=== PATIENT | male | born 1955 | race Caucasian/White ===

== ENCOUNTER 2021-01-19 09:27 | Emergency (ER) | payer MEDICARE ==
--- NOTE | 2021-01-19 10:04 | ED ---
Lower Extremity Injury HPI - General Source: patient, RN notes reviewed Mode of arrival: ambulatory Limitations: no limitations <Jimmie Mcgee - Last Filed: 01/19/21 10:01> - General Source: patient, RN notes reviewed Limitations: no limitations <Jerel Solorio - Last Filed: 01/19/21 10:50> - General Stated Complaint: Rt Hip Pain Time Seen by Provider: 01/19/21 10:00 - History of Present Illness Initial Comments: this is a 65-year-old male presents emergency Department chief complaint of right hip pain. Patient states this started a few days ago. Patient states pain is progressively worsening. Patient states pain is unbearable. Patient denies any trauma. Patient states his chronic pain issues with this is different than anything he's felt before. Patient did see recent chiropractor. Patient states he has pain at rest and with movement. (Jimmie Mcgee) Patient is a pleasant 65-year-old male presenting to the emergency department with concerns for right lower back and leg pain. Onset of symptoms was for 5 days ago. Symptoms have progressively worsened. Patient did go to chiropractor however symptoms have worsened since then. Patient has had history of mild back pain in the past however nothing similar to this. No recent trauma. No fevers. Discomfort does increase significantly with movement. No leg swelling. No redness or fever (Jerel Solorio) - Related Data Home Medications Medication Instructions Recorded Confirmed Aspirin EC [Ecotrin Low Dose] 81 mg PO DAILY 01/19/21 01/19/21 Levothyroxine Sodium 200 mcg PO DAILY 01/19/21 01/19/21 Previous Rx's Medication Instructions Recorded Cyclobenzaprine [Flexeril] 10 mg PO TID PRN #12 tablet 01/19/21 methylPREDNISolone Dose Pack 24 mg PO DAILY #1 tab 01/19/21 [Medrol Dose Pack] Allergies Allergy/AdvReac Type Severity Reaction Status Date / Time cephalexin [From Keflex] Allergy Unknown Verified 01/19/21 10:39 Penicillins Allergy Unknown Verified 01/19/21 10:39 Review of Systems ROS Other: All systems not noted in ROS Statement are negative. <Jimmie Mcgee - Last Filed: 01/19/21 10:01> ROS Other: All systems not noted in ROS Statement are negative. Constitutional: Denies: fever Eyes: Denies: eye pain ENT: Denies: ear pain Respiratory: Denies: cough Cardiovascular: Denies: chest pain Endocrine: Denies: fatigue Gastrointestinal: Denies: abdominal pain Genitourinary: Denies: urgency Musculoskeletal: Reports: as per HPI Skin: Denies: rash Neurological: Denies: weakness <Jerel Solorio - Last Filed: 01/19/21 10:50> ROS Statement: Those systems with pertinent positive or pertinent negative responses have been documented in the HPI. General Exam Limitations: no limitations General appearance: alert, in no apparent distress Head exam: Present: normocephalic Eye exam: Present: normal appearance Neck exam: Present: normal inspection Respiratory exam: Present: normal lung sounds bilaterally Cardiovascular Exam: Present: regular rate, normal rhythm Expanded Peripheral pulses: 2+: Posterior Tibialis (R), Dorsalis Pedis (R) GI/Abdominal exam: Present: soft. Absent: tenderness Extremities exam: Present: normal inspection, full ROM (Mild pain with passive range of motion. Severe discomfort with active range of motion right hip). Absent: tenderness Back exam: Present: tenderness (Severe tenderness right sacroiliac region. No hip tenderness.) Neurological exam: Present: alert. Absent: motor sensory deficit Psychiatric exam: Present: normal affect, normal mood Skin exam: Present: normal color. Absent: rash <Jerel Solorio - Last Filed: 01/19/21 10:50> Course Vital Signs 01/19/21 10:02 Temperature 98.3 F Pulse Rate 66 Respiratory 18 Rate Blood Pressure 169/85 O2 Sat by Pulse 99 Oximetry Medical Decision Making - Radiology Data Radiology results: image reviewed (Right hip and pelvis x-ray shows joint space narrowing, correlate to exclude acetabular femoral impingement. Lumbar spine shows degenerative changes.) <Jerel Solorio - Last Filed: 01/19/21 10:50> - Medical Decision Making Patient updated on results and need for follow-up. Patient clinically is symptoms were consistent with sciatica however is made aware that femoral acetabular impingement is not ruled out and need for follow-up with orthopedics. (Jerel Solorio) Disposition <Jimmie Mcgee - Last Filed: 01/19/21 10:01> Is patient prescribed a controlled substance at d/c from ED?: No Time of Disposition: 10:50 <Jerel Solorio - Last Filed: 10/10/21 10:50> Clinical Impression: Sciatica Disposition: HOME SELF-CARE Instructions (If sedation given, give patient instructions): Sciatica (ED) Additional Instructions: Please do follow-up with primary care physician in the next day or 2 for recheck. Please also follow-up with orthopedics in the next day or 2 for recheck, number given. Return for increased pain, swelling, fever, weakness, loss of control of bowel or bladder, worsening symptoms or other concern. Pres cription has been sent to your pharmacy. Prescriptions: Cyclobenzaprine [Flexeril] 10 mg PO TID PRN #12 tablet PRN Reason: Pain methylPREDNISolone Dose Pack [Medrol Dose Pack] 24 mg PO DAILY #1 tab Referrals: Ibrahima Walters MD [STAFF PHYSICIAN] - 1-2 days Rober Christensen MD [Medical Doctor] - 1-2 days
[2021-01-19 10:05] VITALS: BP 169/85; PULSE 66; RESP 18; TEMP 98.3
--- NOTE | 2021-01-19 10:36 | XR ---
EXAMINATION TYPE: XR Hip RT and AP Pelvis DATE OF EXAM: 01/19/2021 COMPARISON: NONE HISTORY: Right hip pain TECHNIQUE: A single AP view of the pelvis is obtained. Two views of the right hip are obtained. FINDINGS: There is no acute fracture/dislocation evident in the pelvis. The hip and sacroiliac join ts appear symmetric and unremarkable. The overlying soft tissue appears unremarkable. Question some concentric joint space narrowing which is symmetric, correlate to exclude acetabular femoral impingem ent. Two views of right hip show no acute fracture or dislocation. No focal lytic or sclerotic lesion see n in the proximal right femur. The overlying soft tissue is unremarkable. IMPRESSION: Correlate to exclude impingement.
--- NOTE | 2021-01-19 10:37 | XR ---
Lumbar spine HISTORY: Low back pain 3 views lumbar spine Lumbar vertebral bodies show preserved height and alignment. There is mild spinal curvature, mild gra de 1 anterolisthesis grade 1 L4-5. Loss of disc height present L5-S1, L2-3 and L1-2. Sclerosis is pre sent in the posterior elements of the lower lumbar spine. Apical scarring calcification present in th e aortic iliac distribution. IMPRESSION: Degenerative disc disease and facet arthropathy.
[2021-01-19] MEDS ORDERED: KETOROLAC 15 MG/ML 1 ML VIAL IM STA (10:46)
[2021-01-19] MEDS ORDERED: HYDROmorphone 1 MG/ML 1 ML SYRINGE IM STA (10:46)
== END 2021-01-19 11:29 | disposition home or self-care (01) ==
LOC: EC 09:27
DX: M54.41 Lumbago with sciatica, right side (principal); Z79.82 Long term (current) use of aspirin; Z88.0 Allergy status to penicillin; Z88.1 Allergy status to other antibiotic agents; Z79.890 Hormone replacement therapy
CPT/HCPCS: 72100; 73502; 99283; 96372 ×2; J1170; J1885

== ENCOUNTER → 2021-07-03 | Day surgery (SDC) | payer MEDICARE ==
[2021-07-01 15:22] VITALS: BMI 25.7
[~2021-07-03] MED LIST: LACTATED RINGERS 1,000 ML IV SCH; LIDOCAINE 1% (10MG/ML) FOR IV START INTRADERMA PRN; MIDAZOLAM 2 MG/2 ML VIAL IV PRN; PROPOFOL 10 MG/ML 20 ML VIAL IV ONE
[2021-07-03 10:54] VITALS: TEMP 98
[2021-07-03 10:58] LABS: Glucose,Whole Blood 109 mg/dL (75-99)
--- NOTE | 2021-07-03 11:35 | P.GSHP ---
History of Present Illness H&P Date: 07/03/21 Chief Complaint: GI bleed This a 66-year-old male presents today for colonoscopy. Patient has history of intermittent rectal bleeding. Patient resumes that he has hemorrhoids. Patient states he has had a previous perirectal abscess. Past Medical History Past Medical History: CVA/TIA, Pulmonary Embolus (PE), Sleep Apnea/CPAP/BIPAP, Thyroid Disorder Additional Past Medical History / Comment(s): "PreDiabetic, diet controlled/Hypoglycemia." Hashimotos Thyroiditis. 2 strokes 06/02, slight memory problems since, migraines, back and neck pain, severe right and mild left sciatcia, hx PE's in his 20's, varicose veins, no CPAP use, clausterphobia. 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 Ulcerative Colitis. Hiatal Hernia. History of Any Multi-Drug Resistant Organisms: None Reported Past Surgical History: Orthopedic Surgery Additional Past Surgical History / Comment(s): Neck fusion, left cartoid surgery, left arm surgery, left ankle fracture, right shoulder surgery, EGD, colonoscopies. Past Anesthesia/Blood Transfusion Reactions: Previous Problems w/ Anesthesia Additional Past Anesthesia/Blood Transfusion Reaction / Comment(s): "Need large amounts to put me out." "Needs to brought out slowly." Past Psychological History: Anxiety Additional Psychological History / Comment(s): Clauterphobia. "Smita Manic." Smoking Status: Current every day smoker Past Alcohol Use History: None Reported Additional Past Alcohol Use History / Comment(s): Smokes 1/2 ppd, has been smoking since age 7, quit on and off a few times. Past Drug Use History: None Reported - Past Family History Mother Family Medical History: No Reported History Medications and Allergies Home Medications Medication Instructions Recorded Confirmed Type Aspirin EC [Ecotrin Low Dose] 81 mg PO DAILY 01/19/21 07/03/21 History Levothyroxine Sodium 200 mcg PO QAM 01/19/21 07/03/21 History Cyclobenzaprine [Flexeril] 10 mg PO HS 07/01/21 07/03/21 History Diclofenac Sodium 50 mg PO HS 07/01/21 07/03/21 History Allergies Allergy/AdvReac Type Severity Reaction Status Date / Time cephalexin [From Keflex] Allergy Unknown Verified 07/03/21 10:31 latex Allergy Anaphylaxis Verified 07/03/21 10:31 Penicillins Allergy Unknown Verified 07/03/21 10:31 Surgical - Exam Vital Signs Temp Pulse Resp BP Pulse Ox 98.0 F 97 18 163/88 97 07/03/21 10:30 07/03/21 10:30 07/03/21 10:30 07/03/21 10:30 07/03/21 10:30 - General well developed, well nourished, no distress - Eyes PERRL - ENT normal pinna - Neck no masses - Respiratory normal expansion - Cardiovascular Rhythm: regular - Abdomen Abdomen: soft, non tender Results - Labs Abnormal Lab Results - Last 24 Hours (Table) 07/03/21 Range/Units 10:45 POC Glucose (mg/dL) 109 H (75-99) mg/dL Assessment and Plan Assessment: History of GI bleed. We'll perform colonoscopy.
--- NOTE | 2021-07-03 11:49 | P.OP ---
Date of Procedure: 07/03/21 Preoperative Diagnosis: GI bleed Postoperative Diagnosis: Severe internal and external hemorrhoids Procedure(s) Performed: Colonoscopy Anesthesia: MAC Surgeon: Jose Guadalupe Cuello Pathology: none sent Condition: stable Disposition: PACU Description of Procedure: Patient's placed on the endoscopy table in the lateral position. He received IV sedation. Digital rectal exam was performed which revealed internal and external hemorrhoids. The flexible colonoscope was then placed patient anus passed rotator entire colon. The ileocecal valve was visualized. The cecum, ascending and transverse colon appeared normal. The descending and sigmoid colon appeared normal. Scope was brought back the rectum and this was normal. Scope was then withdrawn to anus and there were significant internal hemorrhoids. There is no evidence of any active GI bleed. His presumed patient's previous GI bleed may be due to hemorrhoids.
[2021-07-03 11:54] VITALS: RESP 16
[2021-07-03 12:24] VITALS: BP 164/80; PULSE 87
== END ==
LOC: ORWHC2ENDO 09:29
PROVIDERS: ATTEND Surgery
DX: K92.2 Gastrointestinal hemorrhage, unspecified (principal); K64.8 Other hemorrhoids; Z86.73 Personal history of transient ischemic attack (TIA), and cerebral infarction without residual deficits; G47.30 Sleep apnea, unspecified; Z99.89 Dependence on other enabling machines and devices; Z86.711 Personal history of pulmonary embolism; E07.9 Disorder of thyroid, unspecified; R73.03 Prediabetes; E06.3 Autoimmune thyroiditis; G43.909 Migraine, unspecified, not intractable, without status migrainosus; F41.8 Other specified anxiety disorders; F17.210 Nicotine dependence, cigarettes, uncomplicated; Z79.82 Long term (current) use of aspirin; Z88.0 Allergy status to penicillin; Z88.1 Allergy status to other antibiotic agents; Z91.040 Latex allergy status
CPT/HCPCS: 45378; J2704

== ENCOUNTER 2021-10-26 05:01 | Inpatient (IN) | payer MEDICARE, SELFPAY ==
[2021-10-26] MEDS ORDERED: METOPROLOL TARTRATE 5 MG/5 ML VIAL IVP STA (05:41)
--- NOTE | 2021-10-26 05:44 | XR ---
EXAMINATION TYPE: XR chest 2V DATE OF EXAM: 10/26/2021 COMPARISON: NONE HISTORY: Chest pain TECHNIQUE: 2 views FINDINGS: Heart is borderline enlarged. There is some mild pulmonary interstitial edema. No definite pleural effusion. There are no hilar masses. IMPRESSION: There is some pulmonary interstitial edema that could be acute heart failure.
[2021-10-26 05:57] LABS: Basophils % (A) 0 %; Eosinophils # (A) 0.2 k/uL (0-0.7); Eosinophils % (A) 2 %; HCT 47.7 % (39.0-53.0); HGB 15.5 gm/dL (13.0-17.5); Lymphocytes # (A) 2.1 k/uL (1.0-4.8); Lymphocytes % (A) 18 %; MCH 30.2 pg (25.0-35.0); MCHC 32.6 g/dL (31.0-37.0); MCV 92.5 fL (80.0-100.0); Monocytes # (A) 0.6 k/uL (0-1.0); Monocytes % (A) 5 %; Neutrophils # (A) 8.3 k/uL (1.3-7.7); Neutrophils % (A) 73 %; Platelet Count 306 k/uL (150-450); RBC 5.15 m/uL (4.30-5.90); RDW 14.2 % (11.5-15.5); WBC 11.3 k/uL (3.8-10.6)
[2021-10-26 06:05] LABS: INR 0.9 (<1.2); Partial Thromboplastin Time 23.4 sec (22.0-30.0); Prothrombin Time 10.2 sec (9.0-12.0)
[2021-10-26 06:10] LABS: Albumin 4.1 g/dL (3.5-5.0); Calcium 9.8 mg/dL (8.4-10.2); Potassium 4.5 mmol/L (3.5-5.1); Total Bilirubin 0.4 mg/dL (0.2-1.3)
[2021-10-26] MEDS ORDERED: ASPIRIN 81 MG PO STA (06:43)
--- NOTE | 2021-10-26 06:51 | ED ---
Chest Pain HPI - General Chief Complaint: Chest Pain Stated Complaint: Difficulty Breathing, Cough Time Seen by Provider: 10/26/21 05:41 Source: patient, RN notes reviewed, old records reviewed Mode of arrival: ambulatory Limitations: no limitations - History of Present Illness Complaint: chest pain Onset: during rest, during exertion Pain Location: left chest Pain Radiation: LUE Severity: moderate Severity scale (1-10): 7 Quality: sharp Consistency: constant Improves With: nothing Worsens With: nothing Anginal Symptoms: dyspnea Other Symptoms: palpitations Treatments Prior to Arrival: none - Related Data Home Medications Medication Instructions Recorded Confirmed Aspirin EC [Ecotrin Low Dose] 81 mg PO DAILY 01/19/21 07/03/21 Levothyroxine Sodium 200 mcg PO QAM 01/19/21 07/03/21 Cyclobenzaprine [Flexeril] 10 mg PO HS 07/01/21 07/03/21 Diclofenac Sodium 50 mg PO HS 07/01/21 07/03/21 Allergies Allergy/AdvReac Type Severity Reaction Status Date / Time cephalexin [From Keflex] Allergy Unknown Verified 10/26/21 05:07 latex Allergy Anaphylaxis Verified 10/26/21 05:07 Penicillins Allergy Unknown Verified 10/26/21 05:07 Review of Systems ROS Statement: Those systems with pertinent positive or pertinent negative responses have been documented in the HPI. ROS Other: All systems not noted in ROS Statement are negative. EKG Findings - EKG Comments: EKG Findings:: EKG is sinus rhythm 85 MS 179 QRS 134 QTc 408 Past Medical History Past Medical History: CVA/TIA, Pulmonary Embolus (PE), Sleep Apnea/CPAP/BIPAP, Thyroid Disorder Additional Past Medical History / Comment(s): "PreDiabetic, diet controlled/Hypoglycemia." Hashimotos Thyroiditis. 2 strokes 06/02, slight memory problems since, migraines, back and neck pain, severe right and mild left sciatcia, hx PE's in his 20's, varicose veins, no CPAP use, clausterphobia. 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 Ulcerative Colitis. Hiatal Hernia. History of Any Multi-Drug Resistant Organisms: None Reported Past Surgical History: Orthopedic Surgery Additional Past Surgical History / Comment(s): Neck fusion, left cartoid surgery, left arm surgery, left ankle fracture, right shoulder surgery, EGD, colonoscopies. Past Anesthesia/Blood Transfusion Reactions: Previous Problems w/ Anesthesia Additional Past Anesthesia/Blood Transfusion Reaction / Comment(s): "Need large amounts to put me out." "Needs to brought out slowly." Past Psychological History: Anxiety Smoking Status: Current every day smoker Past Alcohol Use History: None Reported Past Drug Use History: None Reported - Past Family History Mother Family Medical History: No Reported History General Exam Limitations: no limitations General appearance: alert, in no apparent distress, anxious Head exam: Present: atraumatic, normocephalic, normal inspection Eye exam: Present: normal appearance, PERRL, EOMI. Absent: scleral icterus, conjunctival injection, periorbital swelling ENT exam: Present: normal exam, mucous membranes moist Neck exam: Present: normal inspection. Absent: tenderness, meningismus, lymphadenopathy Respiratory exam: Present: normal lung sounds bilaterally. Absent: respiratory distress, wheezes, rales, rhonchi, stridor Cardiovascular Exam: Present: normal rhythm, tachycardia, normal heart sounds. Absent: systolic murmur, diastolic murmur, rubs, gallop, clicks GI/Abdominal exam: Present: soft, normal bowel sounds. Absent: distended, tenderness, guarding, rebound, rigid Extremities exam: Present: normal inspection, full ROM, normal capillary refill. Absent: tenderness, pedal edema, joint swelling, calf tenderness Back exam: Present: normal inspection Neurological exam: Present: alert, oriented X3, CN II-XII intact Psychiatric exam: Present: normal affect, normal mood Skin exam: Present: warm, dry, intact, normal color. Absent: rash Course Vital Signs 10/26/21 10/26/21 05:03 05:54 Temperature 98.1 F Pulse Rate 121 H 99 Respiratory 24 19 Rate Blood Pressure 149/84 154/85 O2 Sat by Pulse 98 98 Oximetry Disposition Clinical Impression: Chest pain, Acute non-ST elevation myocardial infarction (NSTEMI) Disposition: ADMITTED IP TO THIS HOSP Condition: Fair Is patient prescribed a controlled substance at d/c from ED?: No Referrals: Jimmie De La Paz DO [Primary Care Provider] - 1-2 days
[2021-10-26] MEDS: HEPARIN SOD,PORK IN 0.45% NACL 25,000 UNIT in 0.45% NACL 1 250ML.BAG IV SCH (07:35)
[2021-10-26] MEDS: PRAVASTATIN SODIUM 40 MG TAB PO SCH (09:02)
[2021-10-26] MEDS: FUROSEMIDE 10 MG/ML 4 ML VIAL IV SCH ×2 (09:02→21:21)
[2021-10-26] MEDS: carvediloL 3.125 MG TAB PO SCH ×2 (09:02→17:42)
[2021-10-26] MEDS: LEVOTHYROXINE 100 MCG TAB PO SCH (09:02)
--- NOTE | 2021-10-26 11:08 | P.HPIM ---
History of Present Illness H&P Date: 10/26/21 History of Presenting Illness: Patient is a very pleasant 66-year-old male with a past medical history of vascular disease status post carotid endarterectomy in which patient reports left internal carotid was 99% occluded prior to undergoing endarterectomy and takes daily aspirin, hypothyroidism, nicotine dependence smokes approximately a half a pack of cigarettes daily, chronic back pain, and ulcerative colitis. Patient presented to the emergency department with a chief complaint of orthopnea and paroxysmal nocturnal dyspnea. Patient reports that he has never truly been able to lie flat on his back, but reports over the past 3 weeks he is unable to breathe when lying down in any position and wakes up gasping for air. Patient reports secondary to this he has been unable to sleep because every time he attempts to fall asleep he wakes up gasping for air and has to sit up on the edge of the bed to catch his breath. He denies having any headache, lightheadedness, dizziness, chest pain or pressure, palpitations, cough or congestion, or experiencing any numbness/tingling/weakness/swelling in his extremities. Patient does report that he has noticed increased shortness of breath with exertion, but states this could also be resulting from increased depression and hopelessness he has been experiencing as he recently lost his of 43 years to cancer on 09/17/21. 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 Patient reports he has made multiple attempts to come to the hospital over the past 3 weeks but talks himself out of it age and every time. Upon arrival to the emergency department today, patient underwent full evaluation. Initial EKG showing sinus tachycardia with left ventricular hypertrophy and T-wave inversion in lateral leads I, aVL, V5, and V6 with repeat EKG revealing sinus rhythm at 99 bpm with again left ventricular hypertrophy and T-wave inversion in lateral leads 1, aVL, V5, and V6. No previous EKGs available for comparison. Troponin elevated at 0.078 and proBNP 3460. Chest x- ray revealing mild pulmonary interstitial edema suggestive of acute heart failure. Patient given aspirin 325 mg by mouth 1 dose and started on heparin infusion per [facility] protocol. He was admitted under our services with consultation to cardiology. Review of systems: Pertinent positives and negatives as discussed in HPI, a complete review of systems was performed and all other systems are negative. Physical exam: Vital signs reviewed and stable. General: Nontoxic, no distress and appears stated age. Derm: Skin warm and dry, normal coloration for ethnicity. Head: Atraumatic, normocephalic and symmetric. Eyes: EOMs intact, no lid lag, and anicteric sclera Mouth: no lip lesions, mucus membranes moist Cardiovascular: regular rate and rhythm with normal S1S2, no murmur, positive posterior tibial pulses bilaterally, and cap refill < 2 seconds. Lungs: Respirations even, regular, and unlabored on room air. Lungs diminished, no rhonchi, no rales, no wheezing, and no accessory muscle usage. Abdominal: soft, nontender to palpation, no guarding, no appreciable orga nomegaly Ext: ROM intact. No gross muscle atrophy, no edema, no contractures Neuro: Speech clear, face symmetrical and CN II-XII grossly intact with no noted focal neuro deficits Psych: Alert and oriented to person, place, time, and situation. Appropriate and pleasant affect. Assessment and Plan of Care: Elevated troponin, NSTEMI Acute heart failure of unknown type pending echocardiogram -Cardiology consulted -Continue heparin infusion per ACS protocol -Telemetry monitoring -Initial troponin 0.078, we will continue to trend troponins -ProBNP 3460, chest x-ray concerning for acute heart failure -Daily weights -Close monitoring of I's and O's -Cardiac diet, nothing by mouth at midnight -Lasix -Aspirin, Coreg, and pravastatin -Lipid profile with a.m. labs. -Continued close monitoring of electrolytes while diuresing. -Echocardiogram to be completed. Grief secondary to recent loss of loved one -Case management consult placed for assistance in setting up outpatient grief counselor/therapist upon discharge. The patient is admitted with an anticipated greater than 2 midnight stay for evaluation of elevated troponins. CODE STATUS: Full code DVT prophylaxis: Heparin infusion Discussed with: Patient, cardiology, and RN Anticipated discharge date: Clinical course to determine Anticipated discharge place: Home A total of 43 minutes was spent on the care of this complex patient more than 50% of the time was spent in counseling and care coordination. Patient seen by nurse practitioner independently, I agree with assessment and plan as documented above Marcell Perez MD [facility] Past Medical History Past Medical History: CVA/TIA, Pulmonary Embolus (PE), Sleep Apnea/CPAP/BIPAP, Thyroid Disorder Additional Past Medical History / Comment(s): "PreDiabetic, diet controlled/Hypoglycemia." Hashimotos Thyroiditis. 2 strokes 06/02, slight memory problems since, migraines, back and neck pain, severe right and mild left sciatcia, hx PE's in his 20's, varicose veins, no CPAP use, clausterphobia. 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 Ulcerative Colitis. Hiatal Hernia. History of Any Multi-Drug Resistant Organisms: None Reported Past Surgical History: Orthopedic Surgery Additional Past Surgical History / Comment(s): Neck fusion, left cartoid surgery, left arm surgery, left ankle fracture, right shoulder surgery, EGD, colonoscopies. Past Anesthesia/Blood Transfusion Reactions: Previous Problems w/ Anesthesia Additional Past Anesthesia/Blood Transfusion Reaction / Comment(s): "Need large amounts to put me out." "Needs to brought out slowly." Past Psychological History: Anxiety Smoking Status: Current every day smoker Past Alcohol Use History: None Reported Past Drug Use History: None Reported - Past Family History Mother Family Medical History: No Reported History Medications and Allergies Home Medications Medication Instructions Recorded Confirmed Type Aspirin EC [Ecotrin Low Dose] 81 mg PO DAILY 01/19/21 10/26/21 History Levothyroxine Sodium 200 mcg PO DAILY 01/19/21 10/26/21 History Cyclobenzaprine [Flexeril] 10 mg PO HS PRN 07/01/21 10/26/21 History Diclofenac Sodium 50 mg PO HS PRN 07/01/21 10/26/21 History Loratadine-Pseudoeph 5-120 mg 1 tab PO BID 10/26/21 10/26/21 History [Claritin-D 12 Hour] Allergies Allergy/AdvReac Type Severity Reaction Status Date / Time cephalexin [From Keflex] Allergy Unknown Verified 10/26/21 12:56 latex Allergy Anaphylaxis Verified 10/26/21 12:56 Penicillins Allergy Unknown Verified 10/26/21 12:56 Childhood Physical Exam Vitals: Vital Signs Temp Pulse Resp BP Pulse Ox 10/26/21 05:54 99 19 154/85 98 10/26/21 05:03 98.1 F 121 H 24 149/84 98 Intake and Output 10/25/21 10/26/21 10/26/21 22:59 06:59 14:59 Other: Weight 80.286 kg Results CBC & Chem 7: 10/26/21 05:27 10/26/21 05:27 Labs: Abnormal Lab Results - Last 24 Hours (Table) 10/26/21 10/26/21 10/26/21 Range/Units 05:27 05:27 05:27 WBC 11.3 H (3.8-10.6) k/uL Neutrophils # 8.3 H (1.3-7.7) k/uL Creatinine 1.42 H (0.66-1.25) mg/dL Glucose 127 H (74-99) mg/dL Troponin I 0.078 H* (0.000-0.034) ng/mL
[2021-10-26] MEDS: guaiFENesin 600 MG TABLET.ER PO SCH ×2 (11:37→21:21)
[2021-10-26] MEDS: NICOTINE 14MG/24HR PATCH TRANSDERM SCH (11:37)
--- NOTE | 2021-10-26 12:21 | P.CRDCN ---
History of Present Illness History of present illness: This is Dr. Archuleta dictating a consult on this patient The patient was interviewed and examined IMPRESSION / ASSESSMENT: Patient presenting with recurrent orthopnea and PND History of carotid artery surgery Not on any cardiac medications other than aspirin Left bundle branch block on twelve-lead EKG Borderline troponins PLAN: IV heparin, pravastatin 40 mg by mouth daily, carvedilol 3.125 mg twice daily Continue baby aspirin IV heparin Lasix 40 mg every 12 Daily BMP 2-D echo and Doppler study Further plans after reviewing 2-D echo I discussed the very strong possibility of proceeding with a cardiac catheterization electively as an inpatient The patient wasn't too enthusiastic about this proposition and said he didn't want it I explained the importance of a detailed full workup given his symptoms I also emphasized the importance of statins HPI Patient presented to the hospital with at least 3 weeks of orthopnea and PND He says that he can't lie flat in bed and is unable to sleep because he can't lie flat in bed He gets up repeatedly because he is very short of breath and has to sit up at the edge of the bed He actually denies chest discomfort Impression basal shortness of breath with very average activities This is been going on for some time but orthopnea his more recent He has ulcerative colitis and feels that when he stopped smoking cigarettes after his vascular surgery on the carotids, his ulcerative colitis became worse He claims that smoking 10 cigarettes a day prevents him from experiencing ulcerative colitis episodes/exacerbations He also claims that he smokes because nicotine cigarettes half some health benefits for human body. This is a direct quote from the patient He had vascular surgery likely carotid endarterectomy in [place]. He was referred to [place] by Dr. Ya Following that he did not take atorvastatin on any statins because he claims some of his friends because of that medication ROS: No fever chills or rigors, no cough, phlegm or expectoration, no nausea, vomiting or diarrhea, no hematuria, dysuria, no musculoskeletal complaints, no strokes or seizures, no skin lesions. EXAMINATION: Blood pressure 149/84 mmHg, 154/85 mmHg pulse rate in the 80s and 90s Heart sounds S1 and S2 are soft soft systolic murmur Breath sounds are reduced bilaterally, faint crackles at the bases Hepatojugular reflux No lower extremity edema REVIEW OF LABS, ECG & MEDICAL DATA EKG shows IVCD left bundle branch block morphology with QRS fractionation T-wave inversions in the high lateral leads No significant changes in the ST segments. He had 4 EKG is performed by the ER physician Troponins are borderline abnormal Electrolytes and normal Crit and 1.4 to Glucose elevated NT proBNP 3460 White count minimally elevated hemoglobin normal Past Medical History Past Medical History: CVA/TIA, GERD/Reflux, Pulmonary Embolus (PE), Sleep Apnea/CPAP/BIPAP, Thyroid Disorder Additional Past Medical History / Comment(s): "PreDiabetic, diet controlled/Hypoglycemia." Hashimotos Thyroiditis. 2 strokes 08/30, slight memory problems since, migraines, back and neck pain, severe right and mild left sciatcia, hx PE's in his 20's, varicose veins, no CPAP use, clausterphobia. 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 Ulcerative Colitis. Hiatal Hernia. sinal neuropathy History of Any Multi-Drug Resistant Organisms: None Reported Past Surgical History: Orthopedic Surgery Additional Past Surgical History / Comment(s): Neck fusion, left cartoid surgery, left arm surgery, left ankle fracture, right shoulder surgery, EGD, colonoscopies. Past Anesthesia/Blood Transfusion Reactions: Previous Problems w/ Anesthesia Additional Past Anesthesia/Blood Transfusion Reaction / Comment(s): "Need large amounts to put me out." "Needs to brought out slowly." Smoking Status: Current every day smoker - Past Family History Mother Family Medical History: No Reported History Medications and Allergies Home Medications Medication Instructions Recorded Confirmed Type Aspirin EC [Ecotrin Low Dose] 81 mg PO DAILY 01/19/21 10/26/21 History Levothyroxine Sodium 200 mcg PO QAM 01/19/21 10/26/21 History Cyclobenzaprine [Flexeril] 10 mg PO HS PRN 07/01/21 10/26/21 History Diclofenac Sodium 50 mg PO HS PRN 07/01/21 10/26/21 History Loratadine-Pseudoeph 5-120 mg 1 tab PO Q12HR 10/26/21 10/26/21 History [Claritin-D 12 Hour] Allergies Allergy/AdvReac Type Severity Reaction Status Date / Time cephalexin [From Keflex] Allergy Unknown Verified 10/26/21 05:07 latex Allergy Anaphylaxis Verified 10/26/21 05:07 Penicillins Allergy Unknown Verified 10/26/21 05:07 Physical Exam Vitals: Vital Signs Temp Pulse Pulse Resp BP BP Pulse Ox 10/26/21 11:15 98.4 F 74 17 106/66 98 10/26/21 11:07 82 16 140/72 99 10/26/21 05:54 99 19 154/85 98 10/26/21 05:03 98.1 F 121 H 24 149/84 98 Intake and Output 10/25/21 10/26/21 10/26/21 22:59 06:59 14:59 Other: Weight 80.286 kg 80.286 kg Results 10/26/21 05:27 10/26/21 05:27 Cardiac Enzymes 10/26/21 10/26/21 10/26/21 Range/Units 05:27 05:27 07:44 AST 34 (17-59) U/L Troponin I 0.078 H* 0.127 H* (0.000-0.034) ng/mL Coagulation 10/26/21 Range/Units 05:27 PT 10.2 (9.0-12.0) sec APTT 23.4 (22.0-30.0) sec CBC 10/26/21 Range/Units 05:27 WBC 11.3 H (3.8-10.6) k/uL RBC 5.15 (4.30-5.90) m/uL Hgb 15.5 (13.0-17.5) gm/dL Hct 47.7 (39.0-53.0) % Plt Count 306 (150-450) k/uL Comprehensive Metabolic Panel 10/26/21 Range/Units 05:27 Sodium 137 (137-145) mmol/L Potassium 4.5 (3.5-5.1) mmol/L Chloride 106 (98-107) mmol/L Carbon Dioxide 24 (22-30) mmol/L BUN 14 (9-20) mg/dL Creatinine 1.42 H (0.66-1.25) mg/dL Glucose 127 H (74-99) mg/dL Calcium 9.8 (8.4-10.2) mg/dL AST 34 (17-59) U/L ALT 32 (4-49) U/L Alkaline Phosphatase 102 (38-126) U/L Total Protein 7.0 (6.3-8.2) g/dL Albumin 4.1 (3.5-5.0) g/dL Current Medications Generic Name Dose Route Start Last Admin Trade Name Markell PRN Reason Stop Dose Admin Aspirin 325 mg 10/27/21 09:00 Aspirin 325 Mg Tab PO DAILY [facility] Carvedilol 3.125 mg 10/26/21 09:00 10/26/21 09:02 Carvedilol 3.125 Mg Tab PO 3.125 mg BID-W/MEALS [facility] Administration Cyclobenzaprine HCl 10 mg 10/26/21 08:20 Cyclobenzaprine 10 Mg Tab PO HS PRN Muscle Pain Furosemide 40 mg 10/26/21 09:00 10/26/21 09:02 Furosemide 10 Mg/Ml 4 Ml Vial IV 40 mg Q12HR [facility] Administration Guaifenesin 600 mg 10/26/21 11:15 10/26/21 11:37 Guaifenesin 600 Mg Tablet.Er PO 600 mg Q12HR [facility] Administration Heparin Sodium/Sodium Chloride 250 mls @ 9.634 mls/hr 10/26/21 06:45 10/26/21 07:35 25,000 unit/ Sodium Chloride IV 12 units/kg/hr .Q24H CAN 9.634 mls/hr Administration Protocol 12 UNITS/KG/HR Levothyroxine Sodium 200 mcg 10/26/21 09:00 10/26/21 09:02 Levothyroxine 100 Mcg Tab PO 200 mcg QAM@0630 [facility] Administration Morphine Sulfate 4 mg 10/26/21 06:43 Morphine Sulfate 4 Mg/Ml Syringe IV Q4HR PRN Chest Pain Nicotine 1 patch 10/26/21 11:30 10/26/21 11:37 Nicotine 14mg/24hr Patch TRANSDERM 1 patch DAILY [facility] Administration Nitroglycerin 0.4 mg 10/26/21 06:43 Nitroglycerin Sl Tabs 0.4 Mg Tab SUBLINGUAL Q5M PRN Chest Pain Pravastatin Sodium 40 mg 10/26/21 09:00 10/26/21 09:02 Pravastatin Sodium 40 Mg Tab PO 40 mg DAILY [facility] Administration Intake and Output 10/25/21 10/26/21 10/26/21 22:59 06:59 14:59 Other: Weight 80.286 kg 80.286 kg Patient Weight 10/27/21 06:59 Weight 80.286 kg 10/26/21 05:27 10/26/21 05:27
[2021-10-26] MEDS ORDERED: ALPRAZolam 0.5 MG TAB PO PRN (15:38)
[2021-10-26] MEDS: MELATONIN 3 MG TABLET PO SCH (21:21)
[2021-10-26] MEDS: LORazepam 1 MG TAB PO PRN (21:21)
[2021-10-26] MEDS: CYCLOBENZAPRINE 10 MG TAB PO PRN (21:24)
[2021-10-26] MEDS ORDERED: HYDROCORTISONE 1% CREAM 30 GM TUBE TOPICAL PRN (21:37)
[2021-10-27] MEDS ORDERED: HEPARIN SODIUM 1,000 UN/ML (10ML VL) IV PRN (00:29)
[2021-10-27] MEDS: HEPARIN SOD,PORK IN 0.45% NACL 25,000 UNIT in 0.45% NACL 1 250ML.BAG IV SCH (06:07)
[2021-10-27] MEDS: LEVOTHYROXINE 100 MCG TAB PO SCH (06:38)
[2021-10-27] MEDS: PRAVASTATIN SODIUM 40 MG TAB PO SCH (07:51)
[2021-10-27] MEDS: NICOTINE 14MG/24HR PATCH TRANSDERM SCH (07:51)
[2021-10-27] MEDS: guaiFENesin 600 MG TABLET.ER PO SCH ×2 (07:51→20:33)
[2021-10-27] MEDS: FUROSEMIDE 10 MG/ML 4 ML VIAL IV SCH (07:51)
[2021-10-27] MEDS: carvediloL 3.125 MG TAB PO SCH ×2 (07:51→16:54)
[2021-10-27 07:57] LABS: HCT 44.9 % (39.0-53.0); HGB 14.2 gm/dL (13.0-17.5); MCHC 31.7 g/dL (31.0-37.0); MCV 91.5 fL (80.0-100.0); Mean Platelet Volume 7.4; Platelet Count 281 k/uL (150-450); RBC 4.91 m/uL (4.30-5.90); RDW 13.6 % (11.5-15.5); WBC 9.1 k/uL (3.8-10.6)
[2021-10-27 08:26] LABS: ALT 25 U/L (4-49); AST 25 U/L (17-59); African American GFR (CKD) 56 (>60 ml/min/1.73 sqM); Albumin 3.7 g/dL (3.5-5.0); Alkaline Phosphatase 91 U/L (38-126); Anion Gap 7 mmol/L; Blood Urea Nitrogen 14 mg/dL (9-20); Calcium 8.8 mg/dL (8.4-10.2); Carbon Dioxide 23 mmol/L (22-30); Chloride 109 mmol/L (98-107); Glucose 118 mg/dL (74-99); Magnesium 1.9 mg/dL (1.6-2.3); Non-African American GFR(CKD) 49 (>60 ml/min/1.73 sqM); Potassium 4.2 mmol/L (3.5-5.1); Sodium 139 mmol/L (137-145); Total Bilirubin 0.8 mg/dL (0.2-1.3); Total Protein 6.5 g/dL (6.3-8.2)
[2021-10-27] MEDS ORDERED: OXYMETAZOLINE 0.05% NASL SPRAY 1 SPRAY BOTTLE NASAL SCH (09:00)
[2021-10-27] MEDS ORDERED: ASPIRIN 325 MG TAB PO SCH (09:00)
[2021-10-27] MEDS ORDERED: NITROGLYCERIN SL TABS 0.4 MG TAB SUBLINGUAL PRN (09:14)
[2021-10-27] MEDS ORDERED: ALPRAZolam 0.5 MG TAB PO PRN (09:14)
[2021-10-27] MEDS ORDERED: ALPRAZolam 0.25 MG TAB PO PRN (09:14)
--- NOTE | 2021-10-27 10:31 | CA ---
Transthoracic Echo Report Name: Chuck Torres Age: 66 Gender: M : 1955 Exam Date: 10/27/2021 08:49 Exam Location: [place] [facility] Ht (in): 72 Wt (lb): 180 Ordering Physician: Sunday Rogers Attending/Referring Phys: Topper Press Operator Automatic Berna Fontenot RDCS Procedure CPT: Indications: Assess structure and function Cardiac Hx: Technical Quality: Good Contrast 1: Total Dose (mL): Contrast 2: Total Dose (mL): MEASUREMENTS (Male / Female) Normal Values 2D ECHO LV Diastolic Diameter PLAX 7.3 cm 4.2 - 5.9 / 3.9 - 5.3 cm LV Systolic Diameter PLAX 6.1 cm IVS Diastolic Thickness 1.1 cm 0.6 - 1.0 / 0.6 - 0.9 cm LVPW Diastolic Thickness 1.3 cm 0.6 - 1.0 / 0.6 - 0.9 cm LV Relative Wall Thickness 0.3 RV Internal Dim ED PLAX 3.5 cm LA Systolic Diameter LX 3.5 cm 3.0 - 4.0 / 2.7 - 3.8 cm LA Volume 57.4 cm??? 18 - 58 / 22 - 52 cm??? M-MODE Aortic Root Diameter MM 3.1 cm MV E Point Septal Separation 3.2 cm AV Cusp Separation MM 2.0 cm DOPPLER AV Peak Velocity 113.3 cm/s AV Peak Gradient 5.1 mmHg MV Area PHT 5.6 cm??? Mitral E Point Velocity 83.3 cm/s Mitral A Point Velocity 103.6 cm/s Mitral E to A Ratio 0.8 MV Deceleration Time 134.8 ms MV E' Velocity 3.2 cm/s Mitral E to MV E' Ratio 26.1 TR Peak Velocity 288.5 cm/s TR Peak Gradient 33.3 mmHg Right Ventricular Systolic Press 38.3 mmHg FINDINGS Left Ventricle Mildly increased septal wall thickness. Severely increased left ventricular diastolic diameter. Left ventricular ejection fraction is estimated at 20-25 %. Global left ventricular hypokinesis. Right Ventricle Mild right ventricular dilatation. Mild pulmonary hypertension. Right Atrium Normal right atrial size. Left Atrium Normal left atrial size. No evidence for an atrial septal defect. Mitral Valve Mild mitral regurgitation. No evidence for mitral valve prolapse. Aortic Valve Trileaflet aortic valve. No aortic valve stenosis or regurgitation. Tricuspid Valve Mild tricuspid regurgitation. Pulmonic Valve Structurally normal pulmonic valve. Pericardium Normal pericardium. No pericardial effusion. Aorta Normal size aortic root and proximal ascending aorta. CONCLUSIONS Left ventricular EF 20-25% Global left ventricular hypokinesis Mild mitral regurgitation Mild tricuspid regurgitation RVSP 38 Previewed by: Dr. Navdeep Rodríguez DO (Electronically Signed) Final Date: 27 October 2021 10:30
--- NOTE | 2021-10-27 13:21 | P.PN ---
Subjective Progress Note Date: 10/27/21 HISTORY OF PRESENT ILLNESS: Patient presented to the hospital with at least 3 weeks of orthopnea and PND He says that he can't lie flat in bed and is unable to sleep because he can't lie flat in bed He gets up repeatedly because he is very short of breath and has to sit up at the edge of the bed He actually denies chest discomfort Impression basal shortness of breath with very average activities This is been going on for some time but orthopnea his more recent He has ulcerative colitis and feels that when he stopped smoking cigarettes after his vascular surgery on the carotids, his ulcerative colitis became worse He claims that smoking 10 cigarettes a day prevents him from experiencing ulcerative colitis episodes/exacerbations He also claims that he smokes because nicotine cigarettes half some health benefits for human body. This is a direct quote from the patient He had vascular surgery likely carotid endarterectomy in [place]. He was referred to [place] by Dr. Ya Following that he did not take atorvastatin on any statins because he claims some of his friends because of that medication 10/27/2021 Patient examined this morning at the bedside. Patient reports he is feeling better this morning. He denies chest pain or pressure. Denies SOB. Ec hocardiogram completed revealing ejection fraction 20-25%, left global hypokinesis, mild mitral regurgitation, and mild tricuspid regurgitation PHYSICAL EXAM: VITAL SIGNS: Reviewed. GENERAL: Well-developed in no acute distress. NECK: Supple. No JVD or thyromegaly LUNGS: Respirations even and unlabored. Lungs essentially clear to auscultation bilaterally. HEART: Regular rate and rhythm. S1 and S2 heard. EXTREMITIES: Normal range of motion. No clubbing or cyanosis. Peripheral pulses intact. No lower extremity edema ASSESSMENT: Recurrent orthopnea and PND Acute heart failure with reduced EF New onset cardiomyopathy, EF 20-25% History of carotid artery surgery Nicotine dependence PLAN: Continue current cardiac medications Discontinue IV lasix. Begin oral lasix 40mg BID. Decrease aspirin to 81mg daily Continue IV heparin Patient refusing lipitor. Currently on pravachol. Will add MIKEY/ARB when BP able to tolerate Patient to undergo cardiac cath tomorrow with Dr. Rodríguez Further recommendations pending patient course Nurse practitioner note has been reviewed by physician. Signing provider agrees with the documented findings, assessment, and plan of care. Objective - Vital Signs Vital signs: Vital Signs Temp 98.1 F 10/27/21 07:46 Pulse 85 10/27/21 13:10 Resp 18 10/27/21 11:06 BP 103/71 10/27/21 11:06 Pulse Ox 96 10/27/21 11:06 FiO2 Intake & Output 10/26/21 10/27/21 10/27/21 18:59 06:59 18:59 Intake Total 342.281 147.719 Balance 342.281 147.719 Weight 80.286 kg 81.8 kg 81.8 kg Intake: Intake, IV Titration 102.281 147.719 Amount Heparin Sod,Pork in 0.45% 102.281 147.719 NaCl 25,000 unit In 0.45 % NaCl 1 250ml.bag @ 12 UNITS/KG/HR 9.634 mls/hr IV .Q24H PENDING SALE TO [facility] Rx#: [id number] Oral 240 Other: Voiding Method Toilet Toilet Toilet # Voids 1 5 - Labs CBC & Chem 7: 10/27/21 07:38 10/27/21 07:38 Labs: Abnormal Lab Results - Last 24 Hours (Table) 10/26/21 10/27/21 10/27/21 Range/Units 23:41 07:38 07:38 APTT 36.4 H 48.9 H (22.0-30.0) sec Chloride 109 H (98-107) mmol/L Creatinine 1.46 H (0.66-1.25) mg/dL Glucose 118 H (74-99) mg/dL
[2021-10-27] MEDS: NITROGLYCERIN SL TABS 0.4 MG TAB SUBLINGUAL PRN ×3 (14:26→14:38)
[2021-10-27 15:05] LABS: Chol/HDL Ratio 5.11 Ratio; LDL Cholesterol,Calculated 117.2 mg/dL (0.0-131.0); VLDL Calculation 19.54 mg/dL (5.00-40.00)
--- NOTE | 2021-10-27 15:15 | P.PN ---
Subjective Progress Note Date: 10/27/21 Hospital course: Patient is a very pleasant 66-year-old male with a past medical history of vascular disease status post carotid endarterectomy in which patient reports left internal carotid was 99% occluded prior to undergoing endarterectomy and takes daily aspirin, hypothyroidism, nicotine dependence smokes approximately a half a pack of cigarettes daily, chronic back pain, and ulcerative colitis. Patient presented to the emergency department with a chief complaint of orthopnea and paroxysmal nocturnal dyspnea. Patient reports that he has never truly been able to lie flat on his back, but reports over the past 3 weeks he is unable to breathe when lying down in any position and wakes up gasping for air. Patient reports secondary to this he has been unable to sleep because every time he attempts to fall asleep he wakes up gasping for air and has to sit up on the edge of the bed to catch his breath. He denies having any headache, lightheadedness, dizziness, chest pain or pressure, palpitations, cough or congestion, or experiencing any numbness/tingling/weakness/swelling in his extremities. Patient does report that he has noticed increased shortness of breath with exertion, but states this could also be resulting from increased depression and hopelessness he has been experiencing as he recently lost his of 43 years to cancer on 09/17/21. 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 Patient reports he has made multiple attempts to come to the hospital over the past 3 weeks but talks himself out of it age and every time. Upon arrival to the emergency department today, patient underwent full evaluation. Initial EKG showing sinus tachycardia with left ventricular hypertrophy and T-wave inversion in lateral leads I, aVL, V5, and V6 with repeat EKG revealing sinus rhythm at 99 bpm with again left ventricular hypertrophy and T-wave inversion in lateral leads 1, aVL, V5, and V6. No previous EKGs available for comparison. Troponin elevated at 0.078 and proBNP 3460. Chest x- ray revealing mild pulmonary interstitial edema suggestive of acute heart failur e. Patient given aspirin 325 mg by mouth 1 dose and started on heparin infusion per [facility] protocol. He was admitted under our services with consultation to cardiology. Troponins trended 0.078, 0.127, and 0.548. Echocardiogram revealing severely impaired EF of 20-25% with global left ventricular hy pokinesis and mild mitral and tricuspid regurgitation. Cardiology planning to take patient for cardiac catheterization tomorrow morning. Physical exam: Patient seen and fully evaluated at bedside this morning. He reports feeling slightly better this morning and reports that he was able to sleep for a total of 3 hours uninterrupted last night. He reports that he does feel better overall with his breathing and currently denies experiencing any chest pa in/discomfort. Patient was updated on echocardiogram results by cardiology and was very tearful. Patient states that he feels this is God's way of getting him back with his , he states he would never harm himself but cannot wait to get to see his again one day. Patient remains on IV heparin infusion and plans for patient to undergo cardiac catheterization tomorrow morning with Dr. Vicki lane. Vital signs reviewed and stable. General: Nontoxic, no distress and appears stated age. Derm: Skin warm and dry, normal coloration for ethnicity. Head: Atraumatic, normocephalic and symmetric. Eyes: EOMs intact, no lid lag, and anicteric sclera Mouth: no lip lesions, mucus membranes moist Cardiovascular: regular rate and rhythm with normal S1S2, no murmur, positive posterior tibial pulses bilaterally, and cap refill < 2 seconds. Lungs: Respirations even, regular, and unlabored on room air. Lungs diminished, no rhonchi, no rales, no wheezing, and no accessory muscle usage. Abdominal: soft, nontender to palpation, no guarding, no appreciable organomegaly Ext: ROM intact. No gross muscle atrophy, no edema, no contractures Neuro: Speech clear, face symmetrical and CN II-XII grossly intact with no noted focal neuro deficits Psych: Alert and oriented to person, place, time, and situation. Appropriate and pleasant affect. Assessment and Plan of Care: Elevated troponin, NSTEMI Acute systolic heart failure with EF of 20-25% New-onset cardiomyopathy -Cardiology following plans to take patient for cardiac cath tomorrow morning. -Continue heparin infusion per ACS protocol -Telemetry monitoring -Troponins 0.078, 0.127, and 0.548. -ProBNP 3460, chest x-ray concerning for acute heart failure -Daily weights -Close monitoring of I's and O's -Cardiac diet, nothing by mouth at midnight -Lasix -Continue Aspirin, Coreg, and pravastatin. MIKEY/ARB are to be added onto medication regimen once blood pressure will tolerate. -Lipid profile with a.m. labs. -Continued close monitoring of electrolytes while diuresing. -Echocardiogram revealing severely impaired EF of 20-25% with global left ventri cular hypokinesis and mild mitral and tricuspid regurgitation. Grief secondary to recent loss of loved one -Case management consult placed for assistance in setting up outpatient grief counselor/therapist upon discharge. CODE STATUS: Full code DVT prophylaxis: Heparin infusion Discussed with: Patient and RN Anticipated discharge date: Clinical course to determine Anticipated discharge place: Home A total of 39 minutes was spent on the care of this complex patient more than 50% of the time was spent in counseling and care coordination. I reviewed the documentation as provided by the SILVESTRE above, who is the original author of this note. I agree with the documented assessment and plan, with the following changes: none Objective - Vital Signs Vital signs: Vital Signs Temp 98.1 F 10/27/21 07:46 Pulse 90 10/27/21 08:00 Resp 16 10/27/21 07:46 BP 107/69 10/27/21 07:46 Pulse Ox 98 10/27/21 07:46 FiO2 Intake & Output 10/26/21 10/27/21 10/27/21 18:59 06:59 18:59 Intake Total 342.281 147.719 Balance 342.281 147.719 Weight 80.286 kg 81.8 kg Intake: Intake, IV Titration 102.281 147.719 Amount Heparin Sod,Pork in 0.45% 102.281 147.719 NaCl 25,000 unit In 0.45 % NaCl 1 250ml.bag @ 12 UNITS/KG/HR 9.634 mls/hr IV .Q24H [facility] Rx#: [id number] Oral 240 Other: Voiding Method Toilet Toilet Toilet # Voids 1 5 - Labs CBC & Chem 7: 10/30/21 15:41 10/30/21 15:41 Labs: Abnormal Lab Results - Last 24 Hours (Table) 10/26/21 10/26/21 10/27/21 Range/Units 12:12 23:41 07:38 APTT 36.4 H (22.0-30.0) sec Chloride 109 H (98-107) mmol/L Creatinine 1.46 H (0.66-1.25) mg/dL Glucose 118 H (74-99) mg/dL Troponin I 0.548 H* (0.000-0.034) ng/mL 10/27/21 Range/Units 07:38 APTT 48.9 H (22.0-30.0) sec Chloride (98-107) mmol/L Creatinine (0.66-1.25) mg/dL Glucose (74-99) mg/dL Troponin I (0.000-0.034) ng/mL
[2021-10-27] MEDS: FUROSEMIDE 40 MG TAB PO SCH (16:54)
[2021-10-27] MEDS: NITROGLYCERIN OINT 1 INCH/GM PACKET TOPICAL SCH ×2 (16:54→20:33)
[2021-10-27] MEDS: MELATONIN 3 MG TABLET PO SCH (20:35)
[2021-10-27] MEDS: CYCLOBENZAPRINE 10 MG TAB PO PRN (22:08)
[2021-10-27] MEDS: LORazepam 1 MG TAB PO PRN (22:08)
[2021-10-27] MEDS: SODIUM CHLORIDE 0.9% 1,000 ML in EMPTY BAG 1 BAG IV SCH (23:50)
[2021-10-28] MEDS ORDERED: ASPIRIN 325 MG TAB PO ONE (05:00)
[2021-10-28] MEDS ORDERED: ATORVASTATIN 80 MG TAB PO ONE (05:00)
[2021-10-28] MEDS: LEVOTHYROXINE 100 MCG TAB PO SCH (05:16)
[2021-10-28] MEDS: ASPIRIN 81 MG PO SCH (05:16)
[2021-10-28] MEDS: carvediloL 3.125 MG TAB PO SCH ×2 (05:16→16:48)
[2021-10-28] MEDS ORDERED: HEPARIN SODIUM,PORCINE 2,500 UNIT in SODIUM CHLORIDE 0.9% 250 ML IRRIGATION PRN (07:00)
[2021-10-28] MEDS ORDERED: HEPARIN SODIUM,PORCINE 10,000 UNIT in SODIUM CHLORIDE 0.9% 1,000 ML IRRIGATION PRN (07:00)
[2021-10-28] MEDS: HEPARIN SOD,PORK IN 0.45% NACL 25,000 UNIT in 0.45% NACL 1 250ML.BAG IV SCH (08:36)
[2021-10-28 08:58] LABS: Partial Thromboplastin Time 49.6 sec (22.0-30.0); Prothrombin Time 11.1 sec (9.0-12.0)
[2021-10-28] MEDS: NITROGLYCERIN OINT 1 INCH/GM PACKET TOPICAL SCH ×3 (08:58→20:03)
[2021-10-28] MEDS: NICOTINE 14MG/24HR PATCH TRANSDERM SCH ×2 (08:59→20:47)
[2021-10-28] MEDS: guaiFENesin 600 MG TABLET.ER PO SCH ×2 (08:59→20:03)
[2021-10-28] MEDS: FUROSEMIDE 40 MG TAB PO SCH ×2 (08:59→15:13)
[2021-10-28] MEDS: PRAVASTATIN SODIUM 40 MG TAB PO SCH (08:59)
[2021-10-28 09:25] LABS: Calcium 8.6 mg/dL (8.4-10.2); Potassium 4.1 mmol/L (3.5-5.1)
--- NOTE | 2021-10-28 10:11 | P.PN ---
Subjective Progress Note Date: 10/28/21 Hospital course: Patient is a very pleasant 66-year-old male with a past medical history of vascular disease status post carotid endarterectomy in which patient reports left internal carotid was 99% occluded prior to undergoing endarterectomy and takes daily aspirin, hypothyroidism, nicotine dependence smokes approximately a half a pack of cigarettes daily, chronic back pain, and ulcerative colitis. Patient presented to the emergency department with a chief complaint of orthopnea and paroxysmal nocturnal dyspnea. Patient reports that he has never truly been able to lie flat on his back, but reports over the past 3 weeks he is unable to breathe when lying down in any position and wakes up gasping for air. Patient reports secondary to this he has been unable to sleep because every time he attempts to fall asleep he wakes up gasping for air and has to sit up on the edge of the bed to catch his breath. He denies having any headache, lightheadedness, dizziness, chest pain or pressure, palpitations, cough or congestion, or experiencing any numbness/tingling/weakness/swelling in his extremities. Patient does report that he has noticed increased shortness of breath with exertion, but states this could also be resulting from increased depression and hopelessness he has been experiencing as he recently lost his of 43 years to cancer on 09/17/21. 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 Patient reports he has made multiple attempts to come to the hospital over the past 3 weeks but talks himself out of it age and every time. Upon arrival to the emergency department today, patient underwent full evaluation. Initial EKG showing sinus tachycardia with left ventricular hypertrophy and T-wave inversion in lateral leads I, aVL, V5, and V6 with repeat EKG revealing sinus rhythm at 99 bpm with again left ventricular hypertrophy and T-wave inversion in lateral leads 1, aVL, V5, and V6. No previous EKGs available for comparison. Troponin elevated at 0.078 and proBNP 3460. Chest x- ray revealing mild pulmonary interstitial edema suggestive of acute heart failur e. Patient given aspirin 325 mg by mouth 1 dose and started on heparin infusion per ACS protocol. He was admitted under our services with consultation to cardiology. Troponins trended 0.078, 0.127, and 0.548. Echocardiogram revealing severely impaired EF of 20-25% with global left ventricular hy pokinesis and mild mitral and tricuspid regurgitation. Cardiology planning to take patient for cardiac catheterization tomorrow morning. Physical exam: Patient seen and fully evaluated at bedside this morning. He reports he developed some "cramping" to his left anterior chest radiating into his back yesterday afternoon. He reports that RN place Nitropaste on his chest and this provided significant relief. Patient states that he was also able to get some more sleep last night. Currently he denies having chest pain, palpitations, or shortness of breath. He remains on heparin infusion, Aspirin, Coreg, and pravastatin. In addition patient continues to receive Lasix 40 mg by mouth twice daily. Unclear urinary output over the past 24 hours, only 720 mL of urinary output documented and patient placed on strict I's and O's. Plan is for patient to be taken down for cardiac cath at 10:[address] Rodríguez. Vital signs reviewed and stable. General: Nontoxic, no distress and appears stated age. Derm: Skin warm and dry, normal coloration for ethnicity. Head: Atraumatic, normocephalic and symmetric. Eyes: EOMs intact, no lid lag, and anicteric sclera Mouth: no lip lesions, mucus membranes moist Cardiovascular: regular rate and rhythm with normal S1S2, no murmur, positive posterior tibial pulses bilaterally, and cap refill < 2 seconds. Lungs: Respirations even, regular, and unlabored on room air. Lungs diminished, no rhonchi, no rales, no wheezing, and no accessory muscle usage. Abdominal: soft, nontender to palpation, no guarding, no appreciable organomegaly Ext: ROM intact. No gross muscle atrophy, no edema, no contractures Neuro: Speech clear, face symmetrical and CN II-XII grossly intact with no noted focal neuro deficits Psych: Alert and oriented to person, place, time, and situation. Appropriate and pleasant affect. Assessment and Plan of Care: Elevated troponin, NSTEMI Acute systolic heart failure with EF of 20-25% New-onset cardiomyopathy with EF of 20-25% -Cardiology following plans to take patient for cardiac cath tomorrow morning. -Continue heparin infusion per ACS protocol -Telemetry monitoring -Troponins 0.078, 0.127, and 0.548. -ProBNP 3460, chest x-ray concerning for acute heart failure -Daily weights -Close monitoring of I's and O's -May resume cardiac diet status post cardiac cath -Lasix -Continue Aspirin, Coreg, and pravastatin. -Lipid profile unremarkable with the exception of low HDL of 33.30. -Continued close monitoring of electrolytes while diuresing. -Echocardiogram revealing severely impaired EF of 20-25% with global left ventricular hypokinesis and mild mitral and tricuspid regurgitation. Grief secondary to recent loss of loved one -Case management consult placed for assistance in setting up outpatient grief counselor/therapist upon discharge. CKD III - at baseline - follow closely with diuresis and likely need for ACEI CODE STATUS: Full code DVT prophylaxis: Heparin infusion Discussed with: Patient and RN Anticipated discharge date: Clinical course to determine Anticipated discharge place: Home A total of 37 minutes was spent on the care of this complex patient more than 50% of the time was spent in counseling and care coordination. Sunday Rogers NP rendered care for this patient independently, reviewed the findings and plan as documented in the note above. I did not physically speak with or examine the patient on this date. Objective - Vital Signs Vital signs: Vital Signs Temp 98.2 F 10/28/21 03:24 Pulse 89 10/28/21 03:24 Resp 17 10/28/21 03:24 BP 120/70 10/28/21 03:24 Pulse Ox 98 10/28/21 03:24 FiO2 Intake & Output 10/27/21 10/28/21 10/28/21 18:59 06:59 18:59 Intake Total 480 240 Balance 480 240 Weight 81.8 kg Intake: Oral 480 240 Other: Voiding Method Toilet Toilet # Voids 2 - Labs CBC & Chem 7: 10/27/21 07:38 10/28/21 08:27 Labs: Abnormal Lab Results - Last 24 Hours (Table) 10/27/21 10/27/21 Range/Units 07:38 07:38 APTT 48.9 H (22.0-30.0) sec Chloride 109 H (98-107) mmol/L Creatinine 1.46 H (0.66-1.25) mg/dL Glucose 118 H (74-99) mg/dL HDL Cholesterol 33.30 L (40.00-60.00) mg/dL
[2021-10-28] MEDS: SODIUM CHLORIDE 0.9% 1,000 ML in EMPTY BAG 1 BAG IV SCH (11:45)
[2021-10-28] MEDS ORDERED: VERAPAMIL 2.5 MG/ML 2 ML AMP ONE (12:18)
[2021-10-28] MEDS ORDERED: HEPARIN SODIUM 1,000 UN/ML (10ML VL) ONE (12:32)
[2021-10-28] MEDS ORDERED: fentaNYL (PF) 50 MCG/ML 2 ML AMP ONE (12:32)
[2021-10-28] MEDS ORDERED: IV FLUID CONTINUATION 1,000 ML IV ONE (12:40)
[2021-10-28] MEDS: MIDAZOLAM 2 MG/2 ML VIAL IVP ONE ×2 (12:43→12:50)
[2021-10-28] MEDS ORDERED: fentaNYL (PF) 50 MCG/ML 2 ML AMP IVP ONE (12:43)
[2021-10-28] MEDS ORDERED: LIDOCAINE 1% INJ 10MG/ML (5 ML VIAL-PF) SQ ONE (12:45)
[2021-10-28] MEDS ORDERED: VERAPAMIL SYRINGE (5 MG/10 ML) INTRAARTER ONE (12:50)
[2021-10-28] MEDS ORDERED: HEPARIN SODIUM 1,000 UN/ML (10ML VL) IV ONE (12:53)
[2021-10-28] MEDS ORDERED: IOPAMIDOL-370 125ML BTL INJ ONE (13:00)
[2021-10-28] MEDS: CYCLOBENZAPRINE 10 MG TAB PO PRN (16:48)
[2021-10-28] MEDS: MELATONIN 3 MG TABLET PO SCH (20:03)
[2021-10-28] MEDS: MORPHINE SULFATE 4 MG/ML SYRINGE IV PRN (20:12)
--- NOTE | 2021-10-28 21:29 | P.CARDCATH ---
Description of Procedure: PROCEDURES PERFORMED: Left heart catheterization, bilateral coronary angiography INDICATION: NSTEMI, new onset cardiomyopathy PROCEDURE: After the risks, benefits and alternatives of the above mentioned procedure explained in detail with the patient, informed consent was obtained. Patient was taken to the catheterization lab and prepped and draped in usual fashion. 1% lidocaine was used to anesthetize the right radial artery. A 6- Moroccan sheath was placed in the right radial artery using modified Seldinger technique. Left coronary angiography was performed with a 5-Moroccan JL 3.5 catheter and right coronary angiography was performed with a 5-Moroccan FR5 catheter in various views. A 5-Moroccan FR5 catheter was inserted into the left ventricle and pressure measurements were obtained. The right radial sheath was removed and a TR band was placed with hemostasis achieved. The patient tolerated the procedure well. Patient was transported back to the post catheterization holding area in stable condition. Conscious Sedation: Patient was monitored under the direct supervision of vision of myself for conscious sedation using Versed and fentanyl for a total duration of 19 minutes HEMODYNAMICS: Aortic: 104/67 LV: 108/10, LVEDP 22 SELECTIVE CORONARY ARTERIOGRAPHY: LEFT MAIN: The left main is a large caliber vessel which bifurcates into the LAD and circumflex. There is a hazy at least 80% distal left main stenosis. LEFT ANTERIOR DESCENDING CORONARY ARTERY: LAD is a large caliber vessel which wraps around to the apex. There is a proximal LAD 40-50% stenosis and mild luminal irregularities of the mid LAD. The distal LAD has a 75% stenosis and then is normal at the apex. There are left to right collaterals to the RCA. LEFT CIRCUMFLEX CORONARY ARTERY: Left circumflex is a small to moderate caliber vessel with a proximal circumflex 99% stenosis with 3 small caliber OM branches with MARIA VICTORIA 2- 3 flow. Appears OM 3 has a proximal 80% stenosis. RIGHT CORONARY ARTERY: The right coronary artery is a moderate caliber vessel which gives off a PDA and PLV branch and is the dominant vessel. There is a mid RCA 99% stenosis as weill as diffuse proximal and mid 30-40% stenosis. Competitive flow distally with the left to right to left collaterals. FINAL IMPRESSION: 1. Multivessel CAD as described above with 80% left main stenosis, 40-50% pLAD, 75% distal LAD, 99% proximal circumflex, 99% mid RCA stenosis with left to right collaterals. 2. Elevated left sided filling pressures PLAN: 1. Aggressive risk factor modification per most recent ACC/AHA guidelines. 2. Surgical evaluation for possible CABG. If felt to be high risk would recommend multivessel PCI. Hazy appearance of left main and recent worsened recent symptoms concerning for acute thrombus of the left main and therefore would continue heparin drip pending surgical evaluation.
[2021-10-29] MEDS: carvediloL 3.125 MG TAB PO SCH ×2 (06:16→17:27)
[2021-10-29] MEDS: LEVOTHYROXINE 100 MCG TAB PO SCH (06:16)
[2021-10-29] MEDS: SODIUM CHLORIDE 0.9% 1,000 ML in EMPTY BAG 1 BAG IV SCH ×2 (06:42→13:14)
[2021-10-29] MEDS: PRAVASTATIN SODIUM 40 MG TAB PO SCH (09:07)
[2021-10-29] MEDS: guaiFENesin 600 MG TABLET.ER PO SCH ×2 (09:07→20:25)
[2021-10-29] MEDS: FUROSEMIDE 40 MG TAB PO SCH ×2 (09:07→17:27)
[2021-10-29] MEDS: NITROGLYCERIN OINT 1 INCH/GM PACKET TOPICAL SCH ×3 (09:07→20:26)
[2021-10-29] MEDS: ASPIRIN 81 MG PO SCH (09:07)
[2021-10-29] MEDS: HEPARIN SOD,PORK IN 0.45% NACL 25,000 UNIT in 0.45% NACL 1 250ML.BAG IV SCH ×2 (09:25→17:09)
[2021-10-29 10:12] LABS: Basophils # (A) 0.1 k/uL (0-0.2); Basophils % (A) 1 %; Eosinophils # (A) 0.4 k/uL (0-0.7); Eosinophils % (A) 4 %; HCT 45.9 % (39.0-53.0); HGB 14.5 gm/dL (13.0-17.5); Lymphocytes # (A) 3.2 k/uL (1.0-4.8); Lymphocytes % (A) 39 %; MCH 29.2 pg (25.0-35.0); MCHC 31.5 g/dL (31.0-37.0); MCV 92.6 fL (80.0-100.0); Monocytes # (A) 0.7 k/uL (0-1.0); Monocytes % (A) 8 %; Neutrophils # (A) 3.9 k/uL (1.3-7.7); Neutrophils % (A) 46 %; Platelet Count 330 k/uL (150-450); RBC 4.96 m/uL (4.30-5.90); RDW 13.7 % (11.5-15.5); WBC 8.4 k/uL (3.8-10.6)
[2021-10-29 10:20] LABS: ALT 21 U/L (4-49); AST 22 U/L (17-59); African American GFR (CKD) 52 (>60 ml/min/1.73 sqM); Albumin 3.7 g/dL (3.5-5.0); Alkaline Phosphatase 101 U/L (38-126); Anion Gap 6 mmol/L; Blood Urea Nitrogen 17 mg/dL (9-20); Calcium 8.8 mg/dL (8.4-10.2); Carbon Dioxide 26 mmol/L (22-30); Chloride 106 mmol/L (98-107); Glucose 110 mg/dL (74-99); Non-African American GFR(CKD) 45 (>60 ml/min/1.73 sqM); Sodium 138 mmol/L (137-145); Total Bilirubin 0.4 mg/dL (0.2-1.3); Total Protein 6.5 g/dL (6.3-8.2)
--- NOTE | 2021-10-29 10:45 | P.PN ---
Subjective Progress Note Date: 10/29/21 Hospital course: Patient is a very pleasant 66-year-old male with a past medical history of vascular disease status post carotid endarterectomy in which patient reports left internal carotid was 99% occluded prior to undergoing endarterectomy and takes daily aspirin, hypothyroidism, nicotine dependence smokes approximately a half a pack of cigarettes daily, chronic back pain, and ulcerative colitis. Patient presented to the emergency department with a chief complaint of orthopnea and paroxysmal nocturnal dyspnea. Patient reports that he has never truly been able to lie flat on his back, but reports over the past 3 weeks he is unable to breathe when lying down in any position and wakes up gasping for air. Patient reports secondary to this he has been unable to sleep because every time he attempts to fall asleep he wakes up gasping for air and has to sit up on the edge of the bed to catch his breath. He denies having any headache, lightheadedness, dizziness, chest pain or pressure, palpitations, cough or congestion, or experiencing any numbness/tingling/weakness/swelling in his extremities. Patient does report that he has noticed increased shortness of breath with exertion, but states this could also be resulting from increased depression and hopelessness he has been experiencing as he recently lost his of 43 years to cancer on 09/17/21. 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 Patient reports he has made multiple attempts to come to the hospital over the past 3 weeks but talks himself out of it age and every time. Upon arrival to the emergency department today, patient underwent full evaluation. Initial EKG showing sinus tachycardia with left ventricular hypertrophy and T-wave inversion in lateral leads I, aVL, V5, and V6 with repeat EKG revealing sinus rhythm at 99 bpm with again left ventricular hypertrophy and T-wave inversion in lateral leads 1, aVL, V5, and V6. No previous EKGs available for comparison. Troponin elevated at 0.078 and proBNP 3460. Chest x- ray revealing mild pulmonary interstitial edema suggestive of acute heart failur e. Patient given aspirin 325 mg by mouth 1 dose and started on heparin infusion per ACS protocol. He was admitted under our services with consultation to cardiology. Troponins trended 0.078, 0.127, and 0.548. Echocardiogram revealing severely impaired EF of 20-25% with global left ventricular hy pokinesis and mild mitral and tricuspid regurgitation. Cardiology took patient for cardiac catheterization 10/28/21 which revealed multivessel CAD with elevated left-sided filling pressures recommending surgical evaluation for possible CABG, is felt to be too high risk for CABG they are recommending multilevel PCI. Cardiothoracic surgery consulted and awaiting recommendations. Physical exam: Patient seen and fully evaluated at bedside this morning. Patient sitting up on the edge of bed. He was tearful and reports everything is just a lot to take in. Patient reports he is willing to go through with the evaluation for CABG, but states again, this is simply a lot to take in. Patient denies any further episodes of chest pain or discomfort. He reports he was able to get some sleep last night. He remains on heparin infusion along with aspirin, Lasix, Coreg, and pravastatin. Awaiting arterial duplexes, carotid Dopplers, and venous mapping to be completed and further recommendations from cardiothoracic surgery team. Vital signs reviewed and stable. General: Nontoxic, no distress and appears stated age. Derm: Skin warm and dry, normal coloration for ethnicity. Head: Atraumatic, normocephalic and symmetric. Eyes: EOMs intact, no lid lag, and anicteric sclera Mouth: no lip lesions, mucus membranes moist Cardiovascular: regular rate and rhythm with normal S1S2, no murmur, positive posterior tibial pulses bilaterally, and cap refill < 2 seconds. Lungs: Respirations even, regular, and unlabored on room air. Lungs diminished, no rhonchi, no rales, no wheezing, and no accessory muscle usage. Abdominal: soft, nontender to palpation, no guarding, no appreciable organomegaly Ext: ROM intact. No gross muscle atrophy, no edema, no contractures Neuro: Speech clear, face symmetrical and CN II-XII grossly intact with no noted focal neuro deficits Psych: Alert and oriented to person, place, time, and situation. Appropriate and pleasant affect. Assessment and Plan of Care: Elevated troponin, NSTEMI Multivessel coronary artery disease Acute systolic heart failure with EF of 20-25% New-onset cardiomyopathy with EF of 20-25% -Cardiology following, took patient for cardiac cath 10/28/21 which revealed multivessel CAD with elevated left-sided filling pressures recommending surgical evaluation for possible CABG, is felt to be too high risk for CABG they are recommending multilevel PCI. -Cardiothoracic surgery following -Continue heparin infusion per ACS protocol and reported left main artery with hazy appearance concerning for acute thrombosis. -Telemetry monitoring. -Troponins 0.078, 0.127, and 0.548. -ProBNP 3460, chest x-ray concerning for acute heart failure -Daily weights. -Close monitoring of I's and O's. -Continue cardiac diet. -Lasix -Continue Aspirin, Coreg, and pravastatin. -Lipid profile unremarkable with the exception of low HDL of 33.30. -Continued close monitoring of electrolytes while diuresing. -Echocardiogram revealing severely impaired EF of 20-25% with global left ventricular hypokinesis and mild mitral and tricuspid regurgitation. Grief secondary to recent loss of loved one -Case management consult placed for assistance in setting up outpatient grief counselor/therapist upon discharge. Nicotine dependence -Counseled on the importance of smoking cessation and risks associated with continued use. -Nicotine patch provided. Hyperthyroidism - check thyroid antibodies - will need thyroid ultrasound to assess for nodules which can be done on a outpatient basis - continue BB - Start Methimazole post-op CODE STATUS: Full code DVT prophylaxis: Heparin infusion Discussed with: Patient and RN Anticipated discharge date: Clinical course to determine Anticipated discharge place: Home A total of 39 minutes was spent on the care of this complex patient more than 50% of the time was spent in counseling and care coordination. Sunday Rogers NP rendered care for this patient independently, reviewed the findings and plan as documented in the note above. I did not physically speak with or examine the patient on this date. Objective - Vital Signs Vital signs: Vital Signs Temp 97.3 F L 10/29/21 03:33 Pulse 90 10/29/21 03:33 Resp 16 10/29/21 03:33 BP 158/92 10/29/21 03:33 Pulse Ox 100 10/29/21 03:33 FiO2 Intake & Output 10/28/21 10/29/21 10/29/21 18:59 06:59 18:59 Intake Total 776 240 Output Total 1450 Balance 776 -1210 Weight 82.3 kg Intake: IV 50 Intake, IV Titration 250 Amount Heparin Sod,Pork in 0.45% 250 NaCl 25,000 unit In 0.45 % NaCl 1 250ml.bag @ 12 UNITS/KG/HR 9.634 mls/hr IV .Q24H [facility] Rx#: [id number] Oral 476 240 Output: Urine 1450 Other: Voiding Method Toilet Toilet - Labs CBC & Chem 7: 10/29/21 07:15 10/29/21 07:15 Labs: Abnormal Lab Results - Last 24 Hours (Table) 10/28/21 10/28/21 10/28/21 Range/Units 08:27 08:27 18:57 APTT 49.6 H 48.5 H (22.0-30.0) sec Creatinine 1.52 H (0.66-1.25) mg/dL Glucose 116 H (74-99) mg/dL
[2021-10-29 10:56] LABS: Potassium 4.1 mmol/L (3.5-5.1)
--- NOTE | 2021-10-29 12:35 | P.PN ---
Subjective Progress Note Date: 10/29/21 HISTORY OF PRESENT ILLNESS: Patient presented to the hospital with at least 3 weeks of orthopnea and PND He says that he can't lie flat in bed and is unable to sleep because he can't lie flat in bed He gets up repeatedly because he is very short of breath and has to sit up at the edge of the bed He actually denies chest discomfort Impression basal shortness of breath with very average activities This is been going on for some time but orthopnea his more recent He has ulcerative colitis and feels that when he stopped smoking cigarettes after his vascular surgery on the carotids, his ulcerative colitis became worse He claims that smoking 10 cigarettes a day prevents him from experiencing ulcerative colitis episodes/exacerbations He also claims that he smokes because nicotine cigarettes half some health benefits for human body. This is a direct quote from the patient He had vascular surgery likely carotid endarterectomy in [place]. He was referred to [place] by Dr. Ya Following that he did not take atorvastatin on any statins because he claims some of his friends because of that medication 10/27/2021 Patient examined this morning at the bedside. Patient reports he is feeling better this morning. He denies chest pain or pressure. Denies SOB. Ec hocardiogram completed revealing ejection fraction 20-25%, left global hypokinesis, mild mitral regurgitation, and mild tricuspid regurgitation 10/29/2021 Patient is status post cardiac catheterization revealing multivessel coronary artery disease including 80% left main stenosis, 40-50% proximal LAD, 75% distal LAD, 99% proximal circumflex, 99% mid RCA stenosis with right to left collaterals. Cardiothoracic surgery has been consulted for possible CABG. Patient currently denies chest pain or pressure. He denies shortness of breath. Patient's heart rate is currently in the 90s. He is having a few runs of atrial tachycardia. PHYSICAL EXAM: VITAL SIGNS: Reviewed. GENERAL: Well-developed in no acute distress. NECK: Supple. No JVD or thyromegaly LUNGS: Respirations even and unlabored. Lungs essentially clear to auscultation bilaterally. HEART: Regular rate and rhythm. S1 and S2 heard. EXTREMITIES: Normal range of motion. No clubbing or cyanosis. Peripheral pu lses intact. No lower extremity edema ASSESSMENT: Recurrent orthopnea and PND Acute heart failure with reduced EF Multi vessel CAD with left main disease Possible left main thrombus New onset cardiomyopathy, EF 20-25% History of carotid artery surgery Nicotine dependence Runs of atrial tachycardia PLAN: Continue current cardiac medications Continue IV heparin Patient refusing lipitor. Currently on pravachol. MIKEY/ARB not added yet because BP were soft. BP has since improved. However, will wait for further recommendations from [facility] as they like to hold MIKEY/ARB 48 hours prior to surgery. Per Dr. Archuleta, give 1.5 tablets of 3.125mg of coreg, which equals 4.6875mg BID. Await further recommendations from CT surgery Further recommendations pending patient course Nurse practitioner note has been reviewed by physician. Signing provider agrees with the documented findings, assessment, and plan of care. Objective - Vital Signs Vital signs: Vital Signs Temp 98.0 F 10/29/21 08:55 Pulse 82 10/29/21 08:57 Resp 17 10/29/21 08:57 BP 124/81 10/29/21 08:55 Pulse Ox 99 10/29/21 08:55 FiO2 Intake & Output 10/28/21 10/29/21 10/29/21 18:59 06:59 18:59 Intake Total 776 240 120 Output Total 1450 Balance 776 -1210 120 Weight 82.3 kg Intake: IV 50 Intake, IV Titration 250 Amount Heparin Sod,Pork in 0.45% 250 NaCl 25,000 unit In 0.45 % NaCl 1 250ml.bag @ 12 UNITS/KG/HR 9.634 mls/hr IV .Q24H [facility] Rx#: [id number] Oral 476 240 120 Output: Urine 1450 Other: Voiding Method Toilet Toilet Toilet - Labs CBC & Chem 7: 10/29/21 07:15 10/29/21 07:15 Labs: Abnormal Lab Results - Last 24 Hours (Table) 10/28/21 10/29/21 10/29/21 Range/Units 18:57 07:15 07:15 APTT 48.5 H 49.0 H (22.0-30.0) sec Creatinine 1.56 H (0.66-1.25) mg/dL Glucose 110 H (74-99) mg/dL Troponin I (0.000-0.034) ng/mL TSH <0.015 L (0.465-4.680) mIU/L Free T4 2.60 H (0.78-2.19) ng/dL 10/29/21 Range/Units 07:15 APTT (22.0-30.0) sec Creatinine (0.66-1.25) mg/dL Glucose (74-99) mg/dL Troponin I 0.113 H* (0.000-0.034) ng/mL TSH (0.465-4.680) mIU/L Free T4 (0.78-2.19) ng/dL
--- NOTE | 2021-10-29 12:51 | US ---
EXAMINATION TYPE: US carotid duplex BILAT DATE OF EXAM: 10/29/2021 COMPARISON: NONE CLINICAL HISTORY: Preoperative cardiac surgery. Preop Cardiac Surgery, Lt Endarterectomy EXAM MEASUREMENTS: RIGHT: Peak Systolic Velocity (PSV) cm/sec ----- Right CCA: 54.8 ----- Right ICA: 164.7 ----- Right ECA: 76.2 ICA/CCA ratio: 3.0 RIGHT: End Diastole cm/sec ----- Right CCA: 12.0 ----- Right ICA: 50.9 ----- Right ECA: 12.9 LEFT: Peak Systolic Velocity (PSV) cm/sec ----- Left CCA: 59.2 ----- Left ICA: 73.6 ----- Left ECA: 73.2 ICA/CCA ratio: 1.2 LEFT: End Diastole cm/sec ----- Left CCA: 15.3 ----- Left ICA: 16.7 ----- Left ECA: 6.2 VERTEBRALS (direction of flow): Right Vertebral: Antegrade Left Vertebral: Antegrade Rhythm: Normal Plaque seen in right, no significant stenosis, Left Subclavian Art examined per cardic surgeon 87.9/ 0.0cm/s IMPRESSION: No evidence for hemodynamically significant stenosis. Patent left subclavian artery. Criteria for Assigning % of Stenosis / Diameter reduction (Estimation based on the indirect measurements of the internal carotid artery velocities (ICA PSV). 1. Normal (no stenosis)=ICA PSV < 125 cm/s: ratio < 2.0: ICA EDV<40 cm/s. 2. Less than 50% stenosis=ICA PSV < 125 cm/s: ratio < 2.0: ICA EDV<40 cm/s. 3. 50 to 69% stenosis=ICA PSV of 125 to 230 cm/s: ration 2.0 ? 4.0: ICA EDV 40-100 cm/s. 4. Greater than 70% stenosis to near occlusion= ICA PSV > 230 cm/s: ratio > 4.0: ICA EDV > 100 cm/s. 5. Near occlusion= ICA PSV velocities may be low or undetectable: variable ratio and ICA EDV. 6. Total occlusion=unable to detect flow.
[2021-10-29 12:55] LABS: Appearance,Urine Clear (Clear); Bilirubin,Urine Negative (Negative); Blood,Urine Negative (Negative); Color,Urine Colorless; Glucose,Urine (UA) Negative (Negative); Ketones,Urine Negative (Negative); Leukocyte Esterase,Urine Negative (Negative); Nitrite,Urine Negative (Negative); Protein,Urine Negative (Negative); Specific Gravity,Urine 1.004 (1.001-1.035); Urobilinogen,Urine <2.0 mg/dL (<2.0)
[2021-10-29] MEDS ORDERED: MD COMMUNICATION TO PHARMACY 1 EACH MISC PO ONE ×4 (13:34→13:36)
--- NOTE | 2021-10-29 14:50 | CT ---
EXAMINATION TYPE: CT chest wo con DATE OF EXAM: 10/29/2021 COMPARISON: Chest x-ray 10/26/2021 HISTORY: Preop Cardiac surgery CT DLP: 389.5 mGycm. Automated Exposure Control for Dose Reduction was Utilized. TECHNIQUE: CT scan of the thorax is performed without IV contrast. FINDINGS: Lack of intravenous contrast could compromise sensitivity. LUNGS: The lungs show a soft tissue nodule in the right lower lobe measuring 1 cm, axial image 42. Le ft upper lobe the subpleural location, axial image 26 shows a subpleural 3 mm nodule, subpleural nodu le is noted on axial image 25 medially at the left lower lobe measuring 7 mm, additional soft tissue nodule on axial image 41 measures 5 mm in the left lower lobe, additional focus on axial image 49 in the left lower lobe measures 4 to 5 mm, subpleural nodule noted on axial image 53 measuring 6 to 7 mm in the left lower lobe, subpleural nodule present on axial image 52 laterally with similar character istics and also on axial image 48 and left lower lobe, possibly axial image 35 left upper lobe There is no pleural effusion or pneumothorax seen. The tracheobronchial tree is patent. MEDIASTINUM: Lack of IV contrast is noted to limit evaluation for mediastinal and especially hilar ad enopathy. There are no definitive greater than 1 cm hilar or mediastinal lymph nodes. No cardiomega ly or pericardial effusion is seen. There are coronary artery calcifications present which are extens karen. OTHER: Right kidney is mildly atrophic. IMPRESSION: Coronary artery disease. Indeterminate lung nodules, follow-up suggested. Noncontrast ky jones
[2021-10-29] MEDS ORDERED: MAGNESIUM HYDROXIDE 2,400 MG/10 ML CUP PO STA (15:24)
--- NOTE | 2021-10-29 16:28 | P.CNPUL ---
History of Present Illness Consult date: 10/29/21 Requesting physician: Alexy Alves Reason for consult: dyspnea Chief complaint: Shortness of breath History of present illness: 66-year-old male patient with past history of CVA, carotid artery disease with previous carotid endarterectomy, chronic kidney disease stage III, hypothyroidism, ulcerative colitis, history of pulmonary embolism 2 in the remote past, patient was told he was prediabetic, diet controlled, chronic back and neck pain, with previous history of cervical fusion, sleep apnea not on CPAP therapy, history of ulcerative colitis, current every day smoker, who presented to the emergency department on the 10/26/2021 with complaints of at least 3 weeks of shortness of breath, orthopnea, and PND. In the emergency department EKG was completed that showed normal sinus rhythm with left ventricular hypertrophy. Chest x-ray showed pulmonary interstitial edema. Patient's lab evaluation showed positive troponins that topped out at 0.548, proBNP was 3460, and patient was diagnosed with acute non-ST elevated myocardial infarction. Echocardiogram was completed showing severely increased left ventricular diastolic diameter, and global left ventricular hypokinesis with systolic dysfunction and EF of 20-25% area. There was no evidence of pericardial effusion. Patient underwent heart catheterization on 10/28/2021 which showed multivessel CAD with 80% left main stenosis, 40-50% proximal LAD, 75% distal LAD, 99% proximal circumflex, 90% mid RCA with [id number] collaterals, and elevated left-sided filling pressures LVEDP of 22. Patient was referred to cardiac surgery for evaluation. He was found to be a good surgical candidate. His preop FEV1 was around 73% of predicted. Chest CT was completed showing soft tissue nodule in the right lower lobe measuring 1 cm, and left upper lobe a subpleural 3 mm nodule, and other indeterminate small lung nodules. Follow-up was suggested. Patient's was scheduled for surgical revascularization surgery on 10/30/[address] Greenberg Review of Systems All systems: negative Constitutional: Denies chills, Denies fever Eyes: denies blurred vision, denies pain Ears, nose, mouth and throat: Denies headache, Denies sore throat Cardiovascular: Denies chest pain, Denies shortness of breath Respiratory: Reports dyspnea, Denies cough Gastrointestinal: Denies abdominal pain, Denies diarrhea, Denies nausea, Denies vomiting Musculoskeletal: Denies myalgias Integumentary: Denies pruritus, Denies rash Neurological: Denies numbness, Denies weakness Psychiatric: Denies anxiety, Denies depression Endocrine: Denies fatigue, Denies weight change Past Medical History Past Medical History: CVA/TIA, GERD/Reflux, Hyperlipidemia, Hypertension, Pulmonary Embolus (PE), Sleep Apnea/CPAP/BIPAP, Thyroid Disorder Additional Past Medical History / Comment(s): "PreDiabetic, diet controlled/Hypoglycemia." Hashimotos Thyroiditis. 2 strokes 06/02, slight memory problems since, migraines, back and neck pain, severe right and mild left sciatcia, hx PE's in his 20's, varicose veins, no CPAP use, clausterphobia. 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 Ulcerative Colitis. Hiatal Hernia. History of Any Multi-Drug Resistant Organisms: None Reported Past Surgical History: Orthopedic Surgery Additional Past Surgical History / Comment(s): Neck fusion, left cartoid surgery, left arm surgery, left ankle fracture, right shoulder surgery, EGD, colonoscopies. Past Anesthesia/Blood Transfusion Reactions: Previous Problems w/ Anesthesia Additional Past Anesthesia/Blood Transfusion Reaction / Comment(s): "Need large amounts to put me out." "Needs to brought out slowly." Past Psychological History: Anxiety Smoking Status: Current every day smoker Past Alcohol Use History: None Reported Past Drug Use History: None Reported - Past Family History Mother Family Medical History: Congestive Heart Failure (CHF) Additional Family Medical History / Comment(s): at age 86 Father Additional Family Medical History / Comment(s): EtOH, pancreatitis Sister(s) Additional Family Medical History / Comment(s): His sister had a heart transplant in her 40s, unknown reason. Medications and Allergies Home Medications Medication Instructions Recorded Confirmed Type Aspirin EC [Ecotrin Low Dose] 81 mg PO DAILY 01/19/21 10/26/21 History Levothyroxine Sodium 200 mcg PO DAILY 01/19/21 10/26/21 History Cyclobenzaprine [Flexeril] 10 mg PO HS PRN 07/01/21 10/26/21 History Diclofenac Sodium 50 mg PO HS PRN 07/01/21 10/26/21 History Loratadine-Pseudoeph 5-120 mg 1 tab PO BID 10/26/21 10/26/21 History [Claritin-D 12 Hour] Allergies Allergy/AdvReac Type Severity Reaction Status Date / Time cephalexin [From Keflex] Allergy Unknown Verified 10/30/21 06:05 latex Allergy Anaphylaxis Verified 10/30/21 06:05 Penicillins Allergy Unknown Verified 10/30/21 06:05 Childhood Physical Exam Vitals: Vital Signs Temp Pulse Resp BP Pulse Ox 10/29/21 13:08 98.3 F 84 17 126/74 99 10/29/21 08:57 82 17 10/29/21 08:55 98.0 F 82 17 124/81 99 10/29/21 03:33 97.3 F L 90 16 158/92 100 10/28/21 23:26 97.6 F 81 18 121/73 98 10/28/21 20:00 97.6 F 92 18 158/92 98 10/28/21 17:15 84 18 132/76 96 10/28/21 16:15 86 18 126/74 96 10/28/21 15:57 98.2 F 82 18 125/62 96 Intake and Output 10/29/21 10/29/21 10/29/21 06:59 14:59 22:59 Intake Total 240 240 Output Total 1450 1375 300 Balance -1210 -1135 -300 Intake: Oral 240 240 Output: Urine 1450 1375 300 Other: Voiding Method Toilet Toilet Weight 82.3 kg GENERAL EXAM: 66-year-old white male, sitting up in the recliner, comfortable in no apparent distress. HEAD: Normocephalic/atraumatic. EYES: Normal reaction of pupils, equal size. Conjunctiva pink, sclera white. NOSE: Clear with pink turbinates. THROAT: No erythema or exudates. NECK: No masses, no JVD, no thyroid enlargement, no adenopathy. CHEST: No chest wall deformity. Symmetrical expansion. LUNGS: Equal air entry with no crackles, wheeze, rhonchi or dullness. CVS: Regular rate and rhythm, normal S1 and S2, no gallops, no murmurs, no rubs ABDOMEN: Soft, nontender. No hepatosplenomegaly, normal bowel sounds, no guarding or rigidity. EXTREMITIES: No clubbing, no edema, no cyanosis, 2+ pulses and upper and lower extremities. MUSCULOSKELETAL: Muscle strength and tone normal. SPINE: No scoliosis or deformity SKIN: No rashes CENTRAL NERVOUS SYSTEM: Alert and oriented -3. No focal deficits, tone is normal in all 4 extremities. PSYCHIATRIC: Alert and oriented -3. Appropriate affect. Intact judgment and insight. Results - Laboratory Findings CBC and BMP: 10/30/21 07:45 10/29/21 07:15 PT/INR, D-dimer PT 11.1 sec (9.0-12.0) 10/28/21 08:27 INR 1.0 (<1.2) 10/28/21 08:27 Abnormal lab findings: Abnormal Labs 10/26/21 10/26/21 10/26/21 05:27 05:27 05:27 WBC 11.3 H Neutrophils # 8.3 H APTT Chloride Creatinine 1.42 H Glucose 127 H Troponin I 0.078 H* HDL Cholesterol TSH Free T4 Crossmatch 10/26/21 10/26/21 10/26/21 07:44 12:12 23:41 WBC Neutrophils # APTT 36.4 H Chloride Creatinine Glucose Troponin I 0.127 H* 0.548 H* HDL Cholesterol TSH Free T4 Crossmatch 10/27/21 10/27/21 10/28/21 07:38 07:38 08:27 WBC Neutrophils # APTT 48.9 H Chloride 109 H Creatinine 1.46 H 1.52 H Glucose 118 H 116 H Troponin I HDL Cholesterol 33.30 L TSH Free T4 Crossmatch 10/28/21 10/28/21 10/29/21 08:27 18:57 07:15 WBC Neutrophils # APTT 49.6 H 48.5 H 49.0 H Chloride Creatinine Glucose Troponin I HDL Cholesterol TSH Free T4 Crossmatch 10/29/21 10/29/21 10/29/21 07:15 07:15 13:58 WBC Neutrophils # APTT Chloride Creatinine 1.56 H Glucose 110 H Troponin I 0.113 H* HDL Cholesterol TSH <0.015 L Free T4 2.60 H Crossmatch See Detail - Diagnostic Findings Chest x-ray: report reviewed, image reviewed CT scan - chest: report reviewed, image reviewed Assessment and Plan Plan: Assessment: Acute non-ST elevated myocardial infarction Multiple vessel coronary artery disease, awaiting coronary artery bypass grafting surgery on 10/30/2021 Ischemic cardiomyopathy with EF of 20-25% Chronic and ongoing history of smoking Indeterminate small lung nodules, will need outpatient follow-up postop coronary artery bypass grafting surgery History of hypothyroidism Chronic disease stage III at baseline Ulcerative colitis Carotid artery disease with previous history of carotid endarterectomy History of CVA 2 Remote history of pulmonary embolism and his 20s, not on any chronic anticoagulation Probable diabetes mellitus type 2, diet-controlled COPD, with FEV1 of 73% of predicted, stage II Plan: Preop FEV1 has been reviewed Patient was seen and evaluated at the bedside Computed tomography scan has been reviewed The pulmonary nodules will need postoperative follow-up Patient is scheduled for surgery tomorrow on 10/30/2021 We'll see the patient in the postoperative period in the intensive care unit for routine postoperative ventilator management in his pulmonary critical care needs I have personally seen and examined the patient, performed the documentation and the assessment and plan as written. I have personally seen and examined the patient and reviewed the documentation. I performed a joint evaluation with the nurse practitioner in this evaluation was done more than 20 minutes. I fully agree with the documentation above and the plan of care.. Is a joint evaluation was done along with a nurse practitioner. The patient was seen in preoperative clearance. The pulmonary nodules were noted. The respiratory status is stable. Further workup on the pulmonary nodules are to follow following the surgery. Our team is going to be involved in the patient's postoperative care, management ventilator independent for any postoperative pulmonary needs. We'll continue to follow. Time with Patient: Greater than 30
[2021-10-29] MEDS: MELATONIN 3 MG TABLET PO SCH (20:26)
[2021-10-29] MEDS ORDERED: MUPIROCIN 2% OINT 22 GM TUBE NASAL SCH (21:00)
[2021-10-29 23:02] LABS: Hepatitis A Antibody IgM Nonreactive (Nonreactive); Hepatitis B Core IgM Nonreactive (Nonreactive); Hepatitis B Surface Antigen Nonreactive (Nonreactive); Hepatitis C IgG Antibody Nonreactive (Nonreactive)
[2021-10-29] MEDS: MORPHINE SULFATE 4 MG/ML SYRINGE IV PRN (23:03)
[2021-10-29] MEDS: LORazepam 1 MG TAB PO PRN (23:40)
[2021-10-30] MEDS: SODIUM CHLORIDE 0.9% 1,000 ML in EMPTY BAG 1 BAG IV SCH ×2 (03:28→16:03)
[2021-10-30 04:08] LABS: Glucose,Whole Blood 122 mg/dL (70-110)
[2021-10-30] MEDS ORDERED: HEPARIN SODIUM 1,000 UN/ML (10ML VL) IV ONE (05:00)
[2021-10-30] MEDS ORDERED: SODIUM BICARB 8.4% 50 ML SYR (1 MEQ/ML) IV ONE (05:00)
[2021-10-30] MEDS ORDERED: CLEVIDIPINE BUTYRATE 25 MG in EMPTY BAG 1 BAG IV SCH (05:00)
[2021-10-30] MEDS ORDERED: METOPROLOL TARTRATE 12.5 MG TAB PO ONE (05:00)
[2021-10-30] MEDS ORDERED: HEPARIN SODIUM,PORCINE 5,000 UNIT in SODIUM CHLORIDE 0.9% 500 ML 500 ML IV ONE (05:00)
[2021-10-30] MEDS ORDERED: ELECTROLYTE-A SOLUTION 1,000 ML with POTASSIUM CHLORIDE 100 MEQ, MAGNESIUM SULFATE 16 M... IV SCH ×5 (05:00)
[2021-10-30] MEDS ORDERED: PHENYLEPHRINE 10 MG/ML VIAL IV ONE (05:00)
[2021-10-30] MEDS ORDERED: PROTAMINE SULFATE 10 MG/ML 25 ML VIAL IV ONE (05:00)
[2021-10-30] MEDS ORDERED: CALCIUM CHLORIDE 100 MG/ML 10 ML SYRINGE IVP ONE (05:00)
[2021-10-30] MEDS ORDERED: ATORVASTATIN 10 MG TAB PO ONE (05:00)
[2021-10-30] MEDS ORDERED: MANNITOL 25% 12.5 GM/50 ML VIAL IV ONE ×2 (05:00)
[2021-10-30] MEDS ORDERED: MAGNESIUM SULFATE 16.24 MEQ in EMPTY SYRINGE 1 SYR IV ONE (05:00)
[2021-10-30] MEDS ORDERED: CHLORHEXIDINE GLUCONATE 15 ML CUP MUCOUS MEM ONE (05:00)
[2021-10-30] MEDS ORDERED: PROTAMINE SULFATE 250 MG in EMPTY BAG 1 BAG IV ONE (05:00)
[2021-10-30] MEDS ORDERED: NOREPINEPHRINE 4 MG in SODIUM CHLORIDE 0.9% 250 ML IV SCH (05:00)
[2021-10-30] MEDS ORDERED: NITROGLYCERIN-D5W PMX 50 MG in DEXTROSE/WATER 1 250ML.BAG IV SCH ×2 (05:00→15:03)
[2021-10-30] MEDS ORDERED: VANCOMYCIN 1,000 MG in SODIUM CHLORIDE 0.9% IRRIGATIO 1,000 ML IRRIGATION ONE (05:00)
[2021-10-30] MEDS ORDERED: SODIUM CHLORIDE 0.9% IVPB ONE (05:00)
[2021-10-30] MEDS ORDERED: VANCOMYCIN IVPB ONE (05:00)
[2021-10-30] MEDS ORDERED: ALBUMIN HUMAN 25% 50 ML in EMPTY BAG 1 BAG IVPB ONE (05:00)
[2021-10-30] MEDS ORDERED: INSULIN REGULAR 100 UNIT in SODIUM CHLORIDE 0.9% 100 ML IV SCH (05:00)
[2021-10-30] MEDS ORDERED: TRANEXAMIC ACID 2,000 MG in SODIUM CHLORIDE 0.9% 80 ML IV ONE (05:00)
[2021-10-30] MEDS ORDERED: ELECTROLYTE-A SOLUTION 1,000 ML with POTASSIUM CHLORIDE 40 MEQ, MAGNESIUM SULFATE 16 ME... IV SCH ×5 (05:00)
[2021-10-30] MEDS ORDERED: PHENYLEPHRINE 40 MG in SODIUM CHLORIDE 0.9% 250 ML IV ONE (05:00)
[2021-10-30] MEDS ORDERED: ALBUMIN HUMAN 5% 500 ML in EMPTY BAG 1 BAG IVPB ONE ×6 (05:00)
[2021-10-30] MEDS ORDERED: NITROGLYCERIN-D5W PMX 25 MG/250 ML BTL IV ONE (05:00)
[2021-10-30] MEDS ORDERED: PAPAVERINE 360 MG in SODIUM CHLORIDE 0.9% 90 ML IV ONE (05:00)
[2021-10-30] MEDS ORDERED: ASPIRIN 81 MG PO ONE (05:00)
[2021-10-30] MEDS: LEVOTHYROXINE 100 MCG TAB PO SCH (05:27)
[2021-10-30] MEDS: carvediloL 3.125 MG TAB PO SCH (05:28)
[2021-10-30] MEDS: FUROSEMIDE 40 MG TAB PO SCH (05:29)
[2021-10-30] MEDS: guaiFENesin 600 MG TABLET.ER PO SCH (05:29)
--- NOTE | 2021-10-30 06:16 | P.GSCN ---
History of Present Illness Consult date: 10/29/21 Reason for Consult: Symptomatic multivessel coronary artery disease, acute non-ST elevated myocardial infarction this admission and acute heart failure with an ejection f raction of 20-25% with orthopnea and paroxysmal nocturnal dyspnea. Requesting physician: Navdeep Rodríguez History of present illness: This is a 58-year-old gentleman who follows with Dr. Jimmie De La Paz for his primary care service on an outpatient basis. He has a past medical history significant for left carotid stenosis, status post left carotid endarterectomy, hypothyroidism, ongoing nicotine dependence in which he smokes half a pack of cigarettes per day, GERD, ulcerative colitis and spinal neuropathy. The patient presented to the emergency department here at [facility] on 10/25/2021 with complaints of paroxysmal nocturnal dyspnea and orthopnea. He reports these symptoms have been going on for 2-3 week period. Denies any recent fever, chills, headache, cough, hemoptysis, hematemesis, nausea, vomiting, chest pain, diaphoresis, lightheadedness, presyncope, syncope, or palpitations. Patient does report that he has some numbness and tingling to his bilateral lower extremities mainly his right leg and numbness to his left arm from a previous injury. He contributes the numbness to his lower extremiti es to sciatica. His initial laboratory results showed a WBC count of 11.3, hemoglobin 15.5, hematocrit 47.7, platelets 306, PT 10.2, INR 0.9, PTT 23.4, sodium 137, potassium 4.5, BUN 14, creatinine 1.42, glucose 127, magnesium 2.0, proBNP 3460 and positive serial troponins as high as 0.548. A 12-lead EKG was completed which showed sinus tachycardia with a left bundle branch block morphology with T-wave inversions in the lateral leads and a heart rate of 117 bpm. Due to the patient's presenting symptoms and positive serial troponins the consult was placed to Dr. Tejeda from cardiology for further workup and evaluation. A transthoracic 2-D echocardiogram was completed which showed a left ventricular ejection fraction of 20-25%, global left ventricular hypokinesis, mild mitral valve regurgitation and mild tricuspid valve regurgitation. A heart catheterization was recommended and on 10/28/2021 the patient underwent a cardiac catheterization which demonstrated an 80% stenosis to his distal left main coronary artery, a 40-50% stenosis to his proximal left anterior descending coronary artery, a 75% stenosis to his distal left anterior descending coronary artery, left to right collaterals to the right coronary artery, a 99% stenosis to his proximal circumflex coronary artery, and 80% stenosis to his obtuse marginal #3 coronary artery, a 99% stenosis to his mid right coronary artery and a 30-40% stenosis to his mid right coronary artery. Subsequently, due to the patient's presenting symptoms, and findings on the cardiac catheterization a consult was placed to Dr. Eros Greenberg from cardiothoracic surgery for further recommendations including myocardial revascularization surgery. Review of Systems A 14 point review systems was completed was negative except as mentioned on the HPI. Past Medical History Past Medical History: CVA/TIA, GERD/Reflux, Hyperlipidemia, Hypertension, Pulmonary Embolus (PE), Sleep Apnea/CPAP/BIPAP, Thyroid Disorder Additional Past Medical History / Comment(s): "PreDiabetic, diet controlled/Hypoglycemia." Hashimotos Thyroiditis. 2 strokes 06/02, slight memory problems since, migraines, back and neck pain, severe right and mild left sciatcia, hx PE's in his 20's, varicose veins, no CPAP use, clausterphobia. 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 Ulcerative Colitis. Hiatal Hernia. History of Any Multi-Drug Resistant Organisms: None Reported Past Surgical History: Orthopedic Surgery Additional Past Surgical History / Comment(s): Neck fusion, left cartoid surgery, left arm surgery, left ankle fracture, right shoulder surgery, EGD, colonoscopies. Past Anesthesia/Blood Transfusion Reactions: Previous Problems w/ Anesthesia Additional Past Anesthesia/Blood Transfusion Reaction / Comm: "Need large amounts to put me out." "Needs to brought out slowly." Past Psychological History: Anxiety Smoking Status: Current every day smoker Past Alcohol Use History: None Reported Past Drug Use History: None Reported - Past Family History Mother Family Medical History: Congestive Heart Failure (CHF) Additional Family Medical History / Comment(s): at age 86 Father Additional Family Medical History / Comment(s): EtOH, pancreatitis Sister(s) Additional Family Medical History / Comment(s): His sister had a heart transplant in her 40s, unknown reason. Medications and Allergies Home Medications Medication Instructions Recorded Confirmed Type Aspirin EC [Ecotrin Low Dose] 81 mg PO DAILY 01/19/21 10/26/21 History Levothyroxine Sodium 200 mcg PO DAILY 01/19/21 10/26/21 History Cyclobenzaprine [Flexeril] 10 mg PO HS PRN 07/01/21 10/26/21 History Diclofenac Sodium 50 mg PO HS PRN 07/01/21 10/26/21 History Loratadine-Pseudoeph 5-120 mg 1 tab PO BID 10/26/21 10/26/21 History [Claritin-D 12 Hour] Allergies Allergy/AdvReac Type Severity Reaction Status Date / Time cephalexin [From Keflex] Allergy Unknown Verified 10/30/21 06:05 latex Allergy Anaphylaxis Verified 10/30/21 06:05 Penicillins Allergy Unknown Verified 10/30/21 06:05 Childhood Surgical - Exam Vital Signs Temp Pulse Resp BP Pulse Ox 98.1 F 121 H 24 149/84 98 10/26/21 05:03 10/26/21 05:03 10/26/21 05:03 10/26/21 05:03 10/26/21 05:03 - General well developed, well nourished, no distress, no pain - Eyes PERRL, normal ocular movement, no pale, no icteric - ENT normal pinna, normal nares, normal mucosa, no hearing loss, no congestion - Neck Neck is supple, no lymphadenopathy. no masses, no bruits, trachea midline, no venous distension - Respiratory Lung sounds are essentially clear throughout. No wheezes, rhonchi or crackles. Respirations are symmetrical and nonlabored. - Cardiovascular Regular rhythm and rate. S1 and S2 present, negative for S3, gallop or murmur. No edema present. - Abdomen Abdomen is soft, nontender nondistended. Active bowel sounds present in all 4 abdominal quadrants. No guarding or rigidity. No organomegaly appreciated. - Genitourinary Deferred - Rectum Deferred - Integumentary Skin is warm and dry. No clubbing or cyanosis is present. no rash, no growths, no abnormal pigmentation - Neurologic No focal deficits. normal coordination, normal sensation - Musculoskeletal Equal strength bilateral upper and lower extremities. - Psychiatric oriented to time, oriented to person, oriented to place, speech is normal, memory intact Results - Labs 10/29/21 07:15 10/29/21 07:15 Abnormal Lab Results - Last 24 Hours (Table) 10/28/21 10/29/21 10/29/21 Range/Units 18:57 07:15 07:15 APTT 48.5 H 49.0 H (22.0-30.0) sec Creatinine 1.56 H (0.66-1.25) mg/dL Glucose 110 H (74-99) mg/dL Troponin I (0.000-0.034) ng/mL TSH <0.015 L (0.465-4.680) mIU/L Free T4 2.60 H (0.78-2.19) ng/dL 10/29/21 Range/Units 07:15 APTT (22.0-30.0) sec Creatinine (0.66-1.25) mg/dL Glucose (74-99) mg/dL Troponin I 0.113 H* (0.000-0.034) ng/mL TSH (0.465-4.680) mIU/L Free T4 (0.78-2.19) ng/dL Diabetes panel 10/29/21 Range/Units 07:15 Sodium 138 (137-145) mmol/L Potassium 4.1 (3.5-5.1) mmol/L Chloride 106 (98-107) mmol/L Carbon Dioxide 26 (22-30) mmol/L BUN 17 (9-20) mg/dL Creatinine 1.56 H (0.66-1.25) mg/dL Glucose 110 H (74-99) mg/dL Calcium 8.8 (8.4-10.2) mg/dL AST 22 (17-59) U/L ALT 21 (4-49) U/L Alkaline Phosphatase 101 (38-126) U/L Total Protein 6.5 (6.3-8.2) g/dL Albumin 3.7 (3.5-5.0) g/dL Thyroid panel 10/29/21 Range/Units 07:15 TSH <0.015 L (0.465-4.680) mIU/L Calcium panel 10/29/21 Range/Units 07:15 Calcium 8.8 (8.4-10.2) mg/dL Albumin 3.7 (3.5-5.0) g/dL Pituitary panel 10/29/21 Range/Units 07:15 Sodium 138 (137-145) mmol/L Potassium 4.1 (3.5-5.1) mmol/L Chloride 106 (98-107) mmol/L Carbon Dioxide 26 (22-30) mmol/L BUN 17 (9-20) mg/dL Creatinine 1.56 H (0.66-1.25) mg/dL Glucose 110 H (74-99) mg/dL Calcium 8.8 (8.4-10.2) mg/dL TSH <0.015 L (0.465-4.680) mIU/L Adrenal panel 10/29/21 Range/Units 07:15 Sodium 138 (137-145) mmol/L Potassium 4.1 (3.5-5.1) mmol/L Chloride 106 (98-107) mmol/L Carbon Dioxide 26 (22-30) mmol/L BUN 17 (9-20) mg/dL Creatinine 1.56 H (0.66-1.25) mg/dL Glucose 110 H (74-99) mg/dL Calcium 8.8 (8.4-10.2) mg/dL Total Bilirubin 0.4 (0.2-1.3) mg/dL AST 22 (17-59) U/L ALT 21 (4-49) U/L Alkaline Phosphatase 101 (38-126) U/L Total Protein 6.5 (6.3-8.2) g/dL Albumin 3.7 (3.5-5.0) g/dL - Imaging Chest x-ray: report reviewed, image reviewed CT scan - chest: report reviewed, image reviewed Additional studies: Cardiac catheterization films and transthoracic 2-D echocardiograms films reviewed by Dr. Eros Greenberg. Carotid duplex results were reviewed. Assessment and Plan Assessment: 1. Symptomatic multivessel coronary artery disease 2. Acute heart failure with an ejection fraction of 20-25% 3. Orthopnea and paroxysmal nocturnal dyspnea, likely secondary to above 4. Non-ST elevated myocardial infarction this admission 5. History of left carotid stenosis, status post left carotid endarterectomy 6. Chronic ongoing tobacco dependence 7. History of ulcerative colitis 8. GERD 9. Hypothyroid Plan: The patient was seen and examined at his bedside on the third floor cardiac stepdown unit. He was also seen by Dr. Eros Greenberg from cardiothoracic surgery. His chart diagnostics were reviewed. Dr. Greenberg discussed with the patient the findings on the cardiac catheterization and transthoracic 2-D echocardiogram. Treatment options were discussed with the patient by Dr. Greenberg including myocardial arrest rosacea and surgery. Risks and benefits of surgery including the STS risk score have been discussed with the patient and knowing understanding these risks the patient wished to proceed with the surgical option. He will be scheduled for surgery tomorrow 10/30/2021 with the procedure being Jimenez artery revascularization, with left internal mammary artery, endoscopic vein harvest, intraoperative transesophageal echocardiogram and exclusion of the left atrial appendage. Preoperative teaching has been initiated and preoperative workup has been completed. A 5 m walk test has been completed with the patient which showed time 1: 4.56, Time 2: 3.69, Time 3:3.22. The importance of risk modification including smoking cessation has been discussed with the patient. A computed tomography scan of his chest was completed which showed coronary artery disease, and intermediate lung nodules. Dr. Gong from pulmonary medicine has been consulted for pulmonary management. Recommendations will be made on an outpatient basis per follow-up to follow the lung nodules. Medical management of other comorbidities her primary care service. Heparin drip will be discontinued busperson to the operating room. Thank you Dr. Archuleta for this consult and we look forward to working with you in the care of this patient.
[2021-10-30] MEDS ORDERED: SODIUM CHLORIDE 0.9% 1,000 ML IV ONE (06:25)
[2021-10-30] MEDS ORDERED: ASPIRIN 325 MG TAB ONE (06:48)
[2021-10-30] MEDS ORDERED: ASPIRIN 81 MG PO STA (06:50)
[2021-10-30] MEDS ORDERED: MIDAZOLAM HCL 10 MG/10 ML VIAL ONE (07:42)
[2021-10-30] MEDS ORDERED: ePHEDrine 50 MG/ML 1 ML VIAL ONE (07:42)
[2021-10-30] MEDS ORDERED: ELECTROLYTE-R (PH 7.4) 1,000 ML IV.SOLN IV ONE (07:42)
[2021-10-30] MEDS ORDERED: fentaNYL (PF) 50 MCG/ML 50 ML VIAL ONE (07:42)
[2021-10-30] MEDS ORDERED: PHENYLEPHRINE-0.9% NACL SYG 1,000 MCG/10 ML SYRINGE ONE (07:42)
[2021-10-30] MEDS ORDERED: PROTAMINE SULFATE 10 MG/ML 5 ML VIAL IV ONE (07:42)
[2021-10-30] MEDS ORDERED: TRANEXAMIC ACID IN NACL,ISO-OS 1,000 MG/100 ML BAG ONE (07:42)
[2021-10-30] MEDS ORDERED: NITROGLYCERIN-D5W PMX 50 MG/250 ML BOTTLE IV ONE (07:42)
[2021-10-30] MEDS ORDERED: SUCCINYLCHOLINE CHLORIDE 200 MG/10 ML VIAL IV ONE (07:42)
[2021-10-30] MEDS ORDERED: PROPOFOL 10 MG/ML 20 ML VIAL IV ONE (07:42)
[2021-10-30] MEDS ORDERED: CALCIUM CHLORIDE 100 MG/ML 10 ML SYRINGE ONE (07:42)
[2021-10-30] MEDS ORDERED: MAGNESIUM SULFATE 4 MEQ/ML 10ML VIAL ONE (07:42)
[2021-10-30] MEDS ORDERED: LIDOCAINE 2% SYG (PF) 100 MG/5 ML ONE (07:42)
[2021-10-30] MEDS ORDERED: SODIUM BICARB 8.4% 50 ML VIAL (1 MEQ/ML) ONE (07:42)
[2021-10-30] MEDS ORDERED: VASOPRESSIN 20 UNIT/ML 1 ML VIAL ONE (07:42)
[2021-10-30] MEDS ORDERED: ALBUMIN HUMAN 5% (25gm) 500 ML VIAL IVPB ONE (07:42)
[2021-10-30] MEDS ORDERED: POTASSIUM CHLORIDE OPEN HEART 20 MEQ/50 ML BAG IVPB ONE (07:42)
[2021-10-30] MEDS ORDERED: VECURONIUM 10 MG VIAL IV ONE (07:42)
[2021-10-30] MEDS ORDERED: SODIUM CHLORIDE 0.9% IRRIG 1,000 ML BTL IRRIGATION ONE (07:42)
[2021-10-30] MEDS ORDERED: INSULIN REGULAR 100 UNIT/ML VIAL (IV) ONE (07:42)
[2021-10-30] MEDS ORDERED: HEPARIN SODIUM,PORCINE 10,000 UNIT/ML 1 ML VIAL ONE (07:42)
[2021-10-30 08:23] LABS: Basophils % (A) 1 %; Eosinophils # (A) 0.3 k/uL (0-0.7); Eosinophils % (A) 4 %; HCT 41.4 % (39.0-53.0); HGB 13.8 gm/dL (13.0-17.5); Lymphocytes # (A) 2.7 k/uL (1.0-4.8); Lymphocytes % (A) 36 %; MCH 30.4 pg (25.0-35.0); MCHC 33.3 g/dL (31.0-37.0); MCV 91.3 fL (80.0-100.0); Mean Platelet Volume 7.5; Monocytes # (A) 0.6 k/uL (0-1.0); Monocytes % (A) 8 %; Neutrophils # (A) 3.5 k/uL (1.3-7.7); Neutrophils % (A) 48 %; Platelet Count 274 k/uL (150-450); RBC 4.54 m/uL (4.30-5.90); RDW 13.8 % (11.5-15.5); WBC 7.3 k/uL (3.8-10.6)
[2021-10-30 08:52] LABS: ABG Base Excess -0.2 mmol/L; ABG Glucose Whole Blood 114 mg/dL (75-99); ABG HCO3 24 mmol/L (21-25); ABG Hematocrit 38 % (34.0-46.0); ABG Ionized Calcium 4.4 mg/dL (4.5-5.3); ABG Lactic Acid Whole Blood 0.8 mmol/L (0.5-1.6); ABG Oxygen Saturation 99.7 % (94-97); ABG PCO2 34 mmHg (35-45); ABG PH 7.45 (7.35-7.45); ABG PO2 368 mmHg (83-108); ABG Potassium Whole Blood 3.9 mmol/L (3.4-4.5); ABG Sodium Whole Blood 137 mmol/L (135-146); ABG TCO2 25 mmol/L (19-24)
[2021-10-30 08:52] LABS: Albumin 3.7 g/dL (3.5-5.0); Calcium 8.7 mg/dL (8.4-10.2); Potassium 4.2 mmol/L (3.5-5.1); Total Bilirubin 0.5 mg/dL (0.2-1.3); Total Protein 6.5 g/dL (6.3-8.2)
[2021-10-30] MEDS ORDERED: SODIUM CHLORIDE 0.9% 150 ML with VASOPRESSIN 60 UNIT IV SCH ×2 (09:15)
--- NOTE | 2021-10-30 10:25 | P.ANPRN ---
Procedure Note - Anesthesia - Invasive Line Right Central Line Time Out Performed: Yes Date of Procedure: 10/30/21 Time of Procedure: 07:32 Location of Patient: PreOp Preparation: Sterile Prep, Sterile Dressing Ultrasound Used: Yes Purpose - Visualization and Identification of Vasculature: Yes Needle Guage: 18 Image Stored and Saved: Yes Narrative: Central line placement per sterile protocol utilized. 9F in R IJ using Seldinger technique Right [place] Time Out Performed: Yes Date of Procedure: 10/30/21 Time of Procedure: 07:40 Location of Patient: PreOp Preparation: Sterile Prep, Sterile Dressing Narrative: SWAN had balloon tested and all ports flushed. Catheter advanced until RV and then PA waveform obtained. Secured @ 43 cm. Good position in main PA confirmed on VIKY. Right Arterial Line Time Out Performed: Yes Date of Procedure: 10/30/21 Time of Procedure: 09:46 Location of Patient: PreOp Preparation: Sterile Prep, Sterile Dressing Arterial Line Location: Radial Ultrasound Used: Yes Purpose - Visualization and Identification of Vasculature: Yes Needle Guage: 20 Image Stored and Saved: Yes Narrative: After previous attempts by SRNA and PEST CONTROLLER ASSISTANT, the right arm was prepped and draped. 1% lidocaine 2 ml infiltrated in distal 1/3rd of forearm. Under u/s guidance, 20 g arrow inserted into right radial artery. Pulsatile blood flow obtained. Catheter inserted over wire. Line sutured in place. Biopatch and sterile dressing applied.
[2021-10-30 10:50] LABS: ABG Base Excess -0.2 mmol/L; ABG Glucose Whole Blood 156 mg/dL (75-99); ABG HCO3 25 mmol/L (21-25); ABG Hematocrit 39 % (34.0-46.0); ABG Ionized Calcium 4.6 mg/dL (4.5-5.3); ABG Lactic Acid Whole Blood 0.9 mmol/L (0.5-1.6); ABG Oxygen Saturation 99.2 % (94-97); ABG PCO2 42 mmHg (35-45); ABG PH 7.39 (7.35-7.45); ABG PO2 210 mmHg (83-108); ABG Sodium Whole Blood 137 mmol/L (135-146); ABG TCO2 26 mmol/L (19-24)
--- NOTE | 2021-10-30 11:01 | P.ANPRN ---
Procedure Note - Anesthesia - VIKY Intraop Pre Bypass VIKY Intraop - Anesthesia Indication: CHF, CAD Date of Procedure: 10/30/21 Pre-operative Diagnosis: CAD, CHF Post-operative Diagnosis: Same Surgeon: Eros Greenberg Left Ventricle: EF 10%, Severe global hypokinesis. Akinesis inferior and septal ruth. Akinesis inferolateral wall. Hypokinesis anterior and anterolateral ruth. Ejection Fraction: Other (10%) Regional Wall Motion Abnormalities: Other (inferior and septal ruth worse than anterior and anteroseptal) Left Ventricle Hypertrophy: No R. Ventricle Function: Hypokinesis Moderate Anatomy: Trileaflet Aortic Stenosis: None Aortic Regurgitation: Trace Mitral Stenosis: None Mitral Regurgitation: Moderate Tricuspid Stenosis: None Tricuspid Regurgitation: None Pulmonic Stenosis: None Pulmonic Regurgitation: None Right Atrium: Septal lipomatous hypertrophy R. Atrial Dilation: Yes R. Atrial PFO: No L. Atrial Dilation: No Aortic Dissection: No Aortic Calcification: Moderate Plural Effusion: None
[2021-10-30 11:35] LABS: ABG Base Excess -1.3 mmol/L; ABG Glucose Whole Blood 131 mg/dL (75-99); ABG HCO3 24 mmol/L (21-25); ABG Hematocrit 30 % (34.0-46.0); ABG Ionized Calcium 4.1 mg/dL (4.5-5.3); ABG Lactic Acid Whole Blood 1.2 mmol/L (0.5-1.6); ABG PCO2 40 mmHg (35-45); ABG PH 7.38 (7.35-7.45); ABG PO2 390 mmHg (83-108); ABG Potassium Whole Blood 3.8 mmol/L (3.4-4.5); ABG Sodium Whole Blood 134 mmol/L (135-146); ABG TCO2 25 mmol/L (19-24)
--- NOTE | 2021-10-30 11:41 | CA ---
Transthoracic Echo Report Name: Chuck Torres Age: 66 Gender: M : 1955 Exam Date: 10/29/2021 13:05 Exam Location: [facility] Ht (in): 70 Wt (lb): 181 Ordering Physician: Alexy Alves Attending/Referring Phys: Long DUR[employer] Electric[employer] Supervisor Teodora Garcia RDCS Procedure CPT: Indications: eval lv fxn Cardiac Hx: Technical Quality: Good Contrast 1: Total Dose (mL): Contrast 2: Total Dose (mL): MEASUREMENTS (Male / Female) Normal Values FINDINGS Left Ventricle Left ventricular ejection fraction is estimated at 20-25%. global hypokinesis Right Ventricle Right Atrium Left Atrium Mitral Valve Aortic Valve Tricuspid Valve Pulmonic Valve Pericardium Aorta CONCLUSIONS Limited 2-D echo Left ventricular ejection fraction 20-25% with global hypokinesis Previewed by: Dr. Navdeep Rodríguez DO (Electronically Signed) Final Date: 30 October 2021 11:40
[2021-10-30 12:04] LABS: ABG Base Excess -0.5 mmol/L; ABG Glucose Whole Blood 132 mg/dL (75-99); ABG HCO3 25 mmol/L (21-25); ABG Hematocrit 30 % (34.0-46.0); ABG Ionized Calcium 4.3 mg/dL (4.5-5.3); ABG Lactic Acid Whole Blood 1.4 mmol/L (0.5-1.6); ABG Oxygen Saturation 99.5 % (94-97); ABG PCO2 43 mmHg (35-45); ABG PH 7.37 (7.35-7.45); ABG PO2 299 mmHg (83-108); ABG Potassium Whole Blood 4.5 mmol/L (3.4-4.5); ABG Sodium Whole Blood 135 mmol/L (135-146); ABG TCO2 26 mmol/L (19-24)
[2021-10-30 12:58] LABS: ABG Base Excess -1.4 mmol/L; ABG Glucose Whole Blood 150 mg/dL (75-99); ABG HCO3 25 mmol/L (21-25); ABG Hematocrit 29 % (34.0-46.0); ABG Ionized Calcium 4.2 mg/dL (4.5-5.3); ABG Lactic Acid Whole Blood 1.6 mmol/L (0.5-1.6); ABG Oxygen Saturation 99.7 % (94-97); ABG PCO2 47 mmHg (35-45); ABG PH 7.33 (7.35-7.45); ABG PO2 352 mmHg (83-108); ABG Potassium Whole Blood 4.5 mmol/L (3.4-4.5); ABG Sodium Whole Blood 136 mmol/L (135-146); ABG TCO2 26 mmol/L (19-24)
[2021-10-30 13:39] LABS: ABG Base Excess -1.4 mmol/L; ABG Glucose Whole Blood 168 mg/dL (75-99); ABG HCO3 24 mmol/L (21-25); ABG Hematocrit 28 % (34.0-46.0); ABG Ionized Calcium 4.6 mg/dL (4.5-5.3); ABG Oxygen Saturation 99.6 % (94-97); ABG PCO2 39 mmHg (35-45); ABG PH 7.39 (7.35-7.45); ABG PO2 341 mmHg (83-108); ABG Potassium Whole Blood 4.4 mmol/L (3.4-4.5); ABG Sodium Whole Blood 136 mmol/L (135-146); ABG TCO2 25 mmol/L (19-24)
[2021-10-30 14:05] LABS: ABG Base Excess -2.8 mmol/L; ABG Glucose Whole Blood 194 mg/dL (75-99); ABG HCO3 23 mmol/L (21-25); ABG Hematocrit 28 % (34.0-46.0); ABG Ionized Calcium 5.4 mg/dL (4.5-5.3); ABG Oxygen Saturation 98.9 % (94-97); ABG PCO2 42 mmHg (35-45); ABG PH 7.34 (7.35-7.45); ABG PO2 148 mmHg (83-108); ABG Sodium Whole Blood 136 mmol/L (135-146); ABG TCO2 24 mmol/L (19-24)
--- NOTE | 2021-10-30 14:29 | P.ANPRN ---
Procedure Note - Anesthesia - VIKY Intraop Post Bypass VIKY Intraop Post Bypass Procedure Performed: CABG, IABP Left Ventricle: EF 10% Ejection Fraction: Other Regional Wall Motion Abnormalities: Other (No change from pre bypass. Akinesis inferior segments. Hypokinesis anterior and anterolateral ruth) R. Ventricle Function: Hypokinesis Mild Aortic Valve: Unchanged Mitral Valve: Unchanged Tricuspid: Unchanged Pulmonic: Unchanged Aortic Dissection: No
[2021-10-30] MEDS ORDERED: AMIODARONE 360 MG in DEXTROSE 5% IN WATER 200 ML IV ONE ×4 (14:30→15:30)
[2021-10-30 14:48] LABS: ABG Lactic Acid Whole Blood 2.1 mmol/L (0.5-1.6)
[2021-10-30 14:48] LABS: ABG Lactic Acid Whole Blood 2.6 mmol/L (0.5-1.6)
[2021-10-30 14:52] LABS: Thyroid Peroxidase Antibodies 25.8 U/mL (0.0-33.0)
[2021-10-30 14:53] LABS: ABG Base Excess -3.4 mmol/L; ABG Glucose Whole Blood 143 mg/dL (75-99); ABG HCO3 22 mmol/L (21-25); ABG Hematocrit 31 % (34.0-46.0); ABG Ionized Calcium 4.9 mg/dL (4.5-5.3); ABG Oxygen Saturation 97.2 % (94-97); ABG PCO2 43 mmHg (35-45); ABG PH 7.33 (7.35-7.45); ABG PO2 104 mmHg (83-108); ABG Potassium Whole Blood 4.3 mmol/L (3.4-4.5); ABG Sodium Whole Blood 137 mmol/L (135-146); ABG TCO2 24 mmol/L (19-24)
[2021-10-30] MEDS ORDERED: ALBUMIN HUMAN 5% 250 ML in EMPTY BAG 1 BAG IVPB PRN (15:03)
[2021-10-30] MEDS ORDERED: DEXTROSE 5% IN WATER 100 ML with AMIODARONE 150 MG IV PRN (15:03)
[2021-10-30] MEDS ORDERED: CALCIUM GLUCONATE IN NACL 2 GM in SALINE 1 100ML.BAG IVPB PRN (15:03)
[2021-10-30] MEDS ORDERED: METOCLOPRAMIDE 5 MG/ML 2 ML VIAL IVP PRN (15:03)
[2021-10-30] MEDS ORDERED: Magnesium Replacement Protocol 1 EACH MISC MISCELLANE PRN (15:03)
[2021-10-30] MEDS ORDERED: IPRATROPIUM-ALBUTEROL 3 ML NEB INHALATION PRN (15:03)
[2021-10-30] MEDS ORDERED: Potassium Replacement Protocol 1 EACH MISC MISCELLANE PRN (15:03)
[2021-10-30] MEDS ORDERED: ONDANSETRON 4 MG/2 ML VIAL IVP PRN (15:03)
[2021-10-30] MEDS ORDERED: BENZOCAINE/MENTHOL LOZENG 1 EACH LOZENGE MUCOUS MEM PRN (15:03)
[2021-10-30 15:06] LABS: ABG Lactic Acid Whole Blood 2.4 mmol/L (0.5-1.6)
[2021-10-30] MEDS ORDERED: ALBUMIN HUMAN 5% 500 ML IVPB ONE (15:10)
[2021-10-30] MEDS ORDERED: DEXMEDETOMIDINE/0.9% NACL(PMX) 400 MCG in EMPTY BAG 1 BAG IV SCH (15:30)
[2021-10-30 15:43] LABS: Glucose,Whole Blood 122 mg/dL (70-110)
[2021-10-30 15:54] LABS: Basophils % (A) 0 %; Eosinophils # (A) 0.1 k/uL (0-0.7); Eosinophils % (A) 1 %; HCT 33.7 % (39.0-53.0); HGB 10.9 gm/dL (13.0-17.5); Lymphocytes # (A) 1.8 k/uL (1.0-4.8); Lymphocytes % (A) 13 %; MCH 29.2 pg (25.0-35.0); MCHC 32.2 g/dL (31.0-37.0); MCV 90.7 fL (80.0-100.0); Mean Platelet Volume 7.4; Monocytes # (A) 0.5 k/uL (0-1.0); Monocytes % (A) 3 %; Neutrophils # (A) 10.9 k/uL (1.3-7.7); Neutrophils % (A) 82 %; Platelet Count 151 k/uL (150-450); RBC 3.72 m/uL (4.30-5.90); RDW 13.6 % (11.5-15.5); WBC 13.3 k/uL (3.8-10.6)
[2021-10-30 15:56] LABS: Ionized Calcium 5.2 mg/dL (4.5-5.3)
[2021-10-30 16:03] LABS: Albumin 2.9 g/dL (3.5-5.0); Calcium 8.6 mg/dL (8.4-10.2); Magnesium 2.5 mg/dL (1.6-2.3); Potassium 4.1 mmol/L (3.5-5.1); Total Bilirubin 0.9 mg/dL (0.2-1.3); Total Protein 4.8 g/dL (6.3-8.2)
[2021-10-30] MEDS: CLEVIDIPINE BUTYRATE 25 MG in EMPTY BAG 1 BAG IV SCH (16:03)
[2021-10-30] MEDS: SODIUM CHLORIDE 0.9% 1,000 ML IV SCH (16:04)
[2021-10-30 16:06] LABS: Glucose,Whole Blood 109 mg/dL (70-110)
[2021-10-30] MEDS: INSULIN REGULAR 100 UNIT in SODIUM CHLORIDE 0.9% 100 ML IV SCH (16:06)
[2021-10-30 16:07] LABS: ABG Base Excess 0.2 mmol/L; ABG HCO3 26 mmol/L (21-25); ABG PCO2 49 mmHg (35-45); ABG PH 7.34 (7.35-7.45); ABG PO2 113 mmHg (83-108); ABG TCO2 28 mmol/L (19-24); Allen Test Performed? Yes
[2021-10-30] MEDS: MILRINONE-D5W PMX 20 MG in DEXTROSE/WATER 1 100ML.BAG IV SCH (16:10)
[2021-10-30] MEDS: NOREPINEPHRINE 4 MG in SODIUM CHLORIDE 0.9% 250 ML IV SCH (16:11)
[2021-10-30 16:12] LABS: INR 1.3 (<1.2); Partial Thromboplastin Time 23.9 sec (22.0-30.0); Prothrombin Time 13.3 sec (9.0-12.0)
[2021-10-30] MEDS: IPRATROPIUM-ALBUTEROL 3 ML NEB INHALATION SCH ×2 (16:14→19:53)
[2021-10-30] MEDS: SODIUM CHLORIDE 0.9% 150 ML with VASOPRESSIN 60 UNIT IV SCH ×2 (16:17)
--- NOTE | 2021-10-30 16:19 | XR ---
EXAMINATION TYPE: XR chest 1V portable DATE OF EXAM: 10/30/2021 Comparison: 10/26/2021 Clinical History: 66-year-old male Post Operative Cardiac Surgery Findings: ACDF hardware partially seen. Tube tip at the level of the medial clavicular heads. Right IJ Sabattus-Berry z catheter tip likely at the proximal right main pulmonary artery. Mediastinal drains. Bilateral ches t tubes are present. No appreciable pneumothorax. Retained epicardial pacer leads. Median sternotomy wires and post-CABG clips in the mediastinum. Heart mildly enlarged. Hyperinflation. Mild interstitia l prominence. No kieran consolidation or pleural effusion. Impression: 1. Mild cardiomegaly. Suspect background COPD. Interstitial prominence which could reflect mild pulmo nary vascular congestion. 2. Multiple lines and catheters as well as postsurgical change as above.
--- NOTE | 2021-10-30 16:39 | P.PN ---
Subjective Progress Note Date: 10/30/21 Patient is a very pleasant 66-year-old male with known vascular disease status post carotid endarterectomy, hypothyroidism, nicotine dependence smokes approximately a half a pack of cigarettes daily, chronic back pain, and ulcerative colitis. Who presented to the emergency department with complaints of orthopnea and paroxysmal nocturnal dyspnea. In the ED he undewent an extensive evaluation. Initial EKG showing sinus tachycardia with left ventricular hypertrophy and T-wave inversion in lateral leads. Troponin elevated at 0.078 and proBNP 3460. Chest x-ray revealed mild pulmonary interstitial edema suggestive of acute heart failure. Patient was given aspirin 325 mg by mouth 1 dose and started on heparin infusion per ACS protocol. He was admitted and cardio was consulted. Echocardiogram revealing severely impaired EF of 20-25% with global left ventricular hypokinesis and mild mitral and tricuspid regurgitation. He underwent cardiac catheterization 10/28/21 which revealed multivessel CAD with elevated left-sided filling pressures recommending surgical evaluation for possible CABG, is felt to be too high risk for CABG they are recommending multilevel PCI. Cardiothoracic surgery consulted and patient underwent 2 vessel bypass. During OR he did have an episode of VT and required insertion of a ballon pump. Hewas admitted to the ICU and was requiring nitro, milrinone, vaso, levo, insulin, propofol, and amio. General: non toxic, no distress, appears at stated age Derm: warm, dry Head: atraumatic, normocephalic, symmetric Eyes: EOMI, no lid lag, anicteric sclera Mouth: no lip lesion, mucus membranes moist Cardiovascular: S1S2 reg, no murmur, positive posterior tibial pulse bilateral, Lungs: CTA bilateral, no rhonchi, no rales , no accessory muscle use Abdominal: soft, nontender to palpation, no guarding, no appreciable organomegaly Ext: no gross muscle atrophy, no edema, no contractures Neuro: CN II-XI grossly intact, no focal neuro deficits Psych: Alert, oriented, appropriate affect Assessmnet/plan: Multivessel coronary artery disease s/p 2 vessel bypass on 10/30/21 NSTEMI Newly discovered, Acute systolic heart failure with EF of 20-25% - post-op mgt by cardiothorasci surgery - cardio recs -Daily weights. -Close monitoring of I's and O's. -Vent mgt per cardio - amio, vaso/levo, milrinone, nitro gtt - ASA, lipitor, plavix Acute Blood Loss Anemia - expected outcome of surgery -follow CBC CKD 3 - Renal function at baseline, Cr 1.5 - follow Cr Hypothyrodism with hx of hashimotos - TSH undeterctable and T4 elevated - on BB - Will need to discuss with patient imprtance of change in synthroid once off Vent. Diabetes - A1C 6.5, new transition from pre diabetes to overt diabetes - conitnue with insulin gtt - follow BS - Once closer to [facility] consider farxiga or jardiace for heart failure and DM control Grief secondary to recent loss of loved one -Case management consult placed for assistance in setting up outpatient grief counselor/therapist upon discharge. Nicotine dependence -Counseled on the importance of smoking cessation and risks associated with continued use. -Nicotine patch provided. Chronic: Prior PE GERD CVA X 2 Ulcerative colitis Objective - Vital Signs Vital signs: Vital Signs Temp 98.3 F 10/30/21 06:07 Pulse 81 10/30/21 16:30 Resp 18 10/30/21 16:30 BP 81/43 10/30/21 16:30 Pulse Ox 99 10/30/21 16:30 FiO2 60 10/30/21 16:00 Intake & Output 10/29/21 10/30/21 10/30/21 18:59 06:59 18:59 Intake Total 465.552 100 253.135 Output Total 2300 380 3000 Balance -1834.448 -280 -2746.865 Weight 81.6 kg Intake: IV 100 253 Intake, IV Titration 105.552 0.135 Amount Heparin Sod,Pork in 0.45% 105.552 NaCl 25,000 unit In 0.45 % NaCl 1 250ml.bag @ 12 UNITS/KG/HR 9.634 mls/hr IV .Q24H CAN Rx#: [id number] Insulin Regular 100 unit 0.135 In Sodium Chloride 0.9% 100 ml @ Per Protocol IV .Q0M CAN Rx#:[id number] Oral 360 Output: Urine 2300 380 1200 Estimated Blood Loss 1800 Other: Voiding Method Toilet Toilet ABP, PAP, CO, CI - Last Documented Arterial Blood Pressure 108/60 Pulmonary Artery Pressure 29/21 Cardiac Output 5 Cardiac Index 2.5 - Labs CBC & Chem 7: 10/30/21 15:41 10/30/21 15:41 Labs: Abnormal Lab Results - Last 24 Hours (Table) 10/29/21 10/29/21 10/30/21 Range/Units 07:15 13:58 04:06 WBC (3.8-10.6) k/uL RBC (4.30-5.90) m/uL Hgb (13.0-17.5) gm/dL Hct (39.0-53.0) % Neutrophils # (1.3-7.7) k/uL PT (9.0-12.0) sec INR (<1.2) ABG pH (7.35-7.45) ABG pCO2 (35-45) mmHg ABG pO2 (83-108) mmHg ABG HCO3 (21-25) mmol/L ABG Total CO2 (19-24) mmol/L ABG O2 Saturation (94-97) % ABG Hematocrit (34.0-46.0) % ABG Sodium (135-146) mmol/L ABG Ionized Calcium (4.5-5.3) mg/dL ABG Glucose (75-99) mg/dL ABG Lactic Acid (0.5-1.6) mmol/L Hemoglobin (13.0-17.5) gm/dL Chloride (98-107) mmol/L Creatinine (0.66-1.25) mg/dL Glucose (74-99) mg/dL POC Glucose (mg/dL) 122 H (70-110) mg/dL Hemoglobin A1c 6.5 H (0.0-6.0) % Magnesium (1.6-2.3) mg/dL Total Protein (6.3-8.2) g/dL Albumin (3.5-5.0) g/dL Thyroglobulin (1.60-59.90) ng/mL Arterial Blood Glucose (75-99) mg/dL Thyroglobulin Antibody (0.0-114.0) U/mL Crossmatch See Detail 10/30/21 10/30/21 10/30/21 Range/Units 07:45 07:45 08:54 WBC (3.8-10.6) k/uL RBC (4.30-5.90) m/uL Hgb (13.0-17.5) gm/dL Hct (39.0-53.0) % Neutrophils # (1.3-7.7) k/uL PT (9.0-12.0) sec INR (<1.2) ABG pH (7.35-7.45) ABG pCO2 34 L (35-45) mmHg ABG pO2 368 H (83-108) mmHg ABG HCO3 (21-25) mmol/L ABG Total CO2 25 H (19-24) mmol/L ABG O2 Saturation 99.7 H (94-97) % ABG Hematocrit (34.0-46.0) % ABG Sodium (135-146) mmol/L ABG Ionized Calcium 4.4 L (4.5-5.3) mg/dL ABG Glucose 114 H (75-99) mg/dL ABG Lactic Acid (0.5-1.6) mmol/L Hemoglobin 12.5 L (13.0-17.5) gm/dL Chloride (98-107) mmol/L Creatinine 1.56 H (0.66-1.25) mg/dL Glucose 122 H (74-99) mg/dL POC Glucose (mg/dL) (70-110) mg/dL Hemoglobin A1c (0.0-6.0) % Magnesium (1.6-2.3) mg/dL Total Protein (6.3-8.2) g/dL Albumin (3.5-5.0) g/dL Thyroglobulin <0.20 L (1.60-59.90) ng/mL Arterial Blood Glucose 114 H (75-99) mg/dL Thyroglobulin Antibody >4000.0 H (0.0-114.0) U/mL Crossmatch 10/30/21 10/30/21 10/30/21 Range/Units 10:52 11:37 12:06 WBC (3.8-10.6) k/uL RBC (4.30-5.90) m/uL Hgb (13.0-17.5) gm/dL Hct (39.0-53.0) % Neutrophils # (1.3-7.7) k/uL PT (9.0-12.0) sec INR (<1.2) ABG pH (7.35-7.45) ABG pCO2 (35-45) mmHg ABG pO2 210 H 390 H 299 H (83-108) mmHg ABG HCO3 (21-25) mmol/L ABG Total CO2 26 H 25 H 26 H (19-24) mmol/L ABG O2 Saturation 99.2 H 100.0 H 99.5 H (94-97) % ABG Hematocrit 30 L 30 L (34.0-46.0) % ABG Sodium 134 L (135-146) mmol/L ABG Ionized Calcium 4.1 L 4.3 L (4.5-5.3) mg/dL ABG Glucose 156 H 131 H 132 H (75-99) mg/dL ABG Lactic Acid (0.5-1.6) mmol/L Hemoglobin 12.8 L 9.7 L 9.8 L (13.0-17.5) gm/dL Chloride (98-107) mmol/L Creatinine (0.66-1.25) mg/dL Glucose (74-99) mg/dL POC Glucose (mg/dL) (70-110) mg/dL Hemoglobin A1c (0.0-6.0) % Magnesium (1.6-2.3) mg/dL Total Protein (6.3-8.2) g/dL Albumin (3.5-5.0) g/dL Thyroglobulin (1.60-59.90) ng/mL Arterial Blood Glucose 156 H 131 H 132 H (75-99) mg/dL Thyroglobulin Antibody (0.0-114.0) U/mL Crossmatch 10/30/21 10/30/21 10/30/21 Range/Units 13:00 13:41 14:07 WBC (3.8-10.6) k/uL RBC (4.30-5.90) m/uL Hgb (13.0-17.5) gm/dL Hct (39.0-53.0) % Neutrophils # (1.3-7.7) k/uL PT (9.0-12.0) sec INR (<1.2) ABG pH 7.33 L 7.34 L (7.35-7.45) ABG pCO2 47 H (35-45) mmHg ABG pO2 352 H 341 H 148 H (83-108) mmHg ABG HCO3 (21-25) mmol/L ABG Total CO2 26 H 25 H (19-24) mmol/L ABG O2 Saturation 99.7 H 99.6 H 98.9 H (94-97) % ABG Hematocrit 29 L 28 L 28 L (34.0-46.0) % ABG Sodium (135-146) mmol/L ABG Ionized Calcium 4.2 L 5.4 H (4.5-5.3) mg/dL ABG Glucose 150 H 168 H 194 H (75-99) mg/dL ABG Lactic Acid 2.1 H 2.6 H* (0.5-1.6) mmol/L Hemoglobin 9.3 L 9.0 L 9.1 L (13.0-17.5) gm/dL Chloride (98-107) mmol/L Creatinine (0.66-1.25) mg/dL Glucose (74-99) mg/dL POC Glucose (mg/dL) (70-110) mg/dL Hemoglobin A1c (0.0-6.0) % Magnesium (1.6-2.3) mg/dL Total Protein (6.3-8.2) g/dL Albumin (3.5-5.0) g/dL Thyroglobulin (1.60-59.90) ng/mL Arterial Blood Glucose 150 H 168 H 194 H (75-99) mg/dL Thyroglobulin Antibody (0.0-114.0) U/mL Crossmatch 10/30/21 10/30/21 10/30/21 Range/Units 14:55 15:40 15:41 WBC 13.3 H (3.8-10.6) k/uL RBC 3.72 L (4.30-5.90) m/uL Hgb 10.9 L (13.0-17.5) gm/dL Hct 33.7 L (39.0-53.0) % Neutrophils # 10.9 H (1.3-7.7) k/uL PT (9.0-12.0) sec INR (<1.2) ABG pH 7.33 L (7.35-7.45) ABG pCO2 (35-45) mmHg ABG pO2 (83-108) mmHg ABG HCO3 (21-25) mmol/L ABG Total CO2 (19-24) mmol/L ABG O2 Saturation 97.2 H (94-97) % ABG Hematocrit 31 L (34.0-46.0) % ABG Sodium (135-146) mmol/L ABG Ionized Calcium (4.5-5.3) mg/dL ABG Glucose 143 H (75-99) mg/dL ABG Lactic Acid 2.4 H* (0.5-1.6) mmol/L Hemoglobin 10.2 L (13.0-17.5) gm/dL Chloride (98-107) mmol/L Creatinine (0.66-1.25) mg/dL Glucose (74-99) mg/dL POC Glucose (mg/dL) 122 H (70-110) mg/dL Hemoglobin A1c (0.0-6.0) % Magnesium (1.6-2.3) mg/dL Total Protein (6.3-8.2) g/dL Albumin (3.5-5.0) g/dL Thyroglobulin (1.60-59.90) ng/mL Arterial Blood Glucose 143 H (75-99) mg/dL Thyroglobulin Antibody (0.0-114.0) U/mL Crossmatch 10/30/21 10/30/21 10/30/21 Range/Units 15:41 15:41 15:57 WBC (3.8-10.6) k/uL RBC (4.30-5.90) m/uL Hgb (13.0-17.5) gm/dL Hct (39.0-53.0) % Neutrophils # (1.3-7.7) k/uL PT 13.3 H (9.0-12.0) sec INR 1.3 H (<1.2) ABG pH 7.34 L (7.35-7.45) ABG pCO2 49 H (35-45) mmHg ABG pO2 113 H (83-108) mmHg ABG HCO3 26 H (21-25) mmol/L ABG Total CO2 28 H (19-24) mmol/L ABG O2 Saturation 98.0 H (94-97) % ABG Hematocrit (34.0-46.0) % ABG Sodium (135-146) mmol/L ABG Ionized Calcium (4.5-5.3) mg/dL ABG Glucose (75-99) mg/dL ABG Lactic Acid (0.5-1.6) mmol/L Hemoglobin (13.0-17.5) gm/dL Chloride 108 H (98-107) mmol/L Creatinine 1.46 H (0.66-1.25) mg/dL Glucose 110 H (74-99) mg/dL POC Glucose (mg/dL) (70-110) mg/dL Hemoglobin A1c (0.0-6.0) % Magnesium 2.5 H (1.6-2.3) mg/dL Total Protein 4.8 L (6.3-8.2) g/dL Albumin 2.9 L (3.5-5.0) g/dL Thyroglobulin (1.60-59.90) ng/mL Arterial Blood Glucose (75-99) mg/dL Thyroglobulin Antibody (0.0-114.0) U/mL Crossmatch Microbiology - Last 24 Hours (Table) 10/29/21 20:24 Nasal Screen MRSA/MSSA - Preliminary Nasal Swab
[2021-10-30 16:56] LABS: Glucose,Whole Blood 98 mg/dL (70-110)
[2021-10-30 18:04] LABS: Glucose,Whole Blood 114 mg/dL (70-110)
[2021-10-30 18:05] LABS: ABG HCO3 27 mmol/L (21-25); ABG Oxygen Saturation 98.6 % (94-97); ABG PCO2 50 mmHg (35-45); ABG PH 7.34 (7.35-7.45); ABG PO2 129 mmHg (83-108); ABG TCO2 28 mmol/L (19-24); Allen Test Performed? Yes
--- NOTE | 2021-10-30 18:34 | P.PN ---
Subjective Progress Note Date: 10/30/21 Principal diagnosis: Shortness of breath 66-year-old male patient with past history of CVA, carotid artery disease with previous carotid endarterectomy, chronic kidney disease stage III, hypothyroidism, ulcerative colitis, history of pulmonary embolism 2 in the remote past, patient was told he was prediabetic, diet controlled, chronic back and neck pain, with previous history of cervical fusion, sleep apnea not on CPAP therapy, history of ulcerative colitis, current every day smoker, who presented to the emergency department on the 10/26/2021 with complaints of at least 3 weeks of shortness of breath, orthopnea, and PND. In the emergency department EKG was completed that showed normal sinus rhythm with left ventricular hypertrophy. Chest x-ray showed pulmonary interstitial edema. Patient's lab evaluation showed positive troponins that topped out at 0.548, proBNP was 3460, and patient was diagnosed with acute non-ST elevated myocardial infarction. Echocardiogram was completed showing severely increased left ventricular diastolic diameter, and global left ventricular hypokinesis with systolic dysfunction and EF of 20-25% area. There was no evidence of pericardial effusion. Patient underwent heart catheterization on 10/28/2021 which showed multivessel CAD with 80% left main stenosis, 40-50% proximal LAD, 75% distal LAD, 99% proximal circumflex, 90% mid RCA with [id number] collaterals, and elevated left-sided filling pressures LVEDP of 22. Patient was referred to cardiac surgery for evaluation. He was found to be a good surgical candidate. His preop FEV1 was around 73% of predicted. Chest CT was completed showing soft tissue nodule in the right lower lobe measuring 1 cm, and left upper lobe a subpleural 3 mm nodule, and other indeterminate small lung nodules. Follow-up was suggested. Patient's was scheduled for surgical revascularization surgery on 10/30/[address] Greenberg On 10/30/2021 patient seen in follow-up after 2 vessel bypass on 10/30/2021. Patient is seen in the intensive care unit sedated and intubated, on assist-control mode of ventilation with a rate of 16, tidal volume is 500, FiO2 of 60% and PEEP of 5. Postoperative blood gas is pending. Patient had episodes of V. tach intraoperatively, he is currently on multiple drips, and intra-aortic balloon pump has been inserted with one-to-one augmentation. Patient is currently on amiodarone running at 1 milligram per minute, 0.9 normal saline at a rate of 50 ML per hour, milrinone at 0.375 mics per kilo per minute, norepinephrine is at 0.04 mics per kilo per minute, vasopressin is at 0.05 units per minute, insulin infusion is currently on hold, nitroglycerin drip is at 5 mics per kilo per minute. Patient is in sinus mechanism, has AV wires in place connected to external pacemaker with VVI 50 backup rate. Patient has 2 mediastinal chest tubes with 300 mL of sanguinous output, left pleural with 380 and right pleural with 60 mL of sanguinous output, no evidence of air leak, postoperative chest x-ray has been reviewed showing mild cardiomegaly, interstitial prominence that could reflect mild pulmonary vessel congestion. Multiple lines and catheters. Andria Tamica catheter is in place, PA pressures 26/16, CVP is 11, cardiac output is 4.0, and cardiac index is 2.0. Urine output is in order of 150 ML per hour. Postoperative blood gas showed pO2 of 129, pCO2 of 50, and pH of 7.34 and this was done on a heart percent FiO2 and FiO2 has since been dropped down to 50%. White blood cell count is 13.3, hemoglobin is 10.9, INR is 1.3, sodium is 138, potassium is 4.1, chloride is 108, CO2 is 25, BUN is 17 creatinine is 1.46. Objective - Vital Signs Vital signs: Vital Signs Temp 98.3 F 10/30/21 06:07 Pulse 81 10/30/21 18:00 Resp 16 10/30/21 18:00 BP 110/50 10/30/21 18:00 Pulse Ox 100 10/30/21 18:00 FiO2 60 10/30/21 16:00 Intake & Output 10/29/21 10/30/21 10/30/21 18:59 06:59 18:59 Intake Total 465.552 100 775.655 Output Total 2300 380 4582 Balance -1834.448 -280 -3806.345 Weight 81.6 kg Intake: IV 100 775.52 Amiodarone 360 mg In 133.2 Dextrose 5% in Water 200 ml @ 1 MG/MIN 33.333 mls/ hr IV .Q6H ONE Rx#: [id number] CO/CI 80 Milrinone-D5w Pmx 20 mg 36.72 In Dextrose/Water 1 100ml .bag @ 0.375 MCG/KG/MIN 9 .18 mls/hr IV .[id number] [facility] Rx#:[id number] Nitroglycerin-D5w Pmx 50 6.0 mg In Dextrose/Water 1 250ml.bag @ 5 MCG/MIN 1.5 mls/hr IV .Q24H [facility] Rx#: [id number] Sodium Chloride 0.9% 1, 200 000 ml @ 50 mls/hr IV . Q20H [facility] Rx#:[id number] Sodium Chloride 0.9% 150 30.60 ml @ 0.05 UNITS/MIN 7.65 mls/hr IV .Q20H CAN with Vasopressin 60 unit Rx#: [id number] pressure bags 36 Intake, IV Titration 105.552 0.135 Amount Heparin Sod,Pork in 0.45% 105.552 NaCl 25,000 unit In 0.45 % NaCl 1 250ml.bag @ 12 UNITS/KG/HR 9.634 mls/hr IV .Q24H [facility] Rx#: [id number] Insulin Regular 100 unit 0.135 In Sodium Chloride 0.9% 100 ml @ Per Protocol IV .Q0M [facility] Rx#:[id number] Oral 360 Output: Chest Tube Drainage 737 Chest Tube Left 390 Chest Tube Right 67 Mediastinal 280 Urine 2300 380 2045 Estimated Blood Loss 1800 Other: Voiding Method Toilet Toilet ABP, PAP, CO, CI - Last Documented Arterial Blood Pressure 105/57 Pulmonary Artery Pressure 31/22 Cardiac Output 4.4 Cardiac Index 2.2 - Exam GENERAL EXAM: 66-year-old white male, intubated, sedated on assist control mode of ventilation, multiple drips, and IABP support with one-to-one augmentation HEAD: Normocephalic/atraumatic. EYES: Normal reaction of pupils, equal size. Conjunctiva pink, sclera white. NOSE: Clear with pink turbinates. THROAT: No erythema or exudates. NECK: No masses, no JVD, no thyroid enlargement, no adenopathy. CHEST: No chest wall deformity. Symmetrical expansion. Midsternal incision is clean dry and intact, 2 mediastinal, right and left pleural chest tubes in place to wall suction, with moderate amount of sanguinous output in the Pleur-evac's LUNGS: Equal air entry with no crackles, wheeze, rhonchi or dullness. CVS: Regular rate and rhythm, normal S1 and S2, no gallops, no murmurs, no rubs ABDOMEN: Soft, nontender. No hepatosplenomegaly, normal bowel sounds, no guarding or rigidity. Right groin intra-aortic balloon pump catheter insertion site is clean dry and intact, Doppler pulse in the pedal and posttibial EXTREMITIES: No clubbing, no edema, no cyanosis, 2+ pulses and upper and lower extremities. MUSCULOSKELETAL: Muscle strength and tone normal. SPINE: No scoliosis or deformity SKIN: No rashes CENTRAL NERVOUS SYSTEM: Sedated, intubated. No focal deficits, tone is normal in all 4 extremities. - Labs CBC & Chem 7: 10/30/21 15:41 10/30/21 15:41 Labs: Abnormal Lab Results - Last 24 Hours (Table) 10/29/21 10/29/21 10/30/21 Range/Units 07:15 13:58 04:06 WBC (3.8-10.6) k/uL RBC (4.30-5.90) m/uL Hgb (13.0-17.5) gm/dL Hct (39.0-53.0) % Neutrophils # (1.3-7.7) k/uL PT (9.0-12.0) sec INR (<1.2) ABG pH (7.35-7.45) ABG pCO2 (35-45) mmHg ABG pO2 (83-108) mmHg ABG HCO3 (21-25) mmol/L ABG Total CO2 (19-24) mmol/L ABG O2 Saturation (94-97) % ABG Hematocrit (34.0-46.0) % ABG Sodium (135-146) mmol/L ABG Ionized Calcium (4.5-5.3) mg/dL ABG Glucose (75-99) mg/dL ABG Lactic Acid (0.5-1.6) mmol/L Hemoglobin (13.0-17.5) gm/dL Chloride (98-107) mmol/L Creatinine (0.66-1.25) mg/dL Glucose (74-99) mg/dL POC Glucose (mg/dL) 122 H (70-110) mg/dL Hemoglobin A1c 6.5 H (0.0-6.0) % Magnesium (1.6-2.3) mg/dL Total Protein (6.3-8.2) g/dL Albumin (3.5-5.0) g/dL Thyroglobulin (1.60-59.90) ng/mL Arterial Blood Glucose (75-99) mg/dL Thyroglobulin Antibody (0.0-114.0) U/mL Crossmatch See Detail 10/30/21 10/30/21 10/30/21 Range/Units 07:45 07:45 08:54 WBC (3.8-10.6) k/uL RBC (4.30-5.90) m/uL Hgb (13.0-17.5) gm/dL Hct (39.0-53.0) % Neutrophils # (1.3-7.7) k/uL PT (9.0-12.0) sec INR (<1.2) ABG pH (7.35-7.45) ABG pCO2 34 L (35-45) mmHg ABG pO2 368 H (83-108) mmHg ABG HCO3 (21-25) mmol/L ABG Total CO2 25 H (19-24) mmol/L ABG O2 Saturation 99.7 H (94-97) % ABG Hematocrit (34.0-46.0) % ABG Sodium (135-146) mmol/L ABG Ionized Calcium 4.4 L (4.5-5.3) mg/dL ABG Glucose 114 H (75-99) mg/dL ABG Lactic Acid (0.5-1.6) mmol/L Hemoglobin 12.5 L (13.0-17.5) gm/dL Chloride (98-107) mmol/L Creatinine 1.56 H (0.66-1.25) mg/dL Glucose 122 H (74-99) mg/dL POC Glucose (mg/dL) (70-110) mg/dL Hemoglobin A1c (0.0-6.0) % Magnesium (1.6-2.3) mg/dL Total Protein (6.3-8.2) g/dL Albumin (3.5-5.0) g/dL Thyroglobulin <0.20 L (1.60-59.90) ng/mL Arterial Blood Glucose 114 H (75-99) mg/dL Thyroglobulin Antibody >4000.0 H (0.0-114.0) U/mL Crossmatch 10/30/21 10/30/21 10/30/21 Range/Units 10:52 11:37 12:06 WBC (3.8-10.6) k/uL RBC (4.30-5.90) m/uL Hgb (13.0-17.5) gm/dL Hct (39.0-53.0) % Neutrophils # (1.3-7.7) k/uL PT (9.0-12.0) sec INR (<1.2) ABG pH (7.35-7.45) ABG pCO2 (35-45) mmHg ABG pO2 210 H 390 H 299 H (83-108) mmHg ABG HCO3 (21-25) mmol/L ABG Total CO2 26 H 25 H 26 H (19-24) mmol/L ABG O2 Saturation 99.2 H 100.0 H 99.5 H (94-97) % ABG Hematocrit 30 L 30 L (34.0-46.0) % ABG Sodium 134 L (135-146) mmol/L ABG Ionized Calcium 4.1 L 4.3 L (4.5-5.3) mg/dL ABG Glucose 156 H 131 H 132 H (75-99) mg/dL ABG Lactic Acid (0.5-1.6) mmol/L Hemoglobin 12.8 L 9.7 L 9.8 L (13.0-17.5) gm/dL Chloride (98-107) mmol/L Creatinine (0.66-1.25) mg/dL Glucose (74-99) mg/dL POC Glucose (mg/dL) (70-110) mg/dL Hemoglobin A1c (0.0-6.0) % Magnesium (1.6-2.3) mg/dL Total Protein (6.3-8.2) g/dL Albumin (3.5-5.0) g/dL Thyroglobulin (1.60-59.90) ng/mL Arterial Blood Glucose 156 H 131 H 132 H (75-99) mg/dL Thyroglobulin Antibody (0.0-114.0) U/mL Crossmatch 10/30/21 10/30/21 10/30/21 Range/Units 13:00 13:41 14:07 WBC (3.8-10.6) k/uL RBC (4.30-5.90) m/uL Hgb (13.0-17.5) gm/dL Hct (39.0-53.0) % Neutrophils # (1.3-7.7) k/uL PT (9.0-12.0) sec INR (<1.2) ABG pH 7.33 L 7.34 L (7.35-7.45) ABG pCO2 47 H (35-45) mmHg ABG pO2 352 H 341 H 148 H (83-108) mmHg ABG HCO3 (21-25) mmol/L ABG Total CO2 26 H 25 H (19-24) mmol/L ABG O2 Saturation 99.7 H 99.6 H 98.9 H (94-97) % ABG Hematocrit 29 L 28 L 28 L (34.0-46.0) % ABG Sodium (135-146) mmol/L ABG Ionized Calcium 4.2 L 5.4 H (4.5-5.3) mg/dL ABG Glucose 150 H 168 H 194 H (75-99) mg/dL ABG Lactic Acid 2.1 H 2.6 H* (0.5-1.6) mmol/L Hemoglobin 9.3 L 9.0 L 9.1 L (13.0-17.5) gm/dL Chloride (98-107) mmol/L Creatinine (0.66-1.25) mg/dL Glucose (74-99) mg/dL POC Glucose (mg/dL) (70-110) mg/dL Hemoglobin A1c (0.0-6.0) % Magnesium (1.6-2.3) mg/dL Total Protein (6.3-8.2) g/dL Albumin (3.5-5.0) g/dL Thyroglobulin (1.60-59.90) ng/mL Arterial Blood Glucose 150 H 168 H 194 H (75-99) mg/dL Thyroglobulin Antibody (0.0-114.0) U/mL Crossmatch 10/30/21 10/30/21 10/30/21 Range/Units 14:55 15:40 15:41 WBC 13.3 H (3.8-10.6) k/uL RBC 3.72 L (4.30-5.90) m/uL Hgb 10.9 L (13.0-17.5) gm/dL Hct 33.7 L (39.0-53.0) % Neutrophils # 10.9 H (1.3-7.7) k/uL PT (9.0-12.0) sec INR (<1.2) ABG pH 7.33 L (7.35-7.45) ABG pCO2 (35-45) mmHg ABG pO2 (83-108) mmHg ABG HCO3 (21-25) mmol/L ABG Total CO2 (19-24) mmol/L ABG O2 Saturation 97.2 H (94-97) % ABG Hematocrit 31 L (34.0-46.0) % ABG Sodium (135-146) mmol/L ABG Ionized Calcium (4.5-5.3) mg/dL ABG Glucose 143 H (75-99) mg/dL ABG Lactic Acid 2.4 H* (0.5-1.6) mmol/L Hemoglobin 10.2 L (13.0-17.5) gm/dL Chloride (98-107) mmol/L Creatinine (0.66-1.25) mg/dL Glucose (74-99) mg/dL POC Glucose (mg/dL) 122 H (70-110) mg/dL Hemoglobin A1c (0.0-6.0) % Magnesium (1.6-2.3) mg/dL Total Protein (6.3-8.2) g/dL Albumin (3.5-5.0) g/dL Thyroglobulin (1.60-59.90) ng/mL Arterial Blood Glucose 143 H (75-99) mg/dL Thyroglobulin Antibody (0.0-114.0) U/mL Crossmatch 10/30/21 10/30/21 10/30/21 Range/Units 15:41 15:41 15:57 WBC (3.8-10.6) k/uL RBC (4.30-5.90) m/uL Hgb (13.0-17.5) gm/dL Hct (39.0-53.0) % Neutrophils # (1.3-7.7) k/uL PT 13.3 H (9.0-12.0) sec INR 1.3 H (<1.2) ABG pH 7.34 L (7.35-7.45) ABG pCO2 49 H (35-45) mmHg ABG pO2 113 H (83-108) mmHg ABG HCO3 26 H (21-25) mmol/L ABG Total CO2 28 H (19-24) mmol/L ABG O2 Saturation 98.0 H (94-97) % ABG Hematocrit (34.0-46.0) % ABG Sodium (135-146) mmol/L ABG Ionized Calcium (4.5-5.3) mg/dL ABG Glucose (75-99) mg/dL ABG Lactic Acid (0.5-1.6) mmol/L Hemoglobin (13.0-17.5) gm/dL Chloride 108 H (98-107) mmol/L Creatinine 1.46 H (0.66-1.25) mg/dL Glucose 110 H (74-99) mg/dL POC Glucose (mg/dL) (70-110) mg/dL Hemoglobin A1c (0.0-6.0) % Magnesium 2.5 H (1.6-2.3) mg/dL Total Protein 4.8 L (6.3-8.2) g/dL Albumin 2.9 L (3.5-5.0) g/dL Thyroglobulin (1.60-59.90) ng/mL Arterial Blood Glucose (75-99) mg/dL Thyroglobulin Antibody (0.0-114.0) U/mL Crossmatch 10/30/21 10/30/21 Range/Units 17:59 18:03 WBC (3.8-10.6) k/uL RBC (4.30-5.90) m/uL Hgb (13.0-17.5) gm/dL Hct (39.0-53.0) % Neutrophils # (1.3-7.7) k/uL PT (9.0-12.0) sec INR (<1.2) ABG pH 7.34 L (7.35-7.45) ABG pCO2 50 H (35-45) mmHg ABG pO2 129 H (83-108) mmHg ABG HCO3 27 H (21-25) mmol/L ABG Total CO2 28 H (19-24) mmol/L ABG O2 Saturation 98.6 H (94-97) % ABG Hematocrit (34.0-46.0) % ABG Sodium (135-146) mmol/L ABG Ionized Calcium (4.5-5.3) mg/dL ABG Glucose (75-99) mg/dL ABG Lactic Acid (0.5-1.6) mmol/L Hemoglobin (13.0-17.5) gm/dL Chloride (98-107) mmol/L Creatinine (0.66-1.25) mg/dL Glucose (74-99) mg/dL POC Glucose (mg/dL) 114 H (70-110) mg/dL Hemoglobin A1c (0.0-6.0) % Magnesium (1.6-2.3) mg/dL Total Protein (6.3-8.2) g/dL Albumin (3.5-5.0) g/dL Thyroglobulin (1.60-59.90) ng/mL Arterial Blood Glucose (75-99) mg/dL Thyroglobulin Antibody (0.0-114.0) U/mL Crossmatch Microbiology - Last 24 Hours (Table) 10/29/21 20:24 Nasal Screen MRSA/MSSA - Preliminary Nasal Swab Assessment and Plan Plan: Assessment: Acute non-ST elevated myocardial infarction Multiple vessel coronary artery disease, status post two-vessel coronary artery bypass grafting, and intraoperative post bypass trans-esophageal echocardiogram on 10/30/2021 Episodes of V. tach intraoperatively, currently on amiodarone infusion Cardiogenic shock, currently on milrinone, vasopressin, norepinephrine, and intra-aortic balloon pump support with one-to-one augmentation Routine postoperative ventilator management Ischemic cardiomyopathy with EF of 20-25% Chronic and ongoing history of smoking Indeterminate small lung nodules, will need outpatient follow-up postop coronary artery bypass grafting surgery History of hypothyroidism Chronic disease stage III at baseline Ulcerative colitis Carotid artery disease with previous history of carotid endarterectomy History of CVA 2 Remote history of pulmonary embolism and his 20s, not on any chronic anticoagulation Probable diabetes mellitus type 2, diet-controlled COPD, with FEV1 of 73% of predicted, stage II Plan: Patient was seen and evaluated at the bedside Chest x-ray and labs reviewed Patient is on IABP support with one-to-one augmentation He is on multiple drips including vasopressors, antiarrhythmics Necessary ventilator adjustments have been made Continue close monitoring in the intensive care unit along with CT surgery Continue weaning FiO2 per protocol GI and DVT prophylaxis per CT surgery Serial H&H's, chest x-rays and blood gases per protocol We'll continue to closely follow along the CT surgery I have personally seen and examined the patient, performed the documentation and the assessment and plan as written. I have personally seen and examined the patient and reviewed the documentation. I performed a joint evaluation with the nurse practitioner in this evaluation was done more than 20 minutes. I fully agree with the documentation above and the plan of care.. The patient was seen in the intensive care unit after the patient arrived from the operating room. The patient has intra-aortic balloon pump for cardiac augmentation. Noted the patient's preop LV function was quite impaired with an ejection fraction of around 20-25%. The patient is currently on inotropes also using a combination of vasopressin and norepinephrine. The patient is also milrinone. Hemodynamic parameters were noted. Blood gases was noted. Chest x-ray was noted. Neck is respiratory rate up to 20. We'll repeat the blood gas. The patient is currently sedated with propofol. We'll continue monitoring the hemodynamic parameters. Chest tube outputs have been noted which is minimal at this point in time. There is intermittent air leak to right-sided chest tube. Condition is critical. We'll continue to follow. Case was discussed with cardiothoracic surgery. we'll keep the amiodarone drip for some intraoperative ventricular tachycardia. Critically care evaluation that was on a more than 30 minutes. Time with Patient: Greater than 30
--- NOTE | 2021-10-30 18:40 | OP ---
OPERATIVE REPORT DATE OF SURGERY: 10/30/2021. SURGEON: Dr. Eros Greenberg. ASSISTANTS: 1. JEANNETTE Gregorio. 2. DOC [place]. PREOPERATIVE DIAGNOSIS: 1. Triple-vessel coronary artery disease with totally occluded right coronary artery and left main disease. 2. Congestive heart failure with severe left ventricular dysfunction. 3. History of carotid stenosis and prior strokes, status post left carotid endarterectomy. 4. Tobacco abuse. 5. History of ulcerative colitis. 6. Hypothyroidism. 7. Gastroesophageal reflux disease. 8. Hyperlipidemia. POSTOPERATIVE DIAGNOSIS: 1. Triple-vessel coronary artery disease with totally occluded right coronary artery and left main disease. 2. Congestive heart failure with severe left ventricular dysfunction. 3. History of carotid stenosis and prior strokes, status post left carotid endarterectomy. 4. Tobacco abuse. 5. History of ulcerative colitis. 6. Hypothyroidism. 7. Gastroesophageal reflux disease. 8. Hyperlipidemia. 9. 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 PROCEDURE: 1. Insertion of intra-aortic balloon counterpulsation via the right femoral artery under ultrasound guidance. 2. Double-vessel coronary artery bypass grafting using the in situ left internal mammary artery to the mid left anterior descending artery, reverse saphenous vein graft from the aorta to the ramus intermedius artery. 3. Endoscopic harvesting of the left greater saphenous vein. 4. Exclusion of the left atrial appendage using a 35 mm AtriClip. 5. Graft flow measurements using the Medi-Stim system. 6. Intraoperative transesophageal echocardiogram and epiaortic scanning. INDICATION FOR SURGERY: Patient is a 66-year-old gentleman who presented with a 3-week history of progressive orthopnea and shortness of breath. He had mild troponin elevation. His 2D echo showed severe left ventricular dysfunction with mild mitral valve regurgitation and large left ventricle. He was optimized medically with improvement and had a cardiac catheterization that showed a totally occluded right coronary system as well as severe left main disease and severe distal circumflex disease. His workup included a carotid that showed a patent left side, which was the operated side, and moderate stenosis on the right side. His creatinine at baseline was around 1.5. His FEV1 was around 70% of predicted. The patient has been taken today for coronary artery bypass grafting to his left anterior descending artery and ramus intermedius artery and we will be exploring the distal right coronary system for potential bypassable targets. We will be checking the mitral valve one more time with VIKY. The increased STS risk was discussed with him. He understood it and agreed to proceed. DESCRIPTION OF THE PROCEDURE: With the patient in supine position in the preoperative holding area, a right internal jugular [place] catheter and a right radial arterial line were placed. His PA pressure was 40/20. His cardiac index was 2.1. Subsequently he was brought to the operating room, where general endotracheal anesthesia was induced uneventfully. The patient became somewhat unstable, hypotensive, and required boluses of Levophed. For that reason I decided to proceed with insertion of a right femoral artery intra- aortic balloon counterpulsation, which was done after proper prepping and under ultrasound guidance and VIKY guidance. That helped out the hemodynamic situation along with the pharmacological interventions. With that, a Craven catheter was inserted. The chest, abdomen and both lower extremities were prepped and draped using ChloraPrep. Ioban was used to cover the skin. The patient received 1.25 grams of vancomycin intravenously, as he was allergic to penicillin and cephalosporin. VIKY confirmed the preoperative finding of a large left ventricle with severe left ventricular dysfunction and total akinesia of the inferior and posterolateral wall with mild to moderate mitral valve regurgitation despite a high mean arterial pressure. Midline sternotomy was performed and no bone wax was used. The left hemisternum was elevated. The left internal mammary artery was harvested in a skeletonized fashion. The left pleura was intentionally opened in this process and drained with a 19- [place] Sunil drain. There was a breach in the right pleura, which was drained with another 19- [place] Sunil drain. Patient was given 5000 units of heparin and the mammary artery was double-clipped distally and transected. It had an excellent pulsatile flow in it and was around 2 mm in diameter. No Radial artery harvesting as he was dependent on the left , s/p L forearm surgery and he had his cath via R Radial artery precluding it as a suitable conduit for bypass. In the same setting, the left greater saphenous vein was harvested endoscopically from groin to mid lower leg level after administration of 2000 units of heparin. The branches were tied. The vein appeared to be of reasonable quality, around 3.5 mm in diameter. The leg incisions were closed over a drain. Ankeney retractor was used. Mediastinal fat was transected between two ties and epiaortic scanning ruled out any protruding atheroma in the ascending aorta. Pericardium was opened in an inverted T-fashion and a pericardial cradle was created. After systemic heparinization and placement of respective pledgeted pursestrings, aortic cannulation in the distal ascending aorta with a 21-[place]ij[place] Soft Flow cannula and venous cannulation with a 3-stage 29-[place]zerbaijani cannula via the right atrial appendage were performed. Antegrade as well as retrograde cardioplegia catheters were placed. Cardiopulmonary bypass was initiated and patient's temperature was allowed to drift down to 34 degrees Celsius. With the heart empty and beating, we looked at the target. The LAD was uncovered in its mid aspect before distal disease, which was diffuse. It had one soft spot with posterior plaque in it. Looking at the lateral wall, the ramus intermedius artery which was a large vessel and the only other target potentially was essentially not seen. With diligence, we were able and fortunate to locate it very proximally deep in the myocardium. Exploring the distal circumflex artery and inferior wall, there appeared to be very small tributaries, all non-bypassable. To mention: The ventricle was boggy and large, and the whole posterolateral inferior wall appeared to be thinned out. Aorta was clamped, and during aortic clamping myocardial protection was achieved with an initial dose of one liter of antegrade cold blood cardioplegia followed by 500 mL of retrograde cold blood cardioplegia. All subsequent doses were given retrograde at 15- minute intervals. We started by excluding the left atrial appendage by deploying a 35 mm AtriClip at its base. Subsequently the first distal anastomosis was between a segment of vein and the deep intramyocardial ramus intermedius artery in its proximal aspect. This was a friable vessel; however, it had a good lumen and anastomosis was completed using running Prolene 7-0. The second distal anastomosis was between the left internal mammary artery that passed in a groove in the left pleural pericardial fat, anastomosed to the mid left anterior descending artery using Prolene 7-0 in continuous fashion. The mammary artery pedicle was affixed to the epicardium with one Prolene 6-0 suture. Satisfied with the distal anastomoses, rewarming was started as we punched out one 4 mm button of the ascending aorta and performed the single proximal venous anastomosis to the aorta using running Prolene 6-0. The patient was given lidocaine and magnesium. He was loaded with Primacor. The intra-aortic balloon pump was kept on internal at 40 during bypass. Patient was placed in Trendelenburg position. De-airing maneuvers were followed. With the aortic root suction on maximum, we unclamped the aorta. The patient regained a slow junctional rhythm initially. VIKY showed a large amount of air in the left ventricle. It took a while to de- air the ventricle. I poked the apex with an 18-gauge needle to help de-airing and that hole was closed with a pledgeted 4-0 Prolene. Again, it took a while, but eventually we achieved good de-airing of the left ventricle. There was not much air in the right- sided cavities and there was no evidence of any VSD. However, the amount of air was a bit puzzling. There was no PFO, either. Eventually, and with the help of the intra- aortic balloon pump, Primacor 0.375 and Levophed as well as vasopressin, we were able to wean off cardiopulmonary bypass with reasonable hemodynamics. The patient had periods of ventricular arrhythmias and was loaded with 300 mg of amiodarone and started on a drip. It took a while for the electrical storm to pass and then eventually he regained spontaneous sinus rhythm with a large FL interval. VIKY showed somewhat improved left ventricular function in the anterior and high lateral ruth. The mitral regurgitation was not significant. At this point , we proceeded at measuring graft flows using 4mm probe and the Weblance system. Flow in COOK-LAD qrh84jv/min, PI 1.8, Diastolic filling 74%. Flow in SVG-RAMUS was 68 ml/min, PI 3.4, DF 84% all showing excellent functioning grafts. With that, we stopped all pump suckers. Test-dose, then full-dose protamine was given. Decannulation followed. The antegrade cardioplegia as well as the venous cannulation sites were reinforced with Prolene. Two monopolar atrial pacing wires were affixed to the respective pursestrings on the right atrium and one bipolar ventricular pacing wire was driven via the inferior aspect of the right ventricle. Two 19-[place] Sunil drains were left substernally. Mediastinal fat and pericardial fat were approximated over the graft, aorta and the heart. After ensuring adequate hemostasis and hemodynamics and after correct sponge, instrument and needle counts, the sternum was closed using 6 [id number] [place] cables after interposing Fibrillar between the sternal edges. Thorough irrigation with vancomycin followed. The rest of the closure proceeded in layers. Skin glue was applied. Patient did not receive any blood bank products but received 675 mL of Cell Saver blood. He was transferred to the ICU with intra-aortic balloon pump on one-to- one, Primacor at 0.375 mcg/kg per minute, Levophed at 0.8 mcg/minute, vasopressin at 0.04 unit/minute. The PA pressure was 25/15 and the cardiac index was 2.3 and the mean arterial pressure augmented was 72. EKG showed a first-degree AV block at this point with narrow QRS complexes. MMHERMINIAL / IJN: [id number] / MTDD
[2021-10-30] MEDS: ACETAMINOPHEN IV (For NPO) 1,000 MG in EMPTY BAG 1 BAG IVPB SCH ×2 (18:41→23:39)
[2021-10-30] MEDS: HEPARIN SODIUM,PORCINE/PF 5,000 UNIT/0.5 ML SYRINGE SQ SCH ×2 (18:41→23:38)
[2021-10-30 19:03] LABS: Glucose,Whole Blood 118 mg/dL (70-110)
[2021-10-30 19:08] LABS: Basophils # (A) 0.1 k/uL (0-0.2); Basophils % (A) 0 %; Eosinophils % (A) 0 %; HCT 33.3 % (39.0-53.0); HGB 10.9 gm/dL (13.0-17.5); Lymphocytes % (A) 7 %; MCH 29.5 pg (25.0-35.0); MCHC 32.8 g/dL (31.0-37.0); MCV 89.8 fL (80.0-100.0); Mean Platelet Volume 8.5; Monocytes # (A) 1.2 k/uL (0-1.0); Monocytes % (A) 8 %; Neutrophils % (A) 84 %; Platelet Count 175 k/uL (150-450); RBC 3.71 m/uL (4.30-5.90); RDW 13.5 % (11.5-15.5); WBC 15.5 k/uL (3.8-10.6)
[2021-10-30 20:13] LABS: Glucose,Whole Blood 132 mg/dL (70-110)
[2021-10-30] MEDS: AMIODARONE 450 MG in DEXTROSE 5% IN WATER 250 ML IV SCH ×2 (20:36)
[2021-10-30 20:41] LABS: VBG PH 7.42 (7.31-7.41)
[2021-10-30] MEDS: MUPIROCIN 2% OINT 22 GM TUBE NASAL SCH (20:43)
[2021-10-30] MEDS ORDERED: CALCIUM GLUCONATE IN NACL 1 GM in SALINE 1 100ML.BAG IVPB ONE (21:00)
[2021-10-30 21:01] LABS: ABG Base Excess 0.3 mmol/L; ABG HCO3 26 mmol/L (21-25); ABG Oxygen Saturation 55.8 % (94-97); ABG PCO2 46 mmHg (35-45); ABG PH 7.36 (7.35-7.45); ABG TCO2 27 mmol/L (19-24)
[2021-10-30 21:04] LABS: ABG PO2 31 mmHg (83-108); Allen Test Performed? no
[2021-10-30 21:30] LABS: Glucose,Whole Blood 142 mg/dL (70-110)
[2021-10-30 22:10] LABS: Glucose,Whole Blood 161 mg/dL (70-110)
[2021-10-30 22:30] LABS: Basophils % (A) 0 %; Eosinophils % (A) 0 %; HCT 31.3 % (39.0-53.0); HGB 10.3 gm/dL (13.0-17.5); Lymphocytes % (A) 8 %; MCH 29.9 pg (25.0-35.0); MCHC 32.9 g/dL (31.0-37.0); Mean Platelet Volume 8.4; Monocytes # (A) 0.9 k/uL (0-1.0); Monocytes % (A) 7 %; Neutrophils # (A) 10.8 k/uL (1.3-7.7); Neutrophils % (A) 84 %; Platelet Count 166 k/uL (150-450); RBC 3.44 m/uL (4.30-5.90); RDW 13.5 % (11.5-15.5); WBC 12.8 k/uL (3.8-10.6)
[2021-10-30 23:25] LABS: Glucose,Whole Blood 161 mg/dL (70-110)
[2021-10-30 23:58] LABS: Glucose,Whole Blood 160 mg/dL (70-110)
[2021-10-31 01:01] LABS: Glucose,Whole Blood 147 mg/dL (70-110)
[2021-10-31 01:55] LABS: Glucose,Whole Blood 153 mg/dL (70-110)
[2021-10-31] MEDS ORDERED: HYDROcodone/APAP 5-325MG 1 EACH TAB PO PRN ×2 (02:43)
[2021-10-31 02:55] LABS: Glucose,Whole Blood 152 mg/dL (70-110)
[2021-10-31] MEDS: INSULIN REGULAR 100 UNIT in SODIUM CHLORIDE 0.9% 100 ML IV SCH (03:00)
[2021-10-31] MEDS: SODIUM CHLORIDE 0.9% 150 ML with VASOPRESSIN 60 UNIT IV SCH ×4 (03:01→13:12)
[2021-10-31] MEDS: MORPHINE SULFATE 2 MG/ML SYRINGE IVP PRN ×4 (03:44→15:56)
[2021-10-31 03:54] LABS: Glucose,Whole Blood 147 mg/dL (70-110)
[2021-10-31] MEDS: MILRINONE-D5W PMX 20 MG in DEXTROSE/WATER 1 100ML.BAG IV SCH ×3 (04:10→14:49)
[2021-10-31 04:25] LABS: Basophils % (A) 0 %; Eosinophils % (A) 0 %; HCT 30.6 % (39.0-53.0); Lymphocytes # (A) 1.3 k/uL (1.0-4.8); Lymphocytes % (A) 13 %; MCH 29.5 pg (25.0-35.0); MCHC 32.6 g/dL (31.0-37.0); MCV 90.4 fL (80.0-100.0); Mean Platelet Volume 8.3; Monocytes # (A) 0.7 k/uL (0-1.0); Monocytes % (A) 7 %; Neutrophils # (A) 7.7 k/uL (1.3-7.7); Neutrophils % (A) 78 %; Platelet Count 166 k/uL (150-450); RBC 3.38 m/uL (4.30-5.90); RDW 13.6 % (11.5-15.5); WBC 9.8 k/uL (3.8-10.6)
[2021-10-31 04:37] LABS: Ionized Calcium 4.9 mg/dL (4.5-5.3)
[2021-10-31 04:44] LABS: Albumin 2.9 g/dL (3.5-5.0); Calcium 8.4 mg/dL (8.4-10.2); Magnesium 2.1 mg/dL (1.6-2.3); Potassium 4.2 mmol/L (3.5-5.1); Total Bilirubin 0.3 mg/dL (0.2-1.3); Total Protein 4.8 g/dL (6.3-8.2)
[2021-10-31 04:57] LABS: Glucose,Whole Blood 143 mg/dL (70-110)
[2021-10-31] MEDS ORDERED: SODIUM CHLORIDE 0.9% IVPB ONE (05:00)
[2021-10-31] MEDS ORDERED: VANCOMYCIN IVPB ONE (05:00)
[2021-10-31 05:24] LABS: ABG Base Excess -0.9 mmol/L; ABG HCO3 24 mmol/L (21-25); ABG Oxygen Saturation 97.4 % (94-97); ABG PCO2 39 mmHg (35-45); ABG PO2 87 mmHg (83-108); ABG TCO2 25 mmol/L (19-24)
[2021-10-31 05:29] LABS: Allen Test Performed? no
[2021-10-31] MEDS: LEVOTHYROXINE 100 MCG TAB PO SCH (05:53)
[2021-10-31 05:58] LABS: Glucose,Whole Blood 144 mg/dL (70-110)
[2021-10-31 06:56] LABS: Glucose,Whole Blood 135 mg/dL (70-110)
[2021-10-31] MEDS: IPRATROPIUM-ALBUTEROL 3 ML NEB INHALATION SCH ×4 (07:21→20:11)
[2021-10-31] MEDS ORDERED: CALCIUM GLUCONATE IN NACL 1 GM in SALINE 1 100ML.BAG IVPB ONE (07:25)
--- NOTE | 2021-10-31 07:44 | XR ---
EXAMINATION TYPE: XR chest 1V portable DATE OF EXAM: 10/31/2021 HISTORY: Post Operative Cardiac Surgery COMPARISON: 10/30/2021 TECHNIQUE: Single view of the chest is submitted. FINDINGS: Endotracheal tube, NG tube, SG catheter, mediastinal drains and chest tubes are appropriately placed. Post operative changes of CABG. No sizeable pneumothorax. Scattered Pleural-parenchymal opacities may reflect atelectasis. The heart is not enlarged. IMPRESSION: 1. Post operative changes of CABG.
[2021-10-31 07:52] LABS: Glucose,Whole Blood 133 mg/dL (70-110)
[2021-10-31] MEDS: PANTOPRAZOLE 40 MG/10 ML VIAL IVP SCH ×2 (08:23→20:51)
[2021-10-31] MEDS: CLOPIDOGREL 75 MG TAB PO SCH (08:23)
[2021-10-31] MEDS: HEPARIN SODIUM,PORCINE/PF 5,000 UNIT/0.5 ML SYRINGE SQ SCH ×2 (08:23→15:52)
[2021-10-31] MEDS: ASPIRIN 325 MG TAB PO SCH (08:23)
[2021-10-31] MEDS: ATORVASTATIN 40 MG TAB PO SCH (08:23)
[2021-10-31] MEDS: MUPIROCIN 2% OINT 22 GM TUBE NASAL SCH ×2 (08:23→20:58)
--- NOTE | 2021-10-31 08:30 | P.PN ---
Subjective Progress Note Date: 10/31/21 PROGRESS NOTE The patient is a 66-year-old male who underwent CABG post non-STEMI and severe cardiomyopathy. He underwent COOK to the LAD with SVG to the ramus and insertion of intra-aortic balloon pump. He remains intubated and sedated with intra-aortic balloon pump at 1-1. He continues to be on vasopressors at the lower dose. He is in sinus mechanism, no evidence of ventricle tachycardia. His urine output is stable. His systolic PA pressure is in the high 20s. His ejection fraction preoperatively was 20-25% with no significant valvular regurgitation. Medications: Aspirin, Lipitor, norepinephrine, milrinone, Plavix PHYSICAL EXAMINATION: Blood pressure 111/40 heart rate 60, intubated and sedated LUNGS: Clear to auscultation anteriorly HEART: Regular rate and rhythm, S1, S2. No S3. No systolic murmur ABDOMEN: Soft, hypoactive bowel sounds, no organomegaly EXTREMETIES: No edema, dressing in place, intra-aortic balloon in the right femoral artery, no hematoma in the groin LAB: Hemoglobin 10, BUN 18, creatinine 1.6, potassium 4.2, chest x-ray with no pneumothorax IMPRESSION: 1. Status post two-vessel CABG is chronically occluded RCA who presented with non-STEMI 2. Hypotension postoperatively requiring vasopressor an intra-aortic balloon pump 3. Respiratory failure postoperatively 4. Severe cardiomyopathy 5. Status post carotid endarterectomy 6. History of CVA 7. History of hyperlipidemia 8. Chronic kidney disease 9. History of chronic tobacco use PLAN: 1. Attempt to wean and extubate today 2. If stable wean intra-aortic balloon pump 3. Follow renal functions 4. Depending on blood pressure renal functions initiate beta godfrey and MIKEY inhibitor if tolerated 5. Depending on his progress further recommendations will be made Objective - Vital Signs Vital signs: Vital Signs Temp 98.2 F 10/31/21 04:00 Pulse 66 10/31/21 08:00 Resp 24 10/31/21 08:00 BP 111/43 10/31/21 08:00 Pulse Ox 98 10/31/21 08:00 FiO2 50 10/31/21 08:00 Intake & Output 10/30/21 10/31/21 10/31/21 18:59 06:59 18:59 Intake Total 030.696 5756.145 371.698 Output Total 4582 998 105 Balance -3806.345 493.145 266.698 Weight 92.2 kg Intake: IV 775.52 1118.63 244.30 Amiodarone 360 mg In 133.2 33.3 Dextrose 5% in Water 200 ml @ 1 MG/MIN 33.333 mls/ hr IV .Q6H [facility] Rx#: [id number] CO/CI 80 300 20 Calcium Gluconate in NaCl 100 1 gm In Saline 1 100ml. bag @ 100 mls/hr IVPB ONCE ONE Rx#:[id number] Milrinone-D5w Pmx 20 mg 36.72 9.18 9.18 In Dextrose/Water 1 100ml .bag @ 0.375 MCG/KG/MIN 9 .18 mls/hr IV .[id number] [facility] Rx#:[id number] Nitroglycerin-D5w Pmx 50 6.0 1.5 mg In Dextrose/Water 1 250ml.bag @ 5 MCG/MIN 1.5 mls/hr IV .Q24H [facility] Rx#: [id number] Sodium Chloride 0.9% 1, 200 650 50 000 ml @ 50 mls/hr IV . Q20H [facility] Rx#:[id number] Sodium Chloride 0.9% 150 30.60 7.65 6.12 ml @ 0.04 UNITS/MIN 6.12 mls/hr IV .Q24H [facility] with Vasopressin 60 unit Rx#: [id number] ceFAZolin 2 gm In Sodium 50 Chloride 0.9% 50 ml @ 100 mls/hr IVPB Q8HR [facility] Rx# :[id number] pressure bags 36 117 9 Intake, IV Titration 0.135 372.515 127.398 Amount Insulin Regular 100 unit 0.135 39.112 In Sodium Chloride 0.9% 100 ml @ Per Protocol IV .Q0M [facility] Rx#:[id number] Milrinone-D5w Pmx 20 mg 100 34.578 In Dextrose/Water 1 100ml .bag @ 0.375 MCG/KG/MIN 9 .18 mls/hr IV .[id number] [facility] Rx#:[id number] Norepinephrine 4 mg In 199.702 Sodium Chloride 0.9% 250 ml @ 0.02 MCG/KG/MIN 6. 218 mls/hr IV .Q24H [facility] Rx#:[id number] propofoL 1,000 mg In 33.701 92.82 Empty Bag 1 bag @ Titrate IV .Q0M [facility] Rx#: [id number] Output: Chest Tube Drainage 737 143 30 Chest Tube Left 390 0 0 Chest Tube Right 67 23 0 Mediastinal 280 120 30 Urine 2045 855 75 Estimated Blood Loss 1800 Other: Voiding Method Indwelling Catheter Indwelling Catheter Indwelling Catheter ABP, PAP, CO, CI - Last Documented Arterial Blood Pressure 105/50 Pulmonary Artery Pressure 28/18 Cardiac Output 3.8 Cardiac Index 1.9 - Labs CBC & Chem 7: 10/31/21 03:50 10/31/21 03:50 Labs: Abnormal Lab Results - Last 24 Hours (Table) 10/29/21 10/30/21 10/30/21 Range/Units 13:58 07:45 07:45 WBC (3.8-10.6) k/uL RBC (4.30-5.90) m/uL Hgb (13.0-17.5) gm/dL Hct (39.0-53.0) % Neutrophils # (1.3-7.7) k/uL Monocytes # (0-1.0) k/uL PT (9.0-12.0) sec INR (<1.2) ABG pH (7.35-7.45) ABG pCO2 (35-45) mmHg ABG pO2 (83-108) mmHg ABG HCO3 (21-25) mmol/L ABG Total CO2 (19-24) mmol/L ABG O2 Saturation (94-97) % ABG Hematocrit (34.0-46.0) % ABG Sodium (135-146) mmol/L ABG Ionized Calcium (4.5-5.3) mg/dL ABG Glucose (75-99) mg/dL ABG Lactic Acid (0.5-1.6) mmol/L VBG pH (7.31-7.41) VBG pCO2 (37-51) mmHg VBG HCO3 (24-28) mmol/L Hemoglobin (13.0-17.5) gm/dL Sodium (137-145) mmol/L Chloride (98-107) mmol/L Creatinine 1.56 H (0.66-1.25) mg/dL Glucose 122 H (74-99) mg/dL POC Glucose (mg/dL) (70-110) mg/dL Magnesium (1.6-2.3) mg/dL Total Protein (6.3-8.2) g/dL Albumin (3.5-5.0) g/dL Thyroglobulin <0.20 L (1.60-59.90) ng/mL Arterial Blood Glucose (75-99) mg/dL Thyroglobulin Antibody >4000.0 H (0.0-114.0) U/mL Crossmatch See Detail 10/30/21 10/30/21 10/30/21 Range/Units 08:54 10:52 11:37 WBC (3.8-10.6) k/uL RBC (4.30-5.90) m/uL Hgb (13.0-17.5) gm/dL Hct (39.0-53.0) % Neutrophils # (1.3-7.7) k/uL Monocytes # (0-1.0) k/uL PT (9.0-12.0) sec INR (<1.2) ABG pH (7.35-7.45) ABG pCO2 34 L (35-45) mmHg ABG pO2 368 H 210 H 390 H (83-108) mmHg ABG HCO3 (21-25) mmol/L ABG Total CO2 25 H 26 H 25 H (19-24) mmol/L ABG O2 Saturation 99.7 H 99.2 H 100.0 H (94-97) % ABG Hematocrit 30 L (34.0-46.0) % ABG Sodium 134 L (135-146) mmol/L ABG Ionized Calcium 4.4 L 4.1 L (4.5-5.3) mg/dL ABG Glucose 114 H 156 H 131 H (75-99) mg/dL ABG Lactic Acid (0.5-1.6) mmol/L VBG pH (7.31-7.41) VBG pCO2 (37-51) mmHg VBG HCO3 (24-28) mmol/L Hemoglobin 12.5 L 12.8 L 9.7 L (13.0-17.5) gm/dL Sodium (137-145) mmol/L Chloride (98-107) mmol/L Creatinine (0.66-1.25) mg/dL Glucose (74-99) mg/dL POC Glucose (mg/dL) (70-110) mg/dL Magnesium (1.6-2.3) mg/dL Total Protein (6.3-8.2) g/dL Albumin (3.5-5.0) g/dL Thyroglobulin (1.60-59.90) ng/mL Arterial Blood Glucose 114 H 156 H 131 H (75-99) mg/dL Thyroglobulin Antibody (0.0-114.0) U/mL Crossmatch 10/30/21 10/30/21 10/30/21 Range/Units 12:06 13:00 13:41 WBC (3.8-10.6) k/uL RBC (4.30-5.90) m/uL Hgb (13.0-17.5) gm/dL Hct (39.0-53.0) % Neutrophils # (1.3-7.7) k/uL Monocytes # (0-1.0) k/uL PT (9.0-12.0) sec INR (<1.2) ABG pH 7.33 L (7.35-7.45) ABG pCO2 47 H (35-45) mmHg ABG pO2 299 H 352 H 341 H (83-108) mmHg ABG HCO3 (21-25) mmol/L ABG Total CO2 26 H 26 H 25 H (19-24) mmol/L ABG O2 Saturation 99.5 H 99.7 H 99.6 H (94-97) % ABG Hematocrit 30 L 29 L 28 L (34.0-46.0) % ABG Sodium (135-146) mmol/L ABG Ionized Calcium 4.3 L 4.2 L (4.5-5.3) mg/dL ABG Glucose 132 H 150 H 168 H (75-99) mg/dL ABG Lactic Acid 2.1 H (0.5-1.6) mmol/L VBG pH (7.31-7.41) VBG pCO2 (37-51) mmHg VBG HCO3 (24-28) mmol/L Hemoglobin 9.8 L 9.3 L 9.0 L (13.0-17.5) gm/dL Sodium (137-145) mmol/L Chloride (98-107) mmol/L Creatinine (0.66-1.25) mg/dL Glucose (74-99) mg/dL POC Glucose (mg/dL) (70-110) mg/dL Magnesium (1.6-2.3) mg/dL Total Protein (6.3-8.2) g/dL Albumin (3.5-5.0) g/dL Thyroglobulin (1.60-59.90) ng/mL Arterial Blood Glucose 132 H 150 H 168 H (75-99) mg/dL Thyroglobulin Antibody (0.0-114.0) U/mL Crossmatch 10/30/21 10/30/21 10/30/21 Range/Units 14:07 14:55 15:40 WBC (3.8-10.6) k/uL RBC (4.30-5.90) m/uL Hgb (13.0-17.5) gm/dL Hct (39.0-53.0) % Neutrophils # (1.3-7.7) k/uL Monocytes # (0-1.0) k/uL PT (9.0-12.0) sec INR (<1.2) ABG pH 7.34 L 7.33 L (7.35-7.45) ABG pCO2 (35-45) mmHg ABG pO2 148 H (83-108) mmHg ABG HCO3 (21-25) mmol/L ABG Total CO2 (19-24) mmol/L ABG O2 Saturation 98.9 H 97.2 H (94-97) % ABG Hematocrit 28 L 31 L (34.0-46.0) % ABG Sodium (135-146) mmol/L ABG Ionized Calcium 5.4 H (4.5-5.3) mg/dL ABG Glucose 194 H 143 H (75-99) mg/dL ABG Lactic Acid 2.6 H* 2.4 H* (0.5-1.6) mmol/L VBG pH (7.31-7.41) VBG pCO2 (37-51) mmHg VBG HCO3 (24-28) mmol/L Hemoglobin 9.1 L 10.2 L (13.0-17.5) gm/dL Sodium (137-145) mmol/L Chloride (98-107) mmol/L Creatinine (0.66-1.25) mg/dL Glucose (74-99) mg/dL POC Glucose (mg/dL) 122 H (70-110) mg/dL Magnesium (1.6-2.3) mg/dL Total Protein (6.3-8.2) g/dL Albumin (3.5-5.0) g/dL Thyroglobulin (1.60-59.90) ng/mL Arterial Blood Glucose 194 H 143 H (75-99) mg/dL Thyroglobulin Antibody (0.0-114.0) U/mL Crossmatch 10/30/21 10/30/21 10/30/21 Range/Units 15:41 15:41 15:41 WBC 13.3 H (3.8-10.6) k/uL RBC 3.72 L (4.30-5.90) m/uL Hgb 10.9 L (13.0-17.5) gm/dL Hct 33.7 L (39.0-53.0) % Neutrophils # 10.9 H (1.3-7.7) k/uL Monocytes # (0-1.0) k/uL PT 13.3 H (9.0-12.0) sec INR 1.3 H (<1.2) ABG pH (7.35-7.45) ABG pCO2 (35-45) mmHg ABG pO2 (83-108) mmHg ABG HCO3 (21-25) mmol/L ABG Total CO2 (19-24) mmol/L ABG O2 Saturation (94-97) % ABG Hematocrit (34.0-46.0) % ABG Sodium (135-146) mmol/L ABG Ionized Calcium (4.5-5.3) mg/dL ABG Glucose (75-99) mg/dL ABG Lactic Acid (0.5-1.6) mmol/L VBG pH (7.31-7.41) VBG pCO2 (37-51) mmHg VBG HCO3 (24-28) mmol/L Hemoglobin (13.0-17.5) gm/dL Sodium (137-145) mmol/L Chloride 108 H (98-107) mmol/L Creatinine 1.46 H (0.66-1.25) mg/dL Glucose 110 H (74-99) mg/dL POC Glucose (mg/dL) (70-110) mg/dL Magnesium 2.5 H (1.6-2.3) mg/dL Total Protein 4.8 L (6.3-8.2) g/dL Albumin 2.9 L (3.5-5.0) g/dL Thyroglobulin (1.60-59.90) ng/mL Arterial Blood Glucose (75-99) mg/dL Thyroglobulin Antibody (0.0-114.0) U/mL Crossmatch 10/30/21 10/30/21 10/30/21 Range/Units 15:57 17:59 18:03 WBC (3.8-10.6) k/uL RBC (4.30-5.90) m/uL Hgb (13.0-17.5) gm/dL Hct (39.0-53.0) % Neutrophils # (1.3-7.7) k/uL Monocytes # (0-1.0) k/uL PT (9.0-12.0) sec INR (<1.2) ABG pH 7.34 L 7.34 L (7.35-7.45) ABG pCO2 49 H 50 H (35-45) mmHg ABG pO2 113 H 129 H (83-108) mmHg ABG HCO3 26 H 27 H (21-25) mmol/L ABG Total CO2 28 H 28 H (19-24) mmol/L ABG O2 Saturation 98.0 H 98.6 H (94-97) % ABG Hematocrit (34.0-46.0) % ABG Sodium (135-146) mmol/L ABG Ionized Calcium (4.5-5.3) mg/dL ABG Glucose (75-99) mg/dL ABG Lactic Acid (0.5-1.6) mmol/L VBG pH (7.31-7.41) VBG pCO2 (37-51) mmHg VBG HCO3 (24-28) mmol/L Hemoglobin (13.0-17.5) gm/dL Sodium (137-145) mmol/L Chloride (98-107) mmol/L Creatinine (0.66-1.25) mg/dL Glucose (74-99) mg/dL POC Glucose (mg/dL) 114 H (70-110) mg/dL Magnesium (1.6-2.3) mg/dL Total Protein (6.3-8.2) g/dL Albumin (3.5-5.0) g/dL Thyroglobulin (1.60-59.90) ng/mL Arterial Blood Glucose (75-99) mg/dL Thyroglobulin Antibody (0.0-114.0) U/mL Crossmatch 10/30/21 10/30/21 10/30/21 Range/Units 19:02 19:05 20:10 WBC 15.5 H (3.8-10.6) k/uL RBC 3.71 L (4.30-5.90) m/uL Hgb 10.9 L (13.0-17.5) gm/dL Hct 33.3 L (39.0-53.0) % Neutrophils # 13.0 H (1.3-7.7) k/uL Monocytes # 1.2 H (0-1.0) k/uL PT (9.0-12.0) sec INR (<1.2) ABG pH (7.35-7.45) ABG pCO2 (35-45) mmHg ABG pO2 (83-108) mmHg ABG HCO3 (21-25) mmol/L ABG Total CO2 (19-24) mmol/L ABG O2 Saturation (94-97) % ABG Hematocrit (34.0-46.0) % ABG Sodium (135-146) mmol/L ABG Ionized Calcium (4.5-5.3) mg/dL ABG Glucose (75-99) mg/dL ABG Lactic Acid (0.5-1.6) mmol/L VBG pH (7.31-7.41) VBG pCO2 (37-51) mmHg VBG HCO3 (24-28) mmol/L Hemoglobin (13.0-17.5) gm/dL Sodium (137-145) mmol/L Chloride (98-107) mmol/L Creatinine (0.66-1.25) mg/dL Glucose (74-99) mg/dL POC Glucose (mg/dL) 118 H 132 H (70-110) mg/dL Magnesium (1.6-2.3) mg/dL Total Protein (6.3-8.2) g/dL Albumin (3.5-5.0) g/dL Thyroglobulin (1.60-59.90) ng/mL Arterial Blood Glucose (75-99) mg/dL Thyroglobulin Antibody (0.0-114.0) U/mL Crossmatch 10/30/21 10/30/21 10/30/21 Range/Units 20:30 20:57 21:27 WBC (3.8-10.6) k/uL RBC (4.30-5.90) m/uL Hgb (13.0-17.5) gm/dL Hct (39.0-53.0) % Neutrophils # (1.3-7.7) k/uL Monocytes # (0-1.0) k/uL PT (9.0-12.0) sec INR (<1.2) ABG pH (7.35-7.45) ABG pCO2 46 H (35-45) mmHg ABG pO2 31 L* (83-108) mmHg ABG HCO3 26 H (21-25) mmol/L ABG Total CO2 27 H (19-24) mmol/L ABG O2 Saturation 55.8 L (94-97) % ABG Hematocrit (34.0-46.0) % ABG Sodium (135-146) mmol/L ABG Ionized Calcium (4.5-5.3) mg/dL ABG Glucose (75-99) mg/dL ABG Lactic Acid (0.5-1.6) mmol/L VBG pH 7.42 H (7.31-7.41) VBG pCO2 35 L (37-51) mmHg VBG HCO3 23 L (24-28) mmol/L Hemoglobin (13.0-17.5) gm/dL Sodium (137-145) mmol/L Chloride (98-107) mmol/L Creatinine (0.66-1.25) mg/dL Glucose (74-99) mg/dL POC Glucose (mg/dL) 142 H (70-110) mg/dL Magnesium (1.6-2.3) mg/dL Total Protein (6.3-8.2) g/dL Albumin (3.5-5.0) g/dL Thyroglobulin (1.60-59.90) ng/mL Arterial Blood Glucose (75-99) mg/dL Thyroglobulin Antibody (0.0-114.0) U/mL Crossmatch 10/30/21 10/30/21 10/30/21 Range/Units 22:09 22:10 23:23 WBC 12.8 H (3.8-10.6) k/uL RBC 3.44 L (4.30-5.90) m/uL Hgb 10.3 L (13.0-17.5) gm/dL Hct 31.3 L (39.0-53.0) % Neutrophils # 10.8 H (1.3-7.7) k/uL Monocytes # (0-1.0) k/uL PT (9.0-12.0) sec INR (<1.2) ABG pH (7.35-7.45) ABG pCO2 (35-45) mmHg ABG pO2 (83-108) mmHg ABG HCO3 (21-25) mmol/L ABG Total CO2 (19-24) mmol/L ABG O2 Saturation (94-97) % ABG Hematocrit (34.0-46.0) % ABG Sodium (135-146) mmol/L ABG Ionized Calcium (4.5-5.3) mg/dL ABG Glucose (75-99) mg/dL ABG Lactic Acid (0.5-1.6) mmol/L VBG pH (7.31-7.41) VBG pCO2 (37-51) mmHg VBG HCO3 (24-28) mmol/L Hemoglobin (13.0-17.5) gm/dL Sodium (137-145) mmol/L Chloride (98-107) mmol/L Creatinine (0.66-1.25) mg/dL Glucose (74-99) mg/dL POC Glucose (mg/dL) 161 H 161 H (70-110) mg/dL Magnesium (1.6-2.3) mg/dL Total Protein (6.3-8.2) g/dL Albumin (3.5-5.0) g/dL Thyroglobulin (1.60-59.90) ng/mL Arterial Blood Glucose (75-99) mg/dL Thyroglobulin Antibody (0.0-114.0) U/mL Crossmatch 10/30/21 10/31/21 10/31/21 Range/Units 23:53 00:59 01:54 WBC (3.8-10.6) k/uL RBC (4.30-5.90) m/uL Hgb (13.0-17.5) gm/dL Hct (39.0-53.0) % Neutrophils # (1.3-7.7) k/uL Monocytes # (0-1.0) k/uL PT (9.0-12.0) sec INR (<1.2) ABG pH (7.35-7.45) ABG pCO2 (35-45) mmHg ABG pO2 (83-108) mmHg ABG HCO3 (21-25) mmol/L ABG Total CO2 (19-24) mmol/L ABG O2 Saturation (94-97) % ABG Hematocrit (34.0-46.0) % ABG Sodium (135-146) mmol/L ABG Ionized Calcium (4.5-5.3) mg/dL ABG Glucose (75-99) mg/dL ABG Lactic Acid (0.5-1.6) mmol/L VBG pH (7.31-7.41) VBG pCO2 (37-51) mmHg VBG HCO3 (24-28) mmol/L Hemoglobin (13.0-17.5) gm/dL Sodium (137-145) mmol/L Chloride (98-107) mmol/L Creatinine (0.66-1.25) mg/dL Glucose (74-99) mg/dL POC Glucose (mg/dL) 160 H 147 H 153 H (70-110) mg/dL Magnesium (1.6-2.3) mg/dL Total Protein (6.3-8.2) g/dL Albumin (3.5-5.0) g/dL Thyroglobulin (1.60-59.90) ng/mL Arterial Blood Glucose (75-99) mg/dL Thyroglobulin Antibody (0.0-114.0) U/mL Crossmatch 10/31/21 10/31/21 10/31/21 Range/Units 02:53 03:50 03:50 WBC (3.8-10.6) k/uL RBC 3.38 L (4.30-5.90) m/uL Hgb 10.0 L (13.0-17.5) gm/dL Hct 30.6 L (39.0-53.0) % Neutrophils # (1.3-7.7) k/uL Monocytes # (0-1.0) k/uL PT (9.0-12.0) sec INR (<1.2) ABG pH (7.35-7.45) ABG pCO2 (35-45) mmHg ABG pO2 (83-108) mmHg ABG HCO3 (21-25) mmol/L ABG Total CO2 (19-24) mmol/L ABG O2 Saturation (94-97) % ABG Hematocrit (34.0-46.0) % ABG Sodium (135-146) mmol/L ABG Ionized Calcium (4.5-5.3) mg/dL ABG Glucose (75-99) mg/dL ABG Lactic Acid (0.5-1.6) mmol/L VBG pH (7.31-7.41) VBG pCO2 (37-51) mmHg VBG HCO3 (24-28) mmol/L Hemoglobin (13.0-17.5) gm/dL Sodium 135 L (137-145) mmol/L Chloride (98-107) mmol/L Creatinine 1.60 H (0.66-1.25) mg/dL Glucose 129 H (74-99) mg/dL POC Glucose (mg/dL) 152 H (70-110) mg/dL Magnesium (1.6-2.3) mg/dL Total Protein 4.8 L (6.3-8.2) g/dL Albumin 2.9 L (3.5-5.0) g/dL Thyroglobulin (1.60-59.90) ng/mL Arterial Blood Glucose (75-99) mg/dL Thyroglobulin Antibody (0.0-114.0) U/mL Crossmatch 10/31/21 10/31/21 10/31/21 Range/Units 03:52 04:55 05:23 WBC (3.8-10.6) k/uL RBC (4.30-5.90) m/uL Hgb (13.0-17.5) gm/dL Hct (39.0-53.0) % Neutrophils # (1.3-7.7) k/uL Monocytes # (0-1.0) k/uL PT (9.0-12.0) sec INR (<1.2) ABG pH (7.35-7.45) ABG pCO2 (35-45) mmHg ABG pO2 (83-108) mmHg ABG HCO3 (21-25) mmol/L ABG Total CO2 25 H (19-24) mmol/L ABG O2 Saturation 97.4 H (94-97) % ABG Hematocrit (34.0-46.0) % ABG Sodium (135-146) mmol/L ABG Ionized Calcium (4.5-5.3) mg/dL ABG Glucose (75-99) mg/dL ABG Lactic Acid (0.5-1.6) mmol/L VBG pH (7.31-7.41) VBG pCO2 (37-51) mmHg VBG HCO3 (24-28) mmol/L Hemoglobin (13.0-17.5) gm/dL Sodium (137-145) mmol/L Chloride (98-107) mmol/L Creatinine (0.66-1.25) mg/dL Glucose (74-99) mg/dL POC Glucose (mg/dL) 147 H 143 H (70-110) mg/dL Magnesium (1.6-2.3) mg/dL Total Protein (6.3-8.2) g/dL Albumin (3.5-5.0) g/dL Thyroglobulin (1.60-59.90) ng/mL Arterial Blood Glucose (75-99) mg/dL Thyroglobulin Antibody (0.0-114.0) U/mL Crossmatch 10/31/21 10/31/21 10/31/21 Range/Units 05:57 06:55 07:50 WBC (3.8-10.6) k/uL RBC (4.30-5.90) m/uL Hgb (13.0-17.5) gm/dL Hct (39.0-53.0) % Neutrophils # (1.3-7.7) k/uL Monocytes # (0-1.0) k/uL PT (9.0-12.0) sec INR (<1.2) ABG pH (7.35-7.45) ABG pCO2 (35-45) mmHg ABG pO2 (83-108) mmHg ABG HCO3 (21-25) mmol/L ABG Total CO2 (19-24) mmol/L ABG O2 Saturation (94-97) % ABG Hematocrit (34.0-46.0) % ABG Sodium (135-146) mmol/L ABG Ionized Calcium (4.5-5.3) mg/dL ABG Glucose (75-99) mg/dL ABG Lactic Acid (0.5-1.6) mmol/L VBG pH (7.31-7.41) VBG pCO2 (37-51) mmHg VBG HCO3 (24-28) mmol/L Hemoglobin (13.0-17.5) gm/dL Sodium (137-145) mmol/L Chloride (98-107) mmol/L Creatinine (0.66-1.25) mg/dL Glucose (74-99) mg/dL POC Glucose (mg/dL) 144 H 135 H 133 H (70-110) mg/dL Magnesium (1.6-2.3) mg/dL Total Protein (6.3-8.2) g/dL Albumin (3.5-5.0) g/dL Thyroglobulin (1.60-59.90) ng/mL Arterial Blood Glucose (75-99) mg/dL Thyroglobulin Antibody (0.0-114.0) U/mL Crossmatch
[2021-10-31] MEDS ORDERED: bisacodyL 10 MG SUPP RECTAL PRN (09:00)
[2021-10-31] MEDS ORDERED: ASPIRIN 81 MG PO SCH (09:00)
[2021-10-31] MEDS ORDERED: PANTOPRAZOLE 40 MG/10 ML VIAL IVP SCH (09:00)
[2021-10-31] MEDS ORDERED: MAGNESIUM HYDROXIDE 2,400 MG/10 ML CUP PO PRN (09:00)
[2021-10-31] MEDS ORDERED: METOPROLOL TARTRATE 12.5 MG TAB PO SCH (09:00)
[2021-10-31 09:12] LABS: Glucose,Whole Blood 126 mg/dL (70-110)
--- NOTE | 2021-10-31 09:13 | P.PN ---
Subjective Progress Note Date: 10/31/21 Patient is a very pleasant 66-year-old male with known vascular disease status post carotid endarterectomy, hypothyroidism, nicotine dependence smokes approximately a half a pack of cigarettes daily, chronic back pain, and ulcerative colitis. Who presented to the emergency department with complaints of orthopnea and paroxysmal nocturnal dyspnea. In the ED he undewent an extensive evaluation. Initial EKG showing sinus tachycardia with left ventricular hypertrophy and T-wave inversion in lateral leads. Troponin elevated at 0.078 and proBNP 3460. Chest x-ray revealed mild pulmonary interstitial edema suggestive of acute heart failure. Patient was given aspirin 325 mg by mouth 1 dose and started on heparin infusion per [facility] protocol. He was admitted and cardio was consulted. Echocardiogram revealing severely impaired EF of 20-25% with global left ventricular hypokinesis and mild mitral and tricuspid regurgitation. He underwent cardiac catheterization 10/28/21 which revealed multivessel CAD with elevated left-sided filling pressures recommending surgical evaluation for possible CABG, is felt to be too high risk for CABG they are recommending multilevel PCI. Cardiothoracic surgery consulted and patient underwent 2 vessel bypass. During OR he did have an episode of VT and required insertion of a balloon pump. He was admitted to the ICU and was requiring nitro, milrinone, vaso, levo, insulin, propofol, and amio. He did well overnight but remained intubated. General: non toxic, no distress, appears at stated age Derm: warm, dry Head: atraumatic, normocephalic, symmetric Eyes: EOMI, no lid lag, anicteric sclera Mouth: no lip lesion, mucus membranes moist Cardiovascular: S1S2 reg, no murmur, positive posterior tibial pulse bilateral, Lungs: CTA bilateral, no rhonchi, no rales , no accessory muscle use Abdominal: soft, nontender to palpation, no guarding, no appreciable organomegaly Ext: no gross muscle atrophy, no edema, no contractures Neuro: CN II-XI grossly intact, no focal neuro deficits Psych: Alert, oriented, appropriate affect Assessmnet/plan: Multivessel coronary artery disease s/p 2 vessel bypass on 10/30/21 NSTEMI Newly discovered, Acute systolic heart failure with EF of 20-25% - post-op mgt by CT surgery - cardio recs -Daily weights. -Close monitoring of I's and O's. -Vent mgt per cardio - amio, vaso/levo, milrinone - ASA, lipitor, plavix Acute Blood Loss Anemia - expected outcome of surgery - follow CBC CKD 3 - near baseline Renal function at baseline, Cr 1.5 - follow Cr Hypothyroidism with hx of Hashimotos - TSH undetectable and T4 elevated - on BB - Will need to discuss with patient importance of change in synthroid once off Vent. Diabetes - A1C 6.5, new transition from pre diabetes to overt diabetes - continue with insulin gtt - follow BS - Once closer to discharge consider farxiga or jardiace for heart failure and DM control Grief secondary to recent loss of loved one -Case management consult placed for assistance in setting up outpatient grief counselor/therapist upon discharge. Nicotine dependence -Counseled on the importance of smoking cessation and risks associated with continued use. -Nicotine patch provided. Chronic: Prior PE GERD CVA X 2 Ulcerative colitis Objective - Vital Signs Vital signs: Vital Signs Temp 98.2 F 10/31/21 04:00 Pulse 66 10/31/21 08:00 Resp 24 10/31/21 08:00 BP 111/43 10/31/21 08:00 Pulse Ox 98 10/31/21 08:00 FiO2 50 10/31/21 08:00 Intake & Output 10/30/21 10/31/21 10/31/21 18:59 06:59 18:59 Intake Total 770.025 9761.145 388.793 Output Total 4582 998 105 Balance -3806.345 493.145 283.793 Weight 92.2 kg Intake: IV 775.52 1118.63 244.30 Amiodarone 360 mg In 133.2 33.3 Dextrose 5% in Water 200 ml @ 1 MG/MIN 33.333 mls/ hr IV .Q6H [facility] Rx#: [id number] CO/CI 80 300 20 Calcium Gluconate in NaCl 100 1 gm In Saline 1 100ml. bag @ 100 mls/hr IVPB ONCE [facility] Rx#:[id number] Milrinone-D5w Pmx 20 mg 36.72 9.18 9.18 In Dextrose/Water 1 100ml .bag @ 0.375 MCG/KG/MIN 9 .18 mls/hr IV .[id number] [facility] Rx#:[id number] Nitroglycerin-D5w Pmx 50 6.0 1.5 mg In Dextrose/Water 1 250ml.bag @ 5 MCG/MIN 1.5 mls/hr IV .Q24H [facility] Rx#: [id number] Sodium Chloride 0.9% 1, 200 650 50 000 ml @ 50 mls/hr IV . Q20H [facility] Rx#:[id number] Sodium Chloride 0.9% 150 30.60 7.65 6.12 ml @ 0.04 UNITS/MIN 6.12 mls/hr IV .Q24H [facility] with Vasopressin 60 unit Rx#: [id number] ceFAZolin 2 gm In Sodium 50 Chloride 0.9% 50 ml @ 100 mls/hr IVPB Q8HR [facility] Rx# :[id number] pressure bags 36 117 9 Intake, IV Titration 0.135 372.515 144.493 Amount Insulin Regular 100 unit 0.135 39.112 In Sodium Chloride 0.9% 100 ml @ Per Protocol IV .Q0M [facility] Rx#:[id number] Milrinone-D5w Pmx 20 mg 100 34.578 In Dextrose/Water 1 100ml .bag @ 0.375 MCG/KG/MIN 9 .18 mls/hr IV .[id number] [facility] Rx#:[id number] Norepinephrine 4 mg In 199.702 Sodium Chloride 0.9% 250 ml @ 0.02 MCG/KG/MIN 6. 218 mls/hr IV .Q24H [facility] Rx#:[id number] propofoL 1,000 mg In 33.701 109.915 Empty Bag 1 bag @ Titrate IV .Q0M [facility] Rx#: [id number] Output: Chest Tube Drainage 737 143 30 Chest Tube Left 390 0 0 Chest Tube Right 67 23 0 Mediastinal 280 120 30 Urine 2045 855 75 Estimated Blood Loss 1800 Other: Voiding Method Indwelling Catheter Indwelling Catheter Indwelling Catheter ABP, PAP, CO, CI - Last Documented Arterial Blood Pressure 105/50 Pulmonary Artery Pressure 28/18 Cardiac Output 3.8 Cardiac Index 1.9 - Labs CBC & Chem 7: 10/31/21 03:50 10/31/21 03:50 Labs: Abnormal Lab Results - Last 24 Hours (Table) 10/29/21 10/30/21 10/30/21 Range/Units 13:58 07:45 08:54 WBC (3.8-10.6) k/uL RBC (4.30-5.90) m/uL Hgb (13.0-17.5) gm/dL Hct (39.0-53.0) % Neutrophils # (1.3-7.7) k/uL Monocytes # (0-1.0) k/uL PT (9.0-12.0) sec INR (<1.2) ABG pH (7.35-7.45) ABG pCO2 34 L (35-45) mmHg ABG pO2 368 H (83-108) mmHg ABG HCO3 (21-25) mmol/L ABG Total CO2 25 H (19-24) mmol/L ABG O2 Saturation 99.7 H (94-97) % ABG Hematocrit (34.0-46.0) % ABG Sodium (135-146) mmol/L ABG Ionized Calcium 4.4 L (4.5-5.3) mg/dL ABG Glucose 114 H (75-99) mg/dL ABG Lactic Acid (0.5-1.6) mmol/L VBG pH (7.31-7.41) VBG pCO2 (37-51) mmHg VBG HCO3 (24-28) mmol/L Hemoglobin 12.5 L (13.0-17.5) gm/dL Sodium (137-145) mmol/L Chloride (98-107) mmol/L Creatinine (0.66-1.25) mg/dL Glucose (74-99) mg/dL POC Glucose (mg/dL) (70-110) mg/dL Magnesium (1.6-2.3) mg/dL Creatine Kinase (55-170) U/L CK-MB (CK-2) (0.0-2.4) ng/mL Total Protein (6.3-8.2) g/dL Albumin (3.5-5.0) g/dL Thyroglobulin <0.20 L (1.60-59.90) ng/mL Arterial Blood Glucose 114 H (75-99) mg/dL Thyroglobulin Antibody >4000.0 H (0.0-114.0) U/mL Crossmatch See Detail 10/30/21 10/30/21 10/30/21 Range/Units 10:52 11:37 12:06 WBC (3.8-10.6) k/uL RBC (4.30-5.90) m/uL Hgb (13.0-17.5) gm/dL Hct (39.0-53.0) % Neutrophils # (1.3-7.7) k/uL Monocytes # (0-1.0) k/uL PT (9.0-12.0) sec INR (<1.2) ABG pH (7.35-7.45) ABG pCO2 (35-45) mmHg ABG pO2 210 H 390 H 299 H (83-108) mmHg ABG HCO3 (21-25) mmol/L ABG Total CO2 26 H 25 H 26 H (19-24) mmol/L ABG O2 Saturation 99.2 H 100.0 H 99.5 H (94-97) % ABG Hematocrit 30 L 30 L (34.0-46.0) % ABG Sodium 134 L (135-146) mmol/L ABG Ionized Calcium 4.1 L 4.3 L (4.5-5.3) mg/dL ABG Glucose 156 H 131 H 132 H (75-99) mg/dL ABG Lactic Acid (0.5-1.6) mmol/L VBG pH (7.31-7.41) VBG pCO2 (37-51) mmHg VBG HCO3 (24-28) mmol/L Hemoglobin 12.8 L 9.7 L 9.8 L (13.0-17.5) gm/dL Sodium (137-145) mmol/L Chloride (98-107) mmol/L Creatinine (0.66-1.25) mg/dL Glucose (74-99) mg/dL POC Glucose (mg/dL) (70-110) mg/dL Magnesium (1.6-2.3) mg/dL Creatine Kinase (55-170) U/L CK-MB (CK-2) (0.0-2.4) ng/mL Total Protein (6.3-8.2) g/dL Albumin (3.5-5.0) g/dL Thyroglobulin (1.60-59.90) ng/mL Arterial Blood Glucose 156 H 131 H 132 H (75-99) mg/dL Thyroglobulin Antibody (0.0-114.0) U/mL Crossmatch 10/30/21 10/30/21 10/30/21 Range/Units 13:00 13:41 14:07 WBC (3.8-10.6) k/uL RBC (4.30-5.90) m/uL Hgb (13.0-17.5) gm/dL Hct (39.0-53.0) % Neutrophils # (1.3-7.7) k/uL Monocytes # (0-1.0) k/uL PT (9.0-12.0) sec INR (<1.2) ABG pH 7.33 L 7.34 L (7.35-7.45) ABG pCO2 47 H (35-45) mmHg ABG pO2 352 H 341 H 148 H (83-108) mmHg ABG HCO3 (21-25) mmol/L ABG Total CO2 26 H 25 H (19-24) mmol/L ABG O2 Saturation 99.7 H 99.6 H 98.9 H (94-97) % ABG Hematocrit 29 L 28 L 28 L (34.0-46.0) % ABG Sodium (135-146) mmol/L ABG Ionized Calcium 4.2 L 5.4 H (4.5-5.3) mg/dL ABG Glucose 150 H 168 H 194 H (75-99) mg/dL ABG Lactic Acid 2.1 H 2.6 H* (0.5-1.6) mmol/L VBG pH (7.31-7.41) VBG pCO2 (37-51) mmHg VBG HCO3 (24-28) mmol/L Hemoglobin 9.3 L 9.0 L 9.1 L (13.0-17.5) gm/dL Sodium (137-145) mmol/L Chloride (98-107) mmol/L Creatinine (0.66-1.25) mg/dL Glucose (74-99) mg/dL POC Glucose (mg/dL) (70-110) mg/dL Magnesium (1.6-2.3) mg/dL Creatine Kinase (55-170) U/L CK-MB (CK-2) (0.0-2.4) ng/mL Total Protein (6.3-8.2) g/dL Albumin (3.5-5.0) g/dL Thyroglobulin (1.60-59.90) ng/mL Arterial Blood Glucose 150 H 168 H 194 H (75-99) mg/dL Thyroglobulin Antibody (0.0-114.0) U/mL Crossmatch 10/30/21 10/30/21 10/30/21 Range/Units 14:55 15:40 15:41 WBC 13.3 H (3.8-10.6) k/uL RBC 3.72 L (4.30-5.90) m/uL Hgb 10.9 L (13.0-17.5) gm/dL Hct 33.7 L (39.0-53.0) % Neutrophils # 10.9 H (1.3-7.7) k/uL Monocytes # (0-1.0) k/uL PT (9.0-12.0) sec INR (<1.2) ABG pH 7.33 L (7.35-7.45) ABG pCO2 (35-45) mmHg ABG pO2 (83-108) mmHg ABG HCO3 (21-25) mmol/L ABG Total CO2 (19-24) mmol/L ABG O2 Saturation 97.2 H (94-97) % ABG Hematocrit 31 L (34.0-46.0) % ABG Sodium (135-146) mmol/L ABG Ionized Calcium (4.5-5.3) mg/dL ABG Glucose 143 H (75-99) mg/dL ABG Lactic Acid 2.4 H* (0.5-1.6) mmol/L VBG pH (7.31-7.41) VBG pCO2 (37-51) mmHg VBG HCO3 (24-28) mmol/L Hemoglobin 10.2 L (13.0-17.5) gm/dL Sodium (137-145) mmol/L Chloride (98-107) mmol/L Creatinine (0.66-1.25) mg/dL Glucose (74-99) mg/dL POC Glucose (mg/dL) 122 H (70-110) mg/dL Magnesium (1.6-2.3) mg/dL Creatine Kinase (55-170) U/L CK-MB (CK-2) (0.0-2.4) ng/mL Total Protein (6.3-8.2) g/dL Albumin (3.5-5.0) g/dL Thyroglobulin (1.60-59.90) ng/mL Arterial Blood Glucose 143 H (75-99) mg/dL Thyroglobulin Antibody (0.0-114.0) U/mL Crossmatch 10/30/21 10/30/21 10/30/21 Range/Units 15:41 15:41 15:57 WBC (3.8-10.6) k/uL RBC (4.30-5.90) m/uL Hgb (13.0-17.5) gm/dL Hct (39.0-53.0) % Neutrophils # (1.3-7.7) k/uL Monocytes # (0-1.0) k/uL PT 13.3 H (9.0-12.0) sec INR 1.3 H (<1.2) ABG pH 7.34 L (7.35-7.45) ABG pCO2 49 H (35-45) mmHg ABG pO2 113 H (83-108) mmHg ABG HCO3 26 H (21-25) mmol/L ABG Total CO2 28 H (19-24) mmol/L ABG O2 Saturation 98.0 H (94-97) % ABG Hematocrit (34.0-46.0) % ABG Sodium (135-146) mmol/L ABG Ionized Calcium (4.5-5.3) mg/dL ABG Glucose (75-99) mg/dL ABG Lactic Acid (0.5-1.6) mmol/L VBG pH (7.31-7.41) VBG pCO2 (37-51) mmHg VBG HCO3 (24-28) mmol/L Hemoglobin (13.0-17.5) gm/dL Sodium (137-145) mmol/L Chloride 108 H (98-107) mmol/L Creatinine 1.46 H (0.66-1.25) mg/dL Glucose 110 H (74-99) mg/dL POC Glucose (mg/dL) (70-110) mg/dL Magnesium 2.5 H (1.6-2.3) mg/dL Creatine Kinase (55-170) U/L CK-MB (CK-2) (0.0-2.4) ng/mL Total Protein 4.8 L (6.3-8.2) g/dL Albumin 2.9 L (3.5-5.0) g/dL Thyroglobulin (1.60-59.90) ng/mL Arterial Blood Glucose (75-99) mg/dL Thyroglobulin Antibody (0.0-114.0) U/mL Crossmatch 10/30/21 10/30/21 10/30/21 Range/Units 17:59 18:03 19:02 WBC (3.8-10.6) k/uL RBC (4.30-5.90) m/uL Hgb (13.0-17.5) gm/dL Hct (39.0-53.0) % Neutrophils # (1.3-7.7) k/uL Monocytes # (0-1.0) k/uL PT (9.0-12.0) sec INR (<1.2) ABG pH 7.34 L (7.35-7.45) ABG pCO2 50 H (35-45) mmHg ABG pO2 129 H (83-108) mmHg ABG HCO3 27 H (21-25) mmol/L ABG Total CO2 28 H (19-24) mmol/L ABG O2 Saturation 98.6 H (94-97) % ABG Hematocrit (34.0-46.0) % ABG Sodium (135-146) mmol/L ABG Ionized Calcium (4.5-5.3) mg/dL ABG Glucose (75-99) mg/dL ABG Lactic Acid (0.5-1.6) mmol/L VBG pH (7.31-7.41) VBG pCO2 (37-51) mmHg VBG HCO3 (24-28) mmol/L Hemoglobin (13.0-17.5) gm/dL Sodium (137-145) mmol/L Chloride (98-107) mmol/L Creatinine (0.66-1.25) mg/dL Glucose (74-99) mg/dL POC Glucose (mg/dL) 114 H 118 H (70-110) mg/dL Magnesium (1.6-2.3) mg/dL Creatine Kinase (55-170) U/L CK-MB (CK-2) (0.0-2.4) ng/mL Total Protein (6.3-8.2) g/dL Albumin (3.5-5.0) g/dL Thyroglobulin (1.60-59.90) ng/mL Arterial Blood Glucose (75-99) mg/dL Thyroglobulin Antibody (0.0-114.0) U/mL Crossmatch 10/30/21 10/30/21 10/30/21 Range/Units 19:05 20:10 20:30 WBC 15.5 H (3.8-10.6) k/uL RBC 3.71 L (4.30-5.90) m/uL Hgb 10.9 L (13.0-17.5) gm/dL Hct 33.3 L (39.0-53.0) % Neutrophils # 13.0 H (1.3-7.7) k/uL Monocytes # 1.2 H (0-1.0) k/uL PT (9.0-12.0) sec INR (<1.2) ABG pH (7.35-7.45) ABG pCO2 (35-45) mmHg ABG pO2 (83-108) mmHg ABG HCO3 (21-25) mmol/L ABG Total CO2 (19-24) mmol/L ABG O2 Saturation (94-97) % ABG Hematocrit (34.0-46.0) % ABG Sodium (135-146) mmol/L ABG Ionized Calcium (4.5-5.3) mg/dL ABG Glucose (75-99) mg/dL ABG Lactic Acid (0.5-1.6) mmol/L VBG pH 7.42 H (7.31-7.41) VBG pCO2 35 L (37-51) mmHg VBG HCO3 23 L (24-28) mmol/L Hemoglobin (13.0-17.5) gm/dL Sodium (137-145) mmol/L Chloride (98-107) mmol/L Creatinine (0.66-1.25) mg/dL Glucose (74-99) mg/dL POC Glucose (mg/dL) 132 H (70-110) mg/dL Magnesium (1.6-2.3) mg/dL Creatine Kinase (55-170) U/L CK-MB (CK-2) (0.0-2.4) ng/mL Total Protein (6.3-8.2) g/dL Albumin (3.5-5.0) g/dL Thyroglobulin (1.60-59.90) ng/mL Arterial Blood Glucose (75-99) mg/dL Thyroglobulin Antibody (0.0-114.0) U/mL Crossmatch 10/30/21 10/30/21 10/30/21 Range/Units 20:57 21:27 22:09 WBC (3.8-10.6) k/uL RBC (4.30-5.90) m/uL Hgb (13.0-17.5) gm/dL Hct (39.0-53.0) % Neutrophils # (1.3-7.7) k/uL Monocytes # (0-1.0) k/uL PT (9.0-12.0) sec INR (<1.2) ABG pH (7.35-7.45) ABG pCO2 46 H (35-45) mmHg ABG pO2 31 L* (83-108) mmHg ABG HCO3 26 H (21-25) mmol/L ABG Total CO2 27 H (19-24) mmol/L ABG O2 Saturation 55.8 L (94-97) % ABG Hematocrit (34.0-46.0) % ABG Sodium (135-146) mmol/L ABG Ionized Calcium (4.5-5.3) mg/dL ABG Glucose (75-99) mg/dL ABG Lactic Acid (0.5-1.6) mmol/L VBG pH (7.31-7.41) VBG pCO2 (37-51) mmHg VBG HCO3 (24-28) mmol/L Hemoglobin (13.0-17.5) gm/dL Sodium (137-145) mmol/L Chloride (98-107) mmol/L Creatinine (0.66-1.25) mg/dL Glucose (74-99) mg/dL POC Glucose (mg/dL) 142 H 161 H (70-110) mg/dL Magnesium (1.6-2.3) mg/dL Creatine Kinase (55-170) U/L CK-MB (CK-2) (0.0-2.4) ng/mL Total Protein (6.3-8.2) g/dL Albumin (3.5-5.0) g/dL Thyroglobulin (1.60-59.90) ng/mL Arterial Blood Glucose (75-99) mg/dL Thyroglobulin Antibody (0.0-114.0) U/mL Crossmatch 10/30/21 10/30/21 10/30/21 Range/Units 22:10 23:23 23:53 WBC 12.8 H (3.8-10.6) k/uL RBC 3.44 L (4.30-5.90) m/uL Hgb 10.3 L (13.0-17.5) gm/dL Hct 31.3 L (39.0-53.0) % Neutrophils # 10.8 H (1.3-7.7) k/uL Monocytes # (0-1.0) k/uL PT (9.0-12.0) sec INR (<1.2) ABG pH (7.35-7.45) ABG pCO2 (35-45) mmHg ABG pO2 (83-108) mmHg ABG HCO3 (21-25) mmol/L ABG Total CO2 (19-24) mmol/L ABG O2 Saturation (94-97) % ABG Hematocrit (34.0-46.0) % ABG Sodium (135-146) mmol/L ABG Ionized Calcium (4.5-5.3) mg/dL ABG Glucose (75-99) mg/dL ABG Lactic Acid (0.5-1.6) mmol/L VBG pH (7.31-7.41) VBG pCO2 (37-51) mmHg VBG HCO3 (24-28) mmol/L Hemoglobin (13.0-17.5) gm/dL Sodium (137-145) mmol/L Chloride (98-107) mmol/L Creatinine (0.66-1.25) mg/dL Glucose (74-99) mg/dL POC Glucose (mg/dL) 161 H 160 H (70-110) mg/dL Magnesium (1.6-2.3) mg/dL Creatine Kinase (55-170) U/L CK-MB (CK-2) (0.0-2.4) ng/mL Total Protein (6.3-8.2) g/dL Albumin (3.5-5.0) g/dL Thyroglobulin (1.60-59.90) ng/mL Arterial Blood Glucose (75-99) mg/dL Thyroglobulin Antibody (0.0-114.0) U/mL Crossmatch 10/31/21 10/31/21 10/31/21 Range/Units 00:59 01:54 02:53 WBC (3.8-10.6) k/uL RBC (4.30-5.90) m/uL Hgb (13.0-17.5) gm/dL Hct (39.0-53.0) % Neutrophils # (1.3-7.7) k/uL Monocytes # (0-1.0) k/uL PT (9.0-12.0) sec INR (<1.2) ABG pH (7.35-7.45) ABG pCO2 (35-45) mmHg ABG pO2 (83-108) mmHg ABG HCO3 (21-25) mmol/L ABG Total CO2 (19-24) mmol/L ABG O2 Saturation (94-97) % ABG Hematocrit (34.0-46.0) % ABG Sodium (135-146) mmol/L ABG Ionized Calcium (4.5-5.3) mg/dL ABG Glucose (75-99) mg/dL ABG Lactic Acid (0.5-1.6) mmol/L VBG pH (7.31-7.41) VBG pCO2 (37-51) mmHg VBG HCO3 (24-28) mmol/L Hemoglobin (13.0-17.5) gm/dL Sodium (137-145) mmol/L Chloride (98-107) mmol/L Creatinine (0.66-1.25) mg/dL Glucose (74-99) mg/dL POC Glucose (mg/dL) 147 H 153 H 152 H (70-110) mg/dL Magnesium (1.6-2.3) mg/dL Creatine Kinase (55-170) U/L CK-MB (CK-2) (0.0-2.4) ng/mL Total Protein (6.3-8.2) g/dL Albumin (3.5-5.0) g/dL Thyroglobulin (1.60-59.90) ng/mL Arterial Blood Glucose (75-99) mg/dL Thyroglobulin Antibody (0.0-114.0) U/mL Crossmatch 10/31/21 10/31/21 10/31/21 Range/Units 03:50 03:50 03:52 WBC (3.8-10.6) k/uL RBC 3.38 L (4.30-5.90) m/uL Hgb 10.0 L (13.0-17.5) gm/dL Hct 30.6 L (39.0-53.0) % Neutrophils # (1.3-7.7) k/uL Monocytes # (0-1.0) k/uL PT (9.0-12.0) sec INR (<1.2) ABG pH (7.35-7.45) ABG pCO2 (35-45) mmHg ABG pO2 (83-108) mmHg ABG HCO3 (21-25) mmol/L ABG Total CO2 (19-24) mmol/L ABG O2 Saturation (94-97) % ABG Hematocrit (34.0-46.0) % ABG Sodium (135-146) mmol/L ABG Ionized Calcium (4.5-5.3) mg/dL ABG Glucose (75-99) mg/dL ABG Lactic Acid (0.5-1.6) mmol/L VBG pH (7.31-7.41) VBG pCO2 (37-51) mmHg VBG HCO3 (24-28) mmol/L Hemoglobin (13.0-17.5) gm/dL Sodium 135 L (137-145) mmol/L Chloride (98-107) mmol/L Creatinine 1.60 H (0.66-1.25) mg/dL Glucose 129 H (74-99) mg/dL POC Glucose (mg/dL) 147 H (70-110) mg/dL Magnesium (1.6-2.3) mg/dL Creatine Kinase (55-170) U/L CK-MB (CK-2) (0.0-2.4) ng/mL Total Protein 4.8 L (6.3-8.2) g/dL Albumin 2.9 L (3.5-5.0) g/dL Thyroglobulin (1.60-59.90) ng/mL Arterial Blood Glucose (75-99) mg/dL Thyroglobulin Antibody (0.0-114.0) U/mL Crossmatch 10/31/21 10/31/21 10/31/21 Range/Units 04:55 05:23 05:57 WBC (3.8-10.6) k/uL RBC (4.30-5.90) m/uL Hgb (13.0-17.5) gm/dL Hct (39.0-53.0) % Neutrophils # (1.3-7.7) k/uL Monocytes # (0-1.0) k/uL PT (9.0-12.0) sec INR (<1.2) ABG pH (7.35-7.45) ABG pCO2 (35-45) mmHg ABG pO2 (83-108) mmHg ABG HCO3 (21-25) mmol/L ABG Total CO2 25 H (19-24) mmol/L ABG O2 Saturation 97.4 H (94-97) % ABG Hematocrit (34.0-46.0) % ABG Sodium (135-146) mmol/L ABG Ionized Calcium (4.5-5.3) mg/dL ABG Glucose (75-99) mg/dL ABG Lactic Acid (0.5-1.6) mmol/L VBG pH (7.31-7.41) VBG pCO2 (37-51) mmHg VBG HCO3 (24-28) mmol/L Hemoglobin (13.0-17.5) gm/dL Sodium (137-145) mmol/L Chloride (98-107) mmol/L Creatinine (0.66-1.25) mg/dL Glucose (74-99) mg/dL POC Glucose (mg/dL) 143 H 144 H (70-110) mg/dL Magnesium (1.6-2.3) mg/dL Creatine Kinase (55-170) U/L CK-MB (CK-2) (0.0-2.4) ng/mL Total Protein (6.3-8.2) g/dL Albumin (3.5-5.0) g/dL Thyroglobulin (1.60-59.90) ng/mL Arterial Blood Glucose (75-99) mg/dL Thyroglobulin Antibody (0.0-114.0) U/mL Crossmatch 10/31/21 10/31/21 10/31/21 Range/Units 06:55 07:50 07:53 WBC (3.8-10.6) k/uL RBC (4.30-5.90) m/uL Hgb (13.0-17.5) gm/dL Hct (39.0-53.0) % Neutrophils # (1.3-7.7) k/uL Monocytes # (0-1.0) k/uL PT (9.0-12.0) sec INR (<1.2) ABG pH (7.35-7.45) ABG pCO2 (35-45) mmHg ABG pO2 (83-108) mmHg ABG HCO3 (21-25) mmol/L ABG Total CO2 (19-24) mmol/L ABG O2 Saturation (94-97) % ABG Hematocrit (34.0-46.0) % ABG Sodium (135-146) mmol/L ABG Ionized Calcium (4.5-5.3) mg/dL ABG Glucose (75-99) mg/dL ABG Lactic Acid (0.5-1.6) mmol/L VBG pH (7.31-7.41) VBG pCO2 (37-51) mmHg VBG HCO3 (24-28) mmol/L Hemoglobin (13.0-17.5) gm/dL Sodium (137-145) mmol/L Chloride (98-107) mmol/L Creatinine (0.66-1.25) mg/dL Glucose (74-99) mg/dL POC Glucose (mg/dL) 135 H 133 H (70-110) mg/dL Magnesium (1.6-2.3) mg/dL Creatine Kinase 706 H (55-170) U/L CK-MB (CK-2) (0.0-2.4) ng/mL Total Protein (6.3-8.2) g/dL Albumin (3.5-5.0) g/dL Thyroglobulin (1.60-59.90) ng/mL Arterial Blood Glucose (75-99) mg/dL Thyroglobulin Antibody (0.0-114.0) U/mL Crossmatch 10/31/21 Range/Units 07:53 WBC (3.8-10.6) k/uL RBC (4.30-5.90) m/uL Hgb (13.0-17.5) gm/dL Hct (39.0-53.0) % Neutrophils # (1.3-7.7) k/uL Monocytes # (0-1.0) k/uL PT (9.0-12.0) sec INR (<1.2) ABG pH (7.35-7.45) ABG pCO2 (35-45) mmHg ABG pO2 (83-108) mmHg ABG HCO3 (21-25) mmol/L ABG Total CO2 (19-24) mmol/L ABG O2 Saturation (94-97) % ABG Hematocrit (34.0-46.0) % ABG Sodium (135-146) mmol/L ABG Ionized Calcium (4.5-5.3) mg/dL ABG Glucose (75-99) mg/dL ABG Lactic Acid (0.5-1.6) mmol/L VBG pH (7.31-7.41) VBG pCO2 (37-51) mmHg VBG HCO3 (24-28) mmol/L Hemoglobin (13.0-17.5) gm/dL Sodium (137-145) mmol/L Chloride (98-107) mmol/L Creatinine (0.66-1.25) mg/dL Glucose (74-99) mg/dL POC Glucose (mg/dL) (70-110) mg/dL Magnesium (1.6-2.3) mg/dL Creatine Kinase (55-170) U/L CK-MB (CK-2) 12.1 H (0.0-2.4) ng/mL Total Protein (6.3-8.2) g/dL Albumin (3.5-5.0) g/dL Thyroglobulin (1.60-59.90) ng/mL Arterial Blood Glucose (75-99) mg/dL Thyroglobulin Antibody (0.0-114.0) U/mL Crossmatch
[2021-10-31] MEDS: AMIODARONE 450 MG in DEXTROSE 5% IN WATER 250 ML IV SCH ×4 (09:26→18:15)
--- NOTE | 2021-10-31 09:47 | P.PN ---
Subjective Progress Note Date: 10/31/21 Principal diagnosis: Triple-vessel diffuse coronary artery disease with totally occluded right coronary artery and left main disease, non-STEMI this admission, acute heart failure with severe left ventricular dysfunction and ejection fraction of 20- 25%. 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 lateral and inferior myocardial infarction with mild to moderate mitral valve regurgitation, left carotid stenosis with prior stroke status post left carotid endarterectomy, chr onic ongoing tobacco dependence, ulcerative colitis/GERD, hypothyroidism POD #1 insertion of intra-aortic balloon counterpulsation via the right femoral artery under ultrasound guidance, double vessel coronary artery bypass grafting using the in situ left internal mammary artery to the mid left anterior descending artery, reverse saphenous vein graft from the aorta to the ramus intermedius artery, endoscopic harvesting of the left greater saphenous vein, exclusion of the left atrial appendage using a 35 mm AtriClip, graft flow measurements using the Zouxiu system, intraoperative transesophageal echocardiogram and epi-aortic scanning Postoperative hypotension requiring vasopressor support, expected The patient was seen and examined this morning laying in bed in the intensive care unit in acute distress. Remains on mechanical ventilation, sedated, intra- aortic balloon pump present. Currently in sinus rhythm with heart rate in the 60s. Remains on multiple IV medications including Primacor, amiodarone, levo and vaso as well as propofol for sedation. Cardiac output and index 4/2. PA pressures remain in the high 20s to low 30s over high teens to low 20s. CVP 13. Patient's mean blood pressure with intra-aortic blue pump in the 80s, on standby mean pressure in the 70s. Right internal jugular [place]/Cordis, right brachial arterial line, mediastinal/left/right pleural chest tubes all remaining present. Urine output remained stable at 40-65 mL per hour. Lab work and chest x-ray reviewed. Objective - Vital Signs Vital signs: Vital Signs Temp 98.2 F 10/31/21 04:00 Pulse 66 10/31/21 08:00 Resp 24 10/31/21 08:00 BP 111/43 10/31/21 08:00 Pulse Ox 98 10/31/21 08:00 FiO2 50 10/31/21 08:00 Intake & Output 10/30/21 10/31/21 10/31/21 18:59 06:59 18:59 Intake Total 276.306 5705.145 371.698 Output Total 4582 998 105 Balance -3806.345 493.145 266.698 Weight 92.2 kg Intake: IV 775.52 1118.63 244.30 Amiodarone 360 mg In 133.2 33.3 Dextrose 5% in Water 200 ml @ 1 MG/MIN 33.333 mls/ hr IV .Q6H ONE Rx#: [id number] CO/CI 80 300 20 Calcium Gluconate in NaCl 100 1 gm In Saline 1 100ml. bag @ 100 mls/hr IVPB ONCE ONE Rx#:[id number] Milrinone-D5w Pmx 20 mg 36.72 9.18 9.18 In Dextrose/Water 1 100ml .bag @ 0.375 MCG/KG/MIN 9 .18 mls/hr IV .[id number] [facility] Rx#:[id number] Nitroglycerin-D5w Pmx 50 6.0 1.5 mg In Dextrose/Water 1 250ml.bag @ 5 MCG/MIN 1.5 mls/hr IV .Q24H [facility] Rx#: [id number] Sodium Chloride 0.9% 1, 200 650 50 000 ml @ 50 mls/hr IV . Q20H CAN Rx#:[id number] Sodium Chloride 0.9% 150 30.60 7.65 6.12 ml @ 0.04 UNITS/MIN 6.12 mls/hr IV .Q24H CAN with Vasopressin 60 unit Rx#: [id number] ceFAZolin 2 gm In Sodium 50 Chloride 0.9% 50 ml @ 100 mls/hr IVPB Q8HR [facility] Rx# :[id number] pressure bags 36 117 9 Intake, IV Titration 0.135 372.515 127.398 Amount Insulin Regular 100 unit 0.135 39.112 In Sodium Chloride 0.9% 100 ml @ Per Protocol IV .Q0M [facility] Rx#:[id number] Milrinone-D5w Pmx 20 mg 100 34.578 In Dextrose/Water 1 100ml .bag @ 0.375 MCG/KG/MIN 9 .18 mls/hr IV .[id number] [facility] Rx#:[id number] Norepinephrine 4 mg In 199.702 Sodium Chloride 0.9% 250 ml @ 0.02 MCG/KG/MIN 6. 218 mls/hr IV .Q24H [facility] Rx#:[id number] propofoL 1,000 mg In 33.701 92.82 Empty Bag 1 bag @ Titrate IV .Q0M [facility] Rx#: [id number] Output: Chest Tube Drainage 737 143 30 Chest Tube Left 390 0 0 Chest Tube Right 67 23 0 Mediastinal 280 120 30 Urine 2045 855 75 Estimated Blood Loss 1800 Other: Voiding Method Indwelling Catheter Indwelling Catheter Indwelling Catheter ABP, PAP, CO, CI - Last Documented Arterial Blood Pressure 105/50 Pulmonary Artery Pressure 28/18 Cardiac Output 3.8 Cardiac Index 1.9 - Exam CONSTITUTIONAL: Remains sedated on mechanical ventilation RESPIRATORY: Lungs sounds diminished bilaterally. Respirations even, nonlabored. Currently on assist control mode, FiO2 50%, PEEP 5, tidal volume 500, respiratory rate 24. 9.0 ET tube, through the CARDIOVASCULAR: S1, S2 present. Regular rate and rhythm, sinus rhythm on telemetry. Sternum stable. Palpable peripheral pulses except no DP/PT pulse to right lower extremity. No edema present. Heart hugger, antiembolism stockings, SCDs present. GASTROINTESTINAL: Abdomen soft, nontender, nondistended. Hypoactive bowel sounds present 4 quadrants. OG tube present to low intermittent suction with minimal output. GENITOURINARY: Craven present draining clear, yellow urine. Output overnight 40-65 mL per hour INTEGUMENTARY: Skin is warm and dry with evidence of good perfusion. Anterior chest incision well approximated and covered with dry intact dressing. Left lower extremity EVH site well approximated without redness or drainage. INVASIVE LINES AND TUBES: Mediastinal/left/right pleural chest tubes present and connected to wall suction, intermittent air leak present in right pleural chest tube. Mediastinal tube with 60 mL serosanguineous drainage overnight, 400 mL since surgery. Left pleural chest tube with no drainage overnight, 400 mL since surgery. Right pleural chest tube with 18 mL serosanguineous drainage overnight, 95 mL since surgery. A/V epicardial pacemaker wires present, connected to generator, backup rate 50 bpm. Right internal jugular [place]/Cordis, right brachial arterial line present. Last CO/CI 4/2, PA 30/20, CVP 13, right femoral artery intra-aortic balloon pump present augmenting at 1:1, pressure this morning 91/52/82/117, unassisted pressure was 102/67 with a mean of 75 . - Allied health notes Allied health notes reviewed: nursing - Labs CBC & Chem 7: 10/31/21 03:50 10/31/21 03:50 Labs: Abnormal Lab Results - Last 24 Hours (Table) 10/29/21 10/30/21 10/30/21 Range/Units 13:58 07:45 07:45 WBC (3.8-10.6) k/uL RBC (4.30-5.90) m/uL Hgb (13.0-17.5) gm/dL Hct (39.0-53.0) % Neutrophils # (1.3-7.7) k/uL Monocytes # (0-1.0) k/uL PT (9.0-12.0) sec INR (<1.2) ABG pH (7.35-7.45) ABG pCO2 (35-45) mmHg ABG pO2 (83-108) mmHg ABG HCO3 (21-25) mmol/L ABG Total CO2 (19-24) mmol/L ABG O2 Saturation (94-97) % ABG Hematocrit (34.0-46.0) % ABG Sodium (135-146) mmol/L ABG Ionized Calcium (4.5-5.3) mg/dL ABG Glucose (75-99) mg/dL ABG Lactic Acid (0.5-1.6) mmol/L VBG pH (7.31-7.41) VBG pCO2 (37-51) mmHg VBG HCO3 (24-28) mmol/L Hemoglobin (13.0-17.5) gm/dL Sodium (137-145) mmol/L Chloride (98-107) mmol/L Creatinine 1.56 H (0.66-1.25) mg/dL Glucose 122 H (74-99) mg/dL POC Glucose (mg/dL) (70-110) mg/dL Magnesium (1.6-2.3) mg/dL Creatine Kinase (55-170) U/L CK-MB (CK-2) (0.0-2.4) ng/mL Total Protein (6.3-8.2) g/dL Albumin (3.5-5.0) g/dL Thyroglobulin <0.20 L (1.60-59.90) ng/mL Arterial Blood Glucose (75-99) mg/dL Thyroglobulin Antibody >4000.0 H (0.0-114.0) U/mL Crossmatch See Detail 10/30/21 10/30/21 10/30/21 Range/Units 08:54 10:52 11:37 WBC (3.8-10.6) k/uL RBC (4.30-5.90) m/uL Hgb (13.0-17.5) gm/dL Hct (39.0-53.0) % Neutrophils # (1.3-7.7) k/uL Monocytes # (0-1.0) k/uL PT (9.0-12.0) sec INR (<1.2) ABG pH (7.35-7.45) ABG pCO2 34 L (35-45) mmHg ABG pO2 368 H 210 H 390 H (83-108) mmHg ABG HCO3 (21-25) mmol/L ABG Total CO2 25 H 26 H 25 H (19-24) mmol/L ABG O2 Saturation 99.7 H 99.2 H 100.0 H (94-97) % ABG Hematocrit 30 L (34.0-46.0) % ABG Sodium 134 L (135-146) mmol/L ABG Ionized Calcium 4.4 L 4.1 L (4.5-5.3) mg/dL ABG Glucose 114 H 156 H 131 H (75-99) mg/dL ABG Lactic Acid (0.5-1.6) mmol/L VBG pH (7.31-7.41) VBG pCO2 (37-51) mmHg VBG HCO3 (24-28) mmol/L Hemoglobin 12.5 L 12.8 L 9.7 L (13.0-17.5) gm/dL Sodium (137-145) mmol/L Chloride (98-107) mmol/L Creatinine (0.66-1.25) mg/dL Glucose (74-99) mg/dL POC Glucose (mg/dL) (70-110) mg/dL Magnesium (1.6-2.3) mg/dL Creatine Kinase (55-170) U/L CK-MB (CK-2) (0.0-2.4) ng/mL Total Protein (6.3-8.2) g/dL Albumin (3.5-5.0) g/dL Thyroglobulin (1.60-59.90) ng/mL Arterial Blood Glucose 114 H 156 H 131 H (75-99) mg/dL Thyroglobulin Antibody (0.0-114.0) U/mL Crossmatch 10/30/21 10/30/21 10/30/21 Range/Units 12:06 13:00 13:41 WBC (3.8-10.6) k/uL RBC (4.30-5.90) m/uL Hgb (13.0-17.5) gm/dL Hct (39.0-53.0) % Neutrophils # (1.3-7.7) k/uL Monocytes # (0-1.0) k/uL PT (9.0-12.0) sec INR (<1.2) ABG pH 7.33 L (7.35-7.45) ABG pCO2 47 H (35-45) mmHg ABG pO2 299 H 352 H 341 H (83-108) mmHg ABG HCO3 (21-25) mmol/L ABG Total CO2 26 H 26 H 25 H (19-24) mmol/L ABG O2 Saturation 99.5 H 99.7 H 99.6 H (94-97) % ABG Hematocrit 30 L 29 L 28 L (34.0-46.0) % ABG Sodium (135-146) mmol/L ABG Ionized Calcium 4.3 L 4.2 L (4.5-5.3) mg/dL ABG Glucose 132 H 150 H 168 H (75-99) mg/dL ABG Lactic Acid 2.1 H (0.5-1.6) mmol/L VBG pH (7.31-7.41) VBG pCO2 (37-51) mmHg VBG HCO3 (24-28) mmol/L Hemoglobin 9.8 L 9.3 L 9.0 L (13.0-17.5) gm/dL Sodium (137-145) mmol/L Chloride (98-107) mmol/L Creatinine (0.66-1.25) mg/dL Glucose (74-99) mg/dL POC Glucose (mg/dL) (70-110) mg/dL Magnesium (1.6-2.3) mg/dL Creatine Kinase (55-170) U/L CK-MB (CK-2) (0.0-2.4) ng/mL Total Protein (6.3-8.2) g/dL Albumin (3.5-5.0) g/dL Thyroglobulin (1.60-59.90) ng/mL Arterial Blood Glucose 132 H 150 H 168 H (75-99) mg/dL Thyroglobulin Antibody (0.0-114.0) U/mL Crossmatch 10/30/21 10/30/21 10/30/21 Range/Units 14:07 14:55 15:40 WBC (3.8-10.6) k/uL RBC (4.30-5.90) m/uL Hgb (13.0-17.5) gm/dL Hct (39.0-53.0) % Neutrophils # (1.3-7.7) k/uL Monocytes # (0-1.0) k/uL PT (9.0-12.0) sec INR (<1.2) ABG pH 7.34 L 7.33 L (7.35-7.45) ABG pCO2 (35-45) mmHg ABG pO2 148 H (83-108) mmHg ABG HCO3 (21-25) mmol/L ABG Total CO2 (19-24) mmol/L ABG O2 Saturation 98.9 H 97.2 H (94-97) % ABG Hematocrit 28 L 31 L (34.0-46.0) % ABG Sodium (135-146) mmol/L ABG Ionized Calcium 5.4 H (4.5-5.3) mg/dL ABG Glucose 194 H 143 H (75-99) mg/dL ABG Lactic Acid 2.6 H* 2.4 H* (0.5-1.6) mmol/L VBG pH (7.31-7.41) VBG pCO2 (37-51) mmHg VBG HCO3 (24-28) mmol/L Hemoglobin 9.1 L 10.2 L (13.0-17.5) gm/dL Sodium (137-145) mmol/L Chloride (98-107) mmol/L Creatinine (0.66-1.25) mg/dL Glucose (74-99) mg/dL POC Glucose (mg/dL) 122 H (70-110) mg/dL Magnesium (1.6-2.3) mg/dL Creatine Kinase (55-170) U/L CK-MB (CK-2) (0.0-2.4) ng/mL Total Protein (6.3-8.2) g/dL Albumin (3.5-5.0) g/dL Thyroglobulin (1.60-59.90) ng/mL Arterial Blood Glucose 194 H 143 H (75-99) mg/dL Thyroglobulin Antibody (0.0-114.0) U/mL Crossmatch 10/30/21 10/30/21 10/30/21 Range/Units 15:41 15:41 15:41 WBC 13.3 H (3.8-10.6) k/uL RBC 3.72 L (4.30-5.90) m/uL Hgb 10.9 L (13.0-17.5) gm/dL Hct 33.7 L (39.0-53.0) % Neutrophils # 10.9 H (1.3-7.7) k/uL Monocytes # (0-1.0) k/uL PT 13.3 H (9.0-12.0) sec INR 1.3 H (<1.2) ABG pH (7.35-7.45) ABG pCO2 (35-45) mmHg ABG pO2 (83-108) mmHg ABG HCO3 (21-25) mmol/L ABG Total CO2 (19-24) mmol/L ABG O2 Saturation (94-97) % ABG Hematocrit (34.0-46.0) % ABG Sodium (135-146) mmol/L ABG Ionized Calcium (4.5-5.3) mg/dL ABG Glucose (75-99) mg/dL ABG Lactic Acid (0.5-1.6) mmol/L VBG pH (7.31-7.41) VBG pCO2 (37-51) mmHg VBG HCO3 (24-28) mmol/L Hemoglobin (13.0-17.5) gm/dL Sodium (137-145) mmol/L Chloride 108 H (98-107) mmol/L Creatinine 1.46 H (0.66-1.25) mg/dL Glucose 110 H (74-99) mg/dL POC Glucose (mg/dL) (70-110) mg/dL Magnesium 2.5 H (1.6-2.3) mg/dL Creatine Kinase (55-170) U/L CK-MB (CK-2) (0.0-2.4) ng/mL Total Protein 4.8 L (6.3-8.2) g/dL Albumin 2.9 L (3.5-5.0) g/dL Thyroglobulin (1.60-59.90) ng/mL Arterial Blood Glucose (75-99) mg/dL Thyroglobulin Antibody (0.0-114.0) U/mL Crossmatch 10/30/21 10/30/21 10/30/21 Range/Units 15:57 17:59 18:03 WBC (3.8-10.6) k/uL RBC (4.30-5.90) m/uL Hgb (13.0-17.5) gm/dL Hct (39.0-53.0) % Neutrophils # (1.3-7.7) k/uL Monocytes # (0-1.0) k/uL PT (9.0-12.0) sec INR (<1.2) ABG pH 7.34 L 7.34 L (7.35-7.45) ABG pCO2 49 H 50 H (35-45) mmHg ABG pO2 113 H 129 H (83-108) mmHg ABG HCO3 26 H 27 H (21-25) mmol/L ABG Total CO2 28 H 28 H (19-24) mmol/L ABG O2 Saturation 98.0 H 98.6 H (94-97) % ABG Hematocrit (34.0-46.0) % ABG Sodium (135-146) mmol/L ABG Ionized Calcium (4.5-5.3) mg/dL ABG Glucose (75-99) mg/dL ABG Lactic Acid (0.5-1.6) mmol/L VBG pH (7.31-7.41) VBG pCO2 (37-51) mmHg VBG HCO3 (24-28) mmol/L Hemoglobin (13.0-17.5) gm/dL Sodium (137-145) mmol/L Chloride (98-107) mmol/L Creatinine (0.66-1.25) mg/dL Glucose (74-99) mg/dL POC Glucose (mg/dL) 114 H (70-110) mg/dL Magnesium (1.6-2.3) mg/dL Creatine Kinase (55-170) U/L CK-MB (CK-2) (0.0-2.4) ng/mL Total Protein (6.3-8.2) g/dL Albumin (3.5-5.0) g/dL Thyroglobulin (1.60-59.90) ng/mL Arterial Blood Glucose (75-99) mg/dL Thyroglobulin Antibody (0.0-114.0) U/mL Crossmatch 10/30/21 10/30/21 10/30/21 Range/Units 19:02 19:05 20:10 WBC 15.5 H (3.8-10.6) k/uL RBC 3.71 L (4.30-5.90) m/uL Hgb 10.9 L (13.0-17.5) gm/dL Hct 33.3 L (39.0-53.0) % Neutrophils # 13.0 H (1.3-7.7) k/uL Monocytes # 1.2 H (0-1.0) k/uL PT (9.0-12.0) sec INR (<1.2) ABG pH (7.35-7.45) ABG pCO2 (35-45) mmHg ABG pO2 (83-108) mmHg ABG HCO3 (21-25) mmol/L ABG Total CO2 (19-24) mmol/L ABG O2 Saturation (94-97) % ABG Hematocrit (34.0-46.0) % ABG Sodium (135-146) mmol/L ABG Ionized Calcium (4.5-5.3) mg/dL ABG Glucose (75-99) mg/dL ABG Lactic Acid (0.5-1.6) mmol/L VBG pH (7.31-7.41) VBG pCO2 (37-51) mmHg VBG HCO3 (24-28) mmol/L Hemoglobin (13.0-17.5) gm/dL Sodium (137-145) mmol/L Chloride (98-107) mmol/L Creatinine (0.66-1.25) mg/dL Glucose (74-99) mg/dL POC Glucose (mg/dL) 118 H 132 H (70-110) mg/dL Magnesium (1.6-2.3) mg/dL Creatine Kinase (55-170) U/L CK-MB (CK-2) (0.0-2.4) ng/mL Total Protein (6.3-8.2) g/dL Albumin (3.5-5.0) g/dL Thyroglobulin (1.60-59.90) ng/mL Arterial Blood Glucose (75-99) mg/dL Thyroglobulin Antibody (0.0-114.0) U/mL Crossmatch 10/30/21 10/30/21 10/30/21 Range/Units 20:30 20:57 21:27 WBC (3.8-10.6) k/uL RBC (4.30-5.90) m/uL Hgb (13.0-17.5) gm/dL Hct (39.0-53.0) % Neutrophils # (1.3-7.7) k/uL Monocytes # (0-1.0) k/uL PT (9.0-12.0) sec INR (<1.2) ABG pH (7.35-7.45) ABG pCO2 46 H (35-45) mmHg ABG pO2 31 L* (83-108) mmHg ABG HCO3 26 H (21-25) mmol/L ABG Total CO2 27 H (19-24) mmol/L ABG O2 Saturation 55.8 L (94-97) % ABG Hematocrit (34.0-46.0) % ABG Sodium (135-146) mmol/L ABG Ionized Calcium (4.5-5.3) mg/dL ABG Glucose (75-99) mg/dL ABG Lactic Acid (0.5-1.6) mmol/L VBG pH 7.42 H (7.31-7.41) VBG pCO2 35 L (37-51) mmHg VBG HCO3 23 L (24-28) mmol/L Hemoglobin (13.0-17.5) gm/dL Sodium (137-145) mmol/L Chloride (98-107) mmol/L Creatinine (0.66-1.25) mg/dL Glucose (74-99) mg/dL POC Glucose (mg/dL) 142 H (70-110) mg/dL Magnesium (1.6-2.3) mg/dL Creatine Kinase (55-170) U/L CK-MB (CK-2) (0.0-2.4) ng/mL Total Protein (6.3-8.2) g/dL Albumin (3.5-5.0) g/dL Thyroglobulin (1.60-59.90) ng/mL Arterial Blood Glucose (75-99) mg/dL Thyroglobulin Antibody (0.0-114.0) U/mL Crossmatch 10/30/21 10/30/21 10/30/21 Range/Units 22:09 22:10 23:23 WBC 12.8 H (3.8-10.6) k/uL RBC 3.44 L (4.30-5.90) m/uL Hgb 10.3 L (13.0-17.5) gm/dL Hct 31.3 L (39.0-53.0) % Neutrophils # 10.8 H (1.3-7.7) k/uL Monocytes # (0-1.0) k/uL PT (9.0-12.0) sec INR (<1.2) ABG pH (7.35-7.45) ABG pCO2 (35-45) mmHg ABG pO2 (83-108) mmHg ABG HCO3 (21-25) mmol/L ABG Total CO2 (19-24) mmol/L ABG O2 Saturation (94-97) % ABG Hematocrit (34.0-46.0) % ABG Sodium (135-146) mmol/L ABG Ionized Calcium (4.5-5.3) mg/dL ABG Glucose (75-99) mg/dL ABG Lactic Acid (0.5-1.6) mmol/L VBG pH (7.31-7.41) VBG pCO2 (37-51) mmHg VBG HCO3 (24-28) mmol/L Hemoglobin (13.0-17.5) gm/dL Sodium (137-145) mmol/L Chloride (98-107) mmol/L Creatinine (0.66-1.25) mg/dL Glucose (74-99) mg/dL POC Glucose (mg/dL) 161 H 161 H (70-110) mg/dL Magnesium (1.6-2.3) mg/dL Creatine Kinase (55-170) U/L CK-MB (CK-2) (0.0-2.4) ng/mL Total Protein (6.3-8.2) g/dL Albumin (3.5-5.0) g/dL Thyroglobulin (1.60-59.90) ng/mL Arterial Blood Glucose (75-99) mg/dL Thyroglobulin Antibody (0.0-114.0) U/mL Crossmatch 10/30/21 10/31/21 10/31/21 Range/Units 23:53 00:59 01:54 WBC (3.8-10.6) k/uL RBC (4.30-5.90) m/uL Hgb (13.0-17.5) gm/dL Hct (39.0-53.0) % Neutrophils # (1.3-7.7) k/uL Monocytes # (0-1.0) k/uL PT (9.0-12.0) sec INR (<1.2) ABG pH (7.35-7.45) ABG pCO2 (35-45) mmHg ABG pO2 (83-108) mmHg ABG HCO3 (21-25) mmol/L ABG Total CO2 (19-24) mmol/L ABG O2 Saturation (94-97) % ABG Hematocrit (34.0-46.0) % ABG Sodium (135-146) mmol/L ABG Ionized Calcium (4.5-5.3) mg/dL ABG Glucose (75-99) mg/dL ABG Lactic Acid (0.5-1.6) mmol/L VBG pH (7.31-7.41) VBG pCO2 (37-51) mmHg VBG HCO3 (24-28) mmol/L Hemoglobin (13.0-17.5) gm/dL Sodium (137-145) mmol/L Chloride (98-107) mmol/L Creatinine (0.66-1.25) mg/dL Glucose (74-99) mg/dL POC Glucose (mg/dL) 160 H 147 H 153 H (70-110) mg/dL Magnesium (1.6-2.3) mg/dL Creatine Kinase (55-170) U/L CK-MB (CK-2) (0.0-2.4) ng/mL Total Protein (6.3-8.2) g/dL Albumin (3.5-5.0) g/dL Thyroglobulin (1.60-59.90) ng/mL Arterial Blood Glucose (75-99) mg/dL Thyroglobulin Antibody (0.0-114.0) U/mL Crossmatch 10/31/21 10/31/21 10/31/21 Range/Units 02:53 03:50 03:50 WBC (3.8-10.6) k/uL RBC 3.38 L (4.30-5.90) m/uL Hgb 10.0 L (13.0-17.5) gm/dL Hct 30.6 L (39.0-53.0) % Neutrophils # (1.3-7.7) k/uL Monocytes # (0-1.0) k/uL PT (9.0-12.0) sec INR (<1.2) ABG pH (7.35-7.45) ABG pCO2 (35-45) mmHg ABG pO2 (83-108) mmHg ABG HCO3 (21-25) mmol/L ABG Total CO2 (19-24) mmol/L ABG O2 Saturation (94-97) % ABG Hematocrit (34.0-46.0) % ABG Sodium (135-146) mmol/L ABG Ionized Calcium (4.5-5.3) mg/dL ABG Glucose (75-99) mg/dL ABG Lactic Acid (0.5-1.6) mmol/L VBG pH (7.31-7.41) VBG pCO2 (37-51) mmHg VBG HCO3 (24-28) mmol/L Hemoglobin (13.0-17.5) gm/dL Sodium 135 L (137-145) mmol/L Chloride (98-107) mmol/L Creatinine 1.60 H (0.66-1.25) mg/dL Glucose 129 H (74-99) mg/dL POC Glucose (mg/dL) 152 H (70-110) mg/dL Magnesium (1.6-2.3) mg/dL Creatine Kinase (55-170) U/L CK-MB (CK-2) (0.0-2.4) ng/mL Total Protein 4.8 L (6.3-8.2) g/dL Albumin 2.9 L (3.5-5.0) g/dL Thyroglobulin (1.60-59.90) ng/mL Arterial Blood Glucose (75-99) mg/dL Thyroglobulin Antibody (0.0-114.0) U/mL Crossmatch 10/31/21 10/31/21 10/31/21 Range/Units 03:52 04:55 05:23 WBC (3.8-10.6) k/uL RBC (4.30-5.90) m/uL Hgb (13.0-17.5) gm/dL Hct (39.0-53.0) % Neutrophils # (1.3-7.7) k/uL Monocytes # (0-1.0) k/uL PT (9.0-12.0) sec INR (<1.2) ABG pH (7.35-7.45) ABG pCO2 (35-45) mmHg ABG pO2 (83-108) mmHg ABG HCO3 (21-25) mmol/L ABG Total CO2 25 H (19-24) mmol/L ABG O2 Saturation 97.4 H (94-97) % ABG Hematocrit (34.0-46.0) % ABG Sodium (135-146) mmol/L ABG Ionized Calcium (4.5-5.3) mg/dL ABG Glucose (75-99) mg/dL ABG Lactic Acid (0.5-1.6) mmol/L VBG pH (7.31-7.41) VBG pCO2 (37-51) mmHg VBG HCO3 (24-28) mmol/L Hemoglobin (13.0-17.5) gm/dL Sodium (137-145) mmol/L Chloride (98-107) mmol/L Creatinine (0.66-1.25) mg/dL Glucose (74-99) mg/dL POC Glucose (mg/dL) 147 H 143 H (70-110) mg/dL Magnesium (1.6-2.3) mg/dL Creatine Kinase (55-170) U/L CK-MB (CK-2) (0.0-2.4) ng/mL Total Protein (6.3-8.2) g/dL Albumin (3.5-5.0) g/dL Thyroglobulin (1.60-59.90) ng/mL Arterial Blood Glucose (75-99) mg/dL Thyroglobulin Antibody (0.0-114.0) U/mL Crossmatch 10/31/21 10/31/21 10/31/21 Range/Units 05:57 06:55 07:50 WBC (3.8-10.6) k/uL RBC (4.30-5.90) m/uL Hgb (13.0-17.5) gm/dL Hct (39.0-53.0) % Neutrophils # (1.3-7.7) k/uL Monocytes # (0-1.0) k/uL PT (9.0-12.0) sec INR (<1.2) ABG pH (7.35-7.45) ABG pCO2 (35-45) mmHg ABG pO2 (83-108) mmHg ABG HCO3 (21-25) mmol/L ABG Total CO2 (19-24) mmol/L ABG O2 Saturation (94-97) % ABG Hematocrit (34.0-46.0) % ABG Sodium (135-146) mmol/L ABG Ionized Calcium (4.5-5.3) mg/dL ABG Glucose (75-99) mg/dL ABG Lactic Acid (0.5-1.6) mmol/L VBG pH (7.31-7.41) VBG pCO2 (37-51) mmHg VBG HCO3 (24-28) mmol/L Hemoglobin (13.0-17.5) gm/dL Sodium (137-145) mmol/L Chloride (98-107) mmol/L Creatinine (0.66-1.25) mg/dL Glucose (74-99) mg/dL POC Glucose (mg/dL) 144 H 135 H 133 H (70-110) mg/dL Magnesium (1.6-2.3) mg/dL Creatine Kinase (55-170) U/L CK-MB (CK-2) (0.0-2.4) ng/mL Total Protein (6.3-8.2) g/dL Albumin (3.5-5.0) g/dL Thyroglobulin (1.60-59.90) ng/mL Arterial Blood Glucose (75-99) mg/dL Thyroglobulin Antibody (0.0-114.0) U/mL Crossmatch 10/31/21 10/31/21 Range/Units 07:53 07:53 WBC (3.8-10.6) k/uL RBC (4.30-5.90) m/uL Hgb (13.0-17.5) gm/dL Hct (39.0-53.0) % Neutrophils # (1.3-7.7) k/uL Monocytes # (0-1.0) k/uL PT (9.0-12.0) sec INR (<1.2) ABG pH (7.35-7.45) ABG pCO2 (35-45) mmHg ABG pO2 (83-108) mmHg ABG HCO3 (21-25) mmol/L ABG Total CO2 (19-24) mmol/L ABG O2 Saturation (94-97) % ABG Hematocrit (34.0-46.0) % ABG Sodium (135-146) mmol/L ABG Ionized Calcium (4.5-5.3) mg/dL ABG Glucose (75-99) mg/dL ABG Lactic Acid (0.5-1.6) mmol/L VBG pH (7.31-7.41) VBG pCO2 (37-51) mmHg VBG HCO3 (24-28) mmol/L Hemoglobin (13.0-17.5) gm/dL Sodium (137-145) mmol/L Chloride (98-107) mmol/L Creatinine (0.66-1.25) mg/dL Glucose (74-99) mg/dL POC Glucose (mg/dL) (70-110) mg/dL Magnesium (1.6-2.3) mg/dL Creatine Kinase 706 H (55-170) U/L CK-MB (CK-2) 12.1 H (0.0-2.4) ng/mL Total Protein (6.3-8.2) g/dL Albumin (3.5-5.0) g/dL Thyroglobulin (1.60-59.90) ng/mL Arterial Blood Glucose (75-99) mg/dL Thyroglobulin Antibody (0.0-114.0) U/mL Crossmatch - Imaging and Cardiology Chest x-ray: report reviewed, image reviewed Assessment and Plan Assessment: 1. Triple-vessel diffuse coronary artery disease with totally occluded right coronary artery and left main disease, non-STEMI this admission, status post 2 vessel CABG 2. Acute heart failure with severe left ventricular dysfunction and ejection fraction of 20-25% 3. History of large old posterior lateral and inferior myocardial infarction with mild to moderate mitral valve regurgitation 4. History of left carotid stenosis with prior stroke status post left carotid endarterectomy 5. Chronic ongoing tobacco dependence with mild COPD, preoperative FEV1 73% of predicted 6. Newly diagnosed diabetes, preoperative hemoglobin A1c 6.5% 7. Ulcerative colitis/GERD 8. History of hypothyroidism, TSH < 0.015, free T4 2.6 9. Hyperlipidemia, untreated, cholesterol 170, LDL 117 10. Postoperative hypotension requiring vasopressor support, intra-aortic balloon pump assistance Plan: 1. Continue to maximize medical therapy with aspirin, statin, Plavix. Will start beta godfrey when able, will add afterload reduction when able. Will wean IV levo and vaso today as tolerated. Continue Primacor 2. Continue IV amiodarone for ventricular arrhythmia prophylaxis 3. Wean from mechanical ventilation as tolerated. Ventilatory support, bronchodilators per pulmonology 4. Will wean from intra-aortic balloon support after extubation as tolerated 5. Will monitor daily labs and x-rays. Electrolyte protocol. Will give 1 g calcium today. We will send CPK level 6. GI/DVT prophylaxis 7. Pain control with current medication regimen 8. Insulin management per primary care services. Patient is newly diagnosed diabetic with hemoglobin A1c 6.5% 9. Continue mediastinal/left/right pleural chest tubes for another 24 hours. Monitor output and for resolution of right pleural air leak 10. Continue Craven catheter for another 24 hours for strict accurate intake and output. Daily weights 11. Patient will need LifeVest at discharge 12. More recommendations to follow based on patient's progress
[2021-10-31 10:03] LABS: Glucose,Whole Blood 122 mg/dL (70-110)
[2021-10-31 10:19] LABS: ABG Base Excess -0.9 mmol/L; ABG HCO3 24 mmol/L (21-25); ABG Oxygen Saturation 97.6 % (94-97); ABG PCO2 43 mmHg (35-45); ABG PH 7.36 (7.35-7.45); ABG PO2 117 mmHg (83-108); ABG TCO2 26 mmol/L (19-24)
[2021-10-31 10:20] LABS: Allen Test Performed? no
[2021-10-31 11:04] LABS: Glucose,Whole Blood 121 mg/dL (70-110)
[2021-10-31] MEDS: SODIUM CHLORIDE 0.9% 1,000 ML IV SCH (11:05)
--- NOTE | 2021-10-31 11:08 | CONS ---
CONSULTATION DATE OF SERVICE: 10/29/21 I met with this patient for 45 minutes during this consultation. I have seen, examined, and agree with the midlevel's findings. MMODL / IJN: [id number] / -[id number]
[2021-10-31 12:09] LABS: Glucose,Whole Blood 135 mg/dL (70-110)
[2021-10-31 13:08] LABS: Glucose,Whole Blood 122 mg/dL (70-110)
--- NOTE | 2021-10-31 13:57 | P.PN ---
Subjective Progress Note Date: 10/31/21 66-year-old male patient with past history of CVA, carotid artery disease with previous carotid endarterectomy, chronic kidney disease stage III, hypothyroidism, ulcerative colitis, history of pulmonary embolism 2 in the remote past, patient was told he was prediabetic, diet controlled, chronic back and neck pain, with previous history of cervical fusion, sleep apnea not on CPAP therapy, history of ulcerative colitis, current every day smoker, who presented to the emergency department on the 10/26/2021 with complaints of at least 3 weeks of shortness of breath, orthopnea, and PND. In the emergency department EKG was completed that showed normal sinus rhythm with left ventricular hypertrophy. Chest x-ray showed pulmonary interstitial edema. Patient's lab evaluation showed positive troponins that topped out at 0.548, proBNP was 3460, and patient was diagnosed with acute non-ST elevated myocardial infarction. Echocardiogram was completed showing severely increased left ventricular diastolic diameter, and global left ventricular hypokinesis with systolic dysfunction and EF of 20-25% area. There was no evidence of pericardial effusion. Patient underwent heart catheterization on 10/28/2021 which showed multivessel CAD with 80% left main stenosis, 40-50% proximal LAD, 75% distal LAD, 99% proximal circumflex, 90% mid RCA with [id number] collaterals, and elevated left-sided filling pressures LVEDP of 22. Patient was referred to cardiac surgery for evaluation. He was found to be a good surgical candidate. His preop FEV1 was around 73% of predicted. Chest CT was completed showing soft tissue nodule in the right lower lobe measuring 1 cm, and left upper lobe a subpleural 3 mm nodule, and other indeterminate small lung nodules. Follow-up was suggested. Patient's was scheduled for surgical revascularization surgery on 10/30/[address] Greenberg On 10/30/2021 patient seen in follow-up after 2 vessel bypass on 10/30/2021. Patient is seen in the intensive care unit sedated and intubated, on assist- control mode of ventilation with a rate of 16, tidal volume is 500, FiO2 of 60% and PEEP of 5. Postoperative blood gas is pending. Patient had episodes of V. tach intraoperatively, he is currently on multiple drips, and intra-aortic balloon pump has been inserted with one-to-one augmentation. Patient is currently on amiodarone running at 1 milligram per minute, 0.9 normal saline at a rate of 50 ML per hour, milrinone at 0.375 mics per kilo per minute, norepinephrine is at 0.04 mics per kilo per minute, vasopressin is at 0.05 units per minute, insulin infusion is currently on hold, nitroglycerin drip is at 5 mics per kilo per minute. Patient is in sinus mechanism, has AV wires in place connected to external pacemaker with VVI 50 backup rate. Patient has 2 medias tinal chest tubes with 300 mL of sanguinous output, left pleural with 380 and right pleural with 60 mL of sanguinous output, no evidence of air leak, postoperative chest x-ray has been reviewed showing mild cardiomegaly, interstitial prominence that could reflect mild pulmonary vessel congestion. M ultiple lines and catheters. Andria Tamica catheter is in place, PA pressures 26/16, CVP is 11, cardiac output is 4.0, and cardiac index is 2.0. Urine output is in order of 150 ML per hour. Postoperative blood gas showed pO2 of 129, pCO2 of 50, and pH of 7.34 and this was done on a heart percent FiO2 and FiO2 has since been dropped down to 50%. White blood cell count is 13.3, hemoglobin is 10.9, INR is 1.3, sodium is 138, potassium is 4.1, chloride is 108, CO2 is 25, BUN is 17 creatinine is 1.46. On 10/31/2021, the patient is postop day #2. The patient was kept on a mechanical ventilator and overnight the patient continued to be on an intra- aortic balloon pump for hemodynamic support. This morning, the patient is was sedated and the patient is on propofol at 20 mcg/kg per minute. The patient is still on a mechanical ventilator on assist control mode of mechanical ventilation at the rate of 24 with tidal volume of 500 and FiO2 of 50% with a PEEP of 5. Chest x-ray shows essentially postsurgical changes. No evidence of any pneumothorax. All of the chest tubes are in place. The patient has a total of 4 chest tubes. Thomas-Tamica catheter in place. No evidence of any effusion. No evidence of any pneumonia or consolidation. Blood gases from this morning shows a pH of 7.4 with a pCO2 of 59 and pO2 of 87. In terms of output from the mediastinal tubes, the total amount of output since his arrival from the operating room is been 430 mL. The left pleural chest tube has drained 400 mL. Right pleural chest tube and drained 95 mL since arrival from the operating room. There is still some intermittent air leak from the right-sided chest tube. Hemodynamically, the patient has a cardiac output of 3.8 with an index of 1.9. Pulmonary artery pressures are 34/21. The patient remains on norepinephrine infusion at 0.01 mcg/kg per minute. The patient is still on Primacor at 0.37 5 mcg/kg per minute. The patient is also on vasopressin at 0.04 units an hour. The patient is also on amiodarone drip at 0.5 mg per minute. The patient is on insulin drip at 5 units an hour. The patient did receive a dose of albumin overnight 12.5 mg. The patient's urine output is in order of 50-60 mL an hour. Normal saline is running at 50 mL an hour. The patient has an intra-aortic balloon pump with on augmentation. The hemoglobin is at 10 platelet count is at 166, sodium level is at 135, potassium is 4.2 and the patient is a creatinine level of 1.6. The patient is afebrile. No issues with bleeding. No other complaints otherwise for now. Objective - Vital Signs Vital signs: Vital Signs Temp 98.2 F 10/31/21 04:00 Pulse 85 10/31/21 13:00 Resp 13 10/31/21 13:00 BP 127/61 10/31/21 13:00 Pulse Ox 97 10/31/21 13:00 FiO2 50 10/31/21 09:45 Intake & Output 10/30/21 10/31/21 10/31/21 18:59 06:59 18:59 Intake Total 316.604 4011.145 1192.393 Output Total 4582 998 383 Balance -3806.345 493.145 809.393 Weight 92.2 kg Intake: IV 775.52 1118.63 780.62 Amiodarone 360 mg In 133.2 33.3 99.9 Dextrose 5% in Water 200 ml @ 1 MG/MIN 33.333 mls/ hr IV .Q6H ONE Rx#: [id number] CO/CI 80 300 140 Calcium Gluconate in NaCl 100 1 gm In Saline 1 100ml. bag @ 100 mls/hr IVPB ONCE ONE Rx#:[id number] Milrinone-D5w Pmx 20 mg 36.72 9.18 18.36 In Dextrose/Water 1 100ml .bag @ 0.375 MCG/KG/MIN 9 .18 mls/hr IV .[id number] CAN Rx#:[id number] Nitroglycerin-D5w Pmx 50 6.0 1.5 mg In Dextrose/Water 1 250ml.bag @ 5 MCG/MIN 1.5 mls/hr IV .Q24H CAN Rx#: [id number] Sodium Chloride 0.9% 1, 200 650 300 000 ml @ 50 mls/hr IV . Q20H CAN Rx#:[id number] Sodium Chloride 0.9% 150 30.60 7.65 18.36 ml @ 0.04 UNITS/MIN 6.12 mls/hr IV .Q24H CAN with Vasopressin 60 unit Rx#: [id number] ceFAZolin 2 gm In Sodium 50 Chloride 0.9% 50 ml @ 100 mls/hr IVPB Q8HR CAN Rx# :[id number] pressure bags 36 117 54 Intake, IV Titration 0.135 372.515 411.773 Amount Amiodarone 450 mg In 213.893 Dextrose 5% in Water 250 ml @ 0.5 MG/MIN 16.667 mls/hr IV .Q15H [facility] Rx#: [id number] Insulin Regular 100 unit 0.135 39.112 29.964 In Sodium Chloride 0.9% 100 ml @ Per Protocol IV .Q0M CAN Rx#:[id number] Milrinone-D5w Pmx 20 mg 100 34.578 In Dextrose/Water 1 100ml .bag @ 0.375 MCG/KG/MIN 9 .18 mls/hr IV .[id number] CAN Rx#:[id number] Norepinephrine 4 mg In 199.702 17.670 Sodium Chloride 0.9% 250 ml @ 0.02 MCG/KG/MIN 6. 218 mls/hr IV .Q24H [facility] Rx#:[id number] propofoL 1,000 mg In 33.701 115.668 Empty Bag 1 bag @ Titrate IV .Q0M CAN Rx#: [id number] Output: Chest Tube Drainage 737 143 118 Chest Tube Left 390 0 30 Chest Tube Right 67 23 18 Mediastinal 280 120 70 Urine 2045 855 265 Estimated Blood Loss 1800 Other: Voiding Method Indwelling Catheter Indwelling Catheter Indwelling Catheter ABP, PAP, CO, CI - Last Documented Arterial Blood Pressure 125/74 Pulmonary Artery Pressure 44/25 Cardiac Output 6.7 Cardiac Index 3.3 - Exam GENERAL EXAM: 66-year-old white male, intubated, sedated on assist control mode of ventilation, multiple drips, and IABP support with one-to-one augmentation, the patient is sedated with propofol and patient's, comfortable and suggest mechanical ventilator. HEAD: Normocephalic/atraumatic. EYES: Normal reaction of pupils, equal size. Conjunctiva pink, sclera white. NOSE: Clear with pink turbinates. THROAT: No erythema or exudates. NECK: No masses, no JVD, no thyroid enlargement, no adenopathy. CHEST: No chest wall deformity. Symmetrical expansion. Midsternal incision is clean dry and intact, 2 mediastinal, right and left pleural chest tubes in place to wall suction, with moderate amount of sanguinous output in the Pleur-evac's LUNGS: Equal air entry with no crackles, wheeze, rhonchi or dullness. CVS: Regular rate and rhythm, normal S1 and S2, no gallops, no murmurs, no rubs ABDOMEN: Soft, nontender. No hepatosplenomegaly, normal bowel sounds, no guarding or rigidity. Right groin intra-aortic balloon pump catheter insertion site is clean dry and intact, Doppler pulse in the pedal and posttibial EXTREMITIES: No clubbing, no edema, no cyanosis, 2+ pulses and upper and lower extremities. MUSCULOSKELETAL: Muscle strength and tone normal. SPINE: No scoliosis or deformity SKIN: No rashes CENTRAL NERVOUS SYSTEM: Sedated, intubated. No focal deficits, tone is normal in all 4 extremities. - Labs CBC & Chem 7: 10/31/21 03:50 10/31/21 03:50 Labs: Abnormal Lab Results - Last 24 Hours (Table) 10/29/21 10/30/21 10/30/21 Range/Units 13:58 07:45 08:54 WBC (3.8-10.6) k/uL RBC (4.30-5.90) m/uL Hgb (13.0-17.5) gm/dL Hct (39.0-53.0) % Neutrophils # (1.3-7.7) k/uL Monocytes # (0-1.0) k/uL PT (9.0-12.0) sec INR (<1.2) ABG pH (7.35-7.45) ABG pCO2 34 L (35-45) mmHg ABG pO2 368 H (83-108) mmHg ABG HCO3 (21-25) mmol/L ABG Total CO2 25 H (19-24) mmol/L ABG O2 Saturation 99.7 H (94-97) % ABG Hematocrit (34.0-46.0) % ABG Sodium (135-146) mmol/L ABG Ionized Calcium 4.4 L (4.5-5.3) mg/dL ABG Glucose 114 H (75-99) mg/dL ABG Lactic Acid (0.5-1.6) mmol/L VBG pH (7.31-7.41) VBG pCO2 (37-51) mmHg VBG HCO3 (24-28) mmol/L Hemoglobin 12.5 L (13.0-17.5) gm/dL Sodium (137-145) mmol/L Chloride (98-107) mmol/L Creatinine (0.66-1.25) mg/dL Glucose (74-99) mg/dL POC Glucose (mg/dL) (70-110) mg/dL Magnesium (1.6-2.3) mg/dL Creatine Kinase (55-170) U/L CK-MB (CK-2) (0.0-2.4) ng/mL Total Protein (6.3-8.2) g/dL Albumin (3.5-5.0) g/dL Thyroglobulin <0.20 L (1.60-59.90) ng/mL Arterial Blood Glucose 114 H (75-99) mg/dL Thyroglobulin Antibody >4000.0 H (0.0-114.0) U/mL Crossmatch See Detail 10/30/21 10/30/21 10/30/21 Range/Units 10:52 11:37 12:06 WBC (3.8-10.6) k/uL RBC (4.30-5.90) m/uL Hgb (13.0-17.5) gm/dL Hct (39.0-53.0) % Neutrophils # (1.3-7.7) k/uL Monocytes # (0-1.0) k/uL PT (9.0-12.0) sec INR (<1.2) ABG pH (7.35-7.45) ABG pCO2 (35-45) mmHg ABG pO2 210 H 390 H 299 H (83-108) mmHg ABG HCO3 (21-25) mmol/L ABG Total CO2 26 H 25 H 26 H (19-24) mmol/L ABG O2 Saturation 99.2 H 100.0 H 99.5 H (94-97) % ABG Hematocrit 30 L 30 L (34.0-46.0) % ABG Sodium 134 L (135-146) mmol/L ABG Ionized Calcium 4.1 L 4.3 L (4.5-5.3) mg/dL ABG Glucose 156 H 131 H 132 H (75-99) mg/dL ABG Lactic Acid (0.5-1.6) mmol/L VBG pH (7.31-7.41) VBG pCO2 (37-51) mmHg VBG HCO3 (24-28) mmol/L Hemoglobin 12.8 L 9.7 L 9.8 L (13.0-17.5) gm/dL Sodium (137-145) mmol/L Chloride (98-107) mmol/L Creatinine (0.66-1.25) mg/dL Glucose (74-99) mg/dL POC Glucose (mg/dL) (70-110) mg/dL Magnesium (1.6-2.3) mg/dL Creatine Kinase (55-170) U/L CK-MB (CK-2) (0.0-2.4) ng/mL Total Protein (6.3-8.2) g/dL Albumin (3.5-5.0) g/dL Thyroglobulin (1.60-59.90) ng/mL Arterial Blood Glucose 156 H 131 H 132 H (75-99) mg/dL Thyroglobulin Antibody (0.0-114.0) U/mL Crossmatch 10/30/21 10/30/21 10/30/21 Range/Units 13:00 13:41 14:07 WBC (3.8-10.6) k/uL RBC (4.30-5.90) m/uL Hgb (13.0-17.5) gm/dL Hct (39.0-53.0) % Neutrophils # (1.3-7.7) k/uL Monocytes # (0-1.0) k/uL PT (9.0-12.0) sec INR (<1.2) ABG pH 7.33 L 7.34 L (7.35-7.45) ABG pCO2 47 H (35-45) mmHg ABG pO2 352 H 341 H 148 H (83-108) mmHg ABG HCO3 (21-25) mmol/L ABG Total CO2 26 H 25 H (19-24) mmol/L ABG O2 Saturation 99.7 H 99.6 H 98.9 H (94-97) % ABG Hematocrit 29 L 28 L 28 L (34.0-46.0) % ABG Sodium (135-146) mmol/L ABG Ionized Calcium 4.2 L 5.4 H (4.5-5.3) mg/dL ABG Glucose 150 H 168 H 194 H (75-99) mg/dL ABG Lactic Acid 2.1 H 2.6 H* (0.5-1.6) mmol/L VBG pH (7.31-7.41) VBG pCO2 (37-51) mmHg VBG HCO3 (24-28) mmol/L Hemoglobin 9.3 L 9.0 L 9.1 L (13.0-17.5) gm/dL Sodium (137-145) mmol/L Chloride (98-107) mmol/L Creatinine (0.66-1.25) mg/dL Glucose (74-99) mg/dL POC Glucose (mg/dL) (70-110) mg/dL Magnesium (1.6-2.3) mg/dL Creatine Kinase (55-170) U/L CK-MB (CK-2) (0.0-2.4) ng/mL Total Protein (6.3-8.2) g/dL Albumin (3.5-5.0) g/dL Thyroglobulin (1.60-59.90) ng/mL Arterial Blood Glucose 150 H 168 H 194 H (75-99) mg/dL Thyroglobulin Antibody (0.0-114.0) U/mL Crossmatch 10/30/21 10/30/21 10/30/21 Range/Units 14:55 15:40 15:41 WBC 13.3 H (3.8-10.6) k/uL RBC 3.72 L (4.30-5.90) m/uL Hgb 10.9 L (13.0-17.5) gm/dL Hct 33.7 L (39.0-53.0) % Neutrophils # 10.9 H (1.3-7.7) k/uL Monocytes # (0-1.0) k/uL PT (9.0-12.0) sec INR (<1.2) ABG pH 7.33 L (7.35-7.45) ABG pCO2 (35-45) mmHg ABG pO2 (83-108) mmHg ABG HCO3 (21-25) mmol/L ABG Total CO2 (19-24) mmol/L ABG O2 Saturation 97.2 H (94-97) % ABG Hematocrit 31 L (34.0-46.0) % ABG Sodium (135-146) mmol/L ABG Ionized Calcium (4.5-5.3) mg/dL ABG Glucose 143 H (75-99) mg/dL ABG Lactic Acid 2.4 H* (0.5-1.6) mmol/L VBG pH (7.31-7.41) VBG pCO2 (37-51) mmHg VBG HCO3 (24-28) mmol/L Hemoglobin 10.2 L (13.0-17.5) gm/dL Sodium (137-145) mmol/L Chloride (98-107) mmol/L Creatinine (0.66-1.25) mg/dL Glucose (74-99) mg/dL POC Glucose (mg/dL) 122 H (70-110) mg/dL Magnesium (1.6-2.3) mg/dL Creatine Kinase (55-170) U/L CK-MB (CK-2) (0.0-2.4) ng/mL Total Protein (6.3-8.2) g/dL Albumin (3.5-5.0) g/dL Thyroglobulin (1.60-59.90) ng/mL Arterial Blood Glucose 143 H (75-99) mg/dL Thyroglobulin Antibody (0.0-114.0) U/mL Crossmatch 10/30/21 10/30/21 10/30/21 Range/Units 15:41 15:41 15:57 WBC (3.8-10.6) k/uL RBC (4.30-5.90) m/uL Hgb (13.0-17.5) gm/dL Hct (39.0-53.0) % Neutrophils # (1.3-7.7) k/uL Monocytes # (0-1.0) k/uL PT 13.3 H (9.0-12.0) sec INR 1.3 H (<1.2) ABG pH 7.34 L (7.35-7.45) ABG pCO2 49 H (35-45) mmHg ABG pO2 113 H (83-108) mmHg ABG HCO3 26 H (21-25) mmol/L ABG Total CO2 28 H (19-24) mmol/L ABG O2 Saturation 98.0 H (94-97) % ABG Hematocrit (34.0-46.0) % ABG Sodium (135-146) mmol/L ABG Ionized Calcium (4.5-5.3) mg/dL ABG Glucose (75-99) mg/dL ABG Lactic Acid (0.5-1.6) mmol/L VBG pH (7.31-7.41) VBG pCO2 (37-51) mmHg VBG HCO3 (24-28) mmol/L Hemoglobin (13.0-17.5) gm/dL Sodium (137-145) mmol/L Chloride 108 H (98-107) mmol/L Creatinine 1.46 H (0.66-1.25) mg/dL Glucose 110 H (74-99) mg/dL POC Glucose (mg/dL) (70-110) mg/dL Magnesium 2.5 H (1.6-2.3) mg/dL Creatine Kinase (55-170) U/L CK-MB (CK-2) (0.0-2.4) ng/mL Total Protein 4.8 L (6.3-8.2) g/dL Albumin 2.9 L (3.5-5.0) g/dL Thyroglobulin (1.60-59.90) ng/mL Arterial Blood Glucose (75-99) mg/dL Thyroglobulin Antibody (0.0-114.0) U/mL Crossmatch 10/30/21 10/30/21 10/30/21 Range/Units 17:59 18:03 19:02 WBC (3.8-10.6) k/uL RBC (4.30-5.90) m/uL Hgb (13.0-17.5) gm/dL Hct (39.0-53.0) % Neutrophils # (1.3-7.7) k/uL Monocytes # (0-1.0) k/uL PT (9.0-12.0) sec INR (<1.2) ABG pH 7.34 L (7.35-7.45) ABG pCO2 50 H (35-45) mmHg ABG pO2 129 H (83-108) mmHg ABG HCO3 27 H (21-25) mmol/L ABG Total CO2 28 H (19-24) mmol/L ABG O2 Saturation 98.6 H (94-97) % ABG Hematocrit (34.0-46.0) % ABG Sodium (135-146) mmol/L ABG Ionized Calcium (4.5-5.3) mg/dL ABG Glucose (75-99) mg/dL ABG Lactic Acid (0.5-1.6) mmol/L VBG pH (7.31-7.41) VBG pCO2 (37-51) mmHg VBG HCO3 (24-28) mmol/L Hemoglobin (13.0-17.5) gm/dL Sodium (137-145) mmol/L Chloride (98-107) mmol/L Creatinine (0.66-1.25) mg/dL Glucose (74-99) mg/dL POC Glucose (mg/dL) 114 H 118 H (70-110) mg/dL Magnesium (1.6-2.3) mg/dL Creatine Kinase (55-170) U/L CK-MB (CK-2) (0.0-2.4) ng/mL Total Protein (6.3-8.2) g/dL Albumin (3.5-5.0) g/dL Thyroglobulin (1.60-59.90) ng/mL Arterial Blood Glucose (75-99) mg/dL Thyroglobulin Antibody (0.0-114.0) U/mL Crossmatch 10/30/21 10/30/21 10/30/21 Range/Units 19:05 20:10 20:30 WBC 15.5 H (3.8-10.6) k/uL RBC 3.71 L (4.30-5.90) m/uL Hgb 10.9 L (13.0-17.5) gm/dL Hct 33.3 L (39.0-53.0) % Neutrophils # 13.0 H (1.3-7.7) k/uL Monocytes # 1.2 H (0-1.0) k/uL PT (9.0-12.0) sec INR (<1.2) ABG pH (7.35-7.45) ABG pCO2 (35-45) mmHg ABG pO2 (83-108) mmHg ABG HCO3 (21-25) mmol/L ABG Total CO2 (19-24) mmol/L ABG O2 Saturation (94-97) % ABG Hematocrit (34.0-46.0) % ABG Sodium (135-146) mmol/L ABG Ionized Calcium (4.5-5.3) mg/dL ABG Glucose (75-99) mg/dL ABG Lactic Acid (0.5-1.6) mmol/L VBG pH 7.42 H (7.31-7.41) VBG pCO2 35 L (37-51) mmHg VBG HCO3 23 L (24-28) mmol/L Hemoglobin (13.0-17.5) gm/dL Sodium (137-145) mmol/L Chloride (98-107) mmol/L Creatinine (0.66-1.25) mg/dL Glucose (74-99) mg/dL POC Glucose (mg/dL) 132 H (70-110) mg/dL Magnesium (1.6-2.3) mg/dL Creatine Kinase (55-170) U/L CK-MB (CK-2) (0.0-2.4) ng/mL Total Protein (6.3-8.2) g/dL Albumin (3.5-5.0) g/dL Thyroglobulin (1.60-59.90) ng/mL Arterial Blood Glucose (75-99) mg/dL Thyroglobulin Antibody (0.0-114.0) U/mL Crossmatch 10/30/21 10/30/21 10/30/21 Range/Units 20:57 21:27 22:09 WBC (3.8-10.6) k/uL RBC (4.30-5.90) m/uL Hgb (13.0-17.5) gm/dL Hct (39.0-53.0) % Neutrophils # (1.3-7.7) k/uL Monocytes # (0-1.0) k/uL PT (9.0-12.0) sec INR (<1.2) ABG pH (7.35-7.45) ABG pCO2 46 H (35-45) mmHg ABG pO2 31 L* (83-108) mmHg ABG HCO3 26 H (21-25) mmol/L ABG Total CO2 27 H (19-24) mmol/L ABG O2 Saturation 55.8 L (94-97) % ABG Hematocrit (34.0-46.0) % ABG Sodium (135-146) mmol/L ABG Ionized Calcium (4.5-5.3) mg/dL ABG Glucose (75-99) mg/dL ABG Lactic Acid (0.5-1.6) mmol/L VBG pH (7.31-7.41) VBG pCO2 (37-51) mmHg VBG HCO3 (24-28) mmol/L Hemoglobin (13.0-17.5) gm/dL Sodium (137-145) mmol/L Chloride (98-107) mmol/L Creatinine (0.66-1.25) mg/dL Glucose (74-99) mg/dL POC Glucose (mg/dL) 142 H 161 H (70-110) mg/dL Magnesium (1.6-2.3) mg/dL Creatine Kinase (55-170) U/L CK-MB (CK-2) (0.0-2.4) ng/mL Total Protein (6.3-8.2) g/dL Albumin (3.5-5.0) g/dL Thyroglobulin (1.60-59.90) ng/mL Arterial Blood Glucose (75-99) mg/dL Thyroglobulin Antibody (0.0-114.0) U/mL Crossmatch 10/30/21 10/30/2110/30/22 Range/Units 22:10 23:23 23:53 WBC 12.8 H (3.8-10.6) k/uL RBC 3.44 L (4.30-5.90) m/uL Hgb 10.3 L (13.0-17.5) gm/dL Hct 31.3 L (39.0-53.0) % Neutrophils # 10.8 H (1.3-7.7) k/uL Monocytes # (0-1.0) k/uL PT (9.0-12.0) sec INR (<1.2) ABG pH (7.35-7.45) ABG pCO2 (35-45) mmHg ABG pO2 (83-108) mmHg ABG HCO3 (21-25) mmol/L ABG Total CO2 (19-24) mmol/L ABG O2 Saturation (94-97) % ABG Hematocrit (34.0-46.0) % ABG Sodium (135-146) mmol/L ABG Ionized Calcium (4.5-5.3) mg/dL ABG Glucose (75-99) mg/dL ABG Lactic Acid (0.5-1.6) mmol/L VBG pH (7.31-7.41) VBG pCO2 (37-51) mmHg VBG HCO3 (24-28) mmol/L Hemoglobin (13.0-17.5) gm/dL Sodium (137-145) mmol/L Chloride (98-107) mmol/L Creatinine (0.66-1.25) mg/dL Glucose (74-99) mg/dL POC Glucose (mg/dL) 161 H 160 H (70-110) mg/dL Magnesium (1.6-2.3) mg/dL Creatine Kinase (55-170) U/L CK-MB (CK-2) (0.0-2.4) ng/mL Total Protein (6.3-8.2) g/dL Albumin (3.5-5.0) g/dL Thyroglobulin (1.60-59.90) ng/mL Arterial Blood Glucose (75-99) mg/dL Thyroglobulin Antibody (0.0-114.0) U/mL Crossmatch 07/22/22 07/22/22 07/22/22 Range/Units 00:59 01:54 02:53 WBC (3.8-10.6) k/uL RBC (4.30-5.90) m/uL Hgb (13.0-17.5) gm/dL Hct (39.0-53.0) % Neutrophils # (1.3-7.7) k/uL Monocytes # (0-1.0) k/uL PT (9.0-12.0) sec INR (<1.2) ABG pH (7.35-7.45) ABG pCO2 (35-45) mmHg ABG pO2 (83-108) mmHg ABG HCO3 (21-25) mmol/L ABG Total CO2 (19-24) mmol/L ABG O2 Saturation (94-97) % ABG Hematocrit (34.0-46.0) % ABG Sodium (135-146) mmol/L ABG Ionized Calcium (4.5-5.3) mg/dL ABG Glucose (75-99) mg/dL ABG Lactic Acid (0.5-1.6) mmol/L VBG pH (7.31-7.41) VBG pCO2 (37-51) mmHg VBG HCO3 (24-28) mmol/L Hemoglobin (13.0-17.5) gm/dL Sodium (137-145) mmol/L Chloride (98-107) mmol/L Creatinine (0.66-1.25) mg/dL Glucose (74-99) mg/dL POC Glucose (mg/dL) 147 H 153 H 152 H (70-110) mg/dL Magnesium (1.6-2.3) mg/dL Creatine Kinase (55-170) U/L CK-MB (CK-2) (0.0-2.4) ng/mL Total Protein (6.3-8.2) g/dL Albumin (3.5-5.0) g/dL Thyroglobulin (1.60-59.90) ng/mL Arterial Blood Glucose (75-99) mg/dL Thyroglobulin Antibody (0.0-114.0) U/mL Crossmatch 10/31/21 10/31/21 10/31/21 Range/Units 03:50 03:50 03:52 WBC (3.8-10.6) k/uL RBC 3.38 L (4.30-5.90) m/uL Hgb 10.0 L (13.0-17.5) gm/dL Hct 30.6 L (39.0-53.0) % Neutrophils # (1.3-7.7) k/uL Monocytes # (0-1.0) k/uL PT (9.0-12.0) sec INR (<1.2) ABG pH (7.35-7.45) ABG pCO2 (35-45) mmHg ABG pO2 (83-108) mmHg ABG HCO3 (21-25) mmol/L ABG Total CO2 (19-24) mmol/L ABG O2 Saturation (94-97) % ABG Hematocrit (34.0-46.0) % ABG Sodium (135-146) mmol/L ABG Ionized Calcium (4.5-5.3) mg/dL ABG Glucose (75-99) mg/dL ABG Lactic Acid (0.5-1.6) mmol/L VBG pH (7.31-7.41) VBG pCO2 (37-51) mmHg VBG HCO3 (24-28) mmol/L Hemoglobin (13.0-17.5) gm/dL Sodium 135 L (137-145) mmol/L Chloride (98-107) mmol/L Creatinine 1.60 H (0.66-1.25) mg/dL Glucose 129 H (74-99) mg/dL POC Glucose (mg/dL) 147 H (70-110) mg/dL Magnesium (1.6-2.3) mg/dL Creatine Kinase (55-170) U/L CK-MB (CK-2) (0.0-2.4) ng/mL Total Protein 4.8 L (6.3-8.2) g/dL Albumin 2.9 L (3.5-5.0) g/dL Thyroglobulin (1.60-59.90) ng/mL Arterial Blood Glucose (75-99) mg/dL Thyroglobulin Antibody (0.0-114.0) U/mL Crossmatch 10/31/21 10/31/21 10/31/21 Range/Units 04:55 05:23 05:57 WBC (3.8-10.6) k/uL RBC (4.30-5.90) m/uL Hgb (13.0-17.5) gm/dL Hct (39.0-53.0) % Neutrophils # (1.3-7.7) k/uL Monocytes # (0-1.0) k/uL PT (9.0-12.0) sec INR (<1.2) ABG pH (7.35-7.45) ABG pCO2 (35-45) mmHg ABG pO2 (83-108) mmHg ABG HCO3 (21-25) mmol/L ABG Total CO2 25 H (19-24) mmol/L ABG O2 Saturation 97.4 H (94-97) % ABG Hematocrit (34.0-46.0) % ABG Sodium (135-146) mmol/L ABG Ionized Calcium (4.5-5.3) mg/dL ABG Glucose (75-99) mg/dL ABG Lactic Acid (0.5-1.6) mmol/L VBG pH (7.31-7.41) VBG pCO2 (37-51) mmHg VBG HCO3 (24-28) mmol/L Hemoglobin (13.0-17.5) gm/dL Sodium (137-145) mmol/L Chloride (98-107) mmol/L Creatinine (0.66-1.25) mg/dL Glucose (74-99) mg/dL POC Glucose (mg/dL) 143 H 144 H (70-110) mg/dL Magnesium (1.6-2.3) mg/dL Creatine Kinase (55-170) U/L CK-MB (CK-2) (0.0-2.4) ng/mL Total Protein (6.3-8.2) g/dL Albumin (3.5-5.0) g/dL Thyroglobulin (1.60-59.90) ng/mL Arterial Blood Glucose (75-99) mg/dL Thyroglobulin Antibody (0.0-114.0) U/mL Crossmatch 10/31/21 10/31/21 10/31/21 Range/Units 06:55 07:50 07:53 WBC (3.8-10.6) k/uL RBC (4.30-5.90) m/uL Hgb (13.0-17.5) gm/dL Hct (39.0-53.0) % Neutrophils # (1.3-7.7) k/uL Monocytes # (0-1.0) k/uL PT (9.0-12.0) sec INR (<1.2) ABG pH (7.35-7.45) ABG pCO2 (35-45) mmHg ABG pO2 (83-108) mmHg ABG HCO3 (21-25) mmol/L ABG Total CO2 (19-24) mmol/L ABG O2 Saturation (94-97) % ABG Hematocrit (34.0-46.0) % ABG Sodium (135-146) mmol/L ABG Ionized Calcium (4.5-5.3) mg/dL ABG Glucose (75-99) mg/dL ABG Lactic Acid (0.5-1.6) mmol/L VBG pH (7.31-7.41) VBG pCO2 (37-51) mmHg VBG HCO3 (24-28) mmol/L Hemoglobin (13.0-17.5) gm/dL Sodium (137-145) mmol/L Chloride (98-107) mmol/L Creatinine (0.66-1.25) mg/dL Glucose (74-99) mg/dL POC Glucose (mg/dL) 135 H 133 H (70-110) mg/dL Magnesium (1.6-2.3) mg/dL Creatine Kinase 706 H (55-170) U/L CK-MB (CK-2) (0.0-2.4) ng/mL Total Protein (6.3-8.2) g/dL Albumin (3.5-5.0) g/dL Thyroglobulin (1.60-59.90) ng/mL Arterial Blood Glucose (75-99) mg/dL Thyroglobulin Antibody (0.0-114.0) U/mL Crossmatch 10/31/21 10/31/21 10/31/21 Range/Units 07:53 09:10 10:02 WBC (3.8-10.6) k/uL RBC (4.30-5.90) m/uL Hgb (13.0-17.5) gm/dL Hct (39.0-53.0) % Neutrophils # (1.3-7.7) k/uL Monocytes # (0-1.0) k/uL PT (9.0-12.0) sec INR (<1.2) ABG pH (7.35-7.45) ABG pCO2 (35-45) mmHg ABG pO2 (83-108) mmHg ABG HCO3 (21-25) mmol/L ABG Total CO2 (19-24) mmol/L ABG O2 Saturation (94-97) % ABG Hematocrit (34.0-46.0) % ABG Sodium (135-146) mmol/L ABG Ionized Calcium (4.5-5.3) mg/dL ABG Glucose (75-99) mg/dL ABG Lactic Acid (0.5-1.6) mmol/L VBG pH (7.31-7.41) VBG pCO2 (37-51) mmHg VBG HCO3 (24-28) mmol/L Hemoglobin (13.0-17.5) gm/dL Sodium (137-145) mmol/L Chloride (98-107) mmol/L Creatinine (0.66-1.25) mg/dL Glucose (74-99) mg/dL POC Glucose (mg/dL) 126 H 122 H (70-110) mg/dL Magnesium (1.6-2.3) mg/dL Creatine Kinase (55-170) U/L CK-MB (CK-2) 12.1 H (0.0-2.4) ng/mL Total Protein (6.3-8.2) g/dL Albumin (3.5-5.0) g/dL Thyroglobulin (1.60-59.90) ng/mL Arterial Blood Glucose (75-99) mg/dL Thyroglobulin Antibody (0.0-114.0) U/mL Crossmatch 10/31/21 10/31/21 10/31/21 Range/Units 10:17 11:03 12:07 WBC (3.8-10.6) k/uL RBC (4.30-5.90) m/uL Hgb (13.0-17.5) gm/dL Hct (39.0-53.0) % Neutrophils # (1.3-7.7) k/uL Monocytes # (0-1.0) k/uL PT (9.0-12.0) sec INR (<1.2) ABG pH (7.35-7.45) ABG pCO2 (35-45) mmHg ABG pO2 117 H (83-108) mmHg ABG HCO3 (21-25) mmol/L ABG Total CO2 26 H (19-24) mmol/L ABG O2 Saturation 97.6 H (94-97) % ABG Hematocrit (34.0-46.0) % ABG Sodium (135-146) mmol/L ABG Ionized Calcium (4.5-5.3) mg/dL ABG Glucose (75-99) mg/dL ABG Lactic Acid (0.5-1.6) mmol/L VBG pH (7.31-7.41) VBG pCO2 (37-51) mmHg VBG HCO3 (24-28) mmol/L Hemoglobin (13.0-17.5) gm/dL Sodium (137-145) mmol/L Chloride (98-107) mmol/L Creatinine (0.66-1.25) mg/dL Glucose (74-99) mg/dL POC Glucose (mg/dL) 121 H 135 H (70-110) mg/dL Magnesium (1.6-2.3) mg/dL Creatine Kinase (55-170) U/L CK-MB (CK-2) (0.0-2.4) ng/mL Total Protein (6.3-8.2) g/dL Albumin (3.5-5.0) g/dL Thyroglobulin (1.60-59.90) ng/mL Arterial Blood Glucose (75-99) mg/dL Thyroglobulin Antibody (0.0-114.0) U/mL Crossmatch 10/31/21 Range/Units 13:07 WBC (3.8-10.6) k/uL RBC (4.30-5.90) m/uL Hgb (13.0-17.5) gm/dL Hct (39.0-53.0) % Neutrophils # (1.3-7.7) k/uL Monocytes # (0-1.0) k/uL PT (9.0-12.0) sec INR (<1.2) ABG pH (7.35-7.45) ABG pCO2 (35-45) mmHg ABG pO2 (83-108) mmHg ABG HCO3 (21-25) mmol/L ABG Total CO2 (19-24) mmol/L ABG O2 Saturation (94-97) % ABG Hematocrit (34.0-46.0) % ABG Sodium (135-146) mmol/L ABG Ionized Calcium (4.5-5.3) mg/dL ABG Glucose (75-99) mg/dL ABG Lactic Acid (0.5-1.6) mmol/L VBG pH (7.31-7.41) VBG pCO2 (37-51) mmHg VBG HCO3 (24-28) mmol/L Hemoglobin (13.0-17.5) gm/dL Sodium (137-145) mmol/L Chloride (98-107) mmol/L Creatinine (0.66-1.25) mg/dL Glucose (74-99) mg/dL POC Glucose (mg/dL) 122 H (70-110) mg/dL Magnesium (1.6-2.3) mg/dL Creatine Kinase (55-170) U/L CK-MB (CK-2) (0.0-2.4) ng/mL Total Protein (6.3-8.2) g/dL Albumin (3.5-5.0) g/dL Thyroglobulin (1.60-59.90) ng/mL Arterial Blood Glucose (75-99) mg/dL Thyroglobulin Antibody (0.0-114.0) U/mL Crossmatch Microbiology - Last 24 Hours (Table) 10/29/21 20:24 Nasal Screen MRSA/MSSA - Final Nasal Swab Assessment and Plan Plan: Assessment: Triple-vessel coronary artery disease and the patient is post two-vessel bypass and the patient is postop day #1. The patient has required intra-aortic balloon pump for hemodynamic support intraoperatively and the balloon pump is still in place and the patient is on a combination of pressors as stated above. Cardiac output and index was noted. Urine output is adequate at this point in time. Post thoracotomy, the patient remains intubated on a mechanical ventilator. Chest tubes are all in place and a chest x-ray was noted. The patient adequate oxygenation and ventilation for now Cardiogenic shock post bypass surgery, expected outcome knowing that the patient's preop ejection fraction of around 20-25%. The patient is currently on a combination of pressors and intra-aortic balloon pump Acute non-ST elevated myocardial infarction with an underlying Multiple vessel coronary artery disease, status post two-vessel coronary artery bypass grafting Episodes of V. tach intraoperatively, currently on amiodarone infusion Ischemic cardiomyopathy with EF of 20-25% Chronic and ongoing history of smoking Indeterminate small lung nodules, will need outpatient follow-up postop coronary artery bypass grafting surgery History of hypothyroidism Chronic disease stage III at baseline, creatinine remains stable Ulcerative colitis Carotid artery disease with previous history of carotid endarterectomy History of CVA 2 Remote history of pulmonary embolism and his 20s, not on any chronic anticoagulation Probable diabetes mellitus type 2, diet-controlled COPD, with FEV1 of 73% of predicted, stage II Plan: Continue ventilator support for now Wean off of a fall and check the patient's weaning parameters and mental status In the weaning parameters are adequate the patient be able to undertake a spontaneous breathing trial and hence patient for possible extubation today Continue pressors Wean off norepinephrine infusion gradually and monitor the cardiac output Keep the patient on a IABP support with one-to-one augmentation He is on multiple drips including vasopressors, antiarrhythmics and will continue the amiodarone drip for now This is work in progress. Possible extubation today depending on his overall clinical response. give the chest tubes in place for now The patient gram of calcium Gradually wean off the intra-aortic balloon pump We'll continue to follow Critically care evaluation that was on a more than 30 minutes. Time with Patient: Greater than 30
[2021-10-31 14:19] LABS: Glucose,Whole Blood 98 mg/dL (70-110)
[2021-10-31] MEDS: CLEVIDIPINE BUTYRATE 25 MG in EMPTY BAG 1 BAG IV SCH (14:49)
[2021-10-31 14:59] LABS: Glucose,Whole Blood 119 mg/dL (70-110)
[2021-10-31] MEDS: NOREPINEPHRINE 4 MG in SODIUM CHLORIDE 0.9% 250 ML IV SCH (15:22)
[2021-10-31 16:12] LABS: Glucose,Whole Blood 144 mg/dL (70-110)
[2021-10-31 17:06] LABS: Glucose,Whole Blood 145 mg/dL (70-110)
[2021-10-31] MEDS ORDERED: FUROSEMIDE 10 MG/ML 2 ML VIAL IV ONE (18:00)
[2021-10-31 18:09] LABS: Glucose,Whole Blood 140 mg/dL (70-110)
[2021-10-31] MEDS: carvediloL 6.25 MG TAB PO SCH (18:10)
[2021-10-31] MEDS ORDERED: carvediloL 3.125 MG TAB PO SCH (18:15)
[2021-10-31] MEDS: methocarbamoL 500 MG TAB PO SCH ×2 (18:34→20:49)
[2021-10-31] MEDS ORDERED: HYDROcodone/APAP 7.5-325MG 1 EACH TAB PO PRN (18:51)
[2021-10-31] MEDS ORDERED: ACETAMINOPHEN TAB 325 MG TAB PO PRN (18:51)
[2021-10-31 18:58] LABS: Glucose,Whole Blood 118 mg/dL (70-110)
[2021-10-31 20:10] LABS: Glucose,Whole Blood 96 mg/dL (70-110)
[2021-10-31] MEDS: SENNOSIDES-DOCUSATE SODIUM 1 EACH TAB PO SCH (20:49)
[2021-10-31] MEDS: AMIODARONE 200 MG TAB PO SCH (20:49)
[2021-10-31] MEDS: HYDROcodone/APAP 7.5-325MG 1 EACH TAB PO PRN (20:50)
[2021-10-31] MEDS ORDERED: AMIODARONE 200 MG TAB PO SCH (21:00)
[2021-10-31 21:27] LABS: Glucose,Whole Blood 118 mg/dL (70-110)
[2021-10-31] MEDS: fentaNYL (PF) 50 MCG/ML 2 ML AMP IVP PRN (22:22)
[2021-10-31 22:24] LABS: Glucose,Whole Blood 122 mg/dL (70-110)
[2021-10-31 23:12] LABS: Glucose,Whole Blood 120 mg/dL (70-110)
[2021-11-01] MEDS: HEPARIN SODIUM,PORCINE/PF 5,000 UNIT/0.5 ML SYRINGE SQ SCH ×3 (00:17→15:02)
[2021-11-01 00:27] LABS: Glucose,Whole Blood 105 mg/dL (70-110)
[2021-11-01 02:06] LABS: Glucose,Whole Blood 115 mg/dL (70-110)
[2021-11-01] MEDS: fentaNYL (PF) 50 MCG/ML 2 ML AMP IVP PRN ×2 (02:19→06:05)
[2021-11-01 03:12] LABS: Glucose,Whole Blood 118 mg/dL (70-110)
[2021-11-01 03:28] LABS: Basophils % (A) 0 %; Eosinophils % (A) 0 %; HCT 29.8 % (39.0-53.0); HGB 9.6 gm/dL (13.0-17.5); Lymphocytes # (A) 1.4 k/uL (1.0-4.8); Lymphocytes % (A) 11 %; MCH 29.8 pg (25.0-35.0); MCV 93.2 fL (80.0-100.0); Monocytes # (A) 0.9 k/uL (0-1.0); Monocytes % (A) 7 %; Neutrophils # (A) 10.6 k/uL (1.3-7.7); Neutrophils % (A) 81 %; Platelet Count 149 k/uL (150-450); RDW 14.3 % (11.5-15.5); WBC 13.1 k/uL (3.8-10.6)
[2021-11-01 03:34] LABS: Ionized Calcium 4.9 mg/dL (4.5-5.3)
[2021-11-01 03:48] LABS: Calcium 8.4 mg/dL (8.4-10.2); Potassium 4.1 mmol/L (3.5-5.1); Total Bilirubin 0.6 mg/dL (0.2-1.3); Total Protein 5.1 g/dL (6.3-8.2)
[2021-11-01 04:19] LABS: Glucose,Whole Blood 113 mg/dL (70-110)
[2021-11-01 05:52] LABS: Glucose,Whole Blood 121 mg/dL (70-110)
[2021-11-01] MEDS: carvediloL 6.25 MG TAB PO SCH (06:01)
[2021-11-01] MEDS: LEVOTHYROXINE 100 MCG TAB PO SCH (06:01)
[2021-11-01] MEDS ORDERED: fentaNYL (PF) 50 MCG/ML 2 ML AMP IVP PRN (07:03)
--- NOTE | 2021-11-01 07:12 | XR ---
EXAMINATION TYPE: XR chest 1V portable DATE OF EXAM: 11/01/2021 4:13 AM COMPARISON: Chest radiographs from 10/31/2021 TECHNIQUE: XR chest 1V portable Portable AP radiograph of the chest. CLINICAL INDICATION:Male, 66 years old with history of Post Operative Cardiac Surgery; FINDINGS: Lungs/Pleura: Trace right apical pneumothorax. Suggested small left pleural effusion. No focal consol idation. Pulmonary vascularity: Unremarkable. Heart/mediastinum: Cardiomediastinal silhouette is prominent in size. Postoperative changes are pres ent in the mediastinum. Atherosclerotic calcification of the aorta. Musculoskeletal: No acute osseous pathology. Midline sternotomy wires are noted and stable. Cervical fusion hardware demonstrated. Lines/Tubes: Interval removal of endotracheal tube. Stable mediastinal drains and bilateral chest tubes. IMPRESSION: * Interval endotracheal tube with stable mediastinal drains and bilateral chest tubes. * Trace right apical pneumothorax. * Suggested small left pleural effusion. * Postoperative changes of CABG.
[2021-11-01 07:15] LABS: Glucose,Whole Blood 116 mg/dL (70-110)
--- NOTE | 2021-11-01 07:59 | P.PN ---
Subjective Progress Note Date: 11/01/21 Principal diagnosis: Triple-vessel diffuse coronary artery disease with totally occluded right coronary artery and left main disease, non-STEMI this admission, acute heart failure with severe left ventricular dysfunction and ejection fraction of 20- 25%. 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 lateral and inferior myocardial infarction with mild to moderate mitral valve regurgitation, left carotid stenosis with prior stroke status post left carotid endarterectomy, chr onic ongoing tobacco dependence, ulcerative colitis/GERD, hypothyroidism POD #2 insertion of intra-aortic balloon counterpulsation via the right femoral artery under ultrasound guidance, double vessel coronary artery bypass grafting using the in situ left internal mammary artery to the mid left anterior descending artery, reverse saphenous vein graft from the aorta to the ramus intermedius artery, endoscopic harvesting of the left greater saphenous vein, exclusion of the left atrial appendage using a 35 mm AtriClip, graft flow measurements using the [employer] system, intraoperative transesophageal echocardiogram and epi-aortic scanning Postoperative hypotension requiring vasopressor support, expected The patient was seen and examined this morning sitting up in a recliner in the intensive care unit in no acute distress. Was successfully extubated yesterday and it 10:40 AM. Intra-aortic balloon pump discontinued yesterday afternoon without difficulty. Remains in sinus rhythm, hemodynamically stable off all pressors. Remains on very small dose of Primacor. Patient needs much enco uragement for pulmonary toileting. Has stated multiple times to different staff members that he should have during surgery and he wants to join his who in September. Consistently asking for IV narcotics for pain control. Right internal jugular Quinlan/Cordis, right brachial arterial line, mediastinal/right/left pleural chest tubes all remain. Urine output stable. No other new concerns. Objective - Vital Signs Vital signs: Vital Signs Temp 98.8 F 11/01/21 04:00 Pulse 79 11/01/21 07:00 Resp 16 11/01/21 07:00 BP 114/57 11/01/21 04:15 Pulse Ox 93 L 11/01/21 07:00 FiO2 50 10/31/21 09:45 Intake & Output 10/31/21 11/01/21 11/01/21 18:59 06:59 18:59 Intake Total 1789.486 776.817 59 Output Total 818 832 45 Balance 971.486 -55.183 14 Weight 92.2 kg 81.8 kg Intake: IV 1293.92 749 59 Amiodarone 450 mg In 199.2 Dextrose 5% in Water 250 ml @ 0.5 MG/MIN 16.667 mls/hr IV .Q15H [facility] Rx#: [id number] CO/CI 200 100 Calcium Gluconate in NaCl 100 1 gm In Saline 1 100ml. bag @ 100 mls/hr IVPB ONCE ONE Rx#:[id number] Milrinone-D5w Pmx 20 mg 18.36 In Dextrose/Water 1 100ml .bag @ 0.1 MCG/KG/MIN 2. 448 mls/hr IV .Q24H [facility] Rx#:[id number] Sodium Chloride 0.9% 1, 600 550 50 000 ml @ 20 mls/hr IV . Q24H [facility] Rx#:[id number] Sodium Chloride 0.9% 150 18.36 ml @ 0.02 UNITS/MIN 3.06 mls/hr IV .Q24H [facility] with Vasopressin 60 unit Rx#: [id number] ceFAZolin 2 gm In Sodium 50 Chloride 0.9% 50 ml @ 100 mls/hr IVPB Q8HR [facility] Rx# :[id number] pressure bags 108 99 9 Intake, IV Titration 495.566 27.817 Amount Amiodarone 450 mg In 213.893 Dextrose 5% in Water 250 ml @ 0.5 MG/MIN 16.667 mls/hr IV .Q15H [facility] Rx#: [id number] Insulin Regular 100 unit 50.568 27.817 In Sodium Chloride 0.9% 100 ml @ Per Protocol IV .Q0M [facility] Rx#:[id number] Milrinone-D5w Pmx 20 mg 97.767 In Dextrose/Water 1 100ml .bag @ 0.1 MCG/KG/MIN 2. 448 mls/hr IV .Q24H [facility] Rx#:[id number] Norepinephrine 4 mg In 17.670 Sodium Chloride 0.9% 250 ml @ 0.02 MCG/KG/MIN 6. 218 mls/hr IV .Q24H [facility] Rx#:[id number] propofoL 1,000 mg In 115.668 Empty Bag 1 bag @ Titrate IV .Q0M [facility] Rx#: [id number] Output: Chest Tube Drainage 148 72 Chest Tube Left 30 10 Chest Tube Right 28 32 Mediastinal 90 30 Drainage 30 0 Left Calf 30 0 Urine 640 760 45 Other: Voiding Method Indwelling Catheter Indwelling Catheter ABP, PAP, CO, CI - Last Documented Arterial Blood Pressure 120/48 Pulmonary Artery Pressure 22/8 Cardiac Output 6.3 Cardiac Index 3.1 - Exam CONSTITUTIONAL: Appears comfortable, cooperative, no acute distress RESPIRATORY: Lungs sounds diminished bilaterally. Respirations even, nonlabored. Currently on 2 L nasal cannula with oxygen saturation 95%. Only able to achieve 500 mL on incentive spirometry. Weak cough. CARDIOVASCULAR: S1, S2 present. Regular rate and rhythm, sinus rhythm on te lemetry. Sternum stable. Palpable peripheral pulses bilaterally. No edema present. No calf pain or tenderness noted. Heart hugger in place with patient demonstrating appropriate use with encouragement. Antiembolism stockings, SCDs present. GASTROINTESTINAL: Abdomen soft, nontender, nondistended. Hypoactive bowel sounds present 4 quadrants. Tolerating clear liquids. Denies flatus GENITOURINARY: Craven present draining clear, yellow urine. Output overnight 30-75 mL per hour, 1400 mL in the last 24 hours INTEGUMENTARY: Skin is warm and dry with evidence of good perfusion. Anterior chest incision well approximated and covered with dry intact dressing. Lower extremity EVH site well approximated without redness or drainage. NEUROLOGIC: Cranial nerves II through XII intact MUSKULOSKELETAL: Able to move all extremities, strength equal bilaterally PSYCHIATRIC: Alert and oriented to person place and time, flat affect, very little motivation INVASIVE LINES AND TUBES: Mediastinal/left/right pleural chest tubes present and connected to wall suction, no air leaks currently present although nursing reports intermittent air leak in the right pleural chest tube last night. Medi astinal tube with 30 mL serosanguineous drainage overnight, 100 mL in the last 24 hours. Left pleural chest tube with 10 mL serosanguineous drainage overnight, 40 mL in the last 24 hours. Right pleural chest tube with no drainage overnight, 50 mL last 24 hours. A/V epicardial pacemaker wires pres ent, connected to generator, backup rate 50 bpm. Right internal jugular Quinlan/Cordis, right brachial arterial line present. Last CO/CI 6.3/3.1, PA 22/, CVP 3. - Allied health notes Allied health notes reviewed: nursing - Labs CBC & Chem 7: 11/01/21 03:14 11/01/21 03:14 Labs: Abnormal Lab Results - Last 24 Hours (Table) 10/31/21 10/31/21 10/31/21 Range/Units 07:50 07:53 07:53 WBC (3.8-10.6) k/uL RBC (4.30-5.90) m/uL Hgb (13.0-17.5) gm/dL Hct (39.0-53.0) % Plt Count (150-450) k/uL Neutrophils # (1.3-7.7) k/uL ABG pO2 (83-108) mmHg ABG Total CO2 (19-24) mmol/L ABG O2 Saturation (94-97) % Chloride (98-107) mmol/L Creatinine (0.66-1.25) mg/dL Glucose (74-99) mg/dL POC Glucose (mg/dL) 133 H (70-110) mg/dL AST (17-59) U/L Creatine Kinase 706 H (55-170) U/L CK-MB (CK-2) 12.1 H (0.0-2.4) ng/mL Total Protein (6.3-8.2) g/dL Albumin (3.5-5.0) g/dL 10/31/21 10/31/21 10/31/21 Range/Units 09:10 10:02 10:17 WBC (3.8-10.6) k/uL RBC (4.30-5.90) m/uL Hgb (13.0-17.5) gm/dL Hct (39.0-53.0) % Plt Count (150-450) k/uL Neutrophils # (1.3-7.7) k/uL ABG pO2 117 H (83-108) mmHg ABG Total CO2 26 H (19-24) mmol/L ABG O2 Saturation 97.6 H (94-97) % Chloride (98-107) mmol/L Creatinine (0.66-1.25) mg/dL Glucose (74-99) mg/dL POC Glucose (mg/dL) 126 H 122 H (70-110) mg/dL AST (17-59) U/L Creatine Kinase (55-170) U/L CK-MB (CK-2) (0.0-2.4) ng/mL Total Protein (6.3-8.2) g/dL Albumin (3.5-5.0) g/dL 10/31/21 10/31/21 10/31/21 Range/Units 11:03 12:07 13:07 WBC (3.8-10.6) k/uL RBC (4.30-5.90) m/uL Hgb (13.0-17.5) gm/dL Hct (39.0-53.0) % Plt Count (150-450) k/uL Neutrophils # (1.3-7.7) k/uL ABG pO2 (83-108) mmHg ABG Total CO2 (19-24) mmol/L ABG O2 Saturation (94-97) % Chloride (98-107) mmol/L Creatinine (0.66-1.25) mg/dL Glucose (74-99) mg/dL POC Glucose (mg/dL) 121 H 135 H 122 H (70-110) mg/dL AST (17-59) U/L Creatine Kinase (55-170) U/L CK-MB (CK-2) (0.0-2.4) ng/mL Total Protein (6.3-8.2) g/dL Albumin (3.5-5.0) g/dL 10/31/21 10/31/21 10/31/21 Range/Units 14:56 16:10 17:04 WBC (3.8-10.6) k/uL RBC (4.30-5.90) m/uL Hgb (13.0-17.5) gm/dL Hct (39.0-53.0) % Plt Count (150-450) k/uL Neutrophils # (1.3-7.7) k/uL ABG pO2 (83-108) mmHg ABG Total CO2 (19-24) mmol/L ABG O2 Saturation (94-97) % Chloride (98-107) mmol/L Creatinine (0.66-1.25) mg/dL Glucose (74-99) mg/dL POC Glucose (mg/dL) 119 H 144 H 145 H (70-110) mg/dL AST (17-59) U/L Creatine Kinase (55-170) U/L CK-MB (CK-2) (0.0-2.4) ng/mL Total Protein (6.3-8.2) g/dL Albumin (3.5-5.0) g/dL 10/31/21 10/31/21 10/31/21 Range/Units 18:06 18:56 21:26 WBC (3.8-10.6) k/uL RBC (4.30-5.90) m/uL Hgb (13.0-17.5) gm/dL Hct (39.0-53.0) % Plt Count (150-450) k/uL Neutrophils # (1.3-7.7) k/uL ABG pO2 (83-108) mmHg ABG Total CO2 (19-24) mmol/L ABG O2 Saturation (94-97) % Chloride (98-107) mmol/L Creatinine (0.66-1.25) mg/dL Glucose (74-99) mg/dL POC Glucose (mg/dL) 140 H 118 H 118 H (70-110) mg/dL AST (17-59) U/L Creatine Kinase (55-170) U/L CK-MB (CK-2) (0.0-2.4) ng/mL Total Protein (6.3-8.2) g/dL Albumin (3.5-5.0) g/dL 10/31/21 10/31/21 11/01/21 Range/Units 22:23 23:09 02:05 WBC (3.8-10.6) k/uL RBC (4.30-5.90) m/uL Hgb (13.0-17.5) gm/dL Hct (39.0-53.0) % Plt Count (150-450) k/uL Neutrophils # (1.3-7.7) k/uL ABG pO2 (83-108) mmHg ABG Total CO2 (19-24) mmol/L ABG O2 Saturation (94-97) % Chloride (98-107) mmol/L Creatinine (0.66-1.25) mg/dL Glucose (74-99) mg/dL POC Glucose (mg/dL) 122 H 120 H 115 H (70-110) mg/dL AST (17-59) U/L Creatine Kinase (55-170) U/L CK-MB (CK-2) (0.0-2.4) ng/mL Total Protein (6.3-8.2) g/dL Albumin (3.5-5.0) g/dL 11/01/21 11/01/21 11/01/21 Range/Units 03:10 03:14 03:14 WBC 13.1 H (3.8-10.6) k/uL RBC 3.20 L (4.30-5.90) m/uL Hgb 9.6 L (13.0-17.5) gm/dL Hct 29.8 L (39.0-53.0) % Plt Count 149 L (150-450) k/uL Neutrophils # 10.6 H (1.3-7.7) k/uL ABG pO2 (83-108) mmHg ABG Total CO2 (19-24) mmol/L ABG O2 Saturation (94-97) % Chloride 108 H (98-107) mmol/L Creatinine 1.62 H (0.66-1.25) mg/dL Glucose 105 H (74-99) mg/dL POC Glucose (mg/dL) 118 H (70-110) mg/dL AST 63 H (17-59) U/L Creatine Kinase (55-170) U/L CK-MB (CK-2) (0.0-2.4) ng/mL Total Protein 5.1 L (6.3-8.2) g/dL Albumin 3.0 L (3.5-5.0) g/dL 11/01/21 11/01/21 11/01/21 Range/Units 04:17 05:50 07:13 WBC (3.8-10.6) k/uL RBC (4.30-5.90) m/uL Hgb (13.0-17.5) gm/dL Hct (39.0-53.0) % Plt Count (150-450) k/uL Neutrophils # (1.3-7.7) k/uL ABG pO2 (83-108) mmHg ABG Total CO2 (19-24) mmol/L ABG O2 Saturation (94-97) % Chloride (98-107) mmol/L Creatinine (0.66-1.25) mg/dL Glucose (74-99) mg/dL POC Glucose (mg/dL) 113 H 121 H 116 H (70-110) mg/dL AST (17-59) U/L Creatine Kinase (55-170) U/L CK-MB (CK-2) (0.0-2.4) ng/mL Total Protein (6.3-8.2) g/dL Albumin (3.5-5.0) g/dL Microbiology - Last 24 Hours (Table) 10/29/21 20:24 Nasal Screen MRSA/MSSA - Final Nasal Swab - Imaging and Cardiology Chest x-ray: report reviewed, image reviewed Assessment and Plan Assessment: 1. Triple-vessel diffuse coronary artery disease with totally occluded right coronary artery and left main disease, non-STEMI this admission, status post 2 vessel CABG 2. Acute heart failure with severe left ventricular dysfunction and ejection fraction of 20-25% 3. History of large old posterior lateral and inferior myocardial infarction with mild to moderate mitral valve regurgitation 4. History of left carotid stenosis with prior stroke status post left carotid endarterectomy 5. Chronic ongoing tobacco dependence with mild COPD, preoperative FEV1 73% of predicted 6. Newly diagnosed diabetes, preoperative hemoglobin A1c 6.5% 7. Ulcerative colitis/GERD 8. History of hypothyroidism, TSH < 0.015, free T4 2.6 9. Hyperlipidemia, untreated, cholesterol 170, LDL 117 10. Postoperative hypotension requiring vasopressor support, intra-aortic balloon pump assistance Plan: 1. Continue to maximize medical therapy with aspirin, statin, Plavix, beta godfrey. Will add afterload reduction when able. Will discontinue Primacor 2. Continue amiodarone for ventricular arrhythmia prophylaxis 3. Wean O2 as tolerated. Encourage incentive spirometry use 10 times every hour while awake. Bronchodilators per pulmonology. Patient needs encouragement for pulmonary toileting 4. Increase activity, ambulate as tolerated. PT/OT/cardiac rehab consulted 5. Will monitor daily labs and x-rays. Electrolyte replacement per protocol. 6. GI/DVT prophylaxis 7. Pain control with current medication regimen, IV narcotics only for severe breakthrough pain, discussed with nursing 8. Insulin management per primary care services. Patient is newly diagnosed diabetic with hemoglobin A1c 6.5% 9. Will discontinue mediastinal/left chest tubes, continue right pleural chest tube for another 24 hours. Monitor output and for resolution of right pleural air leak 10. Continue Craven catheter for another 24 hours for strict accurate intake and output. Daily weights 11. Patient will need LifeVest at discharge 12. Discontinue swan, connect cordis to continuous cvp monitoring 13. More recommendations to follow based on patient's progress
[2021-11-01 08:04] LABS: Glucose,Whole Blood 150 mg/dL (70-110)
[2021-11-01] MEDS: AMIODARONE 450 MG in DEXTROSE 5% IN WATER 250 ML IV SCH ×2 (08:10)
[2021-11-01] MEDS: ATORVASTATIN 40 MG TAB PO SCH (08:15)
[2021-11-01] MEDS: HYDROcodone/APAP 7.5-325MG 1 EACH TAB PO PRN ×2 (08:16→15:01)
[2021-11-01] MEDS: PANTOPRAZOLE 40 MG/10 ML VIAL IVP SCH (08:16)
[2021-11-01] MEDS: CLOPIDOGREL 75 MG TAB PO SCH (08:16)
[2021-11-01] MEDS: ASPIRIN 325 MG TAB PO SCH (08:16)
[2021-11-01] MEDS: AMIODARONE 200 MG TAB PO SCH ×2 (08:16→21:52)
[2021-11-01] MEDS: MUPIROCIN 2% OINT 22 GM TUBE NASAL SCH (08:17)
[2021-11-01] MEDS: methocarbamoL 500 MG TAB PO SCH ×4 (08:18→21:53)
--- NOTE | 2021-11-01 09:08 | P.PCN ---
Date of Procedure: 10/31/21 Preoperative Diagnosis: Multivessel coronary artery disease, insertion intraoperative of intra-aortic balloon pump Postoperative Diagnosis: Same Indications for Procedure: This is a 66-year-old gentleman who was found to have multivessel coronary artery disease. An intra-aortic balloon pump was placed in the operating room by Dr. Greenberg. He underwent coronary artery bypass surgery and has done well. Yesterday morning he was hemodynamically stable once extubated and no longer need of intra-aortic balloon pump assistance. Removal of the device was recommended. The risks, benefits, alternatives to the procedure were discussed with the patient, all questions were answered, consent was obtained. Description of Procedure: The right groin was examined. There was no evidence of hematoma. The balloon pump was turned off. The pre-existing sheath and balloon were removed en leticia and artery was allowed to bleed both antegrade and retrograde for several beats. Direct pressure was held over the site for 40 minutes. There was no residual bleeding or hematoma noted. The graft itself was soft. The right lower extremity appeared cool but well perfused with palpable pulses. There was no immediate complications. He remained hemodynamically stable with good follow-up cardiac index.
[2021-11-01] MEDS: IPRATROPIUM-ALBUTEROL 3 ML NEB INHALATION SCH ×4 (09:11→20:33)
--- NOTE | 2021-11-01 09:49 | P.PN ---
Subjective Progress Note Date: 11/01/21 Patient is a very pleasant 66-year-old male with known vascular disease status post carotid endarterectomy, hypothyroidism, nicotine dependence smokes approximately a half a pack of cigarettes daily, chronic back pain, and ulcerative colitis. Who presented to the emergency department with complaints of orthopnea and paroxysmal nocturnal dyspnea. In the ED he undewent an extensive evaluation. Initial EKG showing sinus tachycardia with left ventricular hypertrophy and T-wave inversion in lateral leads. Troponin elevated at 0.078 and proBNP 3460. Chest x-ray revealed mild pulmonary interstitial edema suggestive of acute heart failure. Patient was given aspirin 325 mg by mouth 1 dose and started on heparin infusion per [facility] protocol. He was admitted and cardio was consulted. Echocardiogram revealing severely impaired EF of 20-25% with global left ventricular hypokinesis and mild mitral and tricuspid regurgitation. He underwent cardiac catheterization 10/28/21 which revealed multivessel CAD with elevated left-sided filling pressures recommending surgical evaluation for possible CABG, is felt to be too high risk for CABG they are recommending multilevel PCI. Cardiothoracic surgery consulted and patient underwent 2 vessel bypass. During OR he did have an episode of VT and required insertion of a balloon pump. He was admitted to the ICU and was requiring nitro, milrinone, vaso, levo, insulin, propofol, and amio. He did well overnight but remained intubated. Extubated on 10/31/21. Patient seen and examined at bedside. He states pain is controlled as long as he is sitting. Breathing well. We discussed hiw A1C of 6.5 and need for diabetes oral medications on discharge given new CABG and patient is in agreement. He then starts to fall asleep during out conversation and will need to address synthroid dosing at a later date. General: non toxic, no distress, appears at stated age Derm: warm, dry Head: atraumatic, normocephalic, symmetric Eyes: EOMI, no lid lag, anicteric sclera Mouth: no lip lesion, mucus membranes moist Cardiovascular: S1S2 reg, no murmur, positive posterior tibial pulse bilateral, Lungs: CTA bilateral, no rhonchi, no rales , no accessory muscle use Abdominal: soft, nontender to palpation, no guarding, no appreciable organomegaly Ext: no gross muscle atrophy, 1+ edema, no contractures Neuro: CN II-XI grossly intact, no focal neuro deficits Psych: Awake, oriented, appropriate affect Assessmnet/plan: Multivessel coronary artery disease s/p 2 vessel bypass on 10/30/21 NSTEMI Newly discovered, Acute systolic heart failure with EF of 20-25% - post-op mgt by CT surgery - cardio recs -Daily weights. -Close monitoring of I's and O's. - amio - ASA, lipitor, plavix Diabetes - A1C 6.5, new transition from pre diabetes to overt diabetes - discontinue with insulin gtt as eating and drinking. Patient estimated insulin needs are 24 units base on 0.3units/kg. He will start on Levemir 8 units now, Nocolog 2 units with meal, and sliding scale qACHS. - follow BS - Once closer to discharge consider farxiga or jardiace for heart failure and DM control Acute Blood Loss Anemia Thrombocytopenia - expected outcome of surgery - follow CBC CKD 3 - near baseline - Renal function at baseline, Cr 1.5 - follow Cr Hypothyroidism with hx of Hashimotos, Undetectable TSH - TSH undetectable and T4 elevated - Will need to discuss with patient importance of change in synthroid closer to discharge when he can more fully participate in conversation. Grief secondary to recent loss of loved one -Case management consult placed for assistance in setting up outpatient grief counselor/therapist upon discharge. Nicotine dependence -Counseled on the importance of smoking cessation and risks associated with continued use. -Nicotine patch provided. Chronic: Prior PE GERD CVA X 2 Ulcerative colitis Active Medications Generic Name Dose Route Start Last Admin Trade Name Freq PRN Reason Stop Dose Admin Acetaminophen 650 mg 10/31/21 18:51 Acetaminophen Tab 325 Mg Tab PO Q4HR PRN Fever and/ or Pain Hydrocodone Bitart/Acetaminophen 1 each 10/31/21 18:51 Hydrocodone/Apap 7.5-325mg 1 Each Tab PO Q4HR PRN Pain Hydrocodone Bitart/Acetaminophen 2 each 10/31/21 18:51 11/01/21 08:16 Hydrocodone/Apap 7.5-325mg 1 Each Tab PO 2 each Q4HR PRN Administration Pain Albuterol/Ipratropium 3 ml 10/30/21 15:03 Ipratropium-Albuterol 3 Ml Neb INHALATION RT-Q2H PRN Shortness Of Breath Or Wheezing Albuterol/Ipratropium 3 ml 10/31/21 08:00 11/01/21 09:11 Ipratropium-Albuterol 3 Ml Neb INHALATION Not Given RT-QID [facility] Amiodarone HCl 400 mg 10/31/21 21:00 11/01/21 08:16 Amiodarone 200 Mg Tab PO 400 mg BID CAN Administration Aspirin 325 mg 10/31/21 09:00 11/01/21 08:16 Aspirin 325 Mg Tab PO 325 mg DAILY CAN Administration Atorvastatin Calcium 40 mg 10/31/21 09:00 11/01/21 08:15 Atorvastatin 40 Mg Tab PO 40 mg DAILY [facility] Administration Benzocaine/Menthol 1 each 10/30/21 15:03 Benzocaine/Menthol Lozeng 1 Each Lozenge MUCOUS MEM Q2H PRN Sore Throat Bisacodyl 10 mg 10/31/21 09:00 Bisacodyl 10 Mg Supp RECTAL DAILY PRN Constipation Carvedilol 6.25 mg 10/31/21 18:00 11/01/21 06:01 Carvedilol 6.25 Mg Tab PO 6.25 mg BID-W/MEALS [facility] Administration Clopidogrel Bisulfate 75 mg 10/31/21 09:00 11/01/21 08:16 Clopidogrel 75 Mg Tab PO 75 mg DAILY [facility] Administration Fentanyl Citrate 50 mcg 11/01/21 07:03 Fentanyl (Pf) 50 Mcg/Ml 2 Ml Amp IVP Q6HR PRN Severe Breakthrough Pain Heparin Sodium (Porcine) 5,000 unit 10/30/21 16:00 11/01/21 08:15 Heparin Sodium,Porcine/Pf 5,000 Unit/0.5 Ml Syringe SQ 5,000 unit Q8HR ACN Administration Amiodarone HCl 150 mg/ 103 mls @ 618 mls/hr 10/30/21 15:03 Dextrose/Water IV .Q10M PRN A.FIB/FLUTTER Albumin Human 250 ml/ IV 250 mls @ 250 mls/hr 10/30/21 15:03 10/30/21 22:18 Solution IVPB 11/01/21 15:04 250 mls/hr Q1HR PRN Administration For Volume Protocol Calcium Gluconate/Sodium 100 mls @ 100 mls/hr 10/30/21 15:03 Chloride 2 gm/ IV Solution IVPB 11/09/21 15:04 ONCE PRN Ionized Calcium less than 4.4 Sodium Chloride 1,000 mls @ 20 mls/hr 10/30/21 15:03 10/31/21 11:05 Saline 0.9% IV 50 mls/hr .Q24H [facility] Administration Insulin Aspart 2 unit 11/01/21 12:30 Insulin Aspart (Novolog) 100 Unit/Ml Vial SQ AC-TID CAN Insulin Aspart 0 unit 11/01/21 12:30 Insulin Aspart (Novolog) 100 Unit/Ml Vial SQ ACHS [facility] Protocol Insulin Detemir 8 unit 11/01/21 09:45 Insulin Detemir (Levemir) 100 Unit/Ml Syr SQ DAILY@0700 [facility] Levothyroxine Sodium 200 mcg 10/26/21 09:00 11/01/21 06:01 Levothyroxine 100 Mcg Tab PO 200 mcg QAM@0630 [facility] Administration Magnesium Hydroxide 2,400 mg 10/31/21 09:00 Magnesium Hydroxide 2,400 Mg/10 Ml Cup PO BID PRN Constipation Methocarbamol 500 mg 10/31/21 18:00 11/01/21 08:18 Methocarbamol 500 Mg Tab PO 500 mg QID CAN Administration Metoclopramide HCl 10 mg 10/30/21 15:03 Metoclopramide 5 Mg/Ml 2 Ml Vial IVP Q4H PRN Nausea And Vomiting Miscellaneous Information 1 each 10/30/21 15:03 Magnesium Replacement Protocol 1 Each Misc MISCELLANE DAILY PRN Per Protocol Protocol Miscellaneous Information 1 each 10/30/21 15:03 Potassium Replacement Protocol 1 Each Misc MISCELLANE DAILY PRN Per Protocol Protocol Mupirocin 1 applic 10/30/21 21:00 11/01/21 08:17 Mupirocin 2% Oint 22 Gm Tube NASAL 11/02/21 21:01 1 applic BID CAN Administration Ondansetron HCl 4 mg 10/30/21 15:03 10/31/21 15:52 Ondansetron 4 Mg/2 Ml Vial IVP 4 mg Q6HR PRN Administration Nausea And Vomiting Pantoprazole Sodium 40 mg 11/02/21 07:30 Pantoprazole 40 Mg Tablet PO AC-BRKFST CAN Senna/Docusate Sodium 2 each 10/31/21 21:00 10/31/21 20:49 Sennosides-Docusate Sodium 1 Each Tab PO 2 each HS CAN Administration Sodium Chloride 10 ml 10/30/21 21:00 11/01/21 08:19 Sodium Chloride 0.9% Flush 10 Ml Syringe IV Not Given BID [facility] Objective - Vital Signs Vital signs: Vital Signs Temp 98.8 F 11/01/21 04:00 Pulse 79 11/01/21 07:00 Resp 16 11/01/21 07:00 BP 114/57 11/01/21 04:15 Pulse Ox 93 L 11/01/21 07:00 FiO2 50 10/31/21 09:45 Intake & Output 10/31/21 11/01/21 11/01/21 18:59 06:59 18:59 Intake Total 1789.486 776.817 59 Output Total 818 832 45 Balance 971.486 -55.183 14 Weight 92.2 kg 81.8 kg Intake: IV 1293.92 749 59 Amiodarone 450 mg In 199.2 Dextrose 5% in Water 250 ml @ 0.5 MG/MIN 16.667 mls/hr IV .Q15H [facility] Rx#: [id number] CO/CI 200 100 Calcium Gluconate in NaCl 100 1 gm In Saline 1 100ml. bag @ 100 mls/hr IVPB ONCE ONE Rx#:[id number] Milrinone-D5w Pmx 20 mg 18.36 In Dextrose/Water 1 100ml .bag @ 0.1 MCG/KG/MIN 2. 448 mls/hr IV .Q24H [facility] Rx#:[id number] Sodium Chloride 0.9% 1, 600 550 50 000 ml @ 20 mls/hr IV . Q24H [facility] Rx#:[id number] Sodium Chloride 0.9% 150 18.36 ml @ 0.02 UNITS/MIN 3.06 mls/hr IV .Q24H [facility] with Vasopressin 60 unit Rx#: [id number] ceFAZolin 2 gm In Sodium 50 Chloride 0.9% 50 ml @ 100 mls/hr IVPB Q8HR [facility] Rx# :[id number] pressure bags 108 99 9 Intake, IV Titration 495.566 27.817 Amount Amiodarone 450 mg In 213.893 Dextrose 5% in Water 250 ml @ 0.5 MG/MIN 16.667 mls/hr IV .Q15H [facility] Rx#: [id number] Insulin Regular 100 unit 50.568 27.817 In Sodium Chloride 0.9% 100 ml @ Per Protocol IV .Q0M [facility] Rx#:[id number] Milrinone-D5w Pmx 20 mg 97.767 In Dextrose/Water 1 100ml .bag @ 0.1 MCG/KG/MIN 2. 448 mls/hr IV .Q24H [facility] Rx#:[id number] Norepinephrine 4 mg In 17.670 Sodium Chloride 0.9% 250 ml @ 0.02 MCG/KG/MIN 6. 218 mls/hr IV .Q24H [facility] Rx#:[id number] propofoL 1,000 mg In 115.668 Empty Bag 1 bag @ Titrate IV .Q0M [facility] Rx#: [id number] Output: Chest Tube Drainage 148 72 Chest Tube Left 30 10 Chest Tube Right 28 32 Mediastinal 90 30 Drainage 30 0 Left Calf 30 0 Urine 640 760 45 Other: Voiding Method Indwelling Catheter Indwelling Catheter ABP, PAP, CO, CI - Last Documented Arterial Blood Pressure 120/48 Pulmonary Artery Pressure 22/8 Cardiac Output 6.3 Cardiac Index 3.1 - Labs CBC & Chem 7: 11/01/21 03:14 11/01/21 03:14 Labs: Abnormal Lab Results - Last 24 Hours (Table) 10/31/21 10/31/21 10/31/21 Range/Units 10:02 10:17 11:03 WBC (3.8-10.6) k/uL RBC (4.30-5.90) m/uL Hgb (13.0-17.5) gm/dL Hct (39.0-53.0) % Plt Count (150-450) k/uL Neutrophils # (1.3-7.7) k/uL ABG pO2 117 H (83-108) mmHg ABG Total CO2 26 H (19-24) mmol/L ABG O2 Saturation 97.6 H (94-97) % Chloride (98-107) mmol/L Creatinine (0.66-1.25) mg/dL Glucose (74-99) mg/dL POC Glucose (mg/dL) 122 H 121 H (70-110) mg/dL AST (17-59) U/L Total Protein (6.3-8.2) g/dL Albumin (3.5-5.0) g/dL 10/31/21 10/31/21 10/31/21 Range/Units 12:07 13:07 14:56 WBC (3.8-10.6) k/uL RBC (4.30-5.90) m/uL Hgb (13.0-17.5) gm/dL Hct (39.0-53.0) % Plt Count (150-450) k/uL Neutrophils # (1.3-7.7) k/uL ABG pO2 (83-108) mmHg ABG Total CO2 (19-24) mmol/L ABG O2 Saturation (94-97) % Chloride (98-107) mmol/L Creatinine (0.66-1.25) mg/dL Glucose (74-99) mg/dL POC Glucose (mg/dL) 135 H 122 H 119 H (70-110) mg/dL AST (17-59) U/L Total Protein (6.3-8.2) g/dL Albumin (3.5-5.0) g/dL 10/31/21 10/31/21 10/31/21 Range/Units 16:10 17:04 18:06 WBC (3.8-10.6) k/uL RBC (4.30-5.90) m/uL Hgb (13.0-17.5) gm/dL Hct (39.0-53.0) % Plt Count (150-450) k/uL Neutrophils # (1.3-7.7) k/uL ABG pO2 (83-108) mmHg ABG Total CO2 (19-24) mmol/L ABG O2 Saturation (94-97) % Chloride (98-107) mmol/L Creatinine (0.66-1.25) mg/dL Glucose (74-99) mg/dL POC Glucose (mg/dL) 144 H 145 H 140 H (70-110) mg/dL AST (17-59) U/L Total Protein (6.3-8.2) g/dL Albumin (3.5-5.0) g/dL 10/31/21 10/31/21 10/31/21 Range/Units 18:56 21:26 22:23 WBC (3.8-10.6) k/uL RBC (4.30-5.90) m/uL Hgb (13.0-17.5) gm/dL Hct (39.0-53.0) % Plt Count (150-450) k/uL Neutrophils # (1.3-7.7) k/uL ABG pO2 (83-108) mmHg ABG Total CO2 (19-24) mmol/L ABG O2 Saturation (94-97) % Chloride (98-107) mmol/L Creatinine (0.66-1.25) mg/dL Glucose (74-99) mg/dL POC Glucose (mg/dL) 118 H 118 H 122 H (70-110) mg/dL AST (17-59) U/L Total Protein (6.3-8.2) g/dL Albumin (3.5-5.0) g/dL 10/31/21 11/01/21 11/01/21 Range/Units 23:09 02:05 03:10 WBC (3.8-10.6) k/uL RBC (4.30-5.90) m/uL Hgb (13.0-17.5) gm/dL Hct (39.0-53.0) % Plt Count (150-450) k/uL Neutrophils # (1.3-7.7) k/uL ABG pO2 (83-108) mmHg ABG Total CO2 (19-24) mmol/L ABG O2 Saturation (94-97) % Chloride (98-107) mmol/L Creatinine (0.66-1.25) mg/dL Glucose (74-99) mg/dL POC Glucose (mg/dL) 120 H 115 H 118 H (70-110) mg/dL AST (17-59) U/L Total Protein (6.3-8.2) g/dL Albumin (3.5-5.0) g/dL 11/01/21 11/01/21 11/01/21 Range/Units 03:14 03:14 04:17 WBC 13.1 H (3.8-10.6) k/uL RBC 3.20 L (4.30-5.90) m/uL Hgb 9.6 L (13.0-17.5) gm/dL Hct 29.8 L (39.0-53.0) % Plt Count 149 L (150-450) k/uL Neutrophils # 10.6 H (1.3-7.7) k/uL ABG pO2 (83-108) mmHg ABG Total CO2 (19-24) mmol/L ABG O2 Saturation (94-97) % Chloride 108 H (98-107) mmol/L Creatinine 1.62 H (0.66-1.25) mg/dL Glucose 105 H (74-99) mg/dL POC Glucose (mg/dL) 113 H (70-110) mg/dL AST 63 H (17-59) U/L Total Protein 5.1 L (6.3-8.2) g/dL Albumin 3.0 L (3.5-5.0) g/dL 11/01/21 11/01/21 11/01/21 Range/Units 05:50 07:13 08:02 WBC (3.8-10.6) k/uL RBC (4.30-5.90) m/uL Hgb (13.0-17.5) gm/dL Hct (39.0-53.0) % Plt Count (150-450) k/uL Neutrophils # (1.3-7.7) k/uL ABG pO2 (83-108) mmHg ABG Total CO2 (19-24) mmol/L ABG O2 Saturation (94-97) % Chloride (98-107) mmol/L Creatinine (0.66-1.25) mg/dL Glucose (74-99) mg/dL POC Glucose (mg/dL) 121 H 116 H 150 H (70-110) mg/dL AST (17-59) U/L Total Protein (6.3-8.2) g/dL Albumin (3.5-5.0) g/dL Microbiology - Last 24 Hours (Table) 10/29/21 20:24 Nasal Screen MRSA/MSSA - Final Nasal Swab
[2021-11-01] MEDS: SERTRALINE 50 MG TAB PO SCH (11:21)
[2021-11-01] MEDS: INSULIN DETEMIR (LEVEMIR) 100 UNIT/ML SYR SQ SCH (11:21)
[2021-11-01] MEDS: SODIUM CHLORIDE 0.9% 1,000 ML IV SCH (11:22)
--- NOTE | 2021-11-01 11:30 | P.PN ---
Subjective Progress Note Date: 11/01/21 66-year-old male patient with past history of CVA, carotid artery disease with previous carotid endarterectomy, chronic kidney disease stage III, hypothyroidism, ulcerative colitis, history of pulmonary embolism 2 in the remote past, patient was told he was prediabetic, diet controlled, chronic back and neck pain, with previous history of cervical fusion, sleep apnea not on CPAP therapy, history of ulcerative colitis, current every day smoker, who presented to the emergency department on the 10/26/2021 with complaints of at least 3 weeks of shortness of breath, orthopnea, and PND. In the emergency department EKG was completed that showed normal sinus rhythm with left ventricular hypertrophy. Chest x-ray showed pulmonary interstitial edema. Patient's lab evaluation showed positive troponins that topped out at 0.548, proBNP was 3460, and patient was diagnosed with acute non-ST elevated myocardial infarction. Echocardiogram was completed showing severely increased left ventricular diastolic diameter, and global left ventricular hypokinesis with systolic dysfunction and EF of 20-25% area. There was no evidence of pericardial effusion. Patient underwent heart catheterization on 10/28/2021 which showed multivessel CAD with 80% left main stenosis, 40-50% proximal LAD, 75% distal LAD, 99% proximal circumflex, 90% mid RCA with [id number] collaterals, and elevated left-sided filling pressures LVEDP of 22. Patient was referred to cardiac surgery for evaluation. He was found to be a good surgical candidate. His preop FEV1 was around 73% of predicted. Chest CT was completed showing soft tissue nodule in the right lower lobe measuring 1 cm, and left upper lobe a subpleural 3 mm nodule, and other indeterminate small lung nodules. Follow-up was suggested. Patient's was scheduled for surgical revascularization surgery on 10/30/[address] Greenberg On 10/30/2021 patient seen in follow-up after 2 vessel bypass on 10/30/2021. Patient is seen in the intensive care unit sedated and intubated, on assist- control mode of ventilation with a rate of 16, tidal volume is 500, FiO2 of 60% and PEEP of 5. Postoperative blood gas is pending. Patient had episodes of V. tach intraoperatively, he is currently on multiple drips, and intra-aortic balloon pump has been inserted with one-to-one augmentation. Patient is currently on amiodarone running at 1 milligram per minute, 0.9 normal saline at a rate of 50 ML per hour, milrinone at 0.375 mics per kilo per minute, norepinephrine is at 0.04 mics per kilo per minute, vasopressin is at 0.05 units per minute, insulin infusion is currently on hold, nitroglycerin drip is at 5 mics per kilo per minute. Patient is in sinus mechanism, has AV wires in place connected to external pacemaker with VVI 50 backup rate. Patient has 2 medias tinal chest tubes with 300 mL of sanguinous output, left pleural with 380 and right pleural with 60 mL of sanguinous output, no evidence of air leak, postoperative chest x-ray has been reviewed showing mild cardiomegaly, interstitial prominence that could reflect mild pulmonary vessel congestion. M ultiple lines and catheters. [place] catheter is in place, PA pressures 26/16, CVP is 11, cardiac output is 4.0, and cardiac index is 2.0. Urine output is in order of 150 ML per hour. Postoperative blood gas showed pO2 of 129, pCO2 of 50, and pH of 7.34 and this was done on a heart percent FiO2 and FiO2 has since been dropped down to 50%. White blood cell count is 13.3, hemoglobin is 10.9, INR is 1.3, sodium is 138, potassium is 4.1, chloride is 108, CO2 is 25, BUN is 17 creatinine is 1.46. On 10/31/2021, the patient is postop day #2. The patient was kept on a mechanical ventilator and overnight the patient continued to be on an intra- aortic balloon pump for hemodynamic support. This morning, the patient is was sedated and the patient is on propofol at 20 mcg/kg per minute. The patient is still on a mechanical ventilator on assist control mode of mechanical ventilation at the rate of 24 with tidal volume of 500 and FiO2 of 50% with a PEEP of 5. Chest x-ray shows essentially postsurgical changes. No evidence of any pneumothorax. All of the chest tubes are in place. The patient has a total of 4 chest tubes. [place] catheter in place. No evidence of any effusion. No evidence of any pneumonia or consolidation. Blood gases from this morning shows a pH of 7.4 with a pCO2 of 59 and pO2 of 87. In terms of output from the mediastinal tubes, the total amount of output since his arrival from the operating room is been 430 mL. The left pleural chest tube has drained 400 mL. Right pleural chest tube and drained 95 mL since arrival from the operating room. There is still some intermittent air leak from the right-sided chest tube. Hemodynamically, the patient has a cardiac output of 3.8 with an index of 1.9. Pulmonary artery pressures are 34/21. The patient remains on norepinephrine infusion at 0.01 mcg/kg per minute. The patient is still on Primacor at 0.37 5 mcg/kg per minute. The patient is also on vasopressin at 0.04 units an hour. The patient is also on amiodarone drip at 0.5 mg per minute. The patient is on insulin drip at 5 units an hour. The patient did receive a dose of albumin overnight 12.5 mg. The patient's urine output is in order of 50-60 mL an hour. Normal saline is running at 50 mL an hour. The patient has an intra-aortic balloon pump with on augmentaton. The hemoglobin is at 10 platelet count is at 166, sodium level is at 135, potassium is 4.2 and the patient is a creatinine level of 1.6. The patient is afebrile. No issues with bleeding. No other complaints otherwise for now. 10/31/2021, the patient is postop day #3. The patient has been extubated. The patient also had the intra-aortic balloon pump removed yesterday without any major difficulties. Furthermore, there has been progressive weaning in his pr essors and the patient is currently on vasopressin, of norepinephrine and off milrinone. The patient is maintaining his own blood pressure. He has adequate urine output. The cardiac output is at 6.3 with an index of 3.1. The [place] catheter will be also removed today. The patient underwent two-vessel bypass surgery and the patient had an intra-aortic balloon pump./Intraoperatively was removed. Otherwise, the patient's cardiac rhythm is sinus. The patient has the mediastinal and the left pleural chest tubes also removed. The right-sided chest tube is still In place. There is a very tiny air leak. There is a very tiny right-sided pneumothorax noted on today's chest x-ray. Insulin drip is still running at 4 units an hour. The patient is awake and alert. His pain is under adequate control. He is using incentive spirometer. His white cell count of 15.4 with hemoglobin of 9.6 and a platelet count of 149. Sodium is 137. Potassium level is at 4.1. BUN is at 28 and the creatinine is at 1.6 and the patient has chronic kidney disease. No other significant events overnight. He is afebrile. He is hemodynamic is stable. Amiodarone drip was also discontinued and the patient was switched to oral amiodarone 400 mg by mouth twice a day. Objective - Vital Signs Vital signs: Vital Signs Temp 99.5 F 11/01/21 08:30 Pulse 67 11/01/21 11:18 Resp 15 11/01/21 11:00 BP 92/45 11/01/21 11:00 Pulse Ox 96 11/01/21 11:00 FiO2 50 10/31/21 09:45 Intake & Output 10/31/21 11/01/21 11/01/21 18:59 06:59 18:59 Intake Total 1789.486 776.817 593 Output Total 818 832 140 Balance 971.486 -55.183 453 Weight 92.2 kg 81.8 kg Intake: IV 1293.92 749 233 Amiodarone 450 mg In 199.2 Dextrose 5% in Water 250 ml @ 0.5 MG/MIN 16.667 mls/hr IV .Q15H CAN Rx#: [id number] CO/CI 200 100 Calcium Gluconate in NaCl 100 1 gm In Saline 1 100ml. bag @ 100 mls/hr IVPB ONCE ONE Rx#:[id number] Milrinone-D5w Pmx 20 mg 18.36 In Dextrose/Water 1 100ml .bag @ 0.1 MCG/KG/MIN 2. 448 mls/hr IV .Q24H CAN Rx#:[id number] Sodium Chloride 0.9% 1, 600 550 200 000 ml @ 20 mls/hr IV . Q24H CAN Rx#:[id number] Sodium Chloride 0.9% 150 18.36 ml @ 0.02 UNITS/MIN 3.06 mls/hr IV .Q24H CAN with Vasopressin 60 unit Rx#: [id number] ceFAZolin 2 gm In Sodium 50 Chloride 0.9% 50 ml @ 100 mls/hr IVPB Q8HR CAN Rx# :[id number] pressure bags 108 99 33 Intake, IV Titration 495.566 27.817 Amount Amiodarone 450 mg In 213.893 Dextrose 5% in Water 250 ml @ 0.5 MG/MIN 16.667 mls/hr IV .Q15H CAN Rx#: [id number] Insulin Regular 100 unit 50.568 27.817 In Sodium Chloride 0.9% 100 ml @ Per Protocol IV .Q0M CAN Rx#:[id number] Milrinone-D5w Pmx 20 mg 97.767 In Dextrose/Water 1 100ml .bag @ 0.1 MCG/KG/MIN 2. 448 mls/hr IV .Q24H CAN Rx#:[id number] Norepinephrine 4 mg In 17.670 Sodium Chloride 0.9% 250 ml @ 0.02 MCG/KG/MIN 6. 218 mls/hr IV .Q24H CAN Rx#:[id number] propofoL 1,000 mg In 115.668 Empty Bag 1 bag @ Titrate IV .Q0M CAN Rx#: [id number] Oral 360 Output: Chest Tube Drainage 148 72 0 Chest Tube Left 30 10 0 Chest Tube Right 28 32 0 Mediastinal 90 30 0 Drainage 30 0 Left Calf 30 0 Urine 640 760 140 Other: Voiding Method Indwelling Catheter Indwelling Catheter Indwelling Catheter ABP, PAP, CO, CI - Last Documented Arterial Blood Pressure 92/50 Pulmonary Artery Pressure 29/15 Cardiac Output 6.3 Cardiac Index 3.1 - Exam CONSTITUTIONAL: Appears comfortable, cooperative, no acute distress RESPIRATORY: Lungs sounds diminished bilaterally. Respirations even, nonlabored. Currently on 2 L nasal cannula with oxygen saturation 95%. Only able to achieve 500 mL on incentive spirometry. Weak cough. CARDIOVASCULAR: S1, S2 present. Regular rate and rhythm, sinus rhythm on telemetry. Sternum stable. Palpable peripheral pulses bilaterally. No edema present. No calf pain or tenderness noted. Heart hugger in place with patient demonstrating appropriate use with encouragement. Antiembolism stockings, SCDs present. GASTROINTESTINAL: Abdomen soft, nontender, nondistended. Hypoactive bowel sounds present 4 quadrants. Tolerating clear liquids. Denies flatus GENITOURINARY: Craven present draining clear, yellow urine. Output overnight 30-75 mL per hour, 1400 mL in the last 24 hours INTEGUMENTARY: Skin is warm and dry with evidence of good perfusion. Anterior chest incision well approximated and covered with dry intact dressing. Lower extremity EVH site well approximated without redness or drainage. NEUROLOGIC: Cranial nerves II through XII intact MUSKULOSKELETAL: Able to move all extremities, strength equal bilaterally PSYCHIATRIC: Alert and oriented to person place and time, flat affect, very little motivation INVASIVE LINES AND TUBES: Mediastinal/left/right pleural chest tubes present and connected to wall suction, no air leaks currently present although nursing reports intermittent air leak in the right pleural chest tube last night. Mediastinal tube with 30 mL serosanguineous drainage overnight, 100 mL in the last 24 hours. Left pleural chest tube with 10 mL serosanguineous drainage overnight, 40 mL in the last 24 hours. Right pleural chest tube with no drainage overnight, 50 mL last 24 hours. A/V epicardial pacemaker wires present, connected to generator, backup rate 50 bpm. Right internal jugular [place], right brachial arterial line present. Last CO/CI 6.3/3.1, PA /, CVP 3. - Labs CBC & Chem 7: 11/01/21 03:14 11/01/21 03:14 Labs: Abnormal Lab Results - Last 24 Hours (Table) 10/31/21 10/31/21 10/31/21 Range/Units 12:07 13:07 14:56 WBC (3.8-10.6) k/uL RBC (4.30-5.90) m/uL Hgb (13.0-17.5) gm/dL Hct (39.0-53.0) % Plt Count (150-450) k/uL Neutrophils # (1.3-7.7) k/uL Chloride (98-107) mmol/L Creatinine (0.66-1.25) mg/dL Glucose (74-99) mg/dL POC Glucose (mg/dL) 135 H 122 H 119 H (70-110) mg/dL AST (17-59) U/L Total Protein (6.3-8.2) g/dL Albumin (3.5-5.0) g/dL 10/31/21 10/31/21 10/31/21 Range/Units 16:10 17:04 18:06 WBC (3.8-10.6) k/uL RBC (4.30-5.90) m/uL Hgb (13.0-17.5) gm/dL Hct (39.0-53.0) % Plt Count (150-450) k/uL Neutrophils # (1.3-7.7) k/uL Chloride (98-107) mmol/L Creatinine (0.66-1.25) mg/dL Glucose (74-99) mg/dL POC Glucose (mg/dL) 144 H 145 H 140 H (70-110) mg/dL AST (17-59) U/L Total Protein (6.3-8.2) g/dL Albumin (3.5-5.0) g/dL 10/31/21 10/31/21 10/31/21 Range/Units 18:56 21:26 22:23 WBC (3.8-10.6) k/uL RBC (4.30-5.90) m/uL Hgb (13.0-17.5) gm/dL Hct (39.0-53.0) % Plt Count (150-450) k/uL Neutrophils # (1.3-7.7) k/uL Chloride (98-107) mmol/L Creatinine (0.66-1.25) mg/dL Glucose (74-99) mg/dL POC Glucose (mg/dL) 118 H 118 H 122 H (70-110) mg/dL AST (17-59) U/L Total Protein (6.3-8.2) g/dL Albumin (3.5-5.0) g/dL 10/31/21 11/01/21 11/01/21 Range/Units 23:09 02:05 03:10 WBC (3.8-10.6) k/uL RBC (4.30-5.90) m/uL Hgb (13.0-17.5) gm/dL Hct (39.0-53.0) % Plt Count (150-450) k/uL Neutrophils # (1.3-7.7) k/uL Chloride (98-107) mmol/L Creatinine (0.66-1.25) mg/dL Glucose (74-99) mg/dL POC Glucose (mg/dL) 120 H 115 H 118 H (70-110) mg/dL AST (17-59) U/L Total Protein (6.3-8.2) g/dL Albumin (3.5-5.0) g/dL 11/01/21 11/01/21 11/01/21 Range/Units 03:14 03:14 04:17 WBC 13.1 H (3.8-10.6) k/uL RBC 3.20 L (4.30-5.90) m/uL Hgb 9.6 L (13.0-17.5) gm/dL Hct 29.8 L (39.0-53.0) % Plt Count 149 L (150-450) k/uL Neutrophils # 10.6 H (1.3-7.7) k/uL Chloride 108 H (98-107) mmol/L Creatinine 1.62 H (0.66-1.25) mg/dL Glucose 105 H (74-99) mg/dL POC Glucose (mg/dL) 113 H (70-110) mg/dL AST 63 H (17-59) U/L Total Protein 5.1 L (6.3-8.2) g/dL Albumin 3.0 L (3.5-5.0) g/dL 11/01/21 11/01/21 11/01/21 Range/Units 05:50 07:13 08:02 WBC (3.8-10.6) k/uL RBC (4.30-5.90) m/uL Hgb (13.0-17.5) gm/dL Hct (39.0-53.0) % Plt Count (150-450) k/uL Neutrophils # (1.3-7.7) k/uL Chloride (98-107) mmol/L Creatinine (0.66-1.25) mg/dL Glucose (74-99) mg/dL POC Glucose (mg/dL) 121 H 116 H 150 H (70-110) mg/dL AST (17-59) U/L Total Protein (6.3-8.2) g/dL Albumin (3.5-5.0) g/dL Microbiology - Last 24 Hours (Table) 10/29/21 20:24 Nasal Screen MRSA/MSSA - Final Nasal Swab Assessment and Plan Plan: Assessment: Triple-vessel coronary artery disease and the patient is post two-vessel bypass and the patient is postop day # 2. The patient has required intra-aortic balloon pump for hemodynamic support intraoperatively and the balloon pump and pressors postop and the intra-aortic balloon pump was removed and the pressors of also been discontinued. The patient is currently hemodynamically stable, extubated. Post thoracotomy, the patient was extubated yesterday and the patient is doing While for now. Mediastinal left pleural chest tube has been removed and the patient continues to have a right-sided chest tube in place with a tiny right apical pneumothorax and intermittent air leaks. Cardiogenic shock post bypass surgery, expected outcome knowing that the patient's preop ejection fraction of around 20-25%. The patient isoff pressors and off intra-aortic balloon pump with adequate cardiac output and index Acute non-ST elevated myocardial infarction with an underlying Multiple vessel coronary artery disease, status post two-vessel coronary artery bypass grafting Episodes of V. tach intraoperatively, currently on amiodarone infusion Ischemic cardiomyopathy with EF of 20-25% Chronic and ongoing history of smoking Indeterminate small lung nodules, will need outpatient follow-up postop coronary artery bypass grafting surgery History of hypothyroidism Chronic disease stage III at baseline, creatinine remains stable Ulcerative colitis Carotid artery disease with previous history of carotid endarterectomy History of CVA 2 Remote history of pulmonary embolism and his 20s, not on any chronic anticoagulation Probable diabetes mellitus type 2, diet-controlled COPD, with FEV1 of 73% of predicted, stage II Plan: Discontinue the [place] catheter Keep the right-sided chest tube in place Continue using incentive spirometer The patient is currently off pressors And aortic balloon pump has been removed The patient is currently on oral amiodarone and a cardiac rhythm is sinus Continue using incentive spirometer May need to start aspirin and Plavix and beta blockers We'll continue to follow Critically care evaluation that was on a more than 30 minutes. Time with Patient: Greater than 30
[2021-11-01 11:54] LABS: Glucose,Whole Blood 147 mg/dL (70-110)
[2021-11-01] MEDS: INSULIN ASPART (NovoLOG) 100 UNIT/ML VIAL SQ SCH ×5 (13:12→22:05)
[2021-11-01 16:55] LABS: Glucose,Whole Blood 110 mg/dL (70-110)
[2021-11-01] MEDS ORDERED: carvediloL 3.125 MG TAB PO SCH (17:30)
--- NOTE | 2021-11-01 19:06 | PN ---
PROGRESS NOTE FOLLOW-UP NOTE: This 66-year-old gentleman is postoperative day #2 following bypass surgery with COOK to LAD, venous graft to ramus, and he has had insertion of the balloon pump. Balloon pump has been removed. This morning he is free of chest pain or difficulty in breathing, stable hemodynamically. On exam, comfortable at rest. Blood pressure is 92/50, respiratory rate 18. Chest exam reveals diminished air entry at the bases. Heart exam reveals first and second heart sounds. No gallop. Examination of the extremities did not reveal any edema. Peripheral pulses are felt. The patient's labs show a creatinine of 1.6, hemoglobin is 9.6. Current medications include amiodarone 400 b.i.d., aspirin, Lipitor, Coreg 3.125 b.i.d., Plavix, insulin. ASSESSMENT: 1. Coronary artery disease, status post coronary artery bypass grafting. 2. Ischemic cardiomyopathy with severe left ventricular dysfunction. PLAN: Patient will continue current medications. MMODL / IJN: [id number] /
[2021-11-01] MEDS: SENNOSIDES-DOCUSATE SODIUM 1 EACH TAB PO SCH (21:52)
[2021-11-01 22:03] LABS: Glucose,Whole Blood 177 mg/dL (70-110)
[2021-11-02] MEDS: MUPIROCIN 2% OINT 22 GM TUBE NASAL SCH (00:13)
[2021-11-02] MEDS: HEPARIN SODIUM,PORCINE/PF 5,000 UNIT/0.5 ML SYRINGE SQ SCH ×3 (00:13→17:51)
[2021-11-02 03:00] LABS: Glucose,Whole Blood 163 mg/dL (70-110)
[2021-11-02 05:41] LABS: Basophils % (A) 0 %; Eosinophils % (A) 0 %; HGB 9.7 gm/dL (13.0-17.5); Hypochromasia Slight; Lymphocytes # (A) 1.5 k/uL (1.0-4.8); Lymphocytes % (A) 10 %; MCH 29.1 pg (25.0-35.0); MCHC 31.2 g/dL (31.0-37.0); MCV 93.4 fL (80.0-100.0); Mean Platelet Volume 8.9; Monocytes # (A) 1.3 k/uL (0-1.0); Monocytes % (A) 9 %; Neutrophils # (A) 12.1 k/uL (1.3-7.7); Neutrophils % (A) 79 %; Platelet Count 184 k/uL (150-450); RBC 3.32 m/uL (4.30-5.90); WBC 15.2 k/uL (3.8-10.6)
[2021-11-02 05:50] LABS: Albumin 3.2 g/dL (3.5-5.0); Calcium 8.6 mg/dL (8.4-10.2); Potassium 4.4 mmol/L (3.5-5.1); Total Bilirubin 0.5 mg/dL (0.2-1.3); Total Protein 5.6 g/dL (6.3-8.2)
[2021-11-02 06:49] LABS: Glucose,Whole Blood 167 mg/dL (70-110)
[2021-11-02] MEDS: LEVOTHYROXINE 100 MCG TAB PO SCH (06:53)
[2021-11-02] MEDS: INSULIN ASPART (NovoLOG) 100 UNIT/ML VIAL SQ SCH ×7 (06:54→21:03)
[2021-11-02] MEDS: INSULIN DETEMIR (LEVEMIR) 100 UNIT/ML SYR SQ SCH (06:54)
--- NOTE | 2021-11-02 07:02 | XR ---
EXAMINATION TYPE: XR chest 1V portable DATE OF EXAM: 11/02/2021 5:42 AM COMPARISON: Chest radiographs from 11/01/2021. TECHNIQUE: XR chest 1V portable Frontal view of the chest. CLINICAL INDICATION:Male, 66 years old with history of post cardiac surgery; FINDINGS: Lungs/Pleura: No sizable pneumothorax. Suggested small left pleural effusion. No focal consolidation. Pulmonary vascularity: Unremarkable. Heart/mediastinum: Cardiomediastinal silhouette is prominent in size. Postoperative changes are prese nt in the mediastinum. Atherosclerotic calcification of the aorta. Musculoskeletal: No acute osseous pathology. Midline sternotomy wires are noted and stable. Cervical fusion hardware demonstrated. Lines/Tubes: Interval removal of mediastinal drain. Interval placement of right IJ catheter terminati ng in the region of the high SVC. Stable right chest tube. Removal of left chest tube. IMPRESSION: * No sizable pneumothorax. * Small suggested left pleural effusion. * Lines and tubes as described above. * Postoperative changes of CABG.
[2021-11-02] MEDS: IPRATROPIUM-ALBUTEROL 3 ML NEB INHALATION SCH ×4 (07:45→19:24)
--- NOTE | 2021-11-02 08:03 | P.PN ---
Subjective Progress Note Date: 11/02/21 Principal diagnosis: Triple-vessel diffuse coronary artery disease with totally occluded right coronary artery and left main disease, non-STEMI this admission, acute heart failure with severe left ventricular dysfunction and ejection fraction of 20- 25%. 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 lateral and inferior myocardial infarction with mild to moderate mitral valve regurgitation, left carotid stenosis with prior stroke status post left carotid endarterectomy, chr onic ongoing tobacco dependence, ulcerative colitis/GERD, hypothyroidism POD #3 insertion of intra-aortic balloon counterpulsation via the right femoral artery under ultrasound guidance, double vessel coronary artery bypass grafting using the in situ left internal mammary artery to the mid left anterior descending artery, reverse saphenous vein graft from the aorta to the ramus intermedius artery, endoscopic harvesting of the left greater saphenous vein, exclusion of the left atrial appendage using a 35 mm AtriClip, graft flow measurements using the SoNetJob system, intraoperative transesophageal echocardiogram and epi-aortic scanning Postoperative hypotension requiring vasopressor support, expected The patient was seen and examined this morning sitting up in a recliner in the intensive care unit in no acute distress. Remains in sinus rhythm, hemodynamically stable off all pressors. Patient needs much encouragement for pulmonary toileting, although he is doing slightly better today. Right internal jugular Buckner/Cordis, right brachial arterial line, right pleural chest tube all remain. Urine output stable. Did have some nausea this morning which he attributed to his pain pills. No other new concerns. Objective - Vital Signs Vital signs: Vital Signs Temp 97.5 F L 11/02/21 04:00 Pulse 74 11/02/21 07:00 Resp 20 11/02/21 07:00 BP 97/70 11/01/21 13:00 Pulse Ox 99 11/02/21 07:00 FiO2 50 10/31/21 09:45 Intake & Output 11/01/21 11/02/21 11/02/21 18:59 06:59 18:59 Intake Total 1461 552 46 Output Total 445 605 35 Balance 1016 -53 11 Weight 87.7 kg Intake: IV 621 552 46 Sodium Chloride 0.9% 1, 540 480 40 000 ml @ 20 mls/hr IV . Q24H [facility] Rx#:[id number] pressure bags 81 72 6 Oral 840 Output: Chest Tube Drainage 55 50 Chest Tube Left 0 Chest Tube Right 55 50 Mediastinal 0 Urine 390 555 35 Other: Voiding Method Indwelling Catheter Indwelling Catheter ABP, PAP, CO, CI - Last Documented Arterial Blood Pressure 136/64 Pulmonary Artery Pressure 29/15 Cardiac Output 6.3 Cardiac Index 3.1 - Exam CONSTITUTIONAL: Appears comfortable, cooperative, no acute distress RESPIRATORY: Lungs sounds diminished bilaterally. Respirations even, nonlabored. Currently on 2 L nasal cannula with oxygen saturation 97%. Able to achieve 750 mL on incentive spirometry. Stronger cough than yesterday. CARDIOVASCULAR: S1, S2 present. Regular rate and rhythm, sinus rhythm on telemetry. Sternum stable. Palpable peripheral pulses bilaterally. No edema present. No calf pain or tenderness noted. Heart hugger in place with patient demonstrating appropriate use with encouragement. Antiembolism stockings, SCDs present. GASTROINTESTINAL: Abdomen soft, nontender, nondistended. Active bowel sounds present 4 quadrants. Tolerating clear liquids. Positive flatus GENITOURINARY: Craven present draining clear, yellow urine. Output overnight 30-80 mL per hour, 945 mL in the last 24 hours INTEGUMENTARY: Skin is warm and dry with evidence of good perfusion. Anterior chest incision well approximated and covered with dry intact dressing. Lower extremity EVH site well approximated without redness or drainage. NEUROLOGIC: Cranial nerves II through XII intact MUSKULOSKELETAL: Able to move all extremities, strength equal bilaterally PSYCHIATRIC: Alert and oriented to person place and time, flat affect, very little motivation INVASIVE LINES AND TUBES: Right pleural chest tube present and connected to wall suction, no air leak present, 50 mL drainage in the last 24 hours. A/V epicardial pacemaker wires present, grounded. Right internal jugular Cordis, right brachial arterial line present. - Allied health notes Allied health notes reviewed: nursing - Labs CBC & Chem 7: 11/02/21 05:25 11/02/21 05:25 Labs: Abnormal Lab Results - Last 24 Hours (Table) 11/01/21 11/01/21 11/01/21 Range/Units 08:02 11:52 22:02 WBC (3.8-10.6) k/uL RBC (4.30-5.90) m/uL Hgb (13.0-17.5) gm/dL Hct (39.0-53.0) % Neutrophils # (1.3-7.7) k/uL Monocytes # (0-1.0) k/uL Sodium (137-145) mmol/L BUN (9-20) mg/dL Creatinine (0.66-1.25) mg/dL Glucose (74-99) mg/dL POC Glucose (mg/dL) 150 H 147 H 177 H (70-110) mg/dL Total Protein (6.3-8.2) g/dL Albumin (3.5-5.0) g/dL 11/02/21 11/02/21 11/02/21 Range/Units 02:58 05:25 05:25 WBC 15.2 H (3.8-10.6) k/uL RBC 3.32 L (4.30-5.90) m/uL Hgb 9.7 L (13.0-17.5) gm/dL Hct 31.0 L (39.0-53.0) % Neutrophils # 12.1 H (1.3-7.7) k/uL Monocytes # 1.3 H (0-1.0) k/uL Sodium 135 L (137-145) mmol/L BUN 28 H (9-20) mg/dL Creatinine 1.45 H (0.66-1.25) mg/dL Glucose 145 H (74-99) mg/dL POC Glucose (mg/dL) 163 H (70-110) mg/dL Total Protein 5.6 L (6.3-8.2) g/dL Albumin 3.2 L (3.5-5.0) g/dL 11/02/21 Range/Units 06:47 WBC (3.8-10.6) k/uL RBC (4.30-5.90) m/uL Hgb (13.0-17.5) gm/dL Hct (39.0-53.0) % Neutrophils # (1.3-7.7) k/uL Monocytes # (0-1.0) k/uL Sodium (137-145) mmol/L BUN (9-20) mg/dL Creatinine (0.66-1.25) mg/dL Glucose (74-99) mg/dL POC Glucose (mg/dL) 167 H (70-110) mg/dL Total Protein (6.3-8.2) g/dL Albumin (3.5-5.0) g/dL - Imaging and Cardiology Chest x-ray: report reviewed, image reviewed Assessment and Plan Assessment: 1. Triple-vessel diffuse coronary artery disease with totally occluded right coronary artery and left main disease, non-STEMI this admission, status post 2 vessel CABG 2. Acute heart failure with severe left ventricular dysfunction and ejection fraction of 20-25% 3. History of large old posterior lateral and inferior myocardial infarction with mild to moderate mitral valve regurgitation 4. History of left carotid stenosis with prior stroke status post left carotid endarterectomy 5. Chronic ongoing tobacco dependence with mild COPD, preoperative FEV1 73% of predicted 6. Newly diagnosed diabetes, preoperative hemoglobin A1c 6.5% 7. Ulcerative colitis/GERD 8. History of hypothyroidism, TSH < 0.015, free T4 2.6 9. Hyperlipidemia, untreated, cholesterol 170, LDL 117 10. Postoperative hypotension requiring vasopressor support, intra-aortic balloon pump assistance Plan: 1. Continue to maximize medical therapy with aspirin, statin, Plavix, beta godfrey. Will add afterload reduction when able. 2. Continue amiodarone for ventricular arrhythmia prophylaxis 3. Wean O2 as tolerated. Encourage incentive spirometry use 10 times every hour while awake. Bronchodilators per pulmonology. Patient needs encouragement for pulmonary toileting 4. Increase activity, ambulate as tolerated. PT/OT/cardiac rehab consulted 5. Will monitor daily labs and x-rays. Electrolyte replacement per protocol. No lasix today 6. GI/DVT prophylaxis 7. Pain control with current medication regimen, IV narcotics discontinued 8. Insulin management per primary care services. Patient is newly diagnosed diabetic with hemoglobin A1c 6.5% 9. Will discontinue right pleural chest tube, Cordis, arterial line 10. Discontinue Craven catheter. May bladder scan and straight cath for greater then 300 mL residual 11. Strict accurate intake and output. Daily weights 12. Started on Zoloft yesterday 13. Patient will need LifeVest at discharge 14. Will place transfer orders for 3 S. cardiac stepdown unit. May transfer when bed available 15. More recommendations to follow based on patient's progress
[2021-11-02] MEDS: PANTOPRAZOLE 40 MG TABLET PO SCH (08:35)
[2021-11-02] MEDS: SERTRALINE 50 MG TAB PO SCH (08:35)
[2021-11-02] MEDS: methocarbamoL 500 MG TAB PO SCH ×4 (08:35→21:03)
[2021-11-02] MEDS: CLOPIDOGREL 75 MG TAB PO SCH (08:35)
[2021-11-02] MEDS: ATORVASTATIN 40 MG TAB PO SCH (08:35)
[2021-11-02] MEDS: ASPIRIN 325 MG TAB PO SCH (08:35)
[2021-11-02] MEDS: AMIODARONE 200 MG TAB PO SCH ×2 (08:36→20:56)
--- NOTE | 2021-11-02 10:33 | P.PN ---
Subjective Progress Note Date: 11/02/21 Patient is a very pleasant 66-year-old male with known vascular disease status post carotid endarterectomy, hypothyroidism, nicotine dependence smokes approximately a half a pack of cigarettes daily, chronic back pain, and ulcerative colitis. Who presented to the emergency department with complaints of orthopnea and paroxysmal nocturnal dyspnea. In the ED he undewent an extensive evaluation. Initial EKG showing sinus tachycardia with left ventricular hypertrophy and T-wave inversion in lateral leads. Troponin elevated at 0.078 and proBNP 3460. Chest x-ray revealed mild pulmonary interstitial edema suggestive of acute heart failure. Patient was given aspirin 325 mg by mouth 1 dose and started on heparin infusion per ACS protocol. He was admitted and cardio was consulted. Echocardiogram revealing severely impaired EF of 20-25% with global left ventricular hypokinesis and mild mitral and tricuspid regurgitation. He underwent cardiac catheterization 10/28/21 which revealed multivessel CAD with elevated left-sided filling pressures recommending surgical evaluation for possible CABG, is felt to be too high risk for CABG they are recommending multilevel PCI. Cardiothoracic surgery consulted and patient underwent 2 vessel bypass. During OR he did have an episode of VT and required insertion of a balloon pump. He was admitted to the ICU and was requiring nitro, milrinone, vaso, levo, insulin, propofol, and amio. He did well overnight but remained intubated. Extubated on 10/31/21. Patient seen and examined at bedside. He has been up in the chair all night. States his pain is well controlled. Denies any shortness of breath. No bowel movement yet today. We again discussed the need for insulin. General: non toxic, no distress, appears at stated age Derm: warm, dry Head: atraumatic, normocephalic, symmetric Eyes: EOMI, no lid lag, anicteric sclera Mouth: no lip lesion, mucus membranes moist Cardiovascular: S1S2 reg, no murmur, positive posterior tibial pulse bilateral, Lungs: CTA bilateral, no rhonchi, no rales , no accessory muscle use Abdominal: soft, nontender to palpation, no guarding, no appreciable organomegaly Ext: no gross muscle atrophy, 1+ edema, no contractures Neuro: CN II-XI grossly intact, no focal neuro deficits Psych: Awake, oriented, appropriate affect Assessmnet/plan: Multivessel coronary artery disease s/p 2 vessel bypass on 10/30/21 NSTEMI Newly discovered, Acute systolic heart failure with EF of 20-25% - post-op mgt by CT surgery - cardio recs -Daily weights. -Close monitoring of I's and O's. - amio - ASA, lipitor, plavix, coreg Diabetes - A1C 6.5, new transition from pre diabetes to overt diabetes -Increase Levemir and fixed dose Novolog, continue sliding scale qACHS. - follow BS - Once closer to discharge consider farxiga or jardiace for heart failure and DM control Acute Blood Loss Anemia Thrombocytopenia - expected outcome of surgery - follow CBC CKD 3 - near baseline - Renal function at baseline, Cr 1.5 - follow Cr Hypothyroidism with hx of Hashimotos, Undetectable TSH - TSH undetectable and T4 elevated - Will need to discuss with patient importance of change in synthroid closer to discharge when he can more fully participate in conversation. Grief secondary to recent loss of loved one -Case management consult placed for assistance in setting up outpatient grief co unselor/therapist upon discharge. Nicotine dependence -Counseled on the importance of smoking cessation and risks associated with continued use. -Nicotine patch provided. Chronic: Prior PE GERD CVA X 2 Ulcerative colitis Active Medications Generic Name Dose Route Start Last Admin Trade Name Freq PRN Reason Stop Dose Admin Acetaminophen 650 mg 10/31/21 18:51 Acetaminophen Tab 325 Mg Tab PO Q4HR PRN Fever and/ or Pain Hydrocodone Bitart/Acetaminophen 1 each 10/31/21 18:51 Hydrocodone/Apap 7.5-325mg 1 Each Tab PO Q4HR PRN Pain Albuterol/Ipratropium 3 ml 10/30/21 15:03 Ipratropium-Albuterol 3 Ml Neb INHALATION RT-Q2H PRN Shortness Of Breath Or Wheezing Albuterol/Ipratropium 3 ml 10/31/21 08:00 11/02/21 07:45 Ipratropium-Albuterol 3 Ml Neb INHALATION 3 ml RT-QID CAN Administration Amiodarone HCl 400 mg 10/31/21 21:00 11/02/21 08:36 Amiodarone 200 Mg Tab PO 400 mg BID CAN Administration Aspirin 325 mg 10/31/21 09:00 11/02/21 08:35 Aspirin 325 Mg Tab PO 325 mg DAILY CAN Administration Atorvastatin Calcium 40 mg 10/31/21 09:00 11/02/21 08:35 Atorvastatin 40 Mg Tab PO 40 mg DAILY CAN Administration Benzocaine/Menthol 1 each 10/30/21 15:03 Benzocaine/Menthol Lozeng 1 Each Lozenge MUCOUS MEM Q2H PRN Sore Throat Bisacodyl 10 mg 10/31/21 09:00 Bisacodyl 10 Mg Supp RECTAL DAILY PRN Constipation Carvedilol 6.25 mg 11/02/21 17:30 Carvedilol 6.25 Mg Tab PO BID-W/MEALS [facility] Clopidogrel Bisulfate 75 mg 10/31/21 09:00 11/02/21 08:35 Clopidogrel 75 Mg Tab PO 75 mg DAILY [facility] Administration Heparin Sodium (Porcine) 5,000 unit 10/30/21 16:00 11/02/21 08:35 Heparin Sodium,Porcine/Pf 5,000 Unit/0.5 Ml Syringe SQ 5,000 unit Q8HR [facility] Administration Amiodarone HCl 150 mg/ 103 mls @ 618 mls/hr 10/30/21 15:03 Dextrose/Water IV .Q10M PRN A.FIB/FLUTTER Calcium Gluconate/Sodium 100 mls @ 100 mls/hr 10/30/21 15:03 Chloride 2 gm/ IV Solution IVPB 11/09/21 15:04 ONCE PRN Ionized Calcium less than 4.4 Insulin Aspart 0 unit 11/01/21 12:30 11/02/21 06:54 Insulin Aspart (Novolog) 100 Unit/Ml Vial SQ 2 unit ACHS [facility] Administration Protocol Insulin Aspart 3 unit 11/02/21 12:30 Insulin Aspart (Novolog) 100 Unit/Ml Vial SQ AC-TID [facility] Insulin Detemir 10 unit 11/03/21 07:00 Insulin Detemir (Levemir) 100 Unit/Ml Syr SQ DAILY@0700 [facility] Levothyroxine Sodium 200 mcg 10/26/21 09:00 11/02/21 06:53 Levothyroxine 100 Mcg Tab PO 200 mcg QAM@0630 [facility] Administration Magnesium Hydroxide 2,400 mg 10/31/21 09:00 Magnesium Hydroxide 2,400 Mg/10 Ml Cup PO BID PRN Constipation Methocarbamol 500 mg 10/31/21 18:00 11/02/21 08:35 Methocarbamol 500 Mg Tab PO 500 mg QID [facility] Administration Metoclopramide HCl 10 mg 10/30/21 15:03 Metoclopramide 5 Mg/Ml 2 Ml Vial IVP Q4H PRN Nausea And Vomiting Miscellaneous Information 1 each 10/30/21 15:03 Magnesium Replacement Protocol 1 Each Misc MISCELLANE DAILY PRN Per Protocol Protocol Miscellaneous Information 1 each 10/30/21 15:03 Potassium Replacement Protocol 1 Each Misc MISCELLANE DAILY PRN Per Protocol Protocol Ondansetron HCl 4 mg 10/30/21 15:03 10/31/21 15:52 Ondansetron 4 Mg/2 Ml Vial IVP 4 mg Q6HR PRN Administration Nausea And Vomiting Pantoprazole Sodium 40 mg 11/02/21 07:30 11/02/21 08:35 Pantoprazole 40 Mg Tablet PO 40 mg [id number] CAN Administration Senna/Docusate Sodium 2 each 10/31/21 21:00 11/01/21 21:52 Sennosides-Docusate Sodium 1 Each Tab PO 2 each HS CAN Administration Sertraline HCl 50 mg 11/01/21 11:00 11/02/21 08:35 Sertraline 50 Mg Tab PO 50 mg DAILY [facility] Administration Sodium Chloride 10 ml 10/30/21 21:00 11/02/21 08:36 Sodium Chloride 0.9% Flush 10 Ml Syringe IV 10 ml BID CAN Administration Objective - Vital Signs Vital signs: Vital Signs Temp 97.5 F L 11/02/21 04:00 Pulse 79 11/02/21 09:00 Resp 17 11/02/21 10:00 BP 143/64 11/02/21 10:00 Pulse Ox 94 L 11/02/21 10:00 FiO2 50 10/31/21 09:45 Intake & Output 11/01/21 11/02/21 11/02/21 18:59 06:59 18:59 Intake Total 1461 552 498 Output Total 445 605 185 Balance 1016 -53 313 Weight 87.7 kg Intake: IV 621 552 138 Sodium Chloride 0.9% 1, 540 480 120 000 ml @ 20 mls/hr IV . Q24H [facility] Rx#:[id number] pressure bags 81 72 18 Oral 840 360 Output: Chest Tube Drainage 55 50 Chest Tube Left 0 Chest Tube Right 55 50 Mediastinal 0 Urine 390 555 185 Other: Voiding Method Indwelling Catheter Indwelling Catheter Indwelling Catheter ABP, PAP, CO, CI - Last Documented Arterial Blood Pressure 124/50 Pulmonary Artery Pressure 29/15 Cardiac Output 6.3 Cardiac Index 3.1 - Labs CBC & Chem 7: 11/02/21 05:25 11/02/21 05:25 Labs: Abnormal Lab Results - Last 24 Hours (Table) 11/01/21 11/01/21 11/02/21 Range/Units 11:52 22:02 02:58 WBC (3.8-10.6) k/uL RBC (4.30-5.90) m/uL Hgb (13.0-17.5) gm/dL Hct (39.0-53.0) % Neutrophils # (1.3-7.7) k/uL Monocytes # (0-1.0) k/uL Sodium (137-145) mmol/L BUN (9-20) mg/dL Creatinine (0.66-1.25) mg/dL Glucose (74-99) mg/dL POC Glucose (mg/dL) 147 H 177 H 163 H (70-110) mg/dL Total Protein (6.3-8.2) g/dL Albumin (3.5-5.0) g/dL 11/02/21 11/02/21 11/02/21 Range/Units 05:25 05:25 06:47 WBC 15.2 H (3.8-10.6) k/uL RBC 3.32 L (4.30-5.90) m/uL Hgb 9.7 L (13.0-17.5) gm/dL Hct 31.0 L (39.0-53.0) % Neutrophils # 12.1 H (1.3-7.7) k/uL Monocytes # 1.3 H (0-1.0) k/uL Sodium 135 L (137-145) mmol/L BUN 28 H (9-20) mg/dL Creatinine 1.45 H (0.66-1.25) mg/dL Glucose 145 H (74-99) mg/dL POC Glucose (mg/dL) 167 H (70-110) mg/dL Total Protein 5.6 L (6.3-8.2) g/dL Albumin 3.2 L (3.5-5.0) g/dL
--- NOTE | 2021-11-02 11:29 | P.PN ---
Subjective Progress Note Date: 11/02/21 66-year-old male patient with past history of CVA, carotid artery disease with previous carotid endarterectomy, chronic kidney disease stage III, hypothyroidism, ulcerative colitis, history of pulmonary embolism 2 in the remote past, patient was told he was prediabetic, diet controlled, chronic back and neck pain, with previous history of cervical fusion, sleep apnea not on CPAP therapy, history of ulcerative colitis, current every day smoker, who presented to the emergency department on the 10/26/2021 with complaints of at least 3 weeks of shortness of breath, orthopnea, and PND. In the emergency department EKG was completed that showed normal sinus rhythm with left ventricular hypertrophy. Chest x-ray showed pulmonary interstitial edema. Patient's lab evaluation showed positive troponins that topped out at 0.548, proBNP was 3460, and patient was diagnosed with acute non-ST elevated myocardial infarction. Echocardiogram was completed showing severely increased left ventricular diastolic diameter, and global left ventricular hypokinesis with systolic dysfunction and EF of 20-25% area. There was no evidence of pericardial effusion. Patient underwent heart catheterization on 10/28/2021 which showed multivessel CAD with 80% left main stenosis, 40-50% proximal LAD, 75% distal LAD, 99% proximal circumflex, 90% mid RCA with [id number] collaterals, and elevated left-sided filling pressures LVEDP of 22. Patient was referred to cardiac surgery for evaluation. He was found to be a good surgical candidate. His preop FEV1 was around 73% of predicted. Chest CT was completed showing soft tissue nodule in the right lower lobe measuring 1 cm, and left upper lobe a subpleural 3 mm nodule, and other indeterminate small lung nodules. Follow-up was suggested. Patient's was scheduled for surgical revascularization surgery on 10/30/[address] Greenberg On 10/30/2021 patient seen in follow-up after 2 vessel bypass on 10/30/2021. Patient is seen in the intensive care unit sedated and intubated, on assist- control mode of ventilation with a rate of 16, tidal volume is 500, FiO2 of 60% and PEEP of 5. Postoperative blood gas is pending. Patient had episodes of V. tach intraoperatively, he is currently on multiple drips, and intra-aortic balloon pump has been inserted with one-to-one augmentation. Patient is currently on amiodarone running at 1 milligram per minute, 0.9 normal saline at a rate of 50 ML per hour, milrinone at 0.375 mics per kilo per minute, norepinephrine is at 0.04 mics per kilo per minute, vasopressin is at 0.05 units per minute, insulin infusion is currently on hold, nitroglycerin drip is at 5 mics per kilo per minute. Patient is in sinus mechanism, has AV wires in place connected to external pacemaker with VVI 50 backup rate. Patient has 2 medias tinal chest tubes with 300 mL of sanguinous output, left pleural with 380 and right pleural with 60 mL of sanguinous output, no evidence of air leak, postoperative chest x-ray has been reviewed showing mild cardiomegaly, interstitial prominence that could reflect mild pulmonary vessel congestion. M ultiple lines and catheters. [place] Tam[place] catheter is in place, PA pressures 26/16, CVP is 11, cardiac output is 4.0, and cardiac index is 2.0. Urine output is in order of 150 ML per hour. Postoperative blood gas showed pO2 of 129, pCO2 of 50, and pH of 7.34 and this was done on a heart percent FiO2 and FiO2 has since been dropped down to 50%. White blood cell count is 13.3, hemoglobin is 10.9, INR is 1.3, sodium is 138, potassium is 4.1, chloride is 108, CO2 is 25, BUN is 17 creatinine is 1.46. On 10/31/2021, the patient is postop day #2. The patient was kept on a mechanical ventilator and overnight the patient continued to be on an intra- aortic balloon pump for hemodynamic support. This morning, the patient is was sedated and the patient is on propofol at 20 mcg/kg per minute. The patient is still on a mechanical ventilator on assist control mode of mechanical ventilation at the rate of 24 with tidal volume of 500 and FiO2 of 50% with a PEEP of 5. Chest x-ray shows essentially postsurgical changes. No evidence of any pneumothorax. All of the chest tubes are in place. The patient has a total of 4 chest tubes. [place] catheter in place. No evidence of any effusion. No evidence of any pneumonia or consolidation. Blood gases from this morning shows a pH of 7.4 with a pCO2 of 59 and pO2 of 87. In terms of output from the mediastinal tubes, the total amount of output since his arrival from the operating room is been 430 mL. The left pleural chest tube has drained 400 mL. Right pleural chest tube and drained 95 mL since arrival from the operating room. There is still some intermittent air leak from the right-sided chest tube. Hemodynamically, the patient has a cardiac output of 3.8 with an index of 1.9. Pulmonary artery pressures are 34/21. The patient remains on norepinephrine infusion at 0.01 mcg/kg per minute. The patient is still on Primacor at 0.37 5 mcg/kg per minute. The patient is also on vasopressin at 0.04 units an hour. The patient is also on amiodarone drip at 0.5 mg per minute. The patient is on insulin drip at 5 units an hour. The patient did receive a dose of albumin overnight 12.5 mg. The patient's urine output is in order of 50-60 mL an hour. Normal saline is running at 50 mL an hour. The patient has an intra-aortic balloon pump with on augmentaton. The hemoglobin is at 10 platelet count is at 166, sodium level is at 135, potassium is 4.2 and the patient is a creatinine level of 1.6. The patient is afebrile. No issues with bleeding. No other complaints otherwise for now. 11/01/2021, the patient is postop day #3. The patient has been extubated. The patient also had the intra-aortic balloon pump removed yesterday without any major difficulties. Furthermore, there has been progressive weaning in his pr essors and the patient is currently on vasopressin, of norepinephrine and off milrinone. The patient is maintaining his own blood pressure. He has adequate urine output. The cardiac output is at 6.3 with an index of 3.1. The [place] catheter will be also removed today. The patient underwent two-vessel bypass surgery and the patient had an intra-aortic balloon pump./Intraoperatively was removed. Otherwise, the patient's cardiac rhythm is sinus. The patient has the mediastinal and the left pleural chest tubes also removed. The right-sided chest tube is still In place. There is a very tiny air leak. There is a very tiny right-sided pneumothorax noted on today's chest x-ray. Insulin drip is still running at 4 units an hour. The patient is awake and alert. His pain is under adequate control. He is using incentive spirometer. His white cell count of 15.4 with hemoglobin of 9.6 and a platelet count of 149. Sodium is 137. Potassium level is at 4.1. BUN is at 28 and the creatinine is at 1.6 and the patient has chronic kidney disease. No other significant events overnight. He is afebrile. He is hemodynamic is stable. Amiodarone drip was also discontinued and the patient was switched to oral amiodarone 400 mg by mouth twice a day. 11/02/2021, the patient is postop day #4. Doing extremely well. The chest x- ray from today shows no evidence of any pneumothorax and the right-sided chest tube has been also removed. The patient is still working on his incentive spi rometer. His affect of 4 and his able to generate 500 mL. He is hemodynamically stable. His cardiac rhythm is sinus. [place] catheter has been removed. Intra-aortic balloon pump has been removed. The patient is on oral amiodarone. The patient was also switched to Levemir insulin and insulin drip has been discontinued. The patient is taking 10 units once a day along with 3 units of NovoLog with meals. He also has a sliding scale coverage. The white cell count of 15.2 with hemoglobin of 9.7 and the patient has a sodium level of 134, potassium 4.4, BUN of 28 and a creatinine of 0.45. Pain is under good control and the patient is receiving [place] for pain control. Tolerating diet. No nausea or emesis. No other significant events overnight. Objective - Vital Signs Vital signs: Vital Signs Temp 97.5 F L 11/02/21 04:00 Pulse 79 11/02/21 09:00 Resp 17 11/02/21 10:00 BP 143/64 11/02/21 10:00 Pulse Ox 94 L 11/02/21 10:00 FiO2 50 10/31/21 09:45 Intake & Output 11/01/21 11/02/21 11/02/21 18:59 06:59 18:59 Intake Total 1461 552 498 Output Total 445 605 185 Balance 1016 -53 313 Weight 87.7 kg Intake: IV 621 552 138 Sodium Chloride 0.9% 1, 540 480 120 000 ml @ 20 mls/hr IV . Q24H PENDING SALE TO [facility] Rx#:[id number] pressure bags 81 72 18 Oral 840 360 Output: Chest Tube Drainage 55 50 Chest Tube Left 0 Chest Tube Right 55 50 Mediastinal 0 Urine 390 555 185 Other: Voiding Method Indwelling Catheter Indwelling Catheter Indwelling Catheter ABP, PAP, CO, CI - Last Documented Arterial Blood Pressure 124/50 Pulmonary Artery Pressure 29/15 Cardiac Output 6.3 Cardiac Index 3.1 - Exam CONSTITUTIONAL: Appears comfortable, cooperative, no acute distress RESPIRATORY: Lungs sounds diminished bilaterally. Respirations even, nonlabored. Currently on room air O2 with oxygen saturation 95%. Only able to achieve 500 mL on incentive spirometry. Weak cough. CARDIOVASCULAR: S1, S2 present. Regular rate and rhythm, sinus rhythm on telem etry. Sternum stable. Palpable peripheral pulses bilaterally. No edema present. No calf pain or tenderness noted. Heart hugger in place with patient demonstrating appropriate use with encouragement. Antiembolism stockings, SCDs present. GASTROINTESTINAL: Abdomen soft, nontender, nondistended. Hypoactive bowel sounds present 4 quadrants. Tolerating clear liquids. Denies flatus GENITOURINARY: Craven present draining clear, yellow urine. Output output is adequate for now INTEGUMENTARY: Skin is warm and dry with evidence of good perfusion. Anterior chest incision well approximated and covered with dry intact dressing. Lower extremity EVH site well approximated without redness or drainage. NEUROLOGIC: Cranial nerves II through XII intact MUSKULOSKELETAL: Able to move all extremities, strength equal bilaterally PSYCHIATRIC: Alert and oriented to person place and time, flat affect, very little motivation INVASIVE LINES AND TUBES: All of the chest is removed - Labs CBC & Chem 7: 11/02/21 05:25 11/02/21 05:25 Labs: Abnormal Lab Results - Last 24 Hours (Table) 11/01/21 11/01/21 11/02/21 Range/Units 11:52 22:02 02:58 WBC (3.8-10.6) k/uL RBC (4.30-5.90) m/uL Hgb (13.0-17.5) gm/dL Hct (39.0-53.0) % Neutrophils # (1.3-7.7) k/uL Monocytes # (0-1.0) k/uL Sodium (137-145) mmol/L BUN (9-20) mg/dL Creatinine (0.66-1.25) mg/dL Glucose (74-99) mg/dL POC Glucose (mg/dL) 147 H 177 H 163 H (70-110) mg/dL Total Protein (6.3-8.2) g/dL Albumin (3.5-5.0) g/dL 11/02/21 11/02/21 11/02/21 Range/Units 05:25 05:25 06:47 WBC 15.2 H (3.8-10.6) k/uL RBC 3.32 L (4.30-5.90) m/uL Hgb 9.7 L (13.0-17.5) gm/dL Hct 31.0 L (39.0-53.0) % Neutrophils # 12.1 H (1.3-7.7) k/uL Monocytes # 1.3 H (0-1.0) k/uL Sodium 135 L (137-145) mmol/L BUN 28 H (9-20) mg/dL Creatinine 1.45 H (0.66-1.25) mg/dL Glucose 145 H (74-99) mg/dL POC Glucose (mg/dL) 167 H (70-110) mg/dL Total Protein 5.6 L (6.3-8.2) g/dL Albumin 3.2 L (3.5-5.0) g/dL Assessment and Plan Plan: Assessment: Triple-vessel coronary artery disease and the patient is post two-vessel bypass and the patient is postop day # 3. The patient has required intra-aortic balloon pump for hemodynamic support intraoperatively and the balloon pump and pressors postop and the intra-aortic balloon pump was removed and the pressors of also been discontinued. The patient is currently hemodynamically stable, extubated. The patient is currently on room air oxygen Post thoracotomy, the patient was extubated all of the chest was admitted removed. No evidence of any pneumothorax. Currently on room air oxygen. Cardiogenic shock post bypass surgery, expected outcome knowing that the patient's preop ejection fraction of around 20-25%. The patient isoff pressors and off intra-aortic balloon pump with adequate cardiac output and index Acute non-ST elevated myocardial infarction with an underlying Multiple vessel coronary artery disease, status post two-vessel coronary artery bypass grafting Episodes of V. tach intraoperatively, currently on amiodarone oral amiodarone Ischemic cardiomyopathy with EF of 20-25% Chronic and ongoing history of smoking Indeterminate small lung nodules, will need outpatient follow-up postop coronary artery bypass grafting surgery History of hypothyroidism Chronic disease stage III at baseline, creatinine remains stable Ulcerative colitis Carotid artery disease with previous history of carotid endarterectomy History of CVA 2 Remote history of pulmonary embolism and his 20s, not on any chronic anticoagulation Probable diabetes mellitus type 2, diet-controlled COPD, with FEV1 of 73% of predicted, stage II Plan: All of the chest is of normal removed Currently on room air oxygen Increased mobility Continues incentive spirometer Continue aspirin and Plavix Levemir insulin 10 units along with a sliding scale coverage Oral amiodarone The patient is currently on oral amiodarone and a cardiac rhythm is sinus Continue using incentive spirometer We'll continue to follow
[2021-11-02 11:43] LABS: Glucose,Whole Blood 134 mg/dL (70-110)
[2021-11-02] MEDS: NICOTINE 21MG/24HR PATCH TRANSDERM SCH (12:24)
--- NOTE | 2021-11-02 17:16 | PN ---
PROGRESS NOTE FOLLOW-UP NOTE: Chuck is a 66-year-old gentleman with coronary artery disease, status post CABG, postoperative day #3. He is feeling better, ambulating with help, but complains of shortness of breath with activity. On exam, heart rate is 89 beats per minute. Blood pressure is 110/70, respiratory rate 18. Chest exam reveals good air entry bilaterally. Heart exam reveals first and second heart sounds. No gallop. He has a systolic murmur at the apex. Abdomen is soft. Examination of extremities reveals mild edema. Peripheral pulses are palpable. Labs show a potassium of 4.4, BUN is 28, creatinine is 1.4. ASSESSMENT: 1. Coronary artery disease, status post coronary artery bypass grafting. 2. Ischemic cardiomyopathy with severe left ventricular dysfunction. PLAN: Patient is currently on aspirin, Lipitor, amiodarone, Coreg, Plavix. He is going to continue these, increase his activity. Transfer him to telemetry. MMODL / IJN: [id number] /
[2021-11-02 17:48] LABS: Glucose,Whole Blood 140 mg/dL (70-110)
[2021-11-02] MEDS: carvediloL 6.25 MG TAB PO SCH (17:51)
[2021-11-02] MEDS: SENNOSIDES-DOCUSATE SODIUM 1 EACH TAB PO SCH (20:56)
[2021-11-02 21:03] LABS: Glucose,Whole Blood 187 mg/dL (70-110)
[2021-11-03] MEDS: HEPARIN SODIUM,PORCINE/PF 5,000 UNIT/0.5 ML SYRINGE SQ SCH ×3 (00:51→17:26)
[2021-11-03 02:16] LABS: Glucose,Whole Blood 140 mg/dL (70-110)
[2021-11-03 05:52] LABS: HCT 28.1 % (39.0-53.0); HGB 9.2 gm/dL (13.0-17.5); MCH 30.3 pg (25.0-35.0); MCHC 32.7 g/dL (31.0-37.0); MCV 92.7 fL (80.0-100.0); Mean Platelet Volume 8.7; Platelet Count 232 k/uL (150-450); RBC 3.03 m/uL (4.30-5.90); RDW 14.4 % (11.5-15.5); WBC 11.9 k/uL (3.8-10.6)
[2021-11-03 06:09] LABS: Calcium 8.4 mg/dL (8.4-10.2); Magnesium 2.3 mg/dL (1.6-2.3); Potassium 4.2 mmol/L (3.5-5.1)
[2021-11-03 06:36] LABS: Glucose,Whole Blood 179 mg/dL (70-110)
[2021-11-03] MEDS: INSULIN DETEMIR (LEVEMIR) 100 UNIT/ML SYR SQ SCH (06:48)
[2021-11-03] MEDS: PANTOPRAZOLE 40 MG TABLET PO SCH (06:48)
[2021-11-03] MEDS: carvediloL 6.25 MG TAB PO SCH ×2 (06:48→17:26)
[2021-11-03] MEDS: LEVOTHYROXINE 100 MCG TAB PO SCH (06:48)
[2021-11-03] MEDS: INSULIN ASPART (NovoLOG) 100 UNIT/ML VIAL SQ SCH ×7 (06:49→20:55)
--- NOTE | 2021-11-03 07:27 | P.PN ---
Subjective Progress Note Date: 11/03/21 Principal diagnosis: Triple-vessel diffuse coronary artery disease with totally occluded right coronary artery and left main disease, non-STEMI this admission, acute heart failure with severe left ventricular dysfunction and ejection fraction of 20- 25%. 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 lateral and inferior myocardial infarction with mild to moderate mitral valve regurgitation, left carotid stenosis with prior stroke status post left carotid endarterectomy, chr onic ongoing tobacco dependence, ulcerative colitis/GERD, hypothyroidism POD #4 insertion of intra-aortic balloon counterpulsation via the right femoral artery under ultrasound guidance, double vessel coronary artery bypass grafting using the in situ left internal mammary artery to the mid left anterior descending artery, reverse saphenous vein graft from the aorta to the ramus intermedius artery, endoscopic harvesting of the left greater saphenous vein, exclusion of the left atrial appendage using a 35 mm AtriClip, graft flow measurements using the [employer]stim system, intraoperative transesophageal echocardiogram and epi-aortic scanning Postoperative hypotension requiring vasopressor support, expected The patient was seen and examined this morning sitting up in a recliner in the intensive care unit in no acute distress eating breakfast. Remains in sinus rhythm, hemodynamically stable. Patient continues to improve daily. Denies pain currently, complains of shortness of breath with activity. Continues to work on incentive spirometry and ambulating in the hallway. All unnecessary lines in and tubes discontinued. Transfer orders were placed yesterday for 3 S. cardiac stepdown unit, no beds are available. No other new concerns. Objective - Vital Signs Vital signs: Vital Signs Temp 97.7 F 11/03/21 05:00 Pulse 75 11/03/21 06:00 Resp 19 11/03/21 06:00 BP 111/62 11/03/21 06:00 Pulse Ox 96 11/03/21 06:00 FiO2 50 10/31/21 09:45 Intake & Output 11/02/21 11/03/21 11/03/21 18:59 06:59 18:59 Intake Total 738 200 Output Total 535 600 Balance 203 -400 Weight 88 kg Intake: IV 138 Sodium Chloride 0.9% 1, 120 000 ml @ 20 mls/hr IV . Q24H [facility] Rx#:[id number] pressure bags 18 Oral 600 200 Output: Urine 535 600 Other: Voiding Method Urinal Urinal ABP, PAP, CO, CI - Last Documented Arterial Blood Pressure 124/50 Pulmonary Artery Pressure 29/15 Cardiac Output 6.3 Cardiac Index 3.1 - Exam CONSTITUTIONAL: Appears comfortable, cooperative, no acute distress RESPIRATORY: Lungs sounds diminished bilaterally. Respirations even, n onlabored. Currently on room air with oxygen saturation 97%. Able to achieve 5935-2257 mL on incentive spirometry. Strong cough. CARDIOVASCULAR: S1, S2 present. Regular rate and rhythm, sinus rhythm on telemetry. Sternum stable. Palpable peripheral pulses bilaterally. No edema present. No calf pain or tenderness noted. Heart hugger in place with patient demonstrating appropriate use with encouragement. Antiembolism stockings, SCDs present. GASTROINTESTINAL: Abdomen soft, nontender, nondistended. Active bowel sounds present 4 quadrants. Tolerating diet. Positive bowel movement yesterday GENITOURINARY: Craven discontinued, patient continues to void. Output 1135 mL in the last 24 hours INTEGUMENTARY: Skin is warm and dry with evidence of good perfusion. Anterior chest incision well approximated and covered with dry intact dressing. Lower extremity EVH site well approximated without redness or drainage. NEUROLOGIC: Cranial nerves II through XII intact MUSKULOSKELETAL: Able to move all extremities, strength equal bilaterally PSYCHIATRIC: Alert and oriented to person place and time, flat affect, very little motivation INVASIVE LINES AND TUBES: A/V epicardial pacemaker wires present, grounded. - Allied health notes Allied health notes reviewed: nursing - Labs CBC & Chem 7: 11/03/21 05:24 11/03/21 05:24 Labs: Abnormal Lab Results - Last 24 Hours (Table) 11/02/21 11/02/21 11/02/21 Range/Units 11:41 17:46 21:01 WBC (3.8-10.6) k/uL RBC (4.30-5.90) m/uL Hgb (13.0-17.5) gm/dL Hct (39.0-53.0) % Sodium (137-145) mmol/L BUN (9-20) mg/dL Creatinine (0.66-1.25) mg/dL Glucose (74-99) mg/dL POC Glucose (mg/dL) 134 H 140 H 187 H (70-110) mg/dL 11/03/21 11/03/21 11/03/21 Range/Units 02:14 05:24 05:24 WBC 11.9 H (3.8-10.6) k/uL RBC 3.03 L (4.30-5.90) m/uL Hgb 9.2 L (13.0-17.5) gm/dL Hct 28.1 L (39.0-53.0) % Sodium 136 L (137-145) mmol/L BUN 28 H (9-20) mg/dL Creatinine 1.36 H (0.66-1.25) mg/dL Glucose 117 H (74-99) mg/dL POC Glucose (mg/dL) 140 H (70-110) mg/dL 11/03/21 Range/Units 06:35 WBC (3.8-10.6) k/uL RBC (4.30-5.90) m/uL Hgb (13.0-17.5) gm/dL Hct (39.0-53.0) % Sodium (137-145) mmol/L BUN (9-20) mg/dL Creatinine (0.66-1.25) mg/dL Glucose (74-99) mg/dL POC Glucose (mg/dL) 179 H (70-110) mg/dL - Imaging and Cardiology Chest x-ray: image reviewed Assessment and Plan Assessment: 1. Triple-vessel diffuse coronary artery disease with totally occluded right coronary artery and left main disease, non-STEMI this admission, status post 2 vessel CABG 2. Acute heart failure with severe left ventricular dysfunction and ejection fraction of 20-25% 3. History of large old posterior lateral and inferior myocardial infarction with mild to moderate mitral valve regurgitation 4. History of left carotid stenosis with prior stroke status post left carotid endarterectomy 5. Chronic ongoing tobacco dependence with mild COPD, preoperative FEV1 73% of predicted 6. Newly diagnosed diabetes, preoperative hemoglobin A1c 6.5% 7. Ulcerative colitis/GERD 8. History of hypothyroidism, TSH < 0.015, free T4 2.6 9. Hyperlipidemia, untreated, cholesterol 170, LDL 117 10. Postoperative hypotension requiring vasopressor support, intra-aortic balloon pump assistance Plan: 1. Continue to maximize medical therapy with aspirin, statin, Plavix, beta godfrey. Will add afterload reduction when able. 2. Continue amiodarone for ventricular arrhythmia prophylaxis 3. Encourage incentive spirometry use 10 times every hour while awake. Bronchodilators per pulmonology. 4. Increase activity, ambulate as tolerated. PT/OT/cardiac rehab consulted 5. Will monitor daily labs and x-rays. Electrolyte replacement per protocol. Will give 20 mg IVP lasix this morning 6. GI/DVT prophylaxis 7. Pain control with current medication regimen 8. Insulin management per primary care services. Patient is newly diagnosed diabetic with hemoglobin A1c 6.5% 9. Strict accurate intake and output. Daily weights 10. Patient will need LifeVest at discharge 11. Transfer orders for 3 S. cardiac stepdown unit placed yesterday. May tra nsfer when bed available 12. Discharge planning in progress. Anticipate discharge to home with home care in the next 24-48 hours 13. More recommendations to follow based on patient's progress
[2021-11-03] MEDS ORDERED: INSULIN ASPART (NovoLOG) 100 UNIT/ML VIAL SQ SCH (07:30)
--- NOTE | 2021-11-03 07:36 | XR ---
EXAMINATION TYPE: XR chest 2V DATE OF EXAM: 11/03/2021 COMPARISON: 11/02/2021 INDICATION: Postcardiac surgery TECHNIQUE: Frontal and lateral views of the chest are obtained. FINDINGS: The heart size is prominent. The pulmonary vasculature is normal. Left lower lobe infiltrate is present. Small left pleural effusion is present. Sternotomy wires are p resent from prior CABG.. Right-sided chest tube is been removed. No pneumothorax is evident. IMPRESSION: 1. Mild cardiomegaly. 2. Small left pleural effusion with left lower lobe infiltrate. Correlate for atelectasis.
[2021-11-03] MEDS: IPRATROPIUM-ALBUTEROL 3 ML NEB INHALATION SCH ×4 (07:44→19:53)
[2021-11-03] MEDS: ASPIRIN 325 MG TAB PO SCH (07:48)
[2021-11-03] MEDS: CLOPIDOGREL 75 MG TAB PO SCH (07:48)
[2021-11-03] MEDS: AMIODARONE 200 MG TAB PO SCH ×2 (07:48→20:48)
[2021-11-03] MEDS: NICOTINE 21MG/24HR PATCH TRANSDERM SCH (07:49)
[2021-11-03] MEDS: methocarbamoL 500 MG TAB PO SCH ×4 (07:49→20:49)
[2021-11-03] MEDS: SERTRALINE 50 MG TAB PO SCH (07:49)
[2021-11-03] MEDS: ATORVASTATIN 40 MG TAB PO SCH (07:49)
[2021-11-03] MEDS ORDERED: FUROSEMIDE 10 MG/ML 2 ML VIAL IV ONE (08:00)
[2021-11-03] MEDS ORDERED: MELATONIN 5 MG TABLET PO PRN (08:59)
--- NOTE | 2021-11-03 09:25 | P.PN ---
Subjective Progress Note Date: 11/03/21 Patient is coronary artery bypass grafting postop day #4. He follows with Dr. Andersen in the office. He is sitting in the chair resting comfortably in no signs of acute distress. States he is doing well today. Still reports shortness of breath with activity. Patient will work with physical therapy today and have his first a shower. He continues on amiodarone for an episode intraoperative V. tach. He remains in sinus rhythm. All lines and tubes have been discontinued patient is awaiting transfer to [facility]. cardiac stepdown when a bed becomes available. Objective - Vital Signs Vital signs: Vital Signs Temp 98.4 F 11/03/21 08:00 Pulse 67 11/03/21 08:00 Resp 20 11/03/21 08:00 BP 108/57 11/03/21 08:00 Pulse Ox 96 11/03/21 08:00 FiO2 50 10/31/21 09:45 Intake & Output 11/02/21 11/03/21 11/03/21 18:59 06:59 18:59 Intake Total 738 200 360 Output Total 535 600 0 Balance 203 -400 360 Weight 88 kg Intake: IV 138 Sodium Chloride 0.9% 1, 120 000 ml @ 20 mls/hr IV . Q24H [facility] Rx#:[id number] pressure bags 18 Oral 600 200 360 Output: Urine 535 600 0 Other: Voiding Method Urinal Urinal ABP, PAP, CO, CI - Last Documented Arterial Blood Pressure 124/50 Pulmonary Artery Pressure 29/15 Cardiac Output 6.3 Cardiac Index 3.1 - Exam PHYSICAL EXAM: VITAL SIGNS: Reviewed. GENERAL: Well-developed in no acute distress. HEENT: Head is normocephalic. Pupils are equal, round. Sclerae anicteric. Mucous membranes of the mouth are moist. NECK: Supple. No JVD or thyromegaly RESPIRATORY: Respirations even and unlabored. Lungs diminished to auscultation bilaterally. CARDIO: Regular rate and rhythm. S1 and S2 heard. No murmur or gallops. EXTREMITIES: Normal range of motion. No clubbing or cyanosis. Peripheral pulses intact. Negative for bilateral lower extremity edema NEURO: Orientated to person, time, mood is appropriate - Labs CBC & Chem 7: 11/03/21 05:24 11/03/21 05:24 Labs: Abnormal Lab Results - Last 24 Hours (Table) 11/02/21 11/02/21 11/02/21 Range/Units 11:41 17:46 21:01 WBC (3.8-10.6) k/uL RBC (4.30-5.90) m/uL Hgb (13.0-17.5) gm/dL Hct (39.0-53.0) % Sodium (137-145) mmol/L BUN (9-20) mg/dL Creatinine (0.66-1.25) mg/dL Glucose (74-99) mg/dL POC Glucose (mg/dL) 134 H 140 H 187 H (70-110) mg/dL 11/03/21 11/03/21 11/03/21 Range/Units 02:14 05:24 05:24 WBC 11.9 H (3.8-10.6) k/uL RBC 3.03 L (4.30-5.90) m/uL Hgb 9.2 L (13.0-17.5) gm/dL Hct 28.1 L (39.0-53.0) % Sodium 136 L (137-145) mmol/L BUN 28 H (9-20) mg/dL Creatinine 1.36 H (0.66-1.25) mg/dL Glucose 117 H (74-99) mg/dL POC Glucose (mg/dL) 140 H (70-110) mg/dL 11/03/21 Range/Units 06:35 WBC (3.8-10.6) k/uL RBC (4.30-5.90) m/uL Hgb (13.0-17.5) gm/dL Hct (39.0-53.0) % Sodium (137-145) mmol/L BUN (9-20) mg/dL Creatinine (0.66-1.25) mg/dL Glucose (74-99) mg/dL POC Glucose (mg/dL) 179 H (70-110) mg/dL Assessment and Plan Assessment: Three-vessel coronary artery disease status post two-vessel CABG Acute systolic heart failure Hyperlipidemia History of left carotid stenosis status post left carotid endarterectomy History of CVA History of mild COPD History of hypothyroidism Plan: Continue with all current cardiac medications including aspirin statin Plavix and beta godfrey Continue with amiodarone for ventricular arrhythmia prophylaxis Continue to use incentive spirometer Continue to increase activity as tolerated Continue with daily weights and accurate I's and O's Continue with telemetry monitoring Patient will need a LifeVest upon discharge Further recommendations based on clinical course The above impression and plan of care have been discussed and directed by the signing physician. Sarika Roberts, nurse practitioner, acting as scribe for si ing physician.
[2021-11-03 11:11] LABS: Glucose,Whole Blood 122 mg/dL (70-110)
--- NOTE | 2021-11-03 12:30 | P.PN ---
Subjective Progress Note Date: 11/03/21 Patient is a very pleasant 66-year-old male with known vascular disease status post carotid endarterectomy, hypothyroidism, nicotine dependence smokes approximately a half a pack of cigarettes daily, chronic back pain, and ulcerative colitis. Who presented to the emergency department with complaints of orthopnea and paroxysmal nocturnal dyspnea. In the ED he undewent an extensive evaluation. Initial EKG showing sinus tachycardia with left ventricular hypertrophy and T-wave inversion in lateral leads. Troponin elevated at 0.078 and proBNP 3460. Chest x-ray revealed mild pulmonary interstitial edema suggestive of acute heart failure. Patient was given aspirin 325 mg by mouth 1 dose and started on heparin infusion per ACS protocol. He was admitted and cardio was consulted. Echocardiogram revealing severely impaired EF of 20-25% with global left ventricular hypokinesis and mild mitral and tricuspid regurgitation. He underwent cardiac catheterization 10/28/21 which revealed multivessel CAD with elevated left-sided filling pressures recommending surgical evaluation for possible CABG, is felt to be too high risk for CABG they are recommending multilevel PCI. Cardiothoracic surgery consulted and patient underwent 2 vessel bypass. During OR he did have an episode of VT and required insertion of a balloon pump. He was admitted to the ICU and was requiring nitro, milrinone, vaso, levo, insulin, propofol, and amio. He did well overnight but remained intubated. Extubated on 10/31/21. Patient seen and examined at bedside. He is sitting in the chair and on the phone. He has no acute concerns at this time. Per nursing unable to sleep last night, General: non toxic, no distress, appears at stated age Derm: warm, dry Head: atraumatic, normocephalic, symmetric Eyes: EOMI, no lid lag, anicteric sclera Mouth: no lip lesion, mucus membranes moist Cardiovascular: S1S2 reg, no murmur, positive posterior tibial pulse bilateral, Lungs: CTA bilateral, no rhonchi, no rales , no accessory muscle use Abdominal: soft, nontender to palpation, no guarding, no appreciable organomegaly Ext: no gross muscle atrophy, 1+ edema, no contractures Neuro: CN II-XI grossly intact, no focal neuro deficits Psych: Awake, oriented, appropriate affect Assessmnet/plan: Multivessel coronary artery disease s/p 2 vessel bypass on 10/30/21 NSTEMI Newly discovered, Acute systolic heart failure with EF of 20-25% - post-op mgt by CT surgery - cardio recs -Daily weights. -Close monitoring of I's and O's. - amio - ASA, lipitor, plavix, coreg Diabetes - A1C 6.5, new transition from pre diabetes to overt diabetes - Levemir, modify fixed dose Novolog, continue sliding scale qACHS. - follow BS - sent jardiance to pharmacy for adan check. Acute Blood Loss Anemia Thrombocytopenia, resolved - expected outcome of surgery - follow CBC Insomina - add prn melatonin CKD 3 - near baseline - Renal function at baseline, Cr 1.5 - follow Cr Hypothyroidism with hx of Hashimotos, Undetectable TSH - TSH undetectable and T4 elevated - Will need to discuss with patient importance of change in synthroid closer to discharge when he can more fully participate in conversation. -- on phone today Grief secondary to recent loss of loved one -Case management consult placed for assistance in setting up outpatient grief counselor/therapist upon discharge. Nicotine dependence -Counseled on the importance of smoking cessation and risks associated with continued use. -Nicotine patch provided. Chronic: Prior PE GERD CVA X 2 Ulcerative colitis Active Medications Generic Name Dose Route Start Last Admin Trade Name Freq PRN Reason Stop Dose Admin Acetaminophen 650 mg 10/31/21 18:51 Acetaminophen Tab 325 Mg Tab PO Q4HR PRN Fever and/ or Pain Albuterol/Ipratropium 3 ml 10/30/21 15:03 Ipratropium-Albuterol 3 Ml Neb INHALATION RT-Q2H PRN Shortness Of Breath Or Wheezing Albuterol/Ipratropium 3 ml 10/31/21 08:00 11/03/21 07:44 Ipratropium-Albuterol 3 Ml Neb INHALATION 3 ml RT-QID CAN Administration Amiodarone HCl 400 mg 10/31/21 21:00 11/03/21 07:48 Amiodarone 200 Mg Tab PO 400 mg BID CAN Administration Aspirin 325 mg 10/31/21 09:00 11/03/21 07:48 Aspirin 325 Mg Tab PO 325 mg DAILY CAN Administration Atorvastatin Calcium 40 mg 10/31/21 09:00 11/03/21 07:49 Atorvastatin 40 Mg Tab PO 40 mg DAILY CAN Administration Benzocaine/Menthol 1 each 10/30/21 15:03 Benzocaine/Menthol Lozeng 1 Each Lozenge MUCOUS MEM Q2H PRN Sore Throat Bisacodyl 10 mg 10/31/21 09:00 Bisacodyl 10 Mg Supp RECTAL DAILY PRN Constipation Carvedilol 6.25 mg 11/02/21 17:30 11/03/21 06:48 Carvedilol 6.25 Mg Tab PO 6.25 mg BID-W/MEALS CAN Administration Clopidogrel Bisulfate 75 mg 10/31/21 09:00 11/03/21 07:48 Clopidogrel 75 Mg Tab PO 75 mg DAILY CAN Administration Heparin Sodium (Porcine) 5,000 unit 10/30/21 16:00 11/03/21 07:49 Heparin Sodium,Porcine/Pf 5,000 Unit/0.5 Ml Syringe SQ 5,000 unit Q8HR CAN Administration Amiodarone HCl 150 mg/ 103 mls @ 618 mls/hr 10/30/21 15:03 Dextrose/Water IV .Q10M PRN A.FIB/FLUTTER Calcium Gluconate/Sodium 100 mls @ 100 mls/hr 10/30/21 15:03 Chloride 2 gm/ IV Solution IVPB 11/09/21 15:04 ONCE PRN Ionized Calcium less than 4.4 Insulin Aspart 0 unit 11/01/21 12:30 11/03/21 12:06 Insulin Aspart (Novolog) 100 Unit/Ml Vial SQ Not Given ACHS [facility] Protocol Insulin Aspart 5 unit 11/03/21 17:30 Insulin Aspart (Novolog) 100 Unit/Ml Vial SQ AC-SUPPER [facility] Insulin Aspart 5 unit 11/03/21 12:30 11/03/21 12:06 Insulin Aspart (Novolog) 100 Unit/Ml Vial SQ 5 unit AC-LUNCH [facility] Administration Insulin Aspart 3 unit 11/04/21 07:30 Insulin Aspart (Novolog) 100 Unit/Ml Vial SQ AC-BRKFST [facility] Insulin Detemir 10 unit 11/03/21 07:00 11/03/21 06:48 Insulin Detemir (Levemir) 100 Unit/Ml Syr SQ 10 unit DAILY@0700 CAN Administration Levothyroxine Sodium 200 mcg 10/26/21 09:00 11/03/21 06:48 Levothyroxine 100 Mcg Tab PO 200 mcg QAM@0630 [facility] Administration Magnesium Hydroxide 2,400 mg 10/31/21 09:00 Magnesium Hydroxide 2,400 Mg/10 Ml Cup PO BID PRN Constipation Melatonin 5 mg 11/03/21 08:59 Melatonin 5 Mg Tablet PO HS PRN Insomnia Methocarbamol 500 mg 10/31/21 18:00 11/03/21 12:06 Methocarbamol 500 Mg Tab PO 500 mg QID CAN Administration Metoclopramide HCl 10 mg 10/30/21 15:03 Metoclopramide 5 Mg/Ml 2 Ml Vial IVP Q4H PRN Nausea And Vomiting Miscellaneous Information 1 each 10/30/21 15:03 Magnesium Replacement Protocol 1 Each Misc MISCELLANE DAILY PRN Per Protocol Protocol Miscellaneous Information 1 each 10/30/21 15:03 Potassium Replacement Protocol 1 Each Misc MISCELLANE DAILY PRN Per Protocol Protocol Nicotine 1 patch 11/02/21 12:00 11/03/21 07:49 Nicotine 21mg/24hr Patch TRANSDERM 1 patch DAILY CAN Administration Ondansetron HCl 4 mg 10/30/21 15:03 10/31/21 15:52 Ondansetron 4 Mg/2 Ml Vial IVP 4 mg Q6HR PRN Administration Nausea And Vomiting Pantoprazole Sodium 40 mg 11/02/21 07:30 11/03/21 06:48 Pantoprazole 40 Mg Tablet PO 40 mg AC-BRKFST CAN Administration Senna/Docusate Sodium 2 each 10/31/21 21:00 11/02/21 20:56 Sennosides-Docusate Sodium 1 Each Tab PO 2 each HS CAN Administration Sertraline HCl 50 mg 11/01/21 11:00 11/03/21 07:49 Sertraline 50 Mg Tab PO 50 mg DAILY CAN Administration Sodium Chloride 10 ml 10/30/21 21:00 11/03/21 07:50 Sodium Chloride 0.9% Flush 10 Ml Syringe IV 10 ml BID CAN Administration Objective - Vital Signs Vital signs: Vital Signs Temp 98.4 F 11/03/21 12:00 Pulse 72 11/03/21 12:00 Resp 18 11/03/21 12:00 BP 125/67 11/03/21 12:00 Pulse Ox 95 11/03/21 12:00 FiO2 50 10/31/21 09:45 Intake & Output 11/02/21 11/03/21 11/03/21 18:59 06:59 18:59 Intake Total 738 200 360 Output Total 535 600 500 Balance 203 -400 -140 Weight 88 kg 88 kg Intake: IV 138 Sodium Chloride 0.9% 1, 120 000 ml @ 20 mls/hr IV . Q24H [facility] Rx#:[id number] pressure bags 18 Oral 600 200 360 Output: Urine 535 600 500 Other: Voiding Method Urinal Urinal Urinal ABP, PAP, CO, CI - Last Documented Arterial Blood Pressure 124/50 Pulmonary Artery Pressure 29/15 Cardiac Output 6.3 Cardiac Index 3.1 - Labs CBC & Chem 7: 11/03/21 05:24 11/03/21 05:24 Labs: Abnormal Lab Results - Last 24 Hours (Table) 11/02/21 11/02/21 11/03/21 Range/Units 17:46 21:01 02:14 WBC (3.8-10.6) k/uL RBC (4.30-5.90) m/uL Hgb (13.0-17.5) gm/dL Hct (39.0-53.0) % Sodium (137-145) mmol/L BUN (9-20) mg/dL Creatinine (0.66-1.25) mg/dL Glucose (74-99) mg/dL POC Glucose (mg/dL) 140 H 187 H 140 H (70-110) mg/dL 11/03/21 11/03/21 11/03/21 Range/Units 05:24 05:24 06:35 WBC 11.9 H (3.8-10.6) k/uL RBC 3.03 L (4.30-5.90) m/uL Hgb 9.2 L (13.0-17.5) gm/dL Hct 28.1 L (39.0-53.0) % Sodium 136 L (137-145) mmol/L BUN 28 H (9-20) mg/dL Creatinine 1.36 H (0.66-1.25) mg/dL Glucose 117 H (74-99) mg/dL POC Glucose (mg/dL) 179 H (70-110) mg/dL 11/03/21 Range/Units 11:09 WBC (3.8-10.6) k/uL RBC (4.30-5.90) m/uL Hgb (13.0-17.5) gm/dL Hct (39.0-53.0) % Sodium (137-145) mmol/L BUN (9-20) mg/dL Creatinine (0.66-1.25) mg/dL Glucose (74-99) mg/dL POC Glucose (mg/dL) 122 H (70-110) mg/dL
--- NOTE | 2021-11-03 12:30 | P.PN ---
Subjective Progress Note Date: 11/03/21 Principal diagnosis: Status post CABG, postoperative day #4. POD #4 insertion of intra-aortic balloon counterpulsation via the right femoral artery under ultrasound guidance, double vessel coronary artery bypass grafting using the in situ left internal mammary artery to the mid left anterior descending artery, reverse saphenous vein graft from the aorta to the ramus intermedius artery, endoscopic harvesting of the left greater saphenous vein, exclusion of the left atrial appendage using a 35 mm AtriClip, graft flow measurements using the DeliveryCheetahstim system, intraoperative transesophageal echocardiogram and epi-aortic scanning. Patient was reevaluated today on 11/03/21, patient seems to be doing fairly well, he is on room air, asymptomatic, doing well with incentive spirometry, he is however noted to have LV dysfunction with ejection fraction of 20-25% at best. Patient is hemodynamically stable, he is in sinus rhythm, and he will be transferred today to a monitor bed on selective. Chest x-ray is reassuring there is mild cardiomegaly and small left pleural effusion with left lower lobe atelectasis Objective - Vital Signs Vital signs: Vital Signs Temp 98.4 F 11/03/21 12:00 Pulse 72 11/03/21 12:00 Resp 18 11/03/21 12:00 BP 125/67 11/03/21 12:00 Pulse Ox 95 11/03/21 12:00 FiO2 50 10/31/21 09:45 Intake & Output 11/02/21 11/03/21 11/03/21 18:59 06:59 18:59 Intake Total 738 200 360 Output Total 535 600 500 Balance 203 -400 -140 Weight 88 kg 88 kg Intake: IV 138 Sodium Chloride 0.9% 1, 120 000 ml @ 20 mls/hr IV . Q24H [facility] Rx#:[id number] pressure bags 18 Oral 600 200 360 Output: Urine 535 600 500 Other: Voiding Method Urinal Urinal Urinal ABP, PAP, CO, CI - Last Documented Arterial Blood Pressure 124/50 Pulmonary Artery Pressure 29/15 Cardiac Output 6.3 Cardiac Index 3.1 - Exam CONSTITUTIONAL: Revealed a 66-year-old white male in no distress. RESPIRATORY: Diminished breath sounds at the bases no crackles or rhonchi or w heezes CARDIOVASCULAR: Distant S1 and S2, no S3 gallop, no murmur. GASTROINTESTINAL: Soft nontender no megaly no rebound no guarding. INTEGUMENTARY: Skin is warm and dry NEUROLOGIC: Alert oriented 3 focal deficits. MUSKULOSKELETAL: No deformities and no limitation in range of motion PSYCHIATRIC: Normal mood, affect and normal mental status examination. - Labs CBC & Chem 7: 11/03/21 05:24 11/03/21 05:24 Labs: Abnormal Lab Results - Last 24 Hours (Table) 11/02/21 11/02/21 11/03/21 Range/Units 17:46 21:01 02:14 WBC (3.8-10.6) k/uL RBC (4.30-5.90) m/uL Hgb (13.0-17.5) gm/dL Hct (39.0-53.0) % Sodium (137-145) mmol/L BUN (9-20) mg/dL Creatinine (0.66-1.25) mg/dL Glucose (74-99) mg/dL POC Glucose (mg/dL) 140 H 187 H 140 H (70-110) mg/dL 11/03/21 11/03/21 11/03/21 Range/Units 05:24 05:24 06:35 WBC 11.9 H (3.8-10.6) k/uL RBC 3.03 L (4.30-5.90) m/uL Hgb 9.2 L (13.0-17.5) gm/dL Hct 28.1 L (39.0-53.0) % Sodium 136 L (137-145) mmol/L BUN 28 H (9-20) mg/dL Creatinine 1.36 H (0.66-1.25) mg/dL Glucose 117 H (74-99) mg/dL POC Glucose (mg/dL) 179 H (70-110) mg/dL 11/03/21 Range/Units 11:09 WBC (3.8-10.6) k/uL RBC (4.30-5.90) m/uL Hgb (13.0-17.5) gm/dL Hct (39.0-53.0) % Sodium (137-145) mmol/L BUN (9-20) mg/dL Creatinine (0.66-1.25) mg/dL Glucose (74-99) mg/dL POC Glucose (mg/dL) 122 H (70-110) mg/dL Assessment and Plan Assessment: Impression: Status post CABG for triple vessel coronary artery disease, patient underwent two-vessel CABG. Severe ischemic cardiomyopathy and LV dysfunction Small left pleural effusion and atelectasis, expected. History of COPD, FEV1 is 73% History of type 2 diabetes. History of also of colitis. Hypothyroidism. Dyslipidemia. Postoperative hypotension requiring vasopressor support and intra-aortic balloon pump assistance expected, considering his LV dysfunction. Recommendation: Continue beta blockers Plavix statin and aspirin Continue amiodarone. Continue incentive spirometer. Continue GI and DVT prophylaxis. Pain control. Transfer patient out of the ICU to a monitored bed on selective today. We'll continue to follow Time with Patient: Less than 30
[2021-11-03 17:23] LABS: Glucose,Whole Blood 110 mg/dL (70-110)
[2021-11-03] MEDS ORDERED: SODIUM CHLORIDE 0.65% NASAL SPRAY 44 ML BTL NASAL PRN (20:15)
[2021-11-03] MEDS: SENNOSIDES-DOCUSATE SODIUM 1 EACH TAB PO SCH (20:48)
[2021-11-03 20:54] LABS: Glucose,Whole Blood 184 mg/dL (70-110)
[2021-11-03] MEDS: guaiFENesin 600 MG TABLET.ER PO SCH (21:23)
[2021-11-04] MEDS: HEPARIN SODIUM,PORCINE/PF 5,000 UNIT/0.5 ML SYRINGE SQ SCH ×3 (00:50→17:38)
[2021-11-04 02:59] LABS: Glucose,Whole Blood 132 mg/dL (70-110)
[2021-11-04 06:06] LABS: HCT 30.8 % (39.0-53.0); MCH 29.8 pg (25.0-35.0); MCHC 32.3 g/dL (31.0-37.0); Platelet Count 313 k/uL (150-450); RBC 3.35 m/uL (4.30-5.90); RDW 14.6 % (11.5-15.5); WBC 11.5 k/uL (3.8-10.6)
[2021-11-04 06:15] LABS: Calcium 8.4 mg/dL (8.4-10.2); Magnesium 2.2 mg/dL (1.6-2.3); Potassium 3.8 mmol/L (3.5-5.1)
[2021-11-04] MEDS: INSULIN DETEMIR (LEVEMIR) 100 UNIT/ML SYR SQ SCH (06:46)
[2021-11-04] MEDS: PANTOPRAZOLE 40 MG TABLET PO SCH (06:47)
[2021-11-04] MEDS: LEVOTHYROXINE 100 MCG TAB PO SCH (06:47)
[2021-11-04] MEDS: carvediloL 6.25 MG TAB PO SCH ×2 (06:47→17:36)
[2021-11-04] MEDS: INSULIN ASPART (NovoLOG) 100 UNIT/ML VIAL SQ SCH ×7 (06:48→21:54)
[2021-11-04 06:53] LABS: Glucose,Whole Blood 116 mg/dL (70-110)
[2021-11-04] MEDS ORDERED: POTASSIUM CHLORIDE ER 20 MEQ TAB.ER PO ONE (07:00)
[2021-11-04] MEDS: IPRATROPIUM-ALBUTEROL 3 ML NEB INHALATION SCH ×4 (07:28→20:48)
--- NOTE | 2021-11-04 08:06 | XR ---
EXAMINATION TYPE: XR chest 2V DATE OF EXAM: 11/04/2021 COMPARISON: 11/03/2021 TECHNIQUE: PA and lateral views submitted. HISTORY: Post cardiac surgery FINDINGS: Postoperative change with left lower lobe infiltrate and small effusion. Coarsened interstitium. No p neumothorax. Arthropathy of the shoulders. Heart size stable. IMPRESSION: 1. Left lower lobe infiltrate and small effusion stable.
--- NOTE | 2021-11-04 08:20 | P.PN ---
Subjective Progress Note Date: 11/04/21 Principal diagnosis: Triple-vessel diffuse coronary artery disease with totally occluded right coronary artery and left main disease, non-STEMI this admission, acute heart failure with severe left ventricular dysfunction and ejection fraction of 20- 25%. 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 lateral and inferior myocardial infarction with mild to moderate mitral valve regurgitation, left carotid stenosis with prior stroke status post left carotid endarterectomy, chr onic ongoing tobacco dependence, ulcerative colitis/GERD, hypothyroidism POD #5 insertion of intra-aortic balloon counterpulsation via the right femoral artery under ultrasound guidance, double vessel coronary artery bypass grafting using the in situ left internal mammary artery to the mid left anterior descending artery, reverse saphenous vein graft from the aorta to the ramus intermedius artery, endoscopic harvesting of the left greater saphenous vein, exclusion of the left atrial appendage using a 35 mm AtriClip, graft flow measurements using the [employer]ogenixstim system, intraoperative transesophageal echocardiogram and epi-aortic scanning Postoperative hypotension requiring vasopressor support, expected The patient was seen and examined this morning sitting up in a recliner in the intensive care unit in no acute distress eating breakfast. Remains in sinus rhythm, hemodynamically stable. Patient continues to improve daily. Denies pain currently, complains of shortness of breath with activity. Continues to work on incentive spirometry and ambulating in the hallway. Patient has no m edication insurance, social work is working on this. No other new concerns. Objective - Vital Signs Vital signs: Vital Signs Temp 97.6 F 11/04/21 05:00 Pulse 80 11/04/21 05:00 Resp 19 11/04/21 05:00 BP 147/66 11/04/21 05:00 Pulse Ox 96 11/04/21 05:00 FiO2 50 10/31/21 09:45 Intake & Output 11/03/21 11/04/21 11/04/21 18:59 06:59 18:59 Intake Total 840 450 Output Total 800 Balance 40 450 Weight 88 kg Intake: Oral 840 450 Output: Urine 800 Other: Voiding Method Urinal Urinal # Voids 4 # Bowel Movements 2 ABP, PAP, CO, CI - Last Documented Arterial Blood Pressure 124/50 Pulmonary Artery Pressure 29/15 Cardiac Output 6.3 Cardiac Index 3.1 - Exam CONSTITUTIONAL: Appears comfortable, cooperative, no acute distress RESPIRATORY: Lungs sounds diminished bilaterally. Respirations even, nonlabored. Currently on room air with oxygen saturation 96%. Able to achieve 2000 mL on incentive spirometry. Strong cough. CARDIOVASCULAR: S1, S2 present. Regular rate and rhythm, sinus rhythm on telemetry. Sternum stable. Palpable peripheral pulses bilaterally. Trace bilateral lower extremity edema present. No calf pain or tenderness noted. Heart hugger in place with patient demonstrating appropriate use with encouragement. Antiembolism stockings, SCDs present. GASTROINTESTINAL: Abdomen soft, nontender, nondistended. Active bowel sounds present 4 quadrants. Tolerating diet. Positive bowel movement GENITOURINARY: Patient continues to void although not always documented INTEGUMENTARY: Skin is warm and dry with evidence of good perfusion. Anterior chest incision well approximated. Lower extremity EVH site well approximated without redness or drainage. NEUROLOGIC: Cranial nerves II through XII intact MUSKULOSKELETAL: Able to move all extremities, strength equal bilaterally PSYCHIATRIC: Alert and oriented to person place and time, flat affect, very little motivation INVASIVE LINES AND TUBES: A/V epicardial pacemaker wires present, grounded. - Allied health notes Allied health notes reviewed: nursing - Labs CBC & Chem 7: 11/04/21 05:29 11/04/21 05:29 Labs: Abnormal Lab Results - Last 24 Hours (Table) 11/03/21 11/03/21 11/04/21 Range/Units 11:09 20:52 02:57 WBC (3.8-10.6) k/uL RBC (4.30-5.90) m/uL Hgb (13.0-17.5) gm/dL Hct (39.0-53.0) % BUN (9-20) mg/dL Creatinine (0.66-1.25) mg/dL Glucose (74-99) mg/dL POC Glucose (mg/dL) 122 H 184 H 132 H (70-110) mg/dL 11/04/21 11/04/21 11/04/21 Range/Units 05:29 05:29 06:51 WBC 11.5 H (3.8-10.6) k/uL RBC 3.35 L (4.30-5.90) m/uL Hgb 10.0 L (13.0-17.5) gm/dL Hct 30.8 L (39.0-53.0) % BUN 27 H (9-20) mg/dL Creatinine 1.35 H (0.66-1.25) mg/dL Glucose 105 H (74-99) mg/dL POC Glucose (mg/dL) 116 H (70-110) mg/dL - Imaging and Cardiology Chest x-ray: image reviewed Assessment and Plan Assessment: 1. Triple-vessel diffuse coronary artery disease with totally occluded right coronary artery and left main disease, non-STEMI this admission, status post 2 v essel CABG 2. Acute heart failure with severe left ventricular dysfunction and ejection fraction of 20-25% 3. History of large old posterior lateral and inferior myocardial infarction with mild to moderate mitral valve regurgitation 4. History of left carotid stenosis with prior stroke status post left carotid endarterectomy 5. Chronic ongoing tobacco dependence with mild COPD, preoperative FEV1 73% of predicted 6. Newly diagnosed diabetes, preoperative hemoglobin A1c 6.5% 7. Ulcerative colitis/GERD 8. History of hypothyroidism, TSH < 0.015, free T4 2.6 9. Hyperlipidemia, untreated, cholesterol 170, LDL 117 10. Postoperative hypotension requiring vasopressor support, intra-aortic ba lloon pump assistance Plan: 1. Continue to maximize medical therapy with aspirin, statin, Plavix, beta godfrey. Will add low dose losartan today for afterload reduction 2. Continue amiodarone for ventricular arrhythmia prophylaxis, will taper dose weekly 3. Encourage incentive spirometry use 10 times every hour while awake. Bronchodilators per pulmonology. 4. Increase activity, ambulate as tolerated. PT/OT/cardiac rehab consulted 5. Will monitor daily labs and x-rays. Electrolyte replacement per protocol. Will give 20 mg IVP lasix today 6. GI/DVT prophylaxis 7. Pain control with current medication regimen 8. Insulin management per primary care services. Patient is newly diagnosed diabetic with hemoglobin A1c 6.5% 9. Strict accurate intake and output. Daily weights 10. Patient will need LifeVest at discharge, will arrange today 11. Epicardial pacemaker wires discontinued without incident, patient to remain on bedrest for 1 hour 12. Transfer orders for 3 S. cardiac stepdown unit placed, may transfer when bed available 13. Discharge planning in progress. Anticipate discharge to home with home care in the next 24-48 hours 14. More recommendations to follow based on patient's progress
--- NOTE | 2021-11-04 09:33 | P.PN ---
Subjective Progress Note Date: 11/04/21 Patient is coronary artery bypass grafting postop day #5. He follows with Dr. Andersen in the office. Patient is examined today resting comfortably in the chair. His pacer wires had just been removed. Patient worked with physical therapy yesterday and reports his shortness of breath is improving. He denies chest pain. He remains in sinus rhythm on the monitor. Labs show hemoglobin 10 WBCs lung 0.5 sodium 138 potassium 3.8 BUN 27 creatinine 1.35. Vital signs remained stable. He continues on amiodarone aspirin atorvastatin carvedilol Plavix. He is encouraged to increase activity as tolerated. Patient will be set up with a LifeVest and possibly discharge in the next 24 hours. Objective - Vital Signs Vital signs: Vital Signs Temp 97.6 F 11/04/21 05:00 Pulse 80 11/04/21 05:00 Resp 19 11/04/21 05:00 BP 147/66 11/04/21 05:00 Pulse Ox 96 11/04/21 05:00 FiO2 50 10/31/21 09:45 Intake & Output 11/03/21 11/04/21 11/04/21 18:59 06:59 18:59 Intake Total 840 450 Output Total 800 Balance 40 450 Weight 88 kg Intake: Oral 840 450 Output: Urine 800 Other: Voiding Method Urinal Urinal # Voids 4 # Bowel Movements 2 ABP, PAP, CO, CI - Last Documented Arterial Blood Pressure 124/50 Pulmonary Artery Pressure 29/15 Cardiac Output 6.3 Cardiac Index 3.1 - Exam PHYSICAL EXAM: VITAL SIGNS: Reviewed. GENERAL: Well-developed in no acute distress. HEENT: Head is normocephalic. Pupils are equal, round. Sclerae anicteric. Mucous membranes of the mouth are moist. NECK: Supple. No JVD or thyromegaly RESPIRATORY: Respirations even and unlabored. Lungs diminished to auscultation bilaterally. CARDIO: Regular rate and rhythm. S1 and S2 heard. No murmur or gallops. EXTREMITIES: Normal range of motion. No clubbing or cyanosis. Peripheral pulses intact. Negative for bilateral lower extremity edema NEURO: Orientated to person, time, mood is appropriate - Labs CBC & Chem 7: 11/04/21 05:29 11/04/21 05:29 Labs: Abnormal Lab Results - Last 24 Hours (Table) 11/03/21 11/03/21 11/04/21 Range/Units 11:09 20:52 02:57 WBC (3.8-10.6) k/uL RBC (4.30-5.90) m/uL Hgb (13.0-17.5) gm/dL Hct (39.0-53.0) % BUN (9-20) mg/dL Creatinine (0.66-1.25) mg/dL Glucose (74-99) mg/dL POC Glucose (mg/dL) 122 H 184 H 132 H (70-110) mg/dL 11/04/21 11/04/21 11/04/21 Range/Units 05:29 05:29 06:51 WBC 11.5 H (3.8-10.6) k/uL RBC 3.35 L (4.30-5.90) m/uL Hgb 10.0 L (13.0-17.5) gm/dL Hct 30.8 L (39.0-53.0) % BUN 27 H (9-20) mg/dL Creatinine 1.35 H (0.66-1.25) mg/dL Glucose 105 H (74-99) mg/dL POC Glucose (mg/dL) 116 H (70-110) mg/dL Assessment and Plan Assessment: Three-vessel coronary artery disease status post two-vessel CABG Acute systolic heart failure Hyperlipidemia History of left carotid stenosis status post left carotid endarterectomy History of CVA History of mild COPD History of hypothyroidism Plan: Continue with all current cardiac medications including aspirin statin Plavix and beta godfrey Continue with amiodarone for ventricular arrhythmia prophylaxis Continue to use incentive spirometer Continue to increase activity as tolerated Continue with daily weights and accurate I's and O's Continue with telemetry monitoring Patient will need a LifeVest upon discharge Patient will have a follow-up outpatient echocardiogram to reevaluate LV function in 3 months Possible discharge in the next 24 hours Further recommendations based on clinical course The above impression and plan of care have been discussed and directed by the signing physician. Sarika Roberts, nurse practitioner, acting as scribe for signing physician.
[2021-11-04] MEDS: CLOPIDOGREL 75 MG TAB PO SCH (09:52)
[2021-11-04] MEDS: ATORVASTATIN 40 MG TAB PO SCH (09:52)
[2021-11-04] MEDS: AMIODARONE 200 MG TAB PO SCH ×2 (09:52→21:53)
[2021-11-04] MEDS: ASPIRIN 325 MG TAB PO SCH (09:53)
[2021-11-04] MEDS: guaiFENesin 600 MG TABLET.ER PO SCH ×2 (09:53→21:53)
[2021-11-04] MEDS: NICOTINE 21MG/24HR PATCH TRANSDERM SCH (09:53)
[2021-11-04] MEDS: SERTRALINE 50 MG TAB PO SCH (09:54)
[2021-11-04] MEDS: methocarbamoL 500 MG TAB PO SCH ×4 (09:55→21:52)
--- NOTE | 2021-11-04 11:33 | US ---
EXAMINATION TYPE: US vein mapping BIL DATE OF EXAM: 10/29/2021 12:24 PM COMPARISON: NONE CLINICAL HISTORY: PreOp Cardiac Surgery. Preop Cardiac Surgery SIDE PERFORMED: Bilateral TECHNIQUE: Lower extremity saphenous vein is examined and measured utilizing real time linear array sonography. Patient History: Smoker: Yes Heart Disease: No Previous DVT: No Vascular Surgery: Yes Discoloration: No Hypertension: No Diabetes: No Paralysis: No Varicosities: No Edema: No DUPLEX FINDINGS: Greater Saphenous: Color flow seen Measurements in mm: Right Greater Saphenous: Groin: 1.4 x 1.7 mm High Thigh: 1.0 x 1.4 mm Mid Thigh: 1.3 x 1.8 mm Above Knee: 1.3 x 2.1 mm Knee: 1.4 x 2.7 mm Below Knee: 1.0 x 2.4 mm Mid Calf: 1.3 x 2.4 mm At Ankle: 2.4 x 4.2 mm Left Greater Saphenous: Groin: 4.0 x 4.3 mm High Thigh: 3.3 x 4.5 mm Mid Thigh: 2.7 x 3.8 mm Above Knee: 2.0 x 3.5 mm Knee: 2.1 x 3.9 mm Below Knee: 2.1 x 3.7 mm Mid Calf: 1.3 x 2.3 mm At Ankle: 1.8 x 3.6 mm IMPRESSION: 1. Bilateral GSV measurements listed above. 2. Performing surgeon to determine viability as conduit.
[2021-11-04] MEDS: LOSARTAN 25 MG TAB PO SCH (11:34)
--- NOTE | 2021-11-04 11:34 | US ---
EXAMINATION TYPE: Pre-Operative Non-Invasive Evaluation of the hand for Potential Radial Artery [address], Measurements only DATE OF EXAM: 10/29/2021 1:00 PM CLINICAL HISTORY: Pre-Op Cardiac Surgery. Pre-OP SIDE PERFORMED: Bilateral TECHNIQUE: Radial artery is measured utilizing real time linear array sonography. Dominant hand: Right Duplex Findings: Radial Artery: Color flow seen Measurements in mm, transverse view: Right Radial: Proximal: 3.3 x 3.3 mm Mid: 2.9 x 3.2 mm Distal: 2.8 x 3.2 mm Left Radial: Proximal: 4.1 x 5.3 mm Mid: 2.9 x 3.5 mm Distal: 3.0 x 3.6 mm IMPRESSION: 1. Bilateral Radial artery measurements listed above. 2. Performing surgeon to determine viability as conduit.
--- NOTE | 2021-11-04 11:48 | P.PN ---
Subjective Progress Note Date: 11/04/21 Principal diagnosis: Status post CABG, postoperative day #5 POD #4 insertion of intra-aortic balloon counterpulsation via the right femoral artery under ultrasound guidance, double vessel coronary artery bypass grafting using the in situ left internal mammary artery to the mid left anterior descending artery, reverse saphenous vein graft from the aorta to the ramus intermedius artery, endoscopic harvesting of the left greater saphenous vein, exclusion of the left atrial appendage using a 35 mm AtriClip, graft flow measurements using the Medistim system, intraoperative transesophageal echocardiogram and epi-aortic scanning. Patient was reevaluated today on 11/03/21, patient seems to be doing fairly well, he is on room air, asymptomatic, doing well with incentive spirometry, he is however noted to have LV dysfunction with ejection fraction of 20-25% at best. Patient is hemodynamically stable, he is in sinus rhythm, and he will be transferred today to a monitor bed on selective. Chest x-ray is reassuring there is mild cardiomegaly and small left pleural effusion with left lower lobe atelectasis Reevaluated today on 11/04/21, patient is now postoperative day #5.insertion of intra-aortic balloon counterpulsation via the right femoral artery under ultrasound guidance, double vessel coronary artery bypass grafting using the in situ left internal mammary artery to the mid left anterior descending artery, reverse saphenous vein graft from the aorta to the ramus intermedius artery, endoscopic harvesting of the left greater saphenous vein, exclusion of the left atrial appendage using a 35 mm AtriClip, graft flow measurements using the Medistim system, intraoperative transesophageal echocardiogram and epi-aortic scanning. Patient is doing well, relatively asymptomatic, he is on room air, denies any pain or discomfort, already able to ambulate in the hallway, all his lines and catheters have been removed, patient is in the process of possibly discharge planning Objective - Vital Signs Vital signs: Vital Signs Temp 98.4 F 11/04/21 08:00 Pulse 76 11/04/21 10:00 Resp 17 11/04/21 11:00 BP 144/63 11/04/21 11:00 Pulse Ox 95 11/04/21 11:00 FiO2 50 10/31/21 09:45 Intake & Output 11/03/21 11/04/21 11/04/21 18:59 06:59 18:59 Intake Total 840 450 Output Total 800 Balance 40 450 Weight 88 kg 86.2 kg Intake: Oral 840 450 Output: Urine 800 Other: Voiding Method Urinal Urinal # Voids 4 # Bowel Movements 2 ABP, PAP, CO, CI - Last Documented Arterial Blood Pressure 124/50 Pulmonary Artery Pressure 29/15 Cardiac Output 6.3 Cardiac Index 3.1 - Exam CONSTITUTIONAL: Revealed a 66-year-old white male in no distress. RESPIRATORY: Diminished breath sounds at the bases no crackles or rhonchi or wheezes CARDIOVASCULAR: Distant S1 and S2, no S3 gallop, no murmur. GASTROINTESTINAL: Soft nontender no megaly no rebound no guarding. INTEGUMENTARY: Skin is warm and dry NEUROLOGIC: Alert oriented 3 focal deficits. MUSKULOSKELETAL: No deformities and no limitation in range of motion PSYCHIATRIC: Normal mood, affect and normal mental status examination. - Labs CBC & Chem 7: 11/04/21 05:29 11/04/21 05:29 Labs: Abnormal Lab Results - Last 24 Hours (Table) 11/03/21 11/04/21 11/04/21 Range/Units 20:52 02:57 05:29 WBC 11.5 H (3.8-10.6) k/uL RBC 3.35 L (4.30-5.90) m/uL Hgb 10.0 L (13.0-17.5) gm/dL Hct 30.8 L (39.0-53.0) % BUN (9-20) mg/dL Creatinine (0.66-1.25) mg/dL Glucose (74-99) mg/dL POC Glucose (mg/dL) 184 H 132 H (70-110) mg/dL 11/04/21 11/04/21 Range/Units 05:29 06:51 WBC (3.8-10.6) k/uL RBC (4.30-5.90) m/uL Hgb (13.0-17.5) gm/dL Hct (39.0-53.0) % BUN 27 H (9-20) mg/dL Creatinine 1.35 H (0.66-1.25) mg/dL Glucose 105 H (74-99) mg/dL POC Glucose (mg/dL) 116 H (70-110) mg/dL Assessment and Plan Assessment: Impression: Status post CABG for triple vessel coronary artery disease, patient underwent two-vessel CABG. Postoperative day #5. Severe ischemic cardiomyopathy and LV dysfunction Small left pleural effusion and atelectasis, expected. History of COPD, FEV1 is 73% History of type 2 diabetes. History of also of colitis. Hypothyroidism. Dyslipidemia. Postoperative hypotension requiring vasopressor support and intra-aortic balloon pump assistance expected, considering his LV dysfunction. Recommendation: Chest x-ray was reviewed, reassuring Continue beta blockers Plavix statin and aspirin Continue amiodarone. Continue incentive spirometer. Continue GI and DVT prophylaxis. Possible transfer to a cardiac floor, and discharge planning in the next 24 hours We'll continue to follow Time with Patient: Less than 30
[2021-11-04 12:53] LABS: Glucose,Whole Blood 116 mg/dL (70-110)
--- NOTE | 2021-11-04 13:53 | P.PN ---
Subjective Progress Note Date: 11/04/21 Patient states that he feels tired. He states that he has been getting stronger since the surgery. I discussed adjusting his thyroid medication. Patient states that he does not want us to adjusted. He states that he will follow-up with his PCP and get a repeat TSH. Objective - Vital Signs Vital signs: Vital Signs Temp 98.4 F 11/04/21 08:00 Pulse 76 11/04/21 10:00 Resp 17 11/04/21 11:00 BP 144/63 11/04/21 11:00 Pulse Ox 95 11/04/21 11:00 FiO2 50 10/31/21 09:45 Intake & Output 11/03/21 11/04/21 11/04/21 18:59 06:59 18:59 Intake Total 840 450 Output Total 800 300 Balance 40 450 -300 Weight 88 kg 86.2 kg Intake: Oral 840 450 Output: Urine 800 300 Other: Voiding Method Urinal Urinal Urinal # Voids 4 # Bowel Movements 2 ABP, PAP, CO, CI - Last Documented Arterial Blood Pressure 124/50 Pulmonary Artery Pressure 29/15 Cardiac Output 6.3 Cardiac Index 3.1 - Exam General examination - Alert and Oriented 3 in NAD Heart - + S1S2 no murmurs Lungs -diminished breath sounds bilaterally Abdomen soft NT ND +ve BS Extremities - No edema TOW MATE - Moving all 4 extremities spontaneously Psych - Calm and cooperative - Labs CBC & Chem 7: 11/04/21 05:29 11/04/21 05:29 Labs: Abnormal Lab Results - Last 24 Hours (Table) 11/03/21 11/04/21 11/04/21 Range/Units 20:52 02:57 05:29 WBC 11.5 H (3.8-10.6) k/uL RBC 3.35 L (4.30-5.90) m/uL Hgb 10.0 L (13.0-17.5) gm/dL Hct 30.8 L (39.0-53.0) % BUN (9-20) mg/dL Creatinine (0.66-1.25) mg/dL Glucose (74-99) mg/dL POC Glucose (mg/dL) 184 H 132 H (70-110) mg/dL 11/04/21 11/04/21 11/04/21 Range/Units 05:29 06:51 12:52 WBC (3.8-10.6) k/uL RBC (4.30-5.90) m/uL Hgb (13.0-17.5) gm/dL Hct (39.0-53.0) % BUN 27 H (9-20) mg/dL Creatinine 1.35 H (0.66-1.25) mg/dL Glucose 105 H (74-99) mg/dL POC Glucose (mg/dL) 116 H 116 H (70-110) mg/dL Assessment and Plan Assessment: Multivessel coronary artery disease s/p 2 vessel bypass on 10/30/21 NSTEMI Newly discovered, Acute systolic heart failure with EF of 20-25% - post-op mgt by CT surgery - cardio recs -Daily weights. -Close monitoring of I's and O's. - amio - ASA, lipitor, plavix, coreg Diabetes - A1C 6.5, new transition from pre diabetes to overt diabetes - Patient does not have insurance. I send glipizide to the in-house pharmacy. If too expensive we'll tell patient to go to [facility] where it is available for $4. We'll give patient a paper prescription. Acute Blood Loss Anemia Thrombocytopenia, resolved - expected outcome of surgery -Hemoglobin stable Insomina - add prn melatonin CKD 3 - near baseline - Renal function at baseline, Cr 1.5 - follow Cr Hypothyroidism with hx of Hashimotos, Undetectable TSH - TSH undetectable and T4 elevated - We'll have patient follow-up with PCP for repeat TSH in 6 weeks. -Patient also does not want us to adjust his thyroid medication. Grief secondary to recent loss of loved one -Case management consult placed for assistance in setting up outpatient grief co unselor/therapist upon discharge. Nicotine dependence -Counseled on the importance of smoking cessation and risks associated with continued use. -Nicotine patch provided. Chronic: Prior PE GERD CVA X 2 Ulcerative colitis
[2021-11-04 17:26] LABS: Glucose,Whole Blood 116 mg/dL (70-110)
[2021-11-04 20:28] LABS: Glucose,Whole Blood 124 mg/dL (70-110)
[2021-11-04] MEDS: SENNOSIDES-DOCUSATE SODIUM 1 EACH TAB PO SCH (21:51)
[2021-11-05] MEDS: HEPARIN SODIUM,PORCINE/PF 5,000 UNIT/0.5 ML SYRINGE SQ SCH ×3 (00:32→16:47)
--- NOTE | 2021-11-05 05:39 | P.CONS ---
History of Present Illness - Chief Complaint Cardiac debility - History of Present Illness I had the opportunity to see patient for inpatient rehab consultation with regard to cardiac debility. Patient admitted to [facility] October 16 with chest pain, non-STEMI, ejection fraction 20-25%. Eventually in's October 30 underwent [address] Pearl. Seen by cardiology and by pulmonary, Dr. Gong. Chest x-rays followed note left lower lobe infiltrate with effusion. His started therapies. PT reports supervision for bed mobility and transfers and supervision to minimal assistance for gait 328 feet, hand-held, to rest. Balance poor. OT reports independent for feeding, supervision for grooming and upper dressing, minimal assistance for lower dressing and bathing and supervision for toileting and functional mobility/transfers. Previous functional history as elicited from patient: 66-year-old right-handed white male who is recently, lives alone. Retired. Describes independent with cooking, laundry, driving, standing shower and gait with occasional need standard cane. PCP Dr. De La Paz. Smokes a half pack per day with plans on quitting. Denies alcohol. Review of Systems Review of systems: ENT: Denies sneezes or discharge. Eyes: Denies discharge or photophobia. Cardiac: Mild sternal discomfort. Pulmonary: Mild shortness of breath. Gastrointestinal: Denies nausea, emesis, constipation, diarrhea. Genitourinary: Denies discharge or frequency. Musculoskeletal: Denies muscle or bone aches. Neurologic: At least mild generalized weakness. Endocrine: Denies shakes or sweats. Oncology: Denies cancers. Dermatologic: Denies rash, itching, pruritus. ALLERGY/immunology: Denies sneezes, rashes. Past Medical History Past Medical History: CVA/TIA, GERD/Reflux, Hyperlipidemia, Hypertension, Pulmonary Embolus (PE), Sleep Apnea/CPAP/BIPAP, Thyroid Disorder Additional Past Medical History / Comment(s): "PreDiabetic, diet controlled/Hypoglycemia." Hashimotos Thyroiditis. 2 strokes 06/02, slight memory problems since, migraines, back and neck pain, severe right and mild left sciatcia, hx PE's in his 20's, varicose veins, no CPAP use, clausterphobia. 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 Ulcerative Colitis. Hiatal Hernia. History of Any Multi-Drug Resistant Organisms: None Reported Past Surgical History: Orthopedic Surgery Additional Past Surgical History / Comment(s): Neck fusion, left cartoid surgery, left arm surgery, left ankle fracture, right shoulder surgery, EGD, colonoscopies. Past Anesthesia/Blood Transfusion Reactions: Previous Problems w/ Anesthesia Additional Past Anesthesia/Blood Transfusion Reaction / Comm: "Need large amounts to put me out." "Needs to brought out slowly." Past Psychological History: Anxiety Smoking Status: Current every day smoker Past Alcohol Use History: None Reported Past Drug Use History: None Reported - Past Family History Mother Family Medical History: Congestive Heart Failure (CHF) Additional Family Medical History / Comment(s): at age 86 Father Additional Family Medical History / Comment(s): EtOH, pancreatitis Sister(s) Additional Family Medical History / Comment(s): His sister had a heart transplant in her 40s, unknown reason. Medications and Allergies Home Medications Medication Instructions Recorded Confirmed Type Aspirin EC [Ecotrin Low Dose] 81 mg PO DAILY 01/19/21 10/26/21 History Levothyroxine Sodium 200 mcg PO DAILY 01/19/21 10/26/21 History Cyclobenzaprine [Flexeril] 10 mg PO HS PRN 07/01/21 10/26/21 History Diclofenac Sodium 50 mg PO HS PRN 07/01/21 10/26/21 History Loratadine-Pseudoeph 5-120 mg 1 tab PO BID 10/26/21 10/26/21 History [Claritin-D 12 Hour] glipiZIDE [Glucotrol] 2.5 mg PO AC-BID 30 Days #30 tab 11/04/21 Rx Allergies Allergy/AdvReac Type Severity Reaction Status Date / Time cephalexin [From Keflex] Allergy Unknown Verified 10/30/21 06:05 latex Allergy Anaphylaxis Verified 10/30/21 06:05 Penicillins Allergy Unknown Verified 10/30/21 06:05 Childhood Physical Exam Vitals: Vital Signs Temp Pulse Resp BP Pulse Ox 11/05/21 01:00 64 22 118/68 94 L 11/04/21 21:00 68 18 128/98 95 11/04/21 17:00 97.8 F 70 21 127/65 95 11/04/21 16:02 8 L 115/55 11/04/21 15:00 66 13 115/55 96 11/04/21 14:00 69 2 L 115/55 95 11/04/21 13:00 65 14 115/55 95 11/04/21 12:00 98.1 F 70 15 144/63 99 11/04/21 11:00 17 144/63 95 11/04/21 10:00 76 9 L 123/64 94 L 11/04/21 09:00 76 18 144/63 92 L 11/04/21 08:00 98.4 F 144/63 11/04/21 07:00 79 23 144/63 95 11/04/21 06:00 78 19 147/66 95 Intake and Output 11/04/21 11/04/21 11/05/21 14:59 22:59 06:59 Intake Total 500 Output Total 500 0 310 Balance -500 0 190 Intake: Oral 500 Output: Urine 500 0 310 Other: Voiding Method Urinal Urinal Urinal Weight 86.2 kg Skin: Good color, texture, turgor. General: Medium build and comfortable appearance. Head: Normocephalic, atraumatic. Eyes: Symmetric. Pupils equal round. Ears: Symmetric. Hearing within normal limits. Mouth: Clear. Neck: Supple. Carotid without bruit. Cardiac: Midline incision clean and dressed. Heart hunger. Lungs: Symmetric, breathing comfortably. Abdomen: Soft active nontender. Extremities: Normal tone. Neurological: Mental status: Alert, cooperative, pleasant. Cranial nerves: Symmetric facial tone and trapezius. Motor: Normal strength and isolation all 4 limbs. Sensation: Intact throughout. DTRs: Symmetric and equal throughout. Mobility: Found in recliner, apparently sleeps in a recliner. Results CBC & Chem 7: 11/04/21 05:29 11/04/21 05:29 Labs: Abnormal Lab Results - Last 24 Hours (Table) 11/04/21 11/04/21 11/04/21 Range/Units 05:29 05:29 06:51 WBC 11.5 H (3.8-10.6) k/uL RBC 3.35 L (4.30-5.90) m/uL Hgb 10.0 L (13.0-17.5) gm/dL Hct 30.8 L (39.0-53.0) % BUN 27 H (9-20) mg/dL Creatinine 1.35 H (0.66-1.25) mg/dL Glucose 105 H (74-99) mg/dL POC Glucose (mg/dL) 116 H (70-110) mg/dL 11/04/21 11/04/21 11/04/21 Range/Units 12:52 17:24 20:27 WBC (3.8-10.6) k/uL RBC (4.30-5.90) m/uL Hgb (13.0-17.5) gm/dL Hct (39.0-53.0) % BUN (9-20) mg/dL Creatinine (0.66-1.25) mg/dL Glucose (74-99) mg/dL POC Glucose (mg/dL) 116 H 116 H 124 H (70-110) mg/dL Assessment and Plan (1) Acute non-ST elevation myocardial infarction (NSTEMI) Current Visit: Yes Status: Acute Code(s): I21.4 - NON-ST ELEVATION (NSTEMI) MYOCARDIAL INFARCTION SNOMED Code(s): 997177459 Plan: Comments and plan: Patient status post 2 vessel CABG. Doesn't admit to some generalized weakness and is concerned as he feels he has no support for return to home. Feels unable to do advanced homemaking tasks upon immediate return. I reviewed therapy notes inpatient generally doing well with occasional need of minimal assist. We'll continue to follow therapy with yourself. Have also discussed insurances typically have criteria with regard to appropriateness of inpatient rehab admissions.
[2021-11-05] MEDS: carvediloL 6.25 MG TAB PO SCH ×2 (06:51→16:47)
[2021-11-05] MEDS: LEVOTHYROXINE 100 MCG TAB PO SCH (06:51)
[2021-11-05] MEDS: PANTOPRAZOLE 40 MG TABLET PO SCH (06:52)
[2021-11-05] MEDS: INSULIN DETEMIR (LEVEMIR) 100 UNIT/ML SYR SQ SCH (06:52)
[2021-11-05] MEDS: INSULIN ASPART (NovoLOG) 100 UNIT/ML VIAL SQ SCH ×6 (06:53→16:47)
[2021-11-05 06:57] LABS: Glucose,Whole Blood 137 mg/dL (70-110)
[2021-11-05 07:27] LABS: HCT 31.4 % (39.0-53.0); HGB 10.2 gm/dL (13.0-17.5); Hypochromasia Slight; MCH 30.5 pg (25.0-35.0); MCHC 32.6 g/dL (31.0-37.0); MCV 93.7 fL (80.0-100.0); Mean Platelet Volume 8.3; Platelet Count 371 k/uL (150-450); RBC 3.35 m/uL (4.30-5.90); RDW 14.9 % (11.5-15.5); WBC 10.1 k/uL (3.8-10.6)
[2021-11-05 07:52] LABS: Calcium 8.7 mg/dL (8.4-10.2); Potassium 4.1 mmol/L (3.5-5.1)
[2021-11-05] MEDS: IPRATROPIUM-ALBUTEROL 3 ML NEB INHALATION SCH ×3 (08:19→16:16)
[2021-11-05] MEDS: ASPIRIN 325 MG TAB PO SCH (08:22)
[2021-11-05] MEDS: ATORVASTATIN 40 MG TAB PO SCH (08:22)
[2021-11-05] MEDS: NICOTINE 21MG/24HR PATCH TRANSDERM SCH (08:22)
[2021-11-05] MEDS: CLOPIDOGREL 75 MG TAB PO SCH (08:22)
[2021-11-05] MEDS: AMIODARONE 200 MG TAB PO SCH (08:22)
[2021-11-05] MEDS: guaiFENesin 600 MG TABLET.ER PO SCH (08:22)
[2021-11-05] MEDS: LOSARTAN 25 MG TAB PO SCH (08:23)
[2021-11-05] MEDS: methocarbamoL 500 MG TAB PO SCH ×3 (08:23→12:14)
[2021-11-05] MEDS: SERTRALINE 50 MG TAB PO SCH (08:23)
--- NOTE | 2021-11-05 08:33 | P.PN ---
Subjective Progress Note Date: 11/05/21 Principal diagnosis: Triple-vessel diffuse coronary artery disease with totally occluded right coronary artery and left main disease, non-STEMI this admission, acute heart failure with severe left ventricular dysfunction and ejection fraction of 20- 25%. 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 lateral and inferior myocardial infarction with mild to moderate mitral valve regurgitation, left carotid stenosis with prior stroke status post left carotid endarterectomy, chr onic ongoing tobacco dependence, ulcerative colitis/GERD, hypothyroidism POD #6 insertion of intra-aortic balloon counterpulsation via the right femoral artery under ultrasound guidance, double vessel coronary artery bypass grafting using the in situ left internal mammary artery to the mid left anterior descending artery, reverse saphenous vein graft from the aorta to the ramus intermedius artery, endoscopic harvesting of the left greater saphenous vein, exclusion of the left atrial appendage using a 35 mm AtriClip, graft flow measurements using the M[employer] system, intraoperative transesophageal echocardiogram and epi-aortic scanning Postoperative hypotension requiring vasopressor support, expected The patient was seen and examined this morning sitting up in a recliner in the intensive care unit in no acute distress. Remains in sinus rhythm, hemodynamically stable. Patient continues to improve daily. Denies pain currently, complains of shortness of breath with activity. Continues to work on incentive spirometry and ambulating in the hallway. Anticipates discharge today. Life Vest ordered yesterday. No other new concerns. Objective - Vital Signs Vital signs: Vital Signs Temp 98.3 F 11/05/21 05:00 Pulse 70 11/05/21 06:00 Resp 23 11/05/21 05:00 BP 123/57 11/05/21 05:00 Pulse Ox 96 11/05/21 05:00 FiO2 50 10/31/21 09:45 Intake & Output 11/04/21 11/05/21 11/05/21 18:59 06:59 18:59 Intake Total 500 Output Total 500 310 Balance -500 190 Weight 86.2 kg 86.6 kg Intake: Oral 500 Output: Urine 500 310 Other: Voiding Method Urinal Urinal ABP, PAP, CO, CI - Last Documented Arterial Blood Pressure 124/50 Pulmonary Artery Pressure 29/15 Cardiac Output 6.3 Cardiac Index 3.1 - Exam CONSTITUTIONAL: Appears comfortable, cooperative, no acute distress RESPIRATORY: Lungs sounds diminished bilaterally. Respirations even, nonlabored. Currently on room air with oxygen saturation 96%. Able to achieve 2500 mL on incentive spirometry. Strong cough. CARDIOVASCULAR: S1, S2 present. Regular rate and rhythm, sinus rhythm on telemetry. Sternum stable. Palpable peripheral pulses bilaterally. Trace pedal edema present. No calf pain or tenderness noted. Heart hugger in place with patient demonstrating appropriate use with encouragement. Antiembolism stockings, SCDs present. GASTROINTESTINAL: Abdomen soft, nontender, nondistended. Active bowel sounds present 4 quadrants. Tolerating diet. Positive bowel movement GENITOURINARY: Patient continues to void INTEGUMENTARY: Skin is warm and dry with evidence of good perfusion. Anterior chest incision well approximated. Lower extremity EVH site well approximated without redness or drainage. NEUROLOGIC: Cranial nerves II through XII intact MUSKULOSKELETAL: Able to move all extremities, strength equal bilaterally PSYCHIATRIC: Alert and oriented to person place and time, flat affect, very little motivation - Allied health notes Allied health notes reviewed: nursing - Labs CBC & Chem 7: 11/05/21 07:06 11/05/21 07:06 Labs: Abnormal Lab Results - Last 24 Hours (Table) 11/04/21 11/04/21 11/04/21 Range/Units 12:52 17:24 20:27 RBC (4.30-5.90) m/uL Hgb (13.0-17.5) gm/dL Hct (39.0-53.0) % BUN (9-20) mg/dL Creatinine (0.66-1.25) mg/dL Glucose (74-99) mg/dL POC Glucose (mg/dL) 116 H 116 H 124 H (70-110) mg/dL 11/05/21 11/05/21 11/05/21 Range/Units 06:55 07:06 07:06 RBC 3.35 L (4.30-5.90) m/uL Hgb 10.2 L (13.0-17.5) gm/dL Hct 31.4 L (39.0-53.0) % BUN 25 H (9-20) mg/dL Creatinine 1.40 H (0.66-1.25) mg/dL Glucose 123 H (74-99) mg/dL POC Glucose (mg/dL) 137 H (70-110) mg/dL - Imaging and Cardiology Chest x-ray: image reviewed Assessment and Plan Assessment: 1. Triple-vessel diffuse coronary artery disease with totally occluded right coronary artery and left main disease, non-STEMI this admission, status post 2 vessel CABG 2. Acute heart failure with severe left ventricular dysfunction, cardiomyopathy ejection fraction of 20-25% 3. History of large old posterior lateral and inferior myocardial infarction with mild to moderate mitral valve regurgitation 4. History of left carotid stenosis with prior stroke status post left carotid endarterectomy 5. Chronic ongoing tobacco dependence with mild COPD, preoperative FEV1 73% of predicted 6. Newly diagnosed diabetes, preoperative hemoglobin A1c 6.5% 7. Ulcerative colitis/GERD 8. History of hypothyroidism, TSH < 0.015, free T4 2.6 9. Hyperlipidemia, untreated, cholesterol 170, LDL 117 10. Postoperative hypotension requiring vasopressor support, intra-aortic balloon pump assistance Plan: 1. Continue to maximize medical therapy with aspirin, statin, Plavix, beta bloc ker, losartan 2. Continue amiodarone for ventricular arrhythmia prophylaxis, will taper dose weekly 3. Encourage incentive spirometry use 10 times every hour while awake. Bronchodilators per pulmonology. 4. Increase activity, ambulate as tolerated. PT/OT/cardiac rehab following 5. Will monitor daily labs and x-rays. Electrolyte replacement per protocol. 6. GI/DVT prophylaxis 7. Pain control with current medication regimen 8. Insulin management per primary care services. Patient is newly diagnosed diabetic with hemoglobin A1c 6.5% 9. Strict accurate intake and output. Daily weights 10. Patient will need LifeVest at discharge, ordered yesterday 11. Transfer orders for 3 S. cardiac stepdown unit placed, no bed available 12. Discharge planning in progress. Anticipate discharge to inpatient rehab today if accepted 13. More recommendations to follow based on patient's progress
[2021-11-05] MEDS ORDERED: FUROSEMIDE 10 MG/ML 2 ML VIAL IV ONE (08:45)
--- NOTE | 2021-11-05 09:44 | P.PN ---
Subjective Progress Note Date: 11/05/21 Patient denies any acute complaints. I discussed diabetes management with the patient and to also restrict his salt intake. Patient had 2 bags of chips at his table. Per nurse patient was given chips because he has a decreased appetite so they want him to eat whatever he can. Objective - Vital Signs Vital signs: Vital Signs Temp 98.1 F 11/05/21 08:00 Pulse 64 11/05/21 08:00 Resp 12 11/05/21 08:00 BP 110/64 11/05/21 08:00 Pulse Ox 94 L 11/05/21 08:00 FiO2 50 10/31/21 09:45 Intake & Output 11/04/21 11/05/21 11/05/21 18:59 06:59 18:59 Intake Total 500 Output Total 500 310 Balance -500 190 Weight 86.2 kg 86.6 kg Intake: Oral 500 Output: Urine 500 310 Other: Voiding Method Urinal Urinal Urinal # Voids 1 # Bowel Movements 1 ABP, PAP, CO, CI - Last Documented Arterial Blood Pressure 124/50 Pulmonary Artery Pressure 29/15 Cardiac Output 6.3 Cardiac Index 3.1 - Exam General examination - Alert and Oriented 3 in NAD Heart - + S1S2 no murmurs Lungs -diminished breath sounds bilaterally Abdomen soft NT ND +ve BS Extremities - No edema DIRECTOR 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 - Moving all 4 extremities spontaneously Psych - Calm and cooperative - Labs CBC & Chem 7: 11/05/21 07:06 11/05/21 07:06 Labs: Abnormal Lab Results - Last 24 Hours (Table) 11/04/21 11/04/21 11/04/21 Range/Units 12:52 17:24 20:27 RBC (4.30-5.90) m/uL Hgb (13.0-17.5) gm/dL Hct (39.0-53.0) % BUN (9-20) mg/dL Creatinine (0.66-1.25) mg/dL Glucose (74-99) mg/dL POC Glucose (mg/dL) 116 H 116 H 124 H (70-110) mg/dL 11/05/21 11/05/21 11/05/21 Range/Units 06:55 07:06 07:06 RBC 3.35 L (4.30-5.90) m/uL Hgb 10.2 L (13.0-17.5) gm/dL Hct 31.4 L (39.0-53.0) % BUN 25 H (9-20) mg/dL Creatinine 1.40 H (0.66-1.25) mg/dL Glucose 123 H (74-99) mg/dL POC Glucose (mg/dL) 137 H (70-110) mg/dL Assessment and Plan Assessment: Multivessel coronary artery disease s/p 2 vessel bypass on 10/30/21 NSTEMI Newly discovered, Acute systolic heart failure with EF of 20-25% - post-op mgt by CT surgery - cardio recs -Daily weights. -Close monitoring of I's and O's. - amio - ASA, lipitor, plavix, coreg Diabetes - A1C 6.5, new transition from pre diabetes to overt diabetes -I sent glipizide to patient's pharmacy and confirmed that it is covered by his insurance. -We'll discuss with window caser about glucometer Acute Blood Loss Anemia Thrombocytopenia, resolved - expected outcome of surgery -Hemoglobin stable Insomina - add prn melatonin CKD 3 - near baseline - Renal function at baseline, Cr 1.5 - follow Cr Hypothyroidism with hx of Hashimotos, Undetectable TSH - TSH undetectable and T4 elevated - We'll have patient follow-up with PCP for repeat TSH in 6 weeks. -Patient also does not want us to adjust his thyroid medication. Grief secondary to recent loss of loved one -Case management consult placed for assistance in setting up outpatient grief counselor/therapist upon discharge. Nicotine dependence -Counseled on the importance of smoking cessation and risks associated with continued use. -Nicotine patch provided. Chronic: Prior PE GERD CVA X 2 Ulcerative colitis Patient stable for discharge from a medical standpoint.
--- NOTE | 2021-11-05 10:42 | P.DS ---
Providers Date of admission: 10/26/21 06:43 Expected date of discharge: 11/05/21 Attending physician: Eros Greenberg Consults: 10/26/21 06:43 Consult Physician Urgent Consulting Provider: Holley Mason Consult Reason/Comments: elevTrop Do you want consulting provider notified?: Yes 10/28/21 21:16 Consult Physician Routine Consulting Provider: Eros Greenberg Consult Reason/Comments: re: CBAG eval Do you want consulting provider notified?: Yes, Notify in am 10/29/21 11:20 Consult Physician Routine Consulting Provider: Lalo Gong Consult Reason/Comments: Pulmonary Management Do you want consulting provider notified?: Already Contacted 10/29/21 13:34 Consult to Anesthesia Routine Consulting Provider: Anesthesia,Services Consult Reason/Comments: Cardiac Surgery Pre-Op 10/30/21 15:03 Consult Physician Routine Consulting Provider: Annalise Martines Consult Reason/Comments: med mgmt Do you want consulting provider notified?: Already Contacted 11/04/21 14:14 Consult Physician Routine Consulting Provider: Dusty Bonds Consult Reason/Comments: IPR at discharge Do you want consulting provider notified?: Yes [facility] Course: FINAL DIAGNOSIS: 1. Triple-vessel diffuse coronary artery disease with totally occluded right coronary artery left main disease, non-STEMI this admission 2. Acute heart failure with severe left ventricular dysfunction, cardiomyopathy with ejection fraction 20-25% 3. History of large old posterior lateral and inferior myocardial infarction with mild to moderate mitral valve regurgitation 4. History of left carotid stenosis with prior stroke, status post left carotid endarterectomy 5. Chronic ongoing tobacco dependence, mild COPD, preoperative FEV1 73% of pr edicted 6. Newly diagnosed diabetes, preoperative hemoglobin A1c 6.5% 7. Ulcerative colitis, GERD 8. History of hypothyroidism, TSH < 0.015, free T4 2.6 9. Hyperlipidemia, untreated, cholesterol 170, LDL 117 10. Postoperative hypotension requiring vasopressor support, intra-aortic balloon pump assistance PRINCIPAL PROCEDURE: 1. Insertion of intra-aortic balloon counterpulsation via the right femoral artery under ultrasound guidance 2. Double vessel coronary artery bypass grafting using the in situ left internal mammary artery to the mid left anterior descending artery, reverse saphenous vein graft from the aorta to the ramus intermedius artery 3. Endoscopic harvesting of the left greater saphenous vein 4. Exclusion of the left atrial appendage using a 35 mm AtriClip 5. Graft flow measurements using the Medistim system 6. Intraoperative transesophageal echocardiogram and epi-aortic scanning HISTORY OF PRESENT ILLNESS: This is a 66-year-old gentleman who follows on an outpatient basis with Dr. De La Paz for primary care. He presented to [facility] emergency room with complaints of paroxysmal nocturnal dyspnea and orthopnea for the previous 2-3 weeks. He denied any chest pain. Troponin was elevated, he was ruled in for NSTEMI acute heart failure/cardiomyopathy and was taken to the engineering laboratory technician which demonstrated 80% left main stenosis, 75% distal LAD stenosis, 99% proximal circumflex stenosis, 80% stenosis to the obtuse marginal 3, and 99% stenosis to the mid right coronary artery. Echocardiogram revealed EF 20-25%, mild mitral and tricuspid regurgitation. Consultation was placed to cardiothoracic surgery for surgical recommendations. He was seen by Dr. Greenberg and was recommended to undergo urgent coronary artery bypass surgery. The usual perioperative course was discussed in detail with the patient and his family, all risks and benefits were explained, all questions were answered, and consent was obtained to proceed with surgery. The patient was kept inpatient due to the nature of his disease process. HOSPITAL COURSE: The patient was brought to the preoperative area 7//, prepared in the usual fashion, and subsequently taken to the operating room where Dr. Greenberg performed two vessel CABG. Prior to going on pump the patient required intraoperative placement of intra-aortic balloon pump. Upon completion of surgery the patient was transferred to the cardiovascular intensive care unit where he was recovered and monitored hemodynamically. IABP was discontinued on post-operative day #1. He was extubated, all lines, tubes, and drips were discontinued when appropriate, and he was transferred to 3 S cardiac stepdown unit for further monitoring and rehabilitation. His oxygen was titrated down, he continued to work with physical and occupational therapy, he was tolerating oral diet, his pain was controlled, and he was ready to be discharged to [facility] inpatient rehabilitation postoperative day #6. He received written and verbal instruction regarding his medications, activity restrictions, signs and symptoms requiring physician notification, and follow-up appointments. Due to his cardiomyopathy with EF 20-25% and NSTEMI he is at risk for sudden cardiac and Life Vest was placed on patient to remain on for 4 months at all times except when taking showers. In addition, he is on amiodarone taper (400 mg twice daily until 11/07/21, 200 mg twice daily until 11/14/21, then 200 mg daily until 11/21/21). Patient Condition at Discharge: Stable Plan - Discharge Summary Discharge Rx Participant: Yes New Discharge Prescriptions: New glipiZIDE [Glucotrol] 2.5 mg PO AC-BID 30 Days #30 tab Benzocaine/Menthol Lozeng [Cepacol lozenge] 1 each MUCOUS MEM Q2H PRN lozenge PRN Reason: Sore Throat Amiodarone [Cordarone] 400 mg PO BID tab Losartan [Cozaar] 12.5 mg PO DAILY tab Ipratropium-Albuterol Nebulize [Duoneb 0.5 mg-3 mg/3 ml Soln] 3 ml INHALATION RT-Q2H PRN each PRN Reason: Shortness Of Breath Or Wheezing Nicotine 21Mg/24Hr Patch [Habitrol] 1 patch TRANSDERM DAILY patch Pantoprazole [Protonix] 40 mg PO AC-BRKFST tab Sertraline [Zoloft] 50 mg PO DAILY tab Aspirin 325 mg PO DAILY tab Sodium Chloride 0.65% Nasal [Deep Sea (Saline)] 2 spray NASAL QID PRN ml PRN Reason: Dry Nasal Passages Ipratropium-Albuterol Nebulize [Duoneb 0.5 mg-3 mg/3 ml Soln] 3 ml INHALATION RT-QID each Furosemide [Lasix] 20 mg PO DAILY #7 tab Atorvastatin [Lipitor] 40 mg PO DAILY tab Melatonin 5 mg PO HS PRN tab PRN Reason: Insomnia Magnesium Hydroxide [Milk of Magnesia Concentrate] 2,400 mg PO BID PRN ml PRN Reason: Constipation Clopidogrel [Plavix] 75 mg PO DAILY tab methocarbamoL [Robaxin] 500 mg PO QID tab Sennosides-Docusate Sodium [Senokot-S] 2 each PO HS PRN tab PRN Reason: Constipation Acetaminophen Tab [Tylenol] 650 mg PO Q4HR PRN tab PRN Reason: Fever And/ Or Pain Continue Cyclobenzaprine [Flexeril] 10 mg PO HS PRN PRN Reason: Muscle Pain Loratadine-Pseudoeph 5-120 mg [Claritin-D 12 Hour] 1 tab PO BID Levothyroxine Sodium 200 mcg PO DAILY Discontinued Diclofenac Sodium 50 mg PO HS PRN PRN Reason: Mild Pain Aspirin EC [Ecotrin Low Dose] 81 mg PO DAILY Discharge Medication List Levothyroxine Sodium 200 mcg PO DAILY 01/19/21 [History] Cyclobenzaprine [Flexeril] 10 mg PO HS PRN 07/01/21 [History] Loratadine-Pseudoeph 5-120 mg [Claritin-D 12 Hour] 1 tab PO BID 10/26/21 [History] glipiZIDE [Glucotrol] 2.5 mg PO AC-BID 30 Days #30 tab 11/04/21 [Rx] Acetaminophen Tab [Tylenol] 650 mg PO Q4HR PRN tab 11/05/21 [Rx] Amiodarone [Cordarone] 400 mg PO BID tab 11/05/21 [Rx] Aspirin 325 mg PO DAILY tab 11/05/21 [Rx] Atorvastatin [Lipitor] 40 mg PO DAILY tab 11/05/21 [Rx] Benzocaine/Menthol Lozeng [Cepacol lozenge] 1 each MUCOUS MEM Q2H PRN lozenge 11/05/21 [Rx] Clopidogrel [Plavix] 75 mg PO DAILY tab 11/05/21 [Rx] Furosemide [Lasix] 20 mg PO DAILY #7 tab 11/05/21 [Rx] Ipratropium-Albuterol Nebulize [Duoneb 0.5 mg-3 mg/3 ml Soln] 3 ml INHALATION RT-Q2H PRN each 11/05/21 [Rx] Ipratropium-Albuterol Nebulize [Duoneb 0.5 mg-3 mg/3 ml Soln] 3 ml INHALATION RT-QID each 11/05/21 [Rx] Losartan [Cozaar] 12.5 mg PO DAILY tab 11/05/21 [Rx] Magnesium Hydroxide [Milk of Magnesia Concentrate] 2,400 mg PO BID PRN ml 11/05/21 [Rx] Melatonin 5 mg PO HS PRN tab 11/05/21 [Rx] Nicotine 21Mg/24Hr Patch [Habitrol] 1 patch TRANSDERM DAILY patch 11/05/21 [Rx] Pantoprazole [Protonix] 40 mg PO AC-BRKFST tab 11/05/21 [Rx] Sennosides-Docusate Sodium [Senokot-S] 2 each PO HS PRN tab 11/05/21 [Rx] Sertraline [Zoloft] 50 mg PO DAILY tab 11/05/21 [Rx] Sodium Chloride 0.65% Nasal [Deep Sea (Saline)] 2 spray NASAL QID PRN ml 11/05/21 [Rx] methocarbamoL [Robaxin] 500 mg PO QID tab 11/05/21 [Rx] Follow up Appointment(s)/Referral(s): Himanshu Archuleta MD [STAFF PHYSICIAN] - 11/13/21 11:15 am Rehab [facility]ito PH,Cardiac [NON-STAFF] - 4 Weeks (You will receive a phone call in approximately 4-6 weeks for evaluation for cardiac rehab) Eros Greenberg MD [STAFF PHYSICIAN] - 11/28/21 10:00 am Lalo Gong MD [STAFF PHYSICIAN] - 12/03/21 1:15 pm Jimmie De La Paz DO [Primary Care Provider] - 1 Week (Please make appointment upon discharge from inpatient rehab) Ambulatory/Diagnostic Orders: Complete Blood Count w/diff [LAB.AMB] Time Frame: 3 Days, Location: None Selected Comprehensive Metabolic Panel [LAB.AMB] Time Frame: 3 Days, Location: None Selected Activity/Diet/Wound Care/Special Instructions: CONSULTATION AT [facility] INPATIENT REHAB: Dr. Archuleta for cardiology management DISCHARGE INSTRUCTIONS: 1. No driving for 4 weeks, or until physician gives their ok. 2. The patient should sleep in their own bed, no medical bed needed. 3. Stairs are not an issue. If the bedroom is upstairs, it is advised that the patient go up at night and down in the morning for the first week. Go slowly, using handrail and take 1 step at a time. 4. IRLANDA hose are to be worn for 30 days or until physician discontinues. 5. Heart hugger is to be worn 100% of the time until physician discontinues.(except when showering) 6. No lifting, pushing, or pulling more than 10 pounds for 12 weeks. The physician will advise of any restriction changes. 7. The patient is expected to continue the prescribed walking program. 8. Continue pain control per as needed orders. 9. Continue with incentive spirometry and splinting/heart hugger until otherwise directed by the physician. 10. Must shower daily using liquid antibacterial soap and a separate white washcloth for each individual incision. 11. Routine sternal incision care. No powders, lotions, ointments on incisions. No dressings are necessary on incisions unless they are draining. Dermabond tape is to remain on sternal incision until surgeon follow-up. 12. Please call surgeon/DISHWASHER BUSSER for temp greater than 101 F or purulent drainage from incisions. 13. You should weigh yourself daily, record and bring log with you to follow up appointments. 14. All prescriptions given by surgeon for 30 days. Refills need to be filled through hotel or motel receptionist/primary care physician. 15. A Red armband has been placed on the patient. It should be worn for 30 days post surgery and will be removed by the cardiac surgeons. If an ER visit is necessary, please make sure the number on the Red armband is called. 16. You have been referred to and are expected to begin Cardiac Rehab in approximately 4-6 weeks. REHAB/HOME HEALTH SERVICES TO PROVIDE: RN SKILLED HOME CARE SERVICES FOR POST-OP SURGICAL PATIENTS WITH THE FOLLOWING: Coronary Artery Bypass Surgery (CABG), Mitral Valve Replacement/Repair ( MVR), Aortic Valve Replacement/Repair (AVR) RN TO CONTINUE EDUCATION FROM ``ROAD TO A HEALTH HEART PATIENT EDUCATION MANUAL (GIVEN TO PATIENT IN THE HOSPITAL) MEDICATION RECONCILIATION WITH EDUCATION NEEDED ON FIRST HOME VISIT EMPHASIZE IMPORTANCE OF WEARING BREAST SUPPORT/HEART HUGGER ENCOURAGE USE OF INCENTIVE SPIROMETER 10 X EVERY HOUR WHILE AWAKE ENCOURAGE UTILIZATION OF LOWER EXTREMITY COMPRESSION STOCKINGS/IRLANDA HOSE and ELEVATE LEGS ABOVE LEVEL OF HEART WHILE AT REST. ENCOURAGE AMBULATION 3-5x/day INCREASING TOLERATES, WHILE AVOIDING EXTREMES IN TEMPERATURE FREQUENCY: RN TO OPEN THE PATIENT WITHIN 24 HOURS OF DISCHARGE FROM [place]PATIENT REHAB WITH [place] [facility] [place] TO VISIT 2-3 X A WEEK FOR 4 WEEKS ESTABLISHED BY PATIENT NEEDS. LABORATORY: CBC, CMP TO BE DRAWN ON THE THIRD DAY AT REHAB, (RAN STAT) FAX RESULTS TO [phone]. TELEHEALTH PARAMETERS: WEIGHT: NOTIFY MD OF WEIGHT GAIN OF 2 LBS IN 24 HOURS OR 5 LBS IN ONE WEEK HR: NOTIFY MD OF HR <55 BPM OR HR>100 BPM BP: NOTIFY MD IF BP <90/55 OR BP>140/100 O2 SAT: NOTIFY MD IF PO2<93% ON ROOM AIR SEND TELEHEALTH REPORT TO CANCER RESEARCHER AND CARDIOVASCULAR SURGEON THE FIRST WEEK OF CARE AND THEN BI-WEEKLY. PLEASE ADDITIONALLY COMMUNICATE ANY ABNORMALS AND NEW FINDINGS TO THE SURGEONS OFFICE. Discharge Disposition: DC/TRNS INTERMEDIATE CARE FAC
--- NOTE | 2021-11-05 10:59 | P.PN ---
Subjective Progress Note Date: 11/05/21 Patient is coronary artery bypass grafting postop day #6. He follows with Dr. Andersen in the office. She was seen today sitting in the chair eating breakfast and taking his morning medication. He states he is doing better than yesterday he was able to find a comfortable position and get some good sleep last night. He is examined in the ICU as 3 S. hold. He reports his shortness of breath continues to improve. He does report some mild sternal surgical pain. He thinks he was from sleeping on his side last night patient continues to remain in sinus rhythm on the monitor. Vital signs are stable. Labs today show hemoglobin 10.2 sodium 139 potassium 4.1 BUN 25 creatinine 1.4. Patient has been transitioned to oral amiodarone. Plan is for patient to be set up for a LifeVest and discharged to inpatient rehab. Hopefully today. Objective - Vital Signs Vital signs: Vital Signs Temp 98.1 F 11/05/21 08:00 Pulse 64 11/05/21 08:00 Resp 12 11/05/21 08:00 BP 110/64 11/05/21 08:00 Pulse Ox 94 L 11/05/21 08:00 FiO2 50 10/31/21 09:45 Intake & Output 11/04/21 11/05/21 11/05/21 18:59 06:59 18:59 Intake Total 500 Output Total 500 310 Balance -500 190 Weight 86.2 kg 86.6 kg Intake: Oral 500 Output: Urine 500 310 Other: Voiding Method Urinal Urinal Urinal # Voids 1 # Bowel Movements 1 ABP, PAP, CO, CI - Last Documented Arterial Blood Pressure 124/50 Pulmonary Artery Pressure 29/15 Cardiac Output 6.3 Cardiac Index 3.1 - Exam PHYSICAL EXAM: VITAL SIGNS: Reviewed. GENERAL: Well-developed in no acute distress. HEENT: Head is normocephalic. Pupils are equal, round. Sclerae anicteric. Mucous membranes of the mouth are moist. NECK: Supple. No JVD or thyromegaly RESPIRATORY: Respirations even and unlabored. Lungs diminished to auscultation bilaterally. CARDIO: Regular rate and rhythm. S1 and S2 heard. No murmur or gallops. EXTREMITIES: Normal range of motion. No clubbing or cyanosis. Peripheral pulses intact. Negative for bilateral lower extremity edema NEURO: Orientated to person, time, mood is appropriate - Labs CBC & Chem 7: 11/05/21 07:06 11/05/21 07:06 Labs: Abnormal Lab Results - Last 24 Hours (Table) 11/04/21 11/04/21 11/04/21 Range/Units 12:52 17:24 20:27 RBC (4.30-5.90) m/uL Hgb (13.0-17.5) gm/dL Hct (39.0-53.0) % BUN (9-20) mg/dL Creatinine (0.66-1.25) mg/dL Glucose (74-99) mg/dL POC Glucose (mg/dL) 116 H 116 H 124 H (70-110) mg/dL 11/05/21 11/05/21 11/05/21 Range/Units 06:55 07:06 07:06 RBC 3.35 L (4.30-5.90) m/uL Hgb 10.2 L (13.0-17.5) gm/dL Hct 31.4 L (39.0-53.0) % BUN 25 H (9-20) mg/dL Creatinine 1.40 H (0.66-1.25) mg/dL Glucose 123 H (74-99) mg/dL POC Glucose (mg/dL) 137 H (70-110) mg/dL Assessment and Plan Assessment: Three-vessel coronary artery disease status post two-vessel CABG Acute systolic heart failure Hyperlipidemia History of left carotid stenosis status post left carotid endarterectomy History of CVA History of mild COPD History of hypothyroidism Plan: Continue with all current cardiac medications including aspirin statin Plavix and beta godfrey Continue with po amiodarone for ventricular arrhythmia prophylaxis Continue to use incentive spirometer Continue to increase activity as tolerated Continue with daily weights and accurate I's and O's Continue with telemetry monitoring Patient will need a LifeVest upon discharge Patient will have a follow-up outpatient echocardiogram to reevaluate LV function in 3 months Patient cleared for inpatient rehab The above impression and plan of care have been discussed and directed by the signing physician. Sarika Roberts, nurse practitioner, acting as scribe for signing physician.
[2021-11-05 12:03] VITALS: BMI 25.9
[2021-11-05 12:07] LABS: Glucose,Whole Blood 142 mg/dL (70-110)
--- NOTE | 2021-11-05 14:07 | XR ---
EXAMINATION TYPE: XR chest 2V DATE OF EXAM: 11/05/2021 COMPARISON: 11/04/2021 INDICATION: Post cardiac surgery TECHNIQUE: Single frontal view of the chest is obtained. FINDINGS: The heart size is normal. The pulmonary vasculature is normal. Left lower lobe infiltrate is present. Correlate for atelectasis. Developing pneumonia could be consi dered. Follow-up is recommended. Sternotomy wires are present and cardiac surgery. IMPRESSION: 1. Left lower lobe infiltrate. Correlate for atelectasis or pneumonia. Follow-up is recommended.
--- NOTE | 2021-11-05 14:21 | P.PN ---
Subjective Progress Note Date: 11/05/21 Principal diagnosis: Status post CABG, postoperative day #6 POD #4 insertion of intra-aortic balloon counterpulsation via the right femoral artery under ultrasound guidance, double vessel coronary artery bypass grafting using the in situ left internal mammary artery to the mid left anterior descending artery, reverse saphenous vein graft from the aorta to the ramus intermedius artery, endoscopic harvesting of the left greater saphenous vein, exclusion of the left atrial appendage using a 35 mm AtriClip, graft flow measurements using the Medistim system, intraoperative transesophageal echocardiogram and epi-aortic scanning. Patient was reevaluated today on 11/03/21, patient seems to be doing fairly well, he is on room air, asymptomatic, doing well with incentive spirometry, he is however noted to have LV dysfunction with ejection fraction of 20-25% at best. Patient is hemodynamically stable, he is in sinus rhythm, and he will be transferred today to a monitor bed on selective. Chest x-ray is reassuring there is mild cardiomegaly and small left pleural effusion with left lower lobe atelectasis Reevaluated today on 11/04/21, patient is now postoperative day #5.insertion of intra-aortic balloon counterpulsation via the right femoral artery under ultrasound guidance, double vessel coronary artery bypass grafting using the in situ left internal mammary artery to the mid left anterior descending artery, reverse saphenous vein graft from the aorta to the ramus intermedius artery, endoscopic harvesting of the left greater saphenous vein, exclusion of the left atrial appendage using a 35 mm AtriClip, graft flow measurements using the Medistim system, intraoperative transesophageal echocardiogram and epi-aortic scanning. Patient is doing well, relatively asymptomatic, he is on room air, denies any pain or discomfort, already able to ambulate in the hallway, all his lines and catheters have been removed, patient is in the process of possibly discharge planning Reevaluated today on 11/05/21, patient is now postoperative day #6, patient is doing great, he is being considered for discharge to rehab. No major issues overnight, patient is hemodynamically stable. No cough no wheezing no shortness of breath. Objective - Vital Signs Vital signs: Vital Signs Temp 98.5 F 11/05/21 12:00 Pulse 69 11/05/21 12:00 Resp 39 H 11/05/21 13:00 BP 110/64 11/05/21 13:00 Pulse Ox 94 L 11/05/21 08:00 FiO2 50 10/31/21 09:45 Intake & Output 11/04/21 11/05/21 11/05/21 18:59 06:59 18:59 Intake Total 500 Output Total 500 310 Balance -500 190 Weight 86.2 kg 86.6 kg 86.6 kg Intake: Oral 500 Output: Urine 500 310 Other: Voiding Method Urinal Urinal Urinal # Voids 1 # Bowel Movements 1 ABP, PAP, CO, CI - Last Documented Arterial Blood Pressure 124/50 Pulmonary Artery Pressure 29/15 Cardiac Output 6.3 Cardiac Index 3.1 - Exam CONSTITUTIONAL: Revealed a 66-year-old white male in no distress. RESPIRATORY: Diminished breath sounds at the bases no crackles or rhonchi or wheezes CARDIOVASCULAR: Distant S1 and S2, no S3 gallop, no murmur. GASTROINTESTINAL: Soft nontender no megaly no rebound no guarding. INTEGUMENTARY: Skin is warm and dry NEUROLOGIC: Alert oriented 3 focal deficits. MUSKULOSKELETAL: No deformities and no limitation in range of motion PSYCHIATRIC: Normal mood, affect and normal mental status examination. - Labs CBC & Chem 7: 11/05/21 07:06 11/05/21 07:06 Labs: Abnormal Lab Results - Last 24 Hours (Table) 11/04/21 11/04/21 11/05/21 Range/Units 17:24 20:27 06:55 RBC (4.30-5.90) m/uL Hgb (13.0-17.5) gm/dL Hct (39.0-53.0) % BUN (9-20) mg/dL Creatinine (0.66-1.25) mg/dL Glucose (74-99) mg/dL POC Glucose (mg/dL) 116 H 124 H 137 H (70-110) mg/dL 11/05/21 11/05/21 11/05/21 Range/Units 07:06 07:06 12:05 RBC 3.35 L (4.30-5.90) m/uL Hgb 10.2 L (13.0-17.5) gm/dL Hct 31.4 L (39.0-53.0) % BUN 25 H (9-20) mg/dL Creatinine 1.40 H (0.66-1.25) mg/dL Glucose 123 H (74-99) mg/dL POC Glucose (mg/dL) 142 H (70-110) mg/dL Assessment and Plan Assessment: Impression: Status post CABG for triple vessel coronary artery disease, patient underwent two-vessel CABG. Postoperative day #6 Severe ischemic cardiomyopathy and LV dysfunction Small left pleural effusion and atelectasis, expected. History of COPD, FEV1 is 73% History of type 2 diabetes. History of also of colitis. Hypothyroidism. Dyslipidemia. Postoperative hypotension requiring vasopressor support and intra-aortic balloon pump assistance expected, considering his LV dysfunction. Recommendation: Chest x-ray was reviewed, reassuring Continue beta blockers Plavix statin and aspirin Continue amiodarone. Continue incentive spirometer. Agree with discharge planning today follow-up on outpatient basis. Time with Patient: Less than 30
[2021-11-05 16:44] LABS: Glucose,Whole Blood 116 mg/dL (70-110)
[2021-11-05 17:01] VITALS: BP 139/76; PULSE 79; RESP 10; TEMP 98.2
== END 2021-11-05 18:28 | disposition still patient (30) | DRG 233 ==
LOC: EC 05:01 → 3SCARD 06:43 → 2SICU 10-30 08:33
PROVIDERS: ADMIT Surgery; ATTEND Surgery
PROC: B2111ZZ Fluoroscopy of Multiple Coronary Arteries using Low Osmolar Contrast (ICD-10-PCS; 2021-10-28)
PROC: 4A023N7 Measurement of Cardiac Sampling and Pressure, Left Heart, Percutaneous Approach (ICD-10-PCS; 2021-10-28)
PROC: 021009W Bypass Coronary Artery, One Artery from Aorta with Autologous Venous Tissue, Open Approach (ICD-10-PCS; principal; 2021-10-30 08:00)
PROC: 02100Z9 Bypass Coronary Artery, One Artery from Left Internal Mammary, Open Approach (ICD-10-PCS; principal; 2021-10-30 08:00)
PROC: 5A02210 Assistance with Cardiac Output using Balloon Pump, Continuous (ICD-10-PCS; principal; 2021-10-30 08:00)
PROC: B24BZZ4 Ultrasonography of Heart with Aorta, Transesophageal (ICD-10-PCS; principal; 2021-10-30 08:00)
PROC: 06BP4ZZ Excision of Right Saphenous Vein, Percutaneous Endoscopic Approach (ICD-10-PCS; principal; 2021-10-30 08:00)
PROC: 02L70CK Occlusion of Left Atrial Appendage with Extraluminal Device, Open Approach (ICD-10-PCS; principal; 2021-10-30 08:00)
PROC: 3E043XZ Introduction of Vasopressor into Central Vein, Percutaneous Approach (ICD-10-PCS; 2021-10-30 08:00)
DX: I21.4 Non-ST elevation (NSTEMI) myocardial infarction (principal); I50.23 Acute on chronic systolic (congestive) heart failure; R57.0 Cardiogenic shock; I13.0 Hypertensive heart and chronic kidney disease with heart failure and stage 1 through stage 4 chronic kidney disease, or unspecified chronic kidney disease; I47.1 Supraventricular tachycardia; I47.2 Ventricular tachycardia; I48.92 Unspecified atrial flutter; D62 Acute posthemorrhagic anemia; J93.82 Other air leak; J98.11 Atelectasis; K51.90 Ulcerative colitis, unspecified, without complications; I25.10 Atherosclerotic heart disease of native coronary artery without angina pectoris; I25.5 Ischemic cardiomyopathy; I25.2 Old myocardial infarction; I44.7 Left bundle-branch block, unspecified; I48.91 Unspecified atrial fibrillation; I95.89 Other hypotension; D69.6 Thrombocytopenia, unspecified; E06.3 Autoimmune thyroiditis; J44.9 Chronic obstructive pulmonary disease, unspecified; E11.22 Type 2 diabetes mellitus with diabetic chronic kidney disease; N18.30 Chronic kidney disease, stage 3 unspecified; I69.311 Memory deficit following cerebral infarction; I08.1 Rheumatic disorders of both mitral and tricuspid valves; E78.5 Hyperlipidemia, unspecified; E87.6 Hypokalemia; F17.210 Nicotine dependence, cigarettes, uncomplicated; F41.9 Anxiety disorder, unspecified; G47.00 Insomnia, unspecified; K21.9 Gastro-esophageal reflux disease without esophagitis; K59.00 Constipation, unspecified; M54.32 Sciatica, left side; M54.31 Sciatica, right side; G89.29 Other chronic pain; K44.9 Diaphragmatic hernia without obstruction or gangrene; I83.90 Asymptomatic varicose veins of unspecified lower extremity; Z59.7 Insufficient social insurance and welfare support; Z63.4 Disappearance and death of family member; Z71.6 Tobacco abuse counseling; Z28.21 Immunization not carried out because of patient refusal; F40.240 Claustrophobia; G43.909 Migraine, unspecified, not intractable, without status migrainosus; Z81.1 Family history of alcohol abuse and dependence; Z82.49 Family history of ischemic heart disease and other diseases of the circulatory system; Z88.0 Allergy status to penicillin; Z88.1 Allergy status to other antibiotic agents; Z91.040 Latex allergy status; Z79.84 Long term (current) use of oral hypoglycemic drugs; Z79.82 Long term (current) use of aspirin; Z79.890 Hormone replacement therapy; Z79.899 Other long term (current) drug therapy; Z86.711 Personal history of pulmonary embolism; Z79.01 Long term (current) use of anticoagulants
CPT/HCPCS: 36415; 71045; 71046; 71250; 80048; 80053; 80061; 80074; 81003; 82330; 82550; 82553; 82803; 82805; 83036; 83735; 83880; 84432; 84439; 84442; 84443; 84484; 85025; 85027; 85520; 85610; 85730; 86376; 86800; 86850; 86891; 86900; 86901; 86920; 87070; 93005; 93306; 93308; 93458; 93880; 93922; 93930; 93970; 94002; 94003; 94150; 94640; 94760; 96365; 96366; 96375; 99285

== ENCOUNTER 2022-03-17 23:36 | Inpatient (IN) | payer MEDICARE, SELFPAY ==
[2022-03-18] MEDS ORDERED: SODIUM CHLORIDE 0.9% 1,000 ML IV STA (00:48)
--- NOTE | 2022-03-18 00:48 | ED ---
Extremity Problem HPI - General Chief complaint: Extremity Problem,Nontraumatic Stated complaint: blood pooling in toes Time Seen by Provider: 03/18/22 00:46 Source: patient Mode of arrival: ambulatory - History of Present Illness Initial comments: This is a 66-year-old male the ER today. Patient Dese for evaluation regards to lower extremity issue. Please that he is having blood plan extremities with history of DVT. Also has history of significant atherosclerosis severe. Bed blood flow to both feet. Has history of CABG recent. MD Complaint: extremity pain, extremity swelling -: hour(s) Location: left, right, toe -: Yes arthralgia Radiation: proximal Severity scale (1-10): 7 Quality: stabbing Consistency: intermittent Improves with: nothing Worsens with: nothing Associated Symptoms: denies other symptoms - Related Data Home Medications Medication Instructions Recorded Confirmed Levothyroxine Sodium 200 mcg PO DAILY 01/19/21 10/26/21 Cyclobenzaprine [Flexeril] 10 mg PO HS PRN 07/01/21 10/26/21 Loratadine-Pseudoeph 5-120 mg 1 tab PO BID 10/26/21 10/26/21 [Claritin-D 12 Hour] Previous Rx's Medication Instructions Recorded glipiZIDE [Glucotrol] 2.5 mg PO AC-BID 30 Days #30 tab 11/04/21 Acetaminophen Tab [Tylenol] 650 mg PO Q4HR PRN tab 11/05/21 Amiodarone [Cordarone] 400 mg PO BID tab 11/05/21 Aspirin 325 mg PO DAILY tab 11/05/21 Atorvastatin [Lipitor] 40 mg PO DAILY tab 11/05/21 Benzocaine/Menthol Lozeng [Cepacol 1 each MUCOUS MEM Q2H PRN lozenge 11/05/21 lozenge] Clopidogrel [Plavix] 75 mg PO DAILY tab 11/05/21 Furosemide [Lasix] 20 mg PO DAILY #7 tab 11/05/21 Ipratropium-Albuterol Nebulize 3 ml INHALATION RT-Q2H PRN each 11/05/21 [Duoneb 0.5 mg-3 mg/3 ml Soln] Ipratropium-Albuterol Nebulize 3 ml INHALATION RT-QID each 11/05/21 [Duoneb 0.5 mg-3 mg/3 ml Soln] Losartan [Cozaar] 12.5 mg PO DAILY tab 11/05/21 Magnesium Hydroxide [Milk of 2,400 mg PO BID PRN ml 11/05/21 Magnesia Concentrate] Melatonin 5 mg PO HS PRN tab 11/05/21 Nicotine 21Mg/24Hr Patch [Habitrol] 1 patch TRANSDERM DAILY patch 11/05/21 Pantoprazole [Protonix] 40 mg PO AC-BRKFST tab 11/05/21 Sennosides-Docusate Sodium 2 each PO HS PRN tab 11/05/21 [Senokot-S] Sertraline [Zoloft] 50 mg PO DAILY tab 11/05/21 Sodium Chloride 0.65% Nasal [Deep 2 spray NASAL QID PRN ml 11/05/21 Sea (Saline)] methocarbamoL [Robaxin] 500 mg PO QID tab 11/05/21 Metoprolol Succinate [Metoprolol 25 mg PO DAILY #30 tab 11/10/21 Succinate ER] Allergies Allergy/AdvReac Type Severity Reaction Status Date / Time cephalexin [From Keflex] Allergy Unknown Verified 03/18/22 00:05 latex Allergy Anaphylaxis Verified 03/18/22 00:05 Penicillins Allergy Unknown Verified 03/18/22 00:05 Childhood Review of Systems ROS Statement: Those systems with pertinent positive or pertinent negative responses have been documented in the HPI. ROS Other: All systems not noted in ROS Statement are negative. Past Medical History Past Medical History: Heart Failure, CVA/TIA, GERD/Reflux, Hyperlipidemia, Hypertension, Pulmonary Embolus (PE), Sleep Apnea/CPAP/BIPAP, Thyroid Disorder Additional Past Medical History / Comment(s): "PreDiabetic, diet controlled/Hypoglycemia." Hashimotos Thyroiditis. 2 strokes 06/02, slight memory problems since, migraines, back and neck pain, severe right and mild left sciatcia, hx PE's in his 20's, varicose veins, no CPAP use, clausterphobia. 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 Ulcerative Colitis. Hiatal Hernia. History of Any Multi-Drug Resistant Organisms: None Reported Past Surgical History: Orthopedic Surgery Additional Past Surgical History / Comment(s): Neck fusion, left cartoid s urgery, left arm surgery, left ankle fracture, right shoulder surgery, EGD, colonoscopies., cabg Past Anesthesia/Blood Transfusion Reactions: Previous Problems w/ Anesthesia Additional Past Anesthesia/Blood Transfusion Reaction / Comment(s): "Need large amounts to put me out." "Needs to brought out slowly." Past Psychological History: Anxiety Smoking Status: Current every day smoker Past Alcohol Use History: None Reported Past Drug Use History: None Reported - Past Family History Mother Family Medical History: Congestive Heart Failure (CHF) Additional Family Medical History / Comment(s): at age 86 Father Additional Family Medical History / Comment(s): EtOH, pancreatitis Sister(s) Additional Family Medical History / Comment(s): His sister had a heart transplant in her 40s, unknown reason. General Exam General appearance: alert, in no apparent distress Head exam: Present: atraumatic, normocephalic, normal inspection Eye exam: Present: normal appearance, PERRL, EOMI. Absent: scleral icterus, conjunctival injection, periorbital swelling ENT exam: Present: normal exam, mucous membranes moist Neck exam: Present: normal inspection. Absent: tenderness, meningismus, lymphadenopathy Respiratory exam: Present: normal lung sounds bilaterally. Absent: respiratory distress, wheezes, rales, rhonchi, stridor Cardiovascular Exam: Present: regular rate, normal rhythm, normal heart sounds. Absent: systolic murmur, diastolic murmur, rubs, gallop, clicks GI/Abdominal exam: Present: soft, normal bowel sounds. Absent: distended, tenderness, guarding, rebound, rigid Extremities exam: Present: normal inspection, full ROM, normal capillary refill. Absent: tenderness, pedal edema, joint swelling, calf tenderness Back exam: Present: normal inspection Neurological exam: Present: alert, oriented X3, CN II-XII intact Psychiatric exam: Present: normal affect, normal mood Skin exam: Present: warm, dry, intact, normal color. Absent: rash Course Vital Signs 03/17/22 03/18/22 23:59 02:44 Temperature 98.6 F Pulse Rate 90 88 Respiratory 19 18 Rate Blood Pressure 126/73 137/91 O2 Sat by Pulse 98 95 Oximetry - Reevaluation(s) Reevaluation #1: 03/18/22 01:24 Medical records reviewed Reevaluation #2: 03/18/22 02:52 A she has symptom improvement here in the ER Reevaluation #3: 03/18/22 02:52 patient informed of results questions are answered - Consultations Consultation #1: Spoke with admitting physicians will be to admit this patient Medical Decision Making - Medical Decision Making 66 male DF for severe peripheral vascular disease scheduled for future evaluation regarding procedure. Patient states his feet are having significant more pain inability to ambulate secondary to pain - Lab Data Result diagrams: 03/18/22 01:00 03/18/22 01:00 Lab Results 03/18/22 03/18/22 03/18/22 Range/Units 01:00 01:00 01:00 WBC 11.4 H (3.8-10.6) k/uL RBC 4.46 (4.30-5.90) m/uL Hgb 12.9 L (13.0-17.5) gm/dL Hct 38.4 L (39.0-53.0) % MCV 86.0 (80.0-100.0) fL MCH 28.9 (25.0-35.0) pg MCHC 33.6 (31.0-37.0) g/dL RDW 15.2 (11.5-15.5) % Plt Count 411 (150-450) k/uL MPV 6.9 Neutrophils % 58 % Lymphocytes % 28 % Monocytes % 8 % Eosinophils % 4 % Basophils % 1 % Neutrophils # 6.6 (1.3-7.7) k/uL Lymphocytes # 3.2 (1.0-4.8) k/uL Monocytes # 0.9 (0-1.0) k/uL Eosinophils # 0.5 (0-0.7) k/uL Basophils # 0.1 (0-0.2) k/uL Sodium 137 (137-145) mmol/L Potassium 4.6 (3.5-5.1) mmol/L Chloride 105 (98-107) mmol/L Carbon Dioxide 22 (22-30) mmol/L Anion Gap 10 mmol/L BUN 21 H (9-20) mg/dL Creatinine 1.87 H (0.66-1.25) mg/dL Est GFR (CKD-EPI)AfAm 42 (>60 ml/min/1.73 sqM) Est GFR (CKD-EPI)NonAf 36 (>60 ml/min/1.73 sqM) Glucose 113 H (74-99) mg/dL Plasma Lactic Acid Noah 0.8 (0.7-2.0) mmol/L Calcium 9.6 (8.4-10.2) mg/dL Phosphorus 4.7 H (2.5-4.5) mg/dL Magnesium 2.0 (1.6-2.3) mg/dL Total Bilirubin 0.5 (0.2-1.3) mg/dL AST 41 (17-59) U/L ALT 22 (4-49) U/L Alkaline Phosphatase 90 (38-126) U/L Troponin I (0.000-0.034) ng/mL Total Protein 7.5 (6.3-8.2) g/dL Albumin 4.3 (3.5-5.0) g/dL 03/18/22 Range/Units 01:00 WBC (3.8-10.6) k/uL RBC (4.30-5.90) m/uL Hgb (13.0-17.5) gm/dL Hct (39.0-53.0) % MCV (80.0-100.0) fL MCH (25.0-35.0) pg MCHC (31.0-37.0) g/dL RDW (11.5-15.5) % Plt Count (150-450) k/uL MPV Neutrophils % % Lymphocytes % % Monocytes % % Eosinophils % % Basophils % % Neutrophils # (1.3-7.7) k/uL Lymphocytes # (1.0-4.8) k/uL Monocytes # (0-1.0) k/uL Eosinophils # (0-0.7) k/uL Basophils # (0-0.2) k/uL Sodium (137-145) mmol/L Potassium (3.5-5.1) mmol/L Chloride (98-107) mmol/L Carbon Dioxide (22-30) mmol/L Anion Gap mmol/L BUN (9-20) mg/dL Creatinine (0.66-1.25) mg/dL Est GFR (CKD-EPI)AfAm (>60 ml/min/1.73 sqM) Est GFR (CKD-EPI)NonAf (>60 ml/min/1.73 sqM) Glucose (74-99) mg/dL Plasma Lactic Acid Noah (0.7-2.0) mmol/L Calcium (8.4-10.2) mg/dL Phosphorus (2.5-4.5) mg/dL Magnesium (1.6-2.3) mg/dL Total Bilirubin (0.2-1.3) mg/dL AST (17-59) U/L ALT (4-49) U/L Alkaline Phosphatase (38-126) U/L Troponin I 1.250 H* (0.000-0.034) ng/mL Total Protein (6.3-8.2) g/dL Albumin (3.5-5.0) g/dL - EKG Data -: EKG Interpreted by Me (EKG is sinus 87 TX 185 QRS 125 QTC 423) Disposition Clinical Impression: Bilateral claudication of lower limb, Atherosclerosis Disposition: ADMITTED IP TO THIS HOSP Condition: Fair Is patient prescribed a controlled substance at d/c from ED?: No Referrals: Jimmie De La Paz DO [Primary Care Provider] - 1-2 days Time of Disposition: 03:00
[2022-03-18 01:24] LABS: Basophils # (A) 0.1 k/uL (0-0.2); Basophils % (A) 1 %; Eosinophils # (A) 0.5 k/uL (0-0.7); Eosinophils % (A) 4 %; HCT 38.4 % (39.0-53.0); HGB 12.9 gm/dL (13.0-17.5); Lymphocytes # (A) 3.2 k/uL (1.0-4.8); Lymphocytes % (A) 28 %; MCH 28.9 pg (25.0-35.0); MCHC 33.6 g/dL (31.0-37.0); Mean Platelet Volume 6.9; Monocytes # (A) 0.9 k/uL (0-1.0); Monocytes % (A) 8 %; Neutrophils # (A) 6.6 k/uL (1.3-7.7); Neutrophils % (A) 58 %; Platelet Count 411 k/uL (150-450); RBC 4.46 m/uL (4.30-5.90); RDW 15.2 % (11.5-15.5); WBC 11.4 k/uL (3.8-10.6)
[2022-03-18 01:45] LABS: Albumin 4.3 g/dL (3.5-5.0); Calcium 9.6 mg/dL (8.4-10.2); Phosphorus 4.7 mg/dL (2.5-4.5); Total Bilirubin 0.5 mg/dL (0.2-1.3); Total Protein 7.5 g/dL (6.3-8.2)
[2022-03-18 01:54] LABS: Potassium 4.6 mmol/L (3.5-5.1)
[2022-03-18] MEDS ORDERED: LORazepam 2 MG/ML INJ IV STA (02:50)
[2022-03-18] MEDS ORDERED: LORazepam 2 MG/ML INJ IV PRN (02:50)
[2022-03-18] MEDS ORDERED: HYDROmorphone 1 MG/ML 1 ML SYRINGE IVP STA (02:50)
[2022-03-18] MEDS ORDERED: HEPARIN SODIUM 1,000 UN/ML (10ML VL) IV PRN (02:50)
[2022-03-18] MEDS ORDERED: HEPARIN SODIUM 1,000 UN/ML (10ML VL) IV ONE ×2 (02:50→14:19)
[2022-03-18] MEDS ORDERED: GABAPENTIN 300 MG CAP PO STA (02:50)
[2022-03-18] MEDS ORDERED: NALOXONE 0.4 MG/ML 1 ML VIAL IV PRN (02:53)
[2022-03-18 02:54] LABS: Partial Thromboplastin Time 22.7 sec (22.0-30.0); Prothrombin Time 10.1 sec (9.0-12.0)
[2022-03-18] MEDS ORDERED: HEPARIN SOD,PORK IN 0.45% NACL 25,000 UNIT in 0.45% NACL 1 250ML.BAG IV SCH (03:00)
[2022-03-18] MEDS: SODIUM CHLORIDE 0.9% 1,000 ML IV SCH (03:18)
[2022-03-18] MEDS: HYDROmorphone 1 MG/ML 1 ML SYRINGE IVP PRN ×2 (06:32→20:23)
[2022-03-18] MEDS: ATORVASTATIN 40 MG TAB PO SCH (09:58)
[2022-03-18] MEDS: CLOPIDOGREL 75 MG TAB PO SCH (09:58)
[2022-03-18] MEDS: ASPIRIN 81 MG PO SCH (09:58)
[2022-03-18] MEDS: LOSARTAN 25 MG TAB PO SCH (09:58)
[2022-03-18] MEDS: METOPROLOL SUCCINATE (ER) 25 MG TAB.ER.24H PO SCH (09:58)
[2022-03-18] MEDS ORDERED: FAMOTIDINE 20 MG/2 ML VIAL IV ONE (10:01)
[2022-03-18] MEDS ORDERED: diphenhydrAMINE 50 MG/ML 1 ML VIAL IVP ONE (10:01)
[2022-03-18] MEDS ORDERED: methylPREDNISolone SOD SUCCI 125 MG/2 ML VIAL IV ONE (10:01)
[2022-03-18] MEDS ORDERED: ACETAMINOPHEN TAB 325 MG TAB PO PRN (10:36)
[2022-03-18] MEDS ORDERED: HYDROcodone/APAP 5-325MG 1 EACH TAB PO PRN (10:36)
[2022-03-18] MEDS ORDERED: bisacodyL 5 MG TABLET.DR PO PRN (10:36)
[2022-03-18] MEDS ORDERED: ONDANSETRON 4 MG/2 ML VIAL IVP PRN (10:36)
[2022-03-18] MEDS ORDERED: CALCIUM CARBONATE 500 MG CHEWABLE PO PRN (10:36)
--- NOTE | 2022-03-18 10:36 | P.HPIM ---
History of Present Illness H&P Date: 03/18/22 We are notified by the ER of this admission at 0712. Patient is a 66-year-old male with a history of diabetes, systolic congestive heart failure with ejection fraction 20-25%, coronary artery disease status post 2 vessel bypass, cerebrovascular accident 2, GERD, CHF, ulcerative colitis, and multiple other comorbid conditions who presented with worsening claudication. On arrival to the ER he underwent an extensive evaluation. Initial vital signs were within normal limits. Laboratory analysis demonstrated a white blood cell count of 11.4, hemoglobin 12.9, creatinine 1.87 (baseline 1.4), and a troponin of 1.250. The ER the patient received a dose of Dilaudid, gabapentin, and Ati van. There were also started on heparin drip. EKG reviewed by myself reveals normal sinus rhythm at a rate of 87 bpm and Left bundle branch block Patient seen and examined at bedside. For the last 2 weeks has noted red toes, increasing nerve pain, and increased sensitivity to touch. The pain is constant and feels like electric golts, sitting forward with feet dangling helps the most. When walking has to keep toes up due to pain. Pain is worse when up and walking, even with 30 feet. + vomiting and diarrea X 3 in the last 3 weeks and last a few hours each time. mild dizziness with walking. No fevers or chills. Histologist is Dr. Archuleta. Pertinent positives and negatives as discussed in HPI, a complete review of systems was performed and all other systems are negative. Vital signs reviewed General: nontoxic, no distress, appears at stated age Derm: warm, dry, purple discoloration bilateral toes Head: atraumatic, normocephalic, symmetric Eyes: EOMI, no lid lag, anicteric sclera, pupils equal round reactive to light ENT: Nose and ears atraumatic, no thrush, no pharyngeal erythema Neck: No thyromegaly, no cervical lymphadenopathy, trachea midline, supple Mouth: no lip lesion, mucus membranes moist Cardiovascular: S1S2 reg, no murmur, no palpable dorsalis pedis pulses bilat erally, dopplerable dorsalis pedis pulse on the left, and no dopplerable pulse on the right, no edema, capillary refill less than 2 seconds Lungs: clear to auscultation bilateral, no rhonchi, no rales, no wheeze, no accessory muscle use Abdominal: soft, nontender to palpation, no guarding, no appreciable organomegaly, normal bowel sounds Ext: no gross muscle atrophy, muscle strength 5 out of 5 in all 4 extremities, no contractures Neuro: CN II-XII grossly intact, finger to nose within normal limits, light touch intact bilateral face and upper extremities, light touch intact bilateral thighs, knees, and foot. Decreased touch sensation bilateral toes. Psych: Alert, oriented, appropriate affect Assessment/Plan: Claudication with beginning signs of critical limb ischemia - Reveals recommendations -Aspirin, statin, Plavix, heparin drip -Plan is for angiogram today. Discussed with cardiology BRONC BREAKER that patient does have ALLERGY to iodine contrast. Elevated troponin - ASA, heparin gtt, statin, metorpolol - follow troponin Chronic systolic congestive heart failure with ejection fraction recovered for 40-45% per patient Coronary artery disease status post bypass Hypertension Dyslipidemia -Continue with metoprolol and Cozaar, and Aldactone -Plavix, Lipitor Diabetes -Appears to be diet controlled -Sliding-scale insulin -Check A1c The patient is admitted with an anticipated less than 2 midnight stay for evaluation of . Surrogate decision-maker: CODE STATUS: DVT prophylaxis: Discussed with: Anticipated discharge date: Anticipated discharge place: A total of minutes was spent on the care of this complex patient more than 50% of the time was spent in counseling and care coordination. Past Medical History Past Medical History: Heart Failure, CVA/TIA, GERD/Reflux, Hyperlipidemia, Hypertension, Pulmonary Embolus (PE), Sleep Apnea/CPAP/BIPAP, Thyroid Disorder Additional Past Medical History / Comment(s): Diabetic, Hashimotos Thyroiditis. 2 strokes 2, slight memory problems since, migraines, back and neck pain, severe right and mild left sciatcia, hx PE's in his 20's, varicose veins, no CPAP use, clausterphobia. 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 Ulcerative Colitis. Hiatal Hernia. History of Any Multi-Drug Resistant Organisms: None Reported Past Surgical History: Orthopedic Surgery Additional Past Surgical History / Comment(s): Neck fusion, left cartoid surgery, left arm surgery, left ankle fracture, right shoulder surgery, EGD, colonoscopies., cabg Past Anesthesia/Blood Transfusion Reactions: Previous Problems w/ Anesthesia Additional Past Anesthesia/Blood Transfusion Reaction / Comment(s): "Need large amounts to put me out." "Needs to brought out slowly." Past Psychological History: Anxiety Smoking Status: Current every day smoker, Former smoker Past Alcohol Use History: None Reported Past Drug Use History: None Reported Additional History: uses a cane - Past Family History Mother Family Medical History: Congestive Heart Failure (CHF) Additional Family Medical History / Comment(s): at age 86 Father Additional Family Medical History / Comment(s): EtOH, pancreatitis Sister(s) Additional Family Medical History / Comment(s): His sister had a heart transplan t in her 40s, unknown reason. Medications and Allergies Home Medications Medication Instructions Recorded Confirmed Type Cyclobenzaprine [Flexeril] 10 mg PO HS 07/01/21 03/18/22 History Atorvastatin [Lipitor] 40 mg PO DAILY tab 11/05/21 03/18/22 Rx Clopidogrel [Plavix] 75 mg PO DAILY tab 11/05/21 03/18/22 Rx Losartan [Cozaar] 12.5 mg PO DAILY tab 11/05/21 03/18/22 Rx Metoprolol Succinate [Metoprolol 25 mg PO DAILY #30 tab 11/10/21 03/18/22 Rx Succinate ER] Aspirin EC [Ecotrin Low Dose] 81 mg PO DAILY 03/18/22 03/18/22 History Gabapentin 300 mg PO HS 03/18/22 03/18/22 History Levothyroxine Sodium [Synthroid] 150 mcg PO DAILY 03/18/22 03/18/22 History Sertraline [Zoloft] 50 mg PO HS 03/18/22 03/18/22 History Spironolactone [Aldactone] 25 mg PO DAILY 03/18/22 03/18/22 History diphenhydrAMINE [Benadryl] 25 mg PO HS 03/18/22 03/18/22 History traMADol HCL 50 mg PO DAILY PRN 03/18/22 03/18/22 History traMADol HCL 100 mg PO HS 03/18/22 03/18/22 History Allergies Allergy/AdvReac Type Severity Reaction Status Date / Time cephalexin [From Keflex] Allergy Unknown Verified 03/18/22 00:05 Iodinated Contrast Media Allergy Anaphylaxis Verified 03/18/22 09:56 latex Allergy Anaphylaxis Verified 03/18/22 00:05 Penicillins Allergy Unknown Verified 03/18/22 00:05 Childhood Physical Exam Osteopathic Statement: *. No significant issues noted on an osteopathic structural exam other than those noted in the History and Physical/Consult. Vitals: Vital Signs Temp Pulse Pulse Resp BP BP Pulse Ox 03/18/22 08:57 98.0 F 85 16 158/87 95 03/18/22 06:19 80 16 140/70 99 03/18/22 03:20 82 18 125/68 99 03/18/22 02:44 88 18 137/91 95 03/17/22 23:59 98.6 F 90 19 126/73 98 Intake and Output 03/17/22 03/18/22 03/18/22 22:59 06:59 14:59 Intake Total 64.83 Balance 64.83 Intake: Intake, IV Titration 64.83 Amount Heparin Sod,Pork in 0.45% 64.83 NaCl 25,000 unit In 0.45 % NaCl 1 250ml.bag @ 12 UNITS/KG/HR 9.798 mls/hr IV .Q24H [facility] Rx#: [id number] Other: Weight 81.647 kg Results CBC & Chem 7: 03/18/22 01:00 03/18/22 01:00 Labs: Abnormal Lab Results - Last 24 Hours (Table) 03/18/22 03/18/22 03/18/22 Range/Units 01:00 01:00 01:00 WBC 11.4 H (3.8-10.6) k/uL Hgb 12.9 L (13.0-17.5) gm/dL Hct 38.4 L (39.0-53.0) % APTT (22.0-30.0) sec BUN 21 H (9-20) mg/dL Creatinine 1.87 H (0.66-1.25) mg/dL Glucose 113 H (74-99) mg/dL Phosphorus 4.7 H (2.5-4.5) mg/dL Troponin I 1.250 H* (0.000-0.034) ng/mL 03/18/22 03/18/22 03/18/22 Range/Units 07:09 09:13 09:13 WBC (3.8-10.6) k/uL Hgb (13.0-17.5) gm/dL Hct (39.0-53.0) % APTT 47.1 H (22.0-30.0) sec BUN (9-20) mg/dL Creatinine (0.66-1.25) mg/dL Glucose (74-99) mg/dL Phosphorus (2.5-4.5) mg/dL Troponin I 1.090 H* 1.030 H* (0.000-0.034) ng/mL
[2022-03-18] MEDS ORDERED: SODIUM CHLORIDE 0.9% 1,000 ML IV ONE (13:35)
[2022-03-18] MEDS ORDERED: MIDAZOLAM 2 MG/2 ML VIAL IV ONE (13:40)
[2022-03-18] MEDS ORDERED: fentaNYL (PF) 50 MCG/ML 2 ML AMP IV ONE (13:40)
[2022-03-18] MEDS ORDERED: LIDOCAINE 1% INJ 10MG/ML (30 ML VIAL-PF) SQ ONE (13:42)
--- NOTE | 2022-03-18 13:43 | P.CRDCN ---
History of Present Illness History of present illness: HISTORY OF PRESENTING ILLNESS This is a pleasant 66-year-old male past medical history significant for coronary artery disease with recent 2 vessel CABG in setting of NSTEMI (COOK to the LAD with SVG to the ramus and insertion of intra-aortic balloon pump 10/2021), ischemic cardiomyopathy with improved EF, left carotid stenosis with prior stroke status post left carotid endarterectomy, chronic nicotine dependence, type 2 diabetes, currently, hypothyroidism, hyperlipidemia, hypertension. He follows in the office with Dr. Archuleta. We have been asked to see in consultation for peripheral artery disease. Patient presents emergency department with worsening bilateral lower extremity pain and difficulty walking he states his progressively gotten worse. He is followed up in the office with Dr. Archuleta and he had a follow-up appointment with Dr. Rodríguez on March 24. He underwent an lower extremity arterial study in the office which revealed bilateral SFA disease worse on the right. He denies any chest pain, shortness of breath, lightheadedness, dizziness, syncope or near-syncope. DIAGNOSTICS * EKG reveals sinus rhythm, heart rate 87, nonspecific T-wave abnormalities. No acute ischemia noted. * Echocardiogram the office 01/2022 revealed an EF of 4045 percent, small hypok inetic. Inferior wall from the base SMALL hypokinetic areas of the anterior lateral inferior lateral wall base. Trace aortic regurgitation, mild mitral regurgitation, mild tricuspid regurgitation * Laboratory reviewed, CBC 1.4, hemoglobin 12.9, platelets 411, sodium 137, potassium 4.6, BUN 21, serum creatinine 1.87, magnesium 2.0, troponin 1.2, 1.0, 1.0 * Current home cardiac medications include aspirin 81 Milligrams daily, atorvastatin 40 mg daily, Plavix 75 mg daily, losartan 12.5 mg daily, me toprolol 6.25 mg daily, spironolactone 25 mg daily REVIEW OF SYSTEMS At the time of my exam: CONSTITUTIONAL: Denies fever or chills. CARDIOVASCULAR: Denies chest pain, shortness of breath, orthopnea, PND or palpitations. RESPIRATORY: Denies cough. GASTROINTESTINAL: Denies abdominal pain, diarrhea, constipation, nausea or vomiting. MUSCULOSKELETAL: Denies myalgias. NEUROLOGIC: Denies numbness, tingling, headacbe or weakness. ENDOCRINE: Denies fatigue, weight change, polydipsia or polyurina. GENITOURINARY: Denies burning, hematuria or urgency with micturation. HEMATOLOGIC: Denies history of anemia or bleeding. PHYSICAL EXAMINATION Vitals reviewed CONSTITUTIONAL: No apparent distress. HEENT: Head is normocephalic. Pupils are equal, round. Sclerae anicteric. Mucous membranes of the mouth are moist. No JVD. No carotid bruit. CHEST EXAMINATION: Lungs are clear to auscultation. No chest wall tenderness is noted on palpation or with deep breathing. HEART EXAMINATION: Regular rate and rhythm. S1, S2 heard. No murmurs, gallops or rub. ABDOMEN: Soft, nontender. Positive bowel sounds. EXTREMITIES: 2+ femoral pulses bilateral 2+ popliteal pulses bilaterally, unable to palpation dorsal pedis or pedal pulse bilaterally. Obtained by doppler. no lower extremity edema. NEUROLOGIC EXAMINATION: Patient is awake, alert and oriented x3. ASSESSMENT Peripheral artery disease Bilateral lower extremity pain and difficulty ambulation secondary to the pain Elevated troponin, unclear significance at this time Coronary artery disease s/p 2 vessel CABG with COOK to the LAD with SVG to the r amus and insertion of intra-aortic balloon pump 10/2021 Ischemic cardiomyopathy with improved ejection fraction History of left carotid stenosis with prior stroke status post left carotid endarterectomy Acute kidney injury Tobacco dependence COPD Type 2 Diabetes History of Ulcerative colitis/GERD History of hypothyroidism PLAN Plan for angiogram with Dr. Rodriguez today, patient is agreeable Patient does have an allergy to contrast will pre-medicate Stop IV heparin Continue aspirin, statin, plavix, beta godfrey, losartan Further recommendations based on clinical course Nurse practitioner note has been reviewed by physician. Signing provider agrees with the documented findings, assessment, and plan of care. Past Medical History Past Medical History: Heart Failure, CVA/TIA, GERD/Reflux, Hyperlipidemia, Hypertension, Pulmonary Embolus (PE), Sleep Apnea/CPAP/BIPAP, Thyroid Disorder Additional Past Medical History / Comment(s): "PreDiabetic, diet controlled/Hypoglycemia." Hashimotos Thyroiditis. 2 strokes 06/02, slight memory problems since, migraines, back and neck pain, severe right and mild left sciatcia, hx PE's in his 20's, varicose veins, no CPAP use, clausterphobia. 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 Ulcerative Colitis. Hiatal Hernia. History of Any Multi-Drug Resistant Organisms: None Reported Past Surgical History: Orthopedic Surgery Additional Past Surgical History / Comment(s): Neck fusion, left cartoid surgery, left arm surgery, left ankle fracture, right shoulder surgery, EGD, colonoscopies., cabg Past Anesthesia/Blood Transfusion Reactions: Previous Problems w/ Anesthesia Additional Past Anesthesia/Blood Transfusion Reaction / Comment(s): "Need large amounts to put me out." "Needs to brought out slowly." Past Psychological History: Anxiety Smoking Status: Current every day smoker Past Alcohol Use History: None Reported Past Drug Use History: None Reported - Past Family History Mother Family Medical History: Congestive Heart Failure (CHF) Additional Family Medical History / Comment(s): at age 86 Father Additional Family Medical History / Comment(s): EtOH, pancreatitis Sister(s) Additional Family Medical History / Comment(s): His sister had a heart transplant in her 40s, unknown reason. Medications and Allergies Home Medications Medication Instructions Recorded Confirmed Type Cyclobenzaprine [Flexeril] 10 mg PO HS 07/01/21 03/18/22 History Atorvastatin [Lipitor] 40 mg PO DAILY tab 11/05/21 03/18/22 Rx Clopidogrel [Plavix] 75 mg PO DAILY tab 11/05/21 03/18/22 Rx Losartan [Cozaar] 12.5 mg PO DAILY tab 11/05/21 03/18/22 Rx Metoprolol Succinate [Metoprolol 25 mg PO DAILY #30 tab 11/10/21 03/18/22 Rx Succinate ER] Aspirin EC [Ecotrin Low Dose] 81 mg PO DAILY 03/18/22 03/18/22 History Gabapentin 300 mg PO HS 03/18/22 03/18/22 History Levothyroxine Sodium [Synthroid] 150 mcg PO DAILY 03/18/22 03/18/22 History Sertraline [Zoloft] 50 mg PO HS 03/18/22 03/18/22 History Spironolactone [Aldactone] 25 mg PO DAILY 03/18/22 03/18/22 History diphenhydrAMINE [Benadryl] 25 mg PO HS 03/18/22 03/18/22 History traMADol HCL 50 mg PO DAILY PRN 03/18/22 03/18/22 History traMADol HCL 100 mg PO HS 03/18/22 03/18/22 History Allergies Allergy/AdvReac Type Severity Reaction Status Date / Time cephalexin [From Keflex] Allergy Unknown Verified 03/18/22 00:05 Iodinated Contrast Media Allergy Anaphylaxis Verified 03/18/22 09:56 latex Allergy Anaphylaxis Verified 03/18/22 00:05 Penicillins Allergy Unknown Verified 03/18/22 00:05 Childhood Physical Exam Vitals: Vital Signs Temp Pulse Resp BP Pulse Ox 03/18/22 06:19 80 16 140/70 99 03/18/22 03:20 82 18 125/68 99 03/18/22 02:44 88 18 137/91 95 03/17/22 23:59 98.6 F 90 19 126/73 98 Intake and Output 03/17/22 03/18/22 03/18/22 22:59 06:59 14:59 Other: Weight 81.647 kg Results 03/18/22 01:00 03/18/22 01:00 Cardiac Enzymes 03/18/22 03/18/22 Range/Units 01:00 01:00 AST 41 (17-59) U/L Troponin I 1.250 H* (0.000-0.034) ng/mL Coagulation 03/18/22 Range/Units 01:00 PT 10.1 (9.0-12.0) sec APTT 22.7 (22.0-30.0) sec CBC 03/18/22 Range/Units 01:00 WBC 11.4 H (3.8-10.6) k/uL RBC 4.46 (4.30-5.90) m/uL Hgb 12.9 L (13.0-17.5) gm/dL Hct 38.4 L (39.0-53.0) % Plt Count 411 (150-450) k/uL Comprehensive Metabolic Panel 03/18/22 Range/Units 01:00 Sodium 137 (137-145) mmol/L Potassium 4.6 (3.5-5.1) mmol/L Chloride 105 (98-107) mmol/L Carbon Dioxide 22 (22-30) mmol/L BUN 21 H (9-20) mg/dL Creatinine 1.87 H (0.66-1.25) mg/dL Glucose 113 H (74-99) mg/dL Calcium 9.6 (8.4-10.2) mg/dL AST 41 (17-59) U/L ALT 22 (4-49) U/L Alkaline Phosphatase 90 (38-126) U/L Total Protein 7.5 (6.3-8.2) g/dL Albumin 4.3 (3.5-5.0) g/dL Current Medications Generic Name Dose Route Start Last Admin Trade Name Freq PRN Reason Stop Dose Admin Heparin Sodium (Porcine) 0 unit 03/18/22 02:50 Heparin Sodium 1,000 Un/Ml (10ml Vl) IV PER PROTOCOL PRN Low PTT Protocol Hydromorphone HCl 1 mg 03/18/22 02:50 03/18/22 06:32 Hydromorphone 1 Mg/Ml 1 Ml Syringe IVP 1 mg Q4HR PRN Administration Pain Sodium Chloride 1,000 mls @ 130 mls/hr 03/18/22 00:48 03/18/22 03:19 Saline 0.9% IV 03/18/22 08:29 130 mls/hr .Q7H42M STA Administration Heparin Sodium/Sodium Chloride 250 mls @ 9.798 mls/hr 03/18/22 03:00 03/18/22 03:18 25,000 unit/ Sodium Chloride IV 12 units/kg/hr .Q24H CAN 9.798 mls/hr Administration Protocol 12 UNITS/KG/HR Sodium Chloride 1,000 mls @ 20 mls/hr 03/18/22 03:00 03/18/22 03:18 Saline 0.9% IV 20 mls/hr .Q24H CAN Administration Lorazepam 1 mg 03/18/22 02:50 03/18/22 06:31 Lorazepam 2 Mg/Ml Inj IV 1 mg Q6HR PRN Administration Anxiety Naloxone HCl 0.2 mg 03/18/22 02:53 Naloxone 0.4 Mg/Ml 1 Ml Vial IV Q2M PRN Opioid Reversal Intake and Output 03/17/22 03/18/22 03/18/22 22:59 06:59 14:59 Other: Weight 81.647 kg 03/18/22 01:00 03/18/22 01:00
[2022-03-18] MEDS ORDERED: niCARdipine Syringe (1,000 mcg/10 mL) INTRAARTER ONE (14:34)
[2022-03-18] MEDS ORDERED: IOPAMIDOL-250 50ML BTL INTRAARTER ONE (14:47)
[2022-03-18] MEDS ORDERED: CLOPIDOGREL 75 MG TAB PO ONE (14:52)
[2022-03-18] MEDS ORDERED: NALOXONE 0.4 MG/ML 1 ML VIAL IVP PRN (14:54)
[2022-03-18] MEDS ORDERED: SODIUM CHLORIDE 0.9% 1,000 ML in EMPTY BAG 1 BAG IV SCH (15:00)
--- NOTE | 2022-03-18 15:02 | P.PCN ---
Date of Procedure: 03/18/22 Operative Findings: AN ABDOMINAL AORTOGRAM AND BILATERAL LOWER EXTREMITIES RUNOFF AND TRANSITION NURSE PERFORMING PHYSICIAN: Donis Rodriguez MD PROCEDURE PERFORMED: 1. An abdominal aortogram 2. Bilateral lower extremities runoff 3. Successful balloon angioplasty of the left tibial peroneal trunk 4. Gradient measurement across the left iliac and left SFA. Intravascular ultrasound of the left iliac INDICATION: This is a 66-year-old gentleman who presented to the hospital complaining of bilateral lower extremities discomfort and lately resting pain mostly in the left foot more than the right foot with distant the he underwent in the office lower extremities arterial duplex study and that showed severe left SFA disease. The patient follows with Dr. Archuleta regularly. In the light of that an angio gram was advised COMPLICATION: None LEVEL OF SEDATION: Moderate was sedation length of 68 minutes APPROACH: Right common femoral artery PROCEDURE DESCRIPTION: After obtaining informed consent and explaining the procedure benefits, risks, and complications, the patient was brought to the cardiac labor law professor. The right groin was prepped and draped in sterile fashion. The right common femoral artery was cannulated using micropuncture technique, under ultrasound guidance. A micropuncture wire was advanced, and the micropuncture sheath was advanced over the wire, then the micropuncture sheath was exchanged over an 0.35 wire into a 5-Finnish sheath dilator assembly then the wire and dilator were removed and sheath was flushed. We did an abdominal aortogram and bilateral lower extremities runoff using 5- Finnish pigtail catheter using a power injection. The catheter was initially placed at the level of the renal arteries, and it was pulled into above the bifurcation of the aorta into right and left common iliac arteries. The procedure was completed and there was no complications. SELECTIVE PERIPHERAL ANGIOGRAM: The abdominal aorta: Appeared to have mild disease only. The common iliac arteries: Have mild disease only. The external iliac arteries: The right external iliac artery appeared to have mild disease only. The left external iliac artery appeared to have intermediate disease only. The internal iliac arteries: I subtotally occluded The common femoral arteries: Appeared to be angiographically normal Superficial femoral arteries: Both appears to have intermediate disease only. Popliteal arteries: Appears to have mild disease only. Below the knees: Critical left tibial peroneal trunk disease was identified. The artery below the knee bilaterally where poorly opacified. TRANSITION NURSE OF THE LEFT TIBIAL PERONEAL TRUNK: Anticoagulation was initiated using heparin with continuous ACT monitoring. Subsequently I did exchange my short 11 cm sheath into a long 70 cm sheath using 035 stiff Glidewire with a backup support of 5-Finnish rim catheter. The sheath was positioned in the left common femoral artery. I did after that cross the lesion in the left tibial peroneal trunk using 014 wire with a did balloon angioplasty using 3 mm balloon. The following angiogram showed excellent angiographic results. The procedure was completed without any complications. It exchange my long sheath into short sheath before I did selective right common femoral artery angiogram CONCLUSION: #1 intermediate disease involving the left external iliac artery. Intravascular ultrasound showed the lesion to be intermediate 50% only #2 intermediate left SFA disease. Gradient measurement and came in to be non- flow limiting #3 occluded left tibial peroneal trunk. I did perform successful angioplasty of the left tibial trunk with an excellent angiographic results #4 severe below the knee disease bilaterally POSTPROCEDURE MANAGEMENT: Continue the current medical regimen including dual antiplatelet therapy as well as a statin. Consider medical treatment for the below the knee disease as far as the patient is not having any critical limb ischemia in terms off resting pain or tissue loss.
--- NOTE | 2022-03-18 15:17 | IR ---
EXAMINATION TYPE: IR water vessel captain tibioperoneal branchs DATE OF EXAM: 03/18/2022 CLINICAL HISTORY: Left toe pain. Peripheral vascular disease. TECHNIQUE: Fluoroscopy. COMPARISON: None. FINDINGS: Fluoroscopic guidance was provided during pelvic and lower extremity angiogram with angiop lasty procedure performed by Dr. Rodriguez. A total of 12.8 minutes of fluoroscopic time was utilized dur ing the procedure and 618 spot images was acquired. Please refer to the procedure note for further de tails. IMPRESSION: As Above.
[2022-03-18] MEDS ORDERED: ATROPINE SULFATE 0.1 MG/ML 10ML SYRINGE ONE (17:46)
[2022-03-18] MEDS ORDERED: SERTRALINE 50 MG TAB PO SCH (21:00)
[2022-03-18] MEDS ORDERED: GABAPENTIN 300 MG CAP PO SCH (21:00)
[2022-03-18] MEDS ORDERED: CYCLOBENZAPRINE 10 MG TAB PO SCH (21:00)
[2022-03-18] MEDS ORDERED: diphenhydrAMINE 25 MG CAP PO SCH (21:00)
[2022-03-19] MEDS: SODIUM CHLORIDE 0.9% 1,000 ML IV SCH (06:28)
[2022-03-19] MEDS ORDERED: LEVOTHYROXINE 75 MCG TAB PO SCH (06:30)
[2022-03-19 07:36] LABS: HCT 36.1 % (39.0-53.0); HGB 11.9 gm/dL (13.0-17.5); MCH 28.8 pg (25.0-35.0); MCHC 32.9 g/dL (31.0-37.0); MCV 87.4 fL (80.0-100.0); Platelet Count 394 k/uL (150-450); RBC 4.13 m/uL (4.30-5.90); RDW 15.1 % (11.5-15.5); WBC 14.9 k/uL (3.8-10.6)
[2022-03-19 08:07] LABS: Calcium 8.9 mg/dL (8.4-10.2); Potassium 4.8 mmol/L (3.5-5.1)
[2022-03-19] MEDS: LOSARTAN 25 MG TAB PO SCH (08:59)
[2022-03-19] MEDS: ASPIRIN 81 MG PO SCH (08:59)
[2022-03-19] MEDS: CLOPIDOGREL 75 MG TAB PO SCH (08:59)
[2022-03-19] MEDS: METOPROLOL SUCCINATE (ER) 25 MG TAB.ER.24H PO SCH (08:59)
[2022-03-19] MEDS: ATORVASTATIN 40 MG TAB PO SCH (08:59)
[2022-03-19 09:02] VITALS: BP 119/72; PULSE 77; RESP 18; TEMP 97.9
--- NOTE | 2022-03-19 11:08 | P.DS ---
Providers Date of admission: 03/18/22 11:00 Expected date of discharge: 03/19/22 Attending physician: Malathi Murrell MD Consults: 03/18/22 02:53 Consult Physician Routine Consulting Provider: Navdeep Rodríguez Consult Reason/Comments: atherosclerosis Do you want consulting provider notified?: Yes Primary care physician: [facility] Course: Claudication with beginning signs of critical limb ischemia Elevated troponin Chronic systolic congestive heart failure with ejection fraction recovered for 40-45% per patient Coronary artery disease status post bypass Hypertension Dyslipidemia Diabetes Mellitus, type II Patient is a 66-year-old male with a history of diabetes, systolic congestive heart failure with ejection fraction 20-25%, coronary artery disease status post 2 vessel bypass, cerebrovascular accident 2, GERD, CHF, ulcerative colitis, and multiple other comorbid conditions who presented with worsening claudication. On arrival to the ER he underwent an extensive evaluation. Initial vital signs were within normal limits. Laboratory analysis demonstrated a white blood cell count of 11.4, hemoglobin 12.9, creatinine 1.87 (baseline 1.4), and a troponin of 1.250. The ER the patient received a dose of Dilaudid, gabapentin, and Ativan. There were also started on heparin drip. EKG reviewed by myself reveals normal sinus rhythm at a rate of 87 bpm and Left bundle branch block. Patient was subsequently admitted with plans to undergo stenting to the RLE, which was done on 03/18. Patient reported improvement in pain control following the procedure and patient was cleared for discharge with PCP and cardiology follow up. I spent 34 minutes coordinating this discharge, discharge date 03/19 Patient Condition at Discharge: Good Plan - Discharge Summary Discharge Rx Participant: No New Discharge Prescriptions: New Acetaminophen Tab [Tylenol] 650 mg PO Q6HR PRN tab PRN Reason: Mild Pain Or Fever > 100.5 Continue Cyclobenzaprine [Flexeril] 10 mg PO HS Losartan [Cozaar] 12.5 mg PO DAILY tab Metoprolol Succinate [Metoprolol Succinate ER] 25 mg PO DAILY #30 tab traMADol HCL 50 mg PO DAILY PRN PRN Reason: Pain traMADol HCL 100 mg PO HS diphenhydrAMINE [Benadryl] 25 mg PO HS Sertraline [Zoloft] 50 mg PO HS Atorvastatin [Lipitor] 40 mg PO DAILY tab Clopidogrel [Plavix] 75 mg PO DAILY tab Gabapentin 300 mg PO HS Aspirin EC [Ecotrin Low Dose] 81 mg PO DAILY Levothyroxine Sodium [Synthroid] 150 mcg PO DAILY Discontinued Spironolactone [Aldactone] 25 mg PO DAILY Discharge Medication List Cyclobenzaprine [Flexeril] 10 mg PO HS 07/01/21 [History] Atorvastatin [Lipitor] 40 mg PO DAILY tab 11/05/21 [Rx] Clopidogrel [Plavix] 75 mg PO DAILY tab 11/05/21 [Rx] Losartan [Cozaar] 12.5 mg PO DAILY tab 11/05/21 [Rx] Metoprolol Succinate [Metoprolol Succinate ER] 25 mg PO DAILY #30 tab 11/10/21 [Rx] Aspirin EC [Ecotrin Low Dose] 81 mg PO DAILY 03/18/22 [History] Gabapentin 300 mg PO HS 03/18/22 [History] Levothyroxine Sodium [Synthroid] 150 mcg PO DAILY 03/18/22 [History] Sertraline [Zoloft] 50 mg PO HS 03/18/22 [History] diphenhydrAMINE [Benadryl] 25 mg PO HS 03/18/22 [History] traMADol HCL 50 mg PO DAILY PRN 03/18/22 [History] traMADol HCL 100 mg PO HS 03/18/22 [History] Acetaminophen Tab [Tylenol] 650 mg PO Q6HR PRN tab 03/19/22 [Rx] Follow up Appointment(s)/Referral(s): Himanshu Archuleta MD [STAFF PHYSICIAN] - 2 Weeks Jimmie De La Paz DO [Primary Care Provider] - 1-2 days Discharge Disposition: HOME SELF-CARE
--- NOTE | 2022-03-19 11:45 | P.PN ---
Subjective This is a pleasant 66-year-old male past medical history significant for coronary artery disease with recent 2 vessel CABG in setting of NSTEMI (COOK to the LAD with SVG to the ramus and insertion of intra-aortic balloon pump 10/2021), ischemic cardiomyopathy with improved EF, left carotid stenosis with prior stroke status post left carotid endarterectomy, chronic nicotine dependence, type 2 diabetes, currently, hypothyroidism, hyperlipidemia, h ypertension. He follows in the office with Dr. Archuleta. We have been asked to see in consultation for peripheral artery disease. Patient presents emergency department with worsening bilateral lower extremity pain and difficulty walking he states his progressively gotten worse. He is followed up in the office with Dr. Archuleta and he had a follow-up appointment with Dr. Rodríguez on March 24. He underwent an lower extremity arterial study in the office which revealed bilateral SFA disease worse on the right. . * Echocardiogram the office 01/2022 revealed an EF of 4045 percent, small hypok inetic. Inferior wall from the base SMALL hypokinetic areas of the anterior lateral inferior lateral wall base. Trace aortic 03/19/2022 Patient underwent an abdominal aortogram yesterday with Dr. Rodriguez. It revealed intermediate disease involving the left external iliac artery. Intravascular ultrasound showed the lesion to be intermediate 50% only, intermediate left SFA disease. Gradient measurement and came in to be non-flow limiting, occluded left tibial peroneal trunk. He underwent successful angioplasty of the left tibial trunk. Patient seen and examined at bedside, no acute distress. His symptoms have significantly improved. Pain has improved but still present. His vital signs a re stable. Denies any chest pain, shortness of breath, lightheadedness or dizziness. PHYSICAL EXAMINATION Vitals reviewed CONSTITUTIONAL: No apparent distress. HEENT: Head is normocephalic. Pupils are equal, round. Sclerae anicteric. Mucous membranes of the mouth are moist. No JVD. No carotid bruit. CHEST EXAMINATION: Lungs are clear to auscultation. No chest wall tenderness is noted on palpation or with deep breathing. HEART EXAMINATION: Regular rate and rhythm. S1, S2 heard. No murmurs, gallops or rub. ABDOMEN: Soft, nontender. Positive bowel sounds. EXTREMITIES: 2+ femoral pulses bilateral 2+ popliteal pulses bilaterally, unable to palpation dorsal pedis or pedal pulse bilaterally. Obtained by doppler. no lower extremity edema. NEUROLOGIC EXAMINATION: Patient is awake, alert and oriented x3. ASSESSMENT Peripheral artery disease, Severe below the knee disease bilaterally with intermediate disease involving the left external iliac artery, intermediate left SFA disease. Occluded left tibial peroneal trunk. S/p successful angioplasty of the left tibial trunk on 03/18 Bilateral lower extremity pain and difficulty ambulation secondary to the pain Elevated troponin, unclear significance at this time Coronary artery disease s/p 2 vessel CABG with COOK to the LAD with SVG to the ramus and insertion of intra-aortic balloon pump 10/2021 Ischemic cardiomyopathy with improved ejection fraction History of left carotid stenosis with prior stroke status post left carotid endarterectomy Acute kidney injury Tobacco dependence COPD Type 2 Diabetes History of Ulcerative colitis/GERD History of hypothyroidism PLAN Ok to discharge from cardiology perspective with current medical therapy Follow up with Dr. Archuleta in 1 week. Nurse practitioner note has been reviewed by physician. Signing provider agrees with the documented findings, assessment, and plan of care. Objective - Vital Signs Vital signs: Vital Signs Temp 97.9 F 03/19/22 09:01 Pulse 77 03/19/22 09:01 Resp 18 03/19/22 09:01 BP 119/72 03/19/22 09:01 Pulse Ox 100 03/19/22 09:01 FiO2 21 03/18/22 21:38 Intake & Output 03/18/22 03/19/22 03/19/22 18:59 06:59 18:59 Intake Total 164.83 265 200 Output Total 1000 600 Balance -835.17 -335 200 Weight 81.647 kg Intake: IV 100 40 20 Invasive Line 1 40 20 Intake, IV Titration 64.83 225 Amount Heparin Sod,Pork in 0.45% 64.83 NaCl 25,000 unit In 0.45 % NaCl 1 250ml.bag @ 12 UNITS/KG/HR 9.798 mls/hr IV .Q24H CAN Rx#: [id number] Sodium Chloride 0.9% 1, 225 000 ml In Empty Bag 1 bag @ 75 mls/hr IV .[id number] CAN Rx#:[id number] Oral 180 Output: Urine 1000 600 Other: Voiding Method Urinal Urinal - Labs CBC & Chem 7: 03/19/22 07:25 03/19/22 07:25 Labs: Abnormal Lab Results - Last 24 Hours (Table) 03/19/22 03/19/22 Range/Units 07:25 07:25 WBC 14.9 H (3.8-10.6) k/uL RBC 4.13 L (4.30-5.90) m/uL Hgb 11.9 L (13.0-17.5) gm/dL Hct 36.1 L (39.0-53.0) % Creatinine 1.54 H (0.66-1.25) mg/dL Glucose 140 H (74-99) mg/dL
== END 2022-03-19 14:13 | disposition home or self-care (01) | DRG 253 ==
LOC: EC 23:36 → 6NMEDSUR 03-18 02:53 → 3SCARD 03-18 04:39 → OBSVTOIN 03-18 11:00 → 3SCARD 03-18 13:46
PROVIDERS: ADMIT Internal Medicine; ATTEND Internal Medicine
PROC: 047Q3ZZ Dilation of Left Anterior Tibial Artery, Percutaneous Approach (ICD-10-PCS; principal; 2022-03-18 12:40)
PROC: B41D1ZZ Fluoroscopy of Aorta and Bilateral Lower Extremity Arteries using Low Osmolar Contrast (ICD-10-PCS; 2022-03-18 12:40)
PROC: 4A03351 Measurement of Arterial Flow, Peripheral, Percutaneous Approach (ICD-10-PCS; 2022-03-18 12:40)
DX: E11.51 Type 2 diabetes mellitus with diabetic peripheral angiopathy without gangrene (principal); I50.22 Chronic systolic (congestive) heart failure; N17.9 Acute kidney failure, unspecified; I11.0 Hypertensive heart disease with heart failure; E06.3 Autoimmune thyroiditis; I70.223 Atherosclerosis of native arteries of extremities with rest pain, bilateral legs; I69.311 Memory deficit following cerebral infarction; J44.9 Chronic obstructive pulmonary disease, unspecified; I08.3 Combined rheumatic disorders of mitral, aortic and tricuspid valves; I25.10 Atherosclerotic heart disease of native coronary artery without angina pectoris; M79.89 Other specified soft tissue disorders; E78.5 Hyperlipidemia, unspecified; K21.9 Gastro-esophageal reflux disease without esophagitis; I44.7 Left bundle-branch block, unspecified; I25.5 Ischemic cardiomyopathy; Z28.311 Partially vaccinated for COVID-19; I25.2 Old myocardial infarction; Z86.718 Personal history of other venous thrombosis and embolism; Z95.1 Presence of aortocoronary bypass graft; Z79.890 Hormone replacement therapy; Z79.899 Other long term (current) drug therapy; Z79.82 Long term (current) use of aspirin; Z79.84 Long term (current) use of oral hypoglycemic drugs; Z79.02 Long term (current) use of antithrombotics/antiplatelets; Z86.711 Personal history of pulmonary embolism; Z98.1 Arthrodesis status; Z91.041 Radiographic dye allergy status; Z91.040 Latex allergy status; Z88.0 Allergy status to penicillin; Z88.1 Allergy status to other antibiotic agents; Z87.19 Personal history of other diseases of the digestive system; Z87.891 Personal history of nicotine dependence
CPT/HCPCS: 36415; 37228; 37252; 75625; 75716; 80048; 80053; 82550; 83605; 83735; 84100; 84484; 85025; 85027; 85610; 85730; 93005; 94760; 96374; 96375; 96376; 99285

== ENCOUNTER 2022-04-15 11:53 | Day surgery (SDC) | payer MEDICARE ==
[~2022-04-15 11:53] MED LIST changes: +ALPRAZolam 0.25 MG TAB PO PRN; +ALPRAZolam 0.5 MG TAB PO PRN; +ASPIRIN 325 MG TAB PO PRN; +HEPARIN SODIUM,PORCINE 10,000 UNIT in SODIUM CHLORIDE 0.9% 1,000 ML IRRIGATION PRN; +HEPARIN SODIUM,PORCINE 2,500 UNIT in SODIUM CHLORIDE 0.9% 250 ML IRRIGATION PRN; -LACTATED RINGERS 1,000 ML IV SCH; -LIDOCAINE 1% (10MG/ML) FOR IV START INTRADERMA PRN; -MIDAZOLAM 2 MG/2 ML VIAL IV PRN; -PROPOFOL 10 MG/ML 20 ML VIAL IV ONE; +ZOLPIDEM 5 MG TAB PO PRN
[2022-04-15] MEDS: SODIUM CHLORIDE 0.9% 1,000 ML in EMPTY BAG 1 BAG IV ONE ×2 (12:20→18:18)
[2022-04-15 12:32] LABS: Basophils % (A) 0 %; Eosinophils % (A) 0 %; HCT 39.2 % (39.0-53.0); HGB 12.9 gm/dL (13.0-17.5); Hypochromasia Slight; Lymphocytes # (A) 1.7 k/uL (1.0-4.8); Lymphocytes % (A) 11 %; MCH 29.2 pg (25.0-35.0); MCV 88.5 fL (80.0-100.0); Mean Platelet Volume 7.1; Monocytes # (A) 0.6 k/uL (0-1.0); Monocytes % (A) 4 %; Neutrophils # (A) 12.3 k/uL (1.3-7.7); Neutrophils % (A) 83 %; Platelet Count 416 k/uL (150-450); RBC 4.43 m/uL (4.30-5.90); WBC 14.8 k/uL (3.8-10.6)
[2022-04-15 12:42] LABS: Calcium 9.8 mg/dL (8.4-10.2); Potassium 4.5 mmol/L (3.5-5.1)
[2022-04-15] MEDS ORDERED: fentaNYL (PF) 50 MCG/ML 2 ML AMP ONE ×2 (15:24→16:42)
[2022-04-15] MEDS ORDERED: HEPARIN SODIUM 1,000 UN/ML (10ML VL) ONE (15:24)
[2022-04-15] MEDS ORDERED: MIDAZOLAM 2 MG/2 ML VIAL IV ONE (15:27)
[2022-04-15] MEDS ORDERED: LIDOCAINE 1% INJ 10MG/ML (30 ML VIAL-PF) SQ ONE (15:27)
[2022-04-15] MEDS: fentaNYL (PF) 50 MCG/ML 2 ML AMP IV ONE ×2 (15:27→15:49)
[2022-04-15] MEDS: HEPARIN SODIUM 1,000 UN/ML (10ML VL) IV ONE ×2 (15:30→17:00)
[2022-04-15] MEDS: MIDAZOLAM 2 MG/2 ML VIAL IV ONE ×2 (15:41→15:44)
[2022-04-15] MEDS ORDERED: FLUMAZENIL 0.1 MG/ML 5 ML VIAL IVP ONE ×2 (15:55→15:59)
[2022-04-15] MEDS ORDERED: SODIUM CHLORIDE 0.9% 500 ML 500 ML with niCARdipine 6.25 MG, NITROGLYCERIN-D5W PMX 0.05... IV ONE ×4 (16:15)
[2022-04-15] MEDS ORDERED: HYDROmorphone 0.5 MG/0.5 ML SYRINGE IVP ONE (16:31)
[2022-04-15] MEDS ORDERED: fentaNYL (PF) 50 MCG/ML 2 ML AMP IV ONE (16:43)
[2022-04-15] MEDS ORDERED: niCARdipine Syringe (1,000 mcg/10 mL) INTRAARTER ONE (17:00)
[2022-04-15] MEDS ORDERED: NITROGLYCERIN 1000MCG/10ML SYRINGE INTRAARTER ONE (17:00)
[2022-04-15] MEDS ORDERED: CLOPIDOGREL 75 MG TAB ONE (17:03)
[2022-04-15] MEDS ORDERED: IOPAMIDOL-250 100ML BTL INTRAARTER ONE (17:05)
[2022-04-15] MEDS ORDERED: CLOPIDOGREL 75 MG TAB PO ONE (17:05)
[2022-04-15] MEDS ORDERED: NALOXONE 0.4 MG/ML 1 ML VIAL IVP PRN (17:14)
[2022-04-15] MEDS ORDERED: SODIUM CHLORIDE 0.9% 1,000 ML in EMPTY BAG 1 BAG IV SCH (17:15)
--- NOTE | 2022-04-15 17:21 | P.PCN ---
Date of Procedure: 04/15/22 Operative Findings: PERCUTANEOUS PERIPHERAL INTERVENTION Performing physician Donis Rodriguez M.D. Procedure performed #1 An atherectomy of the right tibial peroneal trunk and right posterior tibial artery using the Hawk 1 device #2 Intravascular ultrasound of the right tibial peroneal trunk and the right posterior tibial artery #3 Successful balloon angioplasty of the right tibial peroneal trunk and right posterior tibial large #4 Right lower extremity angiogram #5 Left common femoral artery angiogram #6 Ultrasound guided access of the left common femoral artery Indication Critical limb ischemia of the right foot. This is a 66-year-old gentleman who was diagnosed recently was CLI of the right foot. He underwent an angiogram and that revealed occluded anterior tibial and posterior tibial and peroneal and occluded tibial peroneal trunk. He was brought today for intervention Approach Left common femoral artery Complications None Level of sedation Moderate with a sedation time of 105 minutes Procedure description After obtaining an informed consent the patient was brought to the cardiac label press operator. The left common femoral artery was cannulated using micropuncture technique under ultrasound guidance, the micropuncture wire passed easily then I placed a 7 cm 6-Latvian sheath at the left common femoral artery. I did selective the right SFA using 035 stiff Glidewire with a backup support of 5- Latvian rim catheter. After that I did advance the sheath over the wire and the catheter to the initially proximal right SFA and then distal right SFA. Anticoagulation was initiated using heparin with continuous ACT monitoring. Rig ht lower extremities angiogram was performed and showed mild disease involving the aortoiliac and fem-pop. The angiogram also revealed severe below the knee disease with occluded anterior tibial and occluded tibioperoneal trunk. Balloon angioplasty in antegrade technique was initially attempted to cross the LENS CEMENTER of the right anterior tibial artery but that was unsuccessful because I into the subintimal space. That was successfully in his low-grade technique after I accessed the left was anterior tibial artery using micropuncture technique under ultrasound guidance and I placed a 6-Latvian sheath. At that point continuous infusion of heparin and verapamil and nitroglycerin was initiated through the SideArm of the sheath. I was able to cross the LENS CEMENTER of the right posterior tibial artery using 018 wire. I did inject contrast to prove that I was in the true lumen. And the vascular ultrasound revealed that I was in the true lumen. I did atherectomy using the Hawk 1 device. Successful balloon angioplasty was initially performed using 3.5 mm chocolate balloon and therefore millimeter regular balloon. Final angiogram was performed and showed an excellent angiographic results and the procedure was completed with no complications. Subsequently admitted exchanged my long sheath into short sheath using 0357 Glidewire and then I did selective left common femoral artery angiogram before we did the Angio-Seal. Postprocedure management #1 dual antiplatelet therapy #2 aggressive cholesterol control #3 risk factors modification #4 follow-up with the patient
[2022-04-15] MEDS ORDERED: SERTRALINE 50 MG TAB PO SCH (21:00)
[2022-04-15] MEDS ORDERED: GABAPENTIN 300 MG CAP PO SCH (21:00)
[2022-04-15] MEDS ORDERED: diphenhydrAMINE 50 MG CAP PO SCH (21:00)
[2022-04-16] MEDS ORDERED: LEVOTHYROXINE 75 MCG TAB PO SCH (06:30)
[2022-04-16 07:49] VITALS: BP 133/59; PULSE 66; RESP 18; TEMP 98.2
--- NOTE | 2022-04-16 08:13 | P.DS ---
Providers Attending physician: Donis Rodriguez Primary care physician: [facility] Course: The patient is a pleasant 66-year-old gentleman who underwent yesterday successful recanalizing chronically occluded right tibioperoneal trunk which was opened. He was seen this morning. He is stable. He is asymptomatic. The site is soft and nontender was no bruises. The patient is going to be discharged home on triple therapy and he'll follow-up with Dr. Archuleta in the office Plan - Discharge Summary Discharge Rx Participant: No New Discharge Prescriptions: New Apixaban [Eliquis] 2.5 mg PO BID #180 tab Continue Metoprolol Succinate [Metoprolol Succinate ER] 25 mg PO DAILY #30 tab Sertraline HCl [Zoloft] 50 mg PO HS Atorvastatin [Lipitor] 40 mg PO DAILY tab Clopidogrel [Plavix] 75 mg PO DAILY tab Gabapentin 600 mg PO HS Aspirin EC [Ecotrin Low Dose] 81 mg PO DAILY Levothyroxine Sodium [Synthroid] 150 mcg PO DAILY Gabapentin 300 mg PO DAILY diphenhydrAMINE [Benadryl] 100 mg PO HS Discharge Medication List Atorvastatin [Lipitor] 40 mg PO DAILY tab 11/05/21 [Rx] Clopidogrel [Plavix] 75 mg PO DAILY tab 11/05/21 [Rx] Metoprolol Succinate [Metoprolol Succinate ER] 25 mg PO DAILY #30 tab 11/10/21 [Rx] Aspirin EC [Ecotrin Low Dose] 81 mg PO DAILY 03/18/22 [History] Gabapentin 600 mg PO HS 03/18/22 [History] Levothyroxine Sodium [Synthroid] 150 mcg PO DAILY 03/18/22 [History] Gabapentin 300 mg PO DAILY 04/10/22 [History] Sertraline HCl [Zoloft] 50 mg PO HS 04/10/22 [History] diphenhydrAMINE [Benadryl] 100 mg PO HS 04/10/22 [History] Apixaban [Eliquis] 2.5 mg PO BID #180 tab 04/16/22 [Rx] Follow up Appointment(s)/Referral(s): Himanshu Archuleta MD [STAFF PHYSICIAN] - 1 Week
[2022-04-16] MEDS ORDERED: METOPROLOL SUCCINATE (ER) 25 MG TAB.ER.24H PO SCH (09:00)
[2022-04-16] MEDS ORDERED: ASPIRIN 81 MG PO SCH (09:00)
[2022-04-16] MEDS ORDERED: ATORVASTATIN 40 MG TAB PO SCH (09:00)
[2022-04-16] MEDS ORDERED: CLOPIDOGREL 75 MG TAB PO SCH (09:00)
[2022-04-16] MEDS ORDERED: GABAPENTIN 300 MG CAP PO SCH (09:00)
--- NOTE | 2022-04-16 09:47 | IR ---
EXAMINATION TYPE: IR yacht captain tibioperoneal branchs DATE OF EXAM: 04/16/2022 COMPARISON: NONE HISTORY: Fluoroscopy time. Fluoroscopy was provided to the referring clinician.
== END 2022-04-16 11:36 | disposition home or self-care (01) ==
LOC: CATHCVL 11:53 → 6NMEDSUR 17:11 → CATHCVL 04-16 11:36
PROVIDERS: ATTEND Internal Medicine Interventional Cardiology
DX: I73.9 Peripheral vascular disease, unspecified (principal); Z79.01 Long term (current) use of anticoagulants; Z79.82 Long term (current) use of aspirin; Z79.899 Other long term (current) drug therapy
CPT/HCPCS: 37229; 37233; 37252; 37253; 80048; 82565; 85025; C1760; C1894 ×3; C1769 ×6; C1714; C1753; C1725 ×2; J2250; J2001; J3010; J1644 ×2; J1170; Q9966

== ENCOUNTER → 2022-08-05 | Outpatient (CLI) | payer MEDICARE ==
[~2022-08-05] MED LIST changes: -ALPRAZolam 0.25 MG TAB PO PRN; -ALPRAZolam 0.5 MG TAB PO PRN; -ASPIRIN 325 MG TAB PO PRN; -HEPARIN SODIUM,PORCINE 10,000 UNIT in SODIUM CHLORIDE 0.9% 1,000 ML IRRIGATION PRN; -HEPARIN SODIUM,PORCINE 2,500 UNIT in SODIUM CHLORIDE 0.9% 250 ML IRRIGATION PRN; +REGADENOSON 0.4 MG/5 ML SYRINGE IV PRN; -ZOLPIDEM 5 MG TAB PO PRN
--- NOTE | 2022-08-05 13:00 | CA ---
Lexiscan Nuclear Stress Test Report Name: Chuck Torres Exam Date: 08/05/2022 09:47 Exam Location: [place] Stress Ht (in): 72 Wt (lb): 200 BSA: 2.13 Ordering Phys: Jimmie De La Paz DO Referring Phys: Ying Larson PAC Technologist: Andriy Stratton Age: 67 Gender: M : 1955 Procedure CPT: Indications: Chest pain R07.9 ICD-10 Codes: Patient History: Medications: Meds past 24 hrs: Pretest Chest Pain: STRESS TEST Lexiscan Protocol Exercise Duration (min:sec): 01:[address] Depressions (mm): Angina Score: Hayden Score: Resting HR (bpm): 69 Peak HR (bpm): 86 Resting BP (mmHg): 150 / 91 Peak BP (mmHg): 159 / 86 MPHR: 151 Target HR: 128 % MPHR: 57 METS: 1.0 Total Dose: Peak Dose: Atropine: Double Product: 36519 BP Response: Stress Termination: INFUSION COMPLETE Stress Symptoms: ABD CRAMPING Stress Summary: ECG ANALYSIS Resting ECG: Stress ECG: CONCLUSIONS Nondiagnostic electrocardiogram stress testing Dr. Donis Rodriguez MD (Electronically Signed) Final Date: 05 August 2022 12:59
--- NOTE | 2022-08-05 13:34 | NM ---
EXAMINATION TYPE: NM stress lexiscan cardiolite DATE OF EXAM: 08/05/2022 COMPARISON: NONE HISTORY: Chest pain. History of tobacco use in the past. History of hypertension and hypercholesterol emia along with 2 vessel CABG and prior heart attack. TECHNIQUE: After the intravenous administration of 9.8 mCi Tc 99m Sestamibi - Cardiolite resting SPE CT images acquired 45 minutes post injection. The patient received 0.4mg Lexiscan, 25.4 mCi Tc 99m Sestamibi - Stress images obtained [address] injection FINDINGS: Review of stress and rest SPECT images demonstrates diminished radiotracer uptake on stress and rest images involving the anteroseptal wall greatest at mid aspect could reflect old infarct. There is dim inished radiotracer uptake involving the inferolateral wall suspicious for second area of old infarct . No convincing evidence for reversible ischemia. Abnormal end-diastolic volume 183 cc. Abnormal ejec tion fraction estimated at 35% IMPRESSION: Findings consistent with dilated cardiomyopathy thought present likely related to old in farcts. Correlate clinically and with EKG and echo. No convincing evidence for reversible ischemia.
== END | disposition home or self-care (01) ==
LOC: RADNMMAIN 07:55
PROVIDERS: ATTEND Family Medicine
DX: I25.118 Atherosclerotic heart disease of native coronary artery with other forms of angina pectoris (principal); I10 Essential (primary) hypertension; E78.00 Pure hypercholesterolemia, unspecified; Z95.1 Presence of aortocoronary bypass graft; I25.2 Old myocardial infarction; Z87.891 Personal history of nicotine dependence
CPT/HCPCS: 93017; 78452; A9500; J2785

== ENCOUNTER → 2022-09-15 | Outpatient (CLI) | payer MEDICARE ==
--- NOTE | 2022-09-15 11:57 | US ---
EXAMINATION TYPE: US scrotum with doppler. TECHNIQUE: Grayscale and color Doppler Duplex imaging performed of the scrotum. DATE OF EXAM: 09/15/2022 COMPARISON: NONE CLINICAL INDICATION: Male, 67 years old with history of N50.812 LT TESTICULAR PAIN; Patient states wa rocío up with left teste pain x 1 week ago. No injury. Patient states its red and appears to be fuchs ging more compared to right. EXAM MEASUREMENTS: TESTICLES: Right Testicle: 4.5 x 2.9 x 2.3 cm with normal homogeneous appearance. Left Testicle: 3.9 x 3.3 x 2.3 cm with mild heterogeneous echotexture. 2 adjacent cysts are noted wi thin the testicle with aggregate dimension of 8 x 7 x 5 mm. EPIDIDYMIS HEAD: Right Epididymis: 0.7 x 1.1 x 0.9 cm Left Epididymis: 0.8 x 1.2 x 1.2 cm with a small 7 mm cyst. The body and tail is thickened, heterog eneous, and hyperemic. Doppler performed to assess for testicular vascularity; good bilateral color flow and waveforms are s een. There is no evidence of testicular torsion. Presence of hydroceles: small left Presence of varicoceles: Left Mild diffuse scrotal skin thickening. IMPRESSION: 1. Mild diffuse scrotal skin thickening. There is trace hydrocele on the left. Given thickened, heter ogeneous, and hyperemic appearance to the body and tail of the left epididymis along with a heterogen eous appearance to the left testicle, consider epididymoorchitis. 2. A couple nonspecific cysts within the left testicle measuring up to 8 mm. 2-3 month [facility]. 3. No sonographic evidence for testicular torsion or discrete testicular mass. 4. Additional left-sided varicocele.
== END | disposition home or self-care (01) ==
LOC: RADUSWWP 10:40
PROVIDERS: ATTEND Family Medicine
DX: N44.2 Benign cyst of testis (principal); I86.1 Scrotal varices; N43.3 Hydrocele, unspecified; N50.89 Other specified disorders of the male genital organs
CPT/HCPCS: 76870; 93975

== ENCOUNTER 2023-07-26 04:58 | Emergency (ER) | payer MEDICARE, SELFPAY ==
--- NOTE | 2023-07-26 06:07 | ED ---
General Adult HPI - General Source: patient, family Mode of arrival: wheelchair Limitations: no limitations <Luis Armando Akhtar - Last Filed: 07/26/23 06:56> <Jessi Krueger - Last Filed: 07/26/23 10:09> - General Chief complaint: Shortness of Breath Stated complaint: chest pain and tightness Time Seen by Provider: 07/26/23 05:48 - History of Present Illness Initial comments: Dictation was produced using [employer] dictation software. please excuse any grammatical, word or spelling errors. Chief Complaint: 68-year-old male presents to the emergency department for chest pain, chest congestion and cough History of Present Illness: Patient 68-year-old male he apparently has an ejection fraction of around 40%. The last 24 hours she has developed chest congestion. He also has a productive cough. Feels congestion in his chest along with rattling sensation when he tries to breathe. He has history of heart failure. Denies any radiation of symptoms. No diaphoresis. No associated dizziness. Denies any obvious sick contacts. No fever or constitutional symptoms. The ROS documented in this emergency department record has been reviewed and confirmed by me. Those systems with pertinent positive or negative responses have been documented in the HPI. All other systems are other negative and/or noncontributory. (Luis Armando Akhtar) - Related Data Home Medications Medication Instructions Recorded Confirmed Aspirin EC [Ecotrin Low Dose] 81 mg PO DAILY 03/18/22 04/15/22 Gabapentin 600 mg PO HS 03/18/22 04/15/22 Levothyroxine Sodium [Synthroid] 150 mcg PO DAILY 03/18/22 04/15/22 Gabapentin 300 mg PO DAILY 04/10/22 04/15/22 Sertraline HCl [Zoloft] 50 mg PO HS 04/10/22 04/15/22 diphenhydrAMINE [Benadryl] 100 mg PO HS 04/10/22 04/15/22 Previous Rx's Medication Instructions Recorded Atorvastatin [Lipitor] 40 mg PO DAILY tab 11/05/21 Clopidogrel [Plavix] 75 mg PO DAILY tab 11/05/21 Metoprolol Succinate [Metoprolol 25 mg PO DAILY #30 tab 11/10/21 Succinate ER] Apixaban [Eliquis] 2.5 mg PO BID #180 tab 04/16/22 Albuterol Inhaler [Ventolin Hfa 1 - 2 puff INHALATION Q6H PRN #1 07/26/23 Inhaler] each Benzonatate [Tessalon Perles] 100 mg PO TID PRN #15 capsule 07/26/23 predniSONE [Deltasone] 20 mg PO BID #10 tab 07/26/23 Allergies Allergy/AdvReac Type Severity Reaction Status Date / Time cephalexin [From Keflex] Allergy Rash/Hives Verified 07/26/23 05:13 Iodinated Contrast Media Allergy Anaphylaxis Verified 07/26/23 05:13 latex Allergy Anaphylaxis Verified 07/26/23 05:13 Penicillins Allergy Rash/Hives Verified 07/26/23 05:13 Review of Systems ROS Other: All systems not noted in ROS Statement are negative. <Luis Armando Akhtar - Last Filed: 07/26/23 06:56> ROS Other: All systems not noted in ROS Statement are negative. <Jessi Krueger - Last Filed: 07/26/23 10:09> ROS Statement: Those systems with pertinent positive or pertinent negative responses have been documented in the HPI. Past Medical History Past Medical History: Heart Failure, CVA/TIA, GERD/Reflux, Hyperlipidemia, Hypertension, Pulmonary Embolus (PE), Sleep Apnea/CPAP/BIPAP, Thyroid Disorder Additional Past Medical History / Comment(s): "PreDiabetic, diet co ntrolled/Hypoglycemia." Hashimotos Thyroiditis. 2 strokes 06/02, slight memory problems since, migraines- no issues since endartectomy, back and neck pain, severe right and mild left sciatcia, hx PE's in his 20's, varicose veins, no CPAP use, clausterphobia. 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 Ulcerative Colitis. Hiatal Hernia. History of Any Multi-Drug Resistant Organisms: None Reported Past Surgical History: Coronary Bypass/CABG, Orthopedic Surgery Additional Past Surgical History / Comment(s): Neck fusion, left cartoid surgery, left arm surgery, left ankle fracture, right shoulder surgery, EGD, colonoscopies., CABG 2020 x2, left femoral popliteal with ptba. Past Anesthesia/Blood Transfusion Reactions: Previous Problems w/ Anesthesia Additional Past Anesthesia/Blood Transfusion Reaction / Comment(s): "Need large amounts to put me out." "Needs to brought out slowly." Past Psychological History: Anxiety Smoking Status: Former smoker Past Alcohol Use History: None Reported Past Drug Use History: None Reported - Past Family History Mother Family Medical History: Congestive Heart Failure (CHF) Additional Family Medical History / Comment(s): at age 86 Father Additional Family Medical History / Comment(s): ETOH, pancreatitis Sister(s) Additional Family Medical History / Comment(s): His sister had a heart transplant in her 40s, scarlet fever. <Luis Armando Akhtar - Last Filed: 07/26/23 06:56> General Exam Limitations: no limitations <Luis Armando Akhtar - Last Filed: 07/26/23 06:56> - General Exam Comments Initial Comments: PHYSICAL EXAM: General Impression: Alert and oriented x3, not in acute distress HEENT: Normocephalic atraumatic, extra-ocular movements intact, pupils equal and reactive to light bilaterally, mucous membranes moist. Cardiovascular: Heart regular rate and rhythm Chest: Able to complete full sentences, no retractions, no tachypnea, some rhonchi to the left posterior lung alexander Abdomen: abdomen soft, non-tender, non-distended, no organomegaly Musculoskeletal: Pulses present and equal in all extremities, no peripheral edema Motor: no focal deficits noted Neurological: CN II-XII grossly intact, no focal motor or sensory deficits noted Skin: Intact with no visualized rashes Psych: Normal affect and mood (Luis Armando Akhtar) Course Vital Signs 07/26/23 07/26/23 05:13 07:19 Temperature 98.0 F 98.8 F Pulse Rate 77 84 Respiratory 18 18 Rate Blood Pressure 114/56 115/59 O2 Sat by Pulse 98 99 Oximetry EKG Findings - EKG Comments: EKG Findings:: My EKG interpretation: Ventricular rate 67, sinus rhythm,. 195, cures 116, QTc 389. No KS prolongation, no QTC prolongation, no ST or T-wave changes noted. Overall, this EKG is unremarkable <Luis Armando Akhtar - Last Filed: 07/26/23 06:56> Medical Decision Making - Lab Data Result diagrams: 07/26/23 05:34 07/26/23 05:34 <Luis Armando Akhtar - Last Filed: 07/26/23 06:56> - Lab Data Result diagrams: 07/26/23 05:34 07/26/23 05:34 <Jessi Krueger - Last Filed: 07/26/23 10:09> - Medical Decision Making Was pt. sent in by a medical professional or institution (JULISA Trinh, MICROFILM EQUIPMENT INSPECTOR, urgent care, hospital, or snf...) When possible be specific @ -No Did you speak to anyone other than the patient for history (EMS, parent, family, police, friend...)? What history was obtained from this source @ -No Did you review nursing and triage notes (agree or disagree)? Why? @ -I reviewed and agree with nursing and triage notes Were old charts reviewed (outside hosp., previous admission, EMS record, old EKG, old radiological studies, urgent care reports/EKG's, snf records)? Report findings @ -No old charts were reviewed Differential Diagnosis (chest pain, altered mental status, abdominal pain women, abdominal pain men, vaginal bleeding, musculoskeletal, weakness, fever, dyspnea, syncope, headache, dizziness, GI bleed, back pain, seizure, CVA, palpatations, mental health)? @ -Differential Dyspnea: Coronary syndrome, arrhythmia, tamponade, asthma, COPD, pulmonary embolism, pneumonia, pneumothorax, pulmonary effusion, anaphylaxis, diabetic ketoacidosis, flailed chest, pulmonary contusion, diaphragmatic rupture, anemia, neuromuscular, this is not meant to be an all-inclusive list. Differential Chest Pain: Stable Angina, Unstable Angina, STEMI, NSTEMI Aortic Dissection, Pneumothorax, Musculoskeletal, Esophageal Spasm GERD, Cholecystitis, Pancreatitis, Zoster, this is not meant to be an all-inclusive list. EKG interpreted by me (3pts min.). @ -See above X-rays interpreted by me (1pt min.). @ - CT interpreted by me (1pt min.). @ -None done U/S interpreted by me (1pt. min.). @ -None done What testing was considered but not performed or refused? (CT, X-rays, U/S, labs)? Why? @ -None What meds were considered but not given or refused? Why? @ -None Did you discuss the management of the patient with other professionals (professionals i.e. JULISA Trinh, MICROFILM EQUIPMENT INSPECTOR, lab, RT, psych nurse, social service worker, surgical scrub technician, teacher, traffic division commanding officer, caseworker)? Give summary @ -No Was smoking cessation discussed for >3mins.? @ -No Was critical care preformed (if so, how long)? @ -No Were there social determinants of health that impacted care today? How? (Homelessness, low income, unemployed, alcoholism, drug addiction, transportation, low edu. Level, literacy, decrease access to med. care, [facility], rehab)? @ -No Was there de-escalation of care discussed even if they declined (Discuss DNR or withdrawal of care, Hospice)? DNR status @ -No What co-morbidities impacted this encounter? (DM, HTN, Smoking, COPD, CAD, Cancer, CVA, ARF, Chemo, Hep., AIDS, mental health diagnosis, sleep apnea, morbid obesity)? @ -See above Was patient admitted / discharged? Hospital course, mention meds given and route, prescriptions, significant lab abnormalities, going to OR and other pertinent info. @ -68-year-old male with multiple cardiac comorbidities presents to the ER for chest pain, shortness of breath. Vital signs upon arrival are within acceptable limits. EKG is unremarkable. Differential includes CHF versus pneumonia versus acute coronary syndrome given his cardiac comorbidities. Given aspirin Laboratory evaluation is unremarkable. Patient's troponin 0.018. This is below his usual baseline. Pending viral testing and x-ray. Patient care signed out to Dr. Krueger at 7:00 AM. (Luis Armando Akhtar) Was patient admitted / discharged? Hospital course, mention meds given and route, prescriptions, significant lab abnormalities, going to OR and other pertinent info. @ -Patient was seen and evaluated by me at signout. Patient is pending further laboratory studies. Viral swab is negative. Troponin is negative x 2. Chest x-ray is clear. Patient will be treated as a bronchitis. Patient will be placed on steroids, inhaler and Tessalon Perles. Instructed to follow-up with his primary care doctor in 2 to 4 days. Return to the emergency department for any new or worsening symptoms. Patient was agreeable to this plan and he was discharged in stable condition Undiagnosed new problem with uncertain prognosis? @ -No Drug Therapy requiring intensive monitoring for toxicity (Heparin, Nitro, Insulin, Cardizem)? @ -No Were any procedures done? @ -No Diagnosis/symptom? @ -Acute cough, acute bronchitis Acute, or Chronic, or Acute on Chronic? @ -Acute Uncomplicated (without systemic symptoms) or Complicated (systemic symptoms)? @ -Complicated Side effects of treatment? @ -No Exacerbation, Progression, or Severe Exacerbation? @ -No Poses a threat to life or bodily function? How? (Chest pain, USA, SD, pneumonia, PE, COPD, DKA, ARF, appy, cholecystitis, CVA, Diverticulitis, Homicidal, Suicidal, threat to staff... and all critical care pts) @ -No (Jessi Krueger) - Lab Data Lab Results 07/26/23 07/26/23 07/26/23 Range/Units 05:34 05:34 05:34 WBC 9.1 (3.8-10.6) k/uL RBC 4.80 (4.30-5.90) m/uL Hgb 13.9 (13.0-17.5) gm/dL Hct 42.9 (39.0-53.0) % MCV 89.3 (80.0-100.0) fL MCH 29.1 (25.0-35.0) pg MCHC 32.5 (31.0-37.0) g/dL RDW 14.6 (11.5-15.5) % Plt Count 321 (150-450) k/uL MPV 6.6 Neutrophils % 64 % Lymphocytes % 25 % Monocytes % 7 % Eosinophils % 3 % Basophils % 0 % Neutrophils # 5.9 (1.3-7.7) k/uL Lymphocytes # 2.3 (1.0-4.8) k/uL Monocytes # 0.6 (0-1.0) k/uL Eosinophils # 0.2 (0-0.7) k/uL Basophils # 0.0 (0-0.2) k/uL PT 11.2 (10.0-12.5) sec INR 1.0 (<1.2) APTT 25.8 (22.0-30.0) sec Sodium 140 (137-145) mmol/L Potassium 4.4 (3.5-5.1) mmol/L Chloride 110 H (98-107) mmol/L Carbon Dioxide 19 L (22-30) mmol/L Anion Gap 11 mmol/L BUN 14 (9-20) mg/dL Creatinine 1.58 H (0.66-1.25) mg/dL Est GFR (CKD-EPI)AfAm 51 (>60 ml/min/1.73 sqM) Est GFR (CKD-EPI)NonAf 44 (>60 ml/min/1.73 sqM) Glucose 113 H (74-99) mg/dL Plasma Lactic Acid Noah (0.7-2.0) mmol/L Calcium 9.5 (8.4-10.2) mg/dL Total Bilirubin 0.6 (0.2-1.3) mg/dL AST 23 (17-59) U/L ALT 25 (4-49) U/L Alkaline Phosphatase 94 (38-126) U/L Troponin I (0.000-0.034) ng/mL NT-Pro-B Natriuret Pep 452 pg/mL Total Protein 6.7 (6.3-8.2) g/dL Albumin 3.9 (3.5-5.0) g/dL Influenza Type A (PCR) (Not Detectd) Influenza Type B (PCR) (Not Detectd) RSV (PCR) (Not Detectd) SARS-CoV-2 (PCR) (Not Detectd) 07/26/23 07/26/23 07/26/23 Range/Units 05:34 05:34 07:26 WBC (3.8-10.6) k/uL RBC (4.30-5.90) m/uL Hgb (13.0-17.5) gm/dL Hct (39.0-53.0) % MCV (80.0-100.0) fL MCH (25.0-35.0) pg MCHC (31.0-37.0) g/dL RDW (11.5-15.5) % Plt Count (150-450) k/uL MPV Neutrophils % % Lymphocytes % % Monocytes % % Eosinophils % % Basophils % % Neutrophils # (1.3-7.7) k/uL Lymphocytes # (1.0-4.8) k/uL Monocytes # (0-1.0) k/uL Eosinophils # (0-0.7) k/uL Basophils # (0-0.2) k/uL PT (10.0-12.5) sec INR (<1.2) APTT (22.0-30.0) sec Sodium (137-145) mmol/L Potassium (3.5-5.1) mmol/L Chloride (98-107) mmol/L Carbon Dioxide (22-30) mmol/L Anion Gap mmol/L BUN (9-20) mg/dL Creatinine (0.66-1.25) mg/dL Est GFR (CKD-EPI)AfAm (>60 ml/min/1.73 sqM) Est GFR (CKD-EPI)NonAf (>60 ml/min/1.73 sqM) Glucose (74-99) mg/dL Plasma Lactic Acid Noah 1.2 (0.7-2.0) mmol/L Calcium (8.4-10.2) mg/dL Total Bilirubin (0.2-1.3) mg/dL AST (17-59) U/L ALT (4-49) U/L Alkaline Phosphatase (38-126) U/L Troponin I 0.018 (0.000-0.034) ng/mL NT-Pro-B Natriuret Pep pg/mL Total Protein (6.3-8.2) g/dL Albumin (3.5-5.0) g/dL Influenza Type A (PCR) Not Detected (Not Detectd) Influenza Type B (PCR) Not Detected (Not Detectd) RSV (PCR) Not Detected (Not Detectd) SARS-CoV-2 (PCR) Not Detected (Not Detectd) 07/26/23 Range/Units 08:49 WBC (3.8-10.6) k/uL RBC (4.30-5.90) m/uL Hgb (13.0-17.5) gm/dL Hct (39.0-53.0) % MCV (80.0-100.0) fL MCH (25.0-35.0) pg MCHC (31.0-37.0) g/dL RDW (11.5-15.5) % Plt Count (150-450) k/uL MPV Neutrophils % % Lymphocytes % % Monocytes % % Eosinophils % % Basophils % % Neutrophils # (1.3-7.7) k/uL Lymphocytes # (1.0-4.8) k/uL Monocytes # (0-1.0) k/uL Eosinophils # (0-0.7) k/uL Basophils # (0-0.2) k/uL PT (10.0-12.5) sec INR (<1.2) APTT (22.0-30.0) sec Sodium (137-145) mmol/L Potassium (3.5-5.1) mmol/L Chloride (98-107) mmol/L Carbon Dioxide (22-30) mmol/L Anion Gap mmol/L BUN (9-20) mg/dL Creatinine (0.66-1.25) mg/dL Est GFR (CKD-EPI)AfAm (>60 ml/min/1.73 sqM) Est GFR (CKD-EPI)NonAf (>60 ml/min/1.73 sqM) Glucose (74-99) mg/dL Plasma Lactic Acid Noah (0.7-2.0) mmol/L Calcium (8.4-10.2) mg/dL Total Bilirubin (0.2-1.3) mg/dL AST (17-59) U/L ALT (4-49) U/L Alkaline Phosphatase (38-126) U/L Troponin I 0.016 (0.000-0.034) ng/mL NT-Pro-B Natriuret Pep pg/mL Total Protein (6.3-8.2) g/dL Albumin (3.5-5.0) g/dL Influenza Type A (PCR) (Not Detectd) Influenza Type B (PCR) (Not Detectd) RSV (PCR) (Not Detectd) SARS-CoV-2 (PCR) (Not Detectd) Disposition <Luis Armando Akhtar - Last Filed: 07/26/23 06:56> Is patient prescribed a controlled substance at d/c from ED?: No Time of Disposition: 10:07 <Jessi Krueger - Last Filed: 07/26/23 10:09> Clinical Impression: Acute bronchitis, Cough, Chest pain Disposition: HOME SELF-CARE Condition: Stable Instructions (If sedation given, give patient instructions): Acute Bronchitis (ED) Additional Instructions: Please start taking the steroids tomorrow. Use the inhaler every 4 hours. Follow-up with your primary care doctor. Return for any new or worsening symptoms to include fever, worsening shortness of breath Prescriptions: predniSONE [Deltasone] 20 mg PO BID #10 tab Benzonatate [Tessalon Perles] 100 mg PO TID PRN #15 capsule PRN Reason: Cough Albuterol Inhaler [Ventolin Hfa Inhaler] 1 - 2 puff INHALATION Q6H PRN #1 each PRN Reason: Cough Referrals: Jimmie De La Paz DO [Primary Care Provider] - 1-2 days
[2023-07-26 06:22] LABS: Basophils % (A) 0 %; Eosinophils # (A) 0.2 k/uL (0-0.7); Eosinophils % (A) 3 %; HCT 42.9 % (39.0-53.0); HGB 13.9 gm/dL (13.0-17.5); Lymphocytes # (A) 2.3 k/uL (1.0-4.8); Lymphocytes % (A) 25 %; MCH 29.1 pg (25.0-35.0); MCHC 32.5 g/dL (31.0-37.0); MCV 89.3 fL (80.0-100.0); Mean Platelet Volume 6.6; Monocytes # (A) 0.6 k/uL (0-1.0); Monocytes % (A) 7 %; Neutrophils # (A) 5.9 k/uL (1.3-7.7); Neutrophils % (A) 64 %; Platelet Count 321 k/uL (150-450); RDW 14.6 % (11.5-15.5); WBC 9.1 k/uL (3.8-10.6)
[2023-07-26 06:35] LABS: Prothrombin Time 11.2 sec (10.0-12.5)
[2023-07-26 06:36] LABS: Partial Thromboplastin Time 25.8 sec (22.0-30.0)
[2023-07-26 06:38] LABS: ALT 25 U/L (4-49); AST 23 U/L (17-59); African American GFR (CKD) 51 (>60 ml/min/1.73 sqM); Albumin 3.9 g/dL (3.5-5.0); Alkaline Phosphatase 94 U/L (38-126); Anion Gap 11 mmol/L; Blood Urea Nitrogen 14 mg/dL (9-20); Calcium 9.5 mg/dL (8.4-10.2); Carbon Dioxide 19 mmol/L (22-30); Chloride 110 mmol/L (98-107); Glucose 113 mg/dL (74-99); Non-African American GFR(CKD) 44 (>60 ml/min/1.73 sqM); Potassium 4.4 mmol/L (3.5-5.1); Sodium 140 mmol/L (137-145); Total Bilirubin 0.6 mg/dL (0.2-1.3); Total Protein 6.7 g/dL (6.3-8.2)
[2023-07-26 06:46] LABS: NT-Pro-B-Type Natriuretic Pept 452 pg/mL
[2023-07-26] MEDS: ASPIRIN 81 MG PO STA (07:16)
--- NOTE | 2023-07-26 07:19 | XR ---
EXAMINATION TYPE: XR chest 2V DATE OF EXAM: 07/26/2023 COMPARISON: 06/14/2023 INDICATION: Difficulty breathing cough congestion TECHNIQUE: Frontal and lateral views of the chest are obtained. FINDINGS: The heart size is normal. The pulmonary vasculature is normal. The lungs are clear. IMPRESSION: 1. No acute pulmonary process.
[2023-07-26 07:41] VITALS: TEMP 98.8
[2023-07-26] MEDS: LOPERAMIDE 2 MG CAP PO STA (10:31)
[2023-07-26] MEDS: methylPREDNISolone SOD SUCCI 125 MG/2 ML VIAL IM ONE (10:31)
[2023-07-26 11:15] VITALS: BP 126/74; PULSE 82; RESP 16
== END 2023-07-26 10:38 | disposition home or self-care (01) ==
LOC: EC 04:58
DX: J20.9 Acute bronchitis, unspecified (principal); Z87.891 Personal history of nicotine dependence; Z88.1 Allergy status to other antibiotic agents; Z91.040 Latex allergy status; Z88.0 Allergy status to penicillin; Z91.041 Radiographic dye allergy status
CPT/HCPCS: 36415; 93005; 83880; 80053; 83605; 84484; 85025; 85610; 85730; 87636; 71046; 99285; 96372; J2919